=== PATIENT | male | born 1960 | race Caucasian/White ===

== ENCOUNTER 2021-11-13 11:13 | Inpatient (IN) | payer OTHER ==
[~2021-11-13] VITALS: Ht 167.6 cm; Wt 63.1 kg
[2021-11-13] MEDS ORDERED: ONDANSETRON HCL 4 MG/2 ML VIAL IV ONE (12:15)
[2021-11-13] MEDS ORDERED: SODIUM CHLORIDE 0.9% 1,000 ML IV ONE ×3 (12:15→18:15)
[2021-11-13] MEDS ORDERED: fentaNYL CITRATE 100 MCG/2 ML VL IV ONE (12:15)
[2021-11-13 13:38] LABS: Basophils # (auto) 0.1 10 ^3/uL (0-0.2); Basophils % (auto) 0.8 % (0.0-2.0); Eosinophils # (auto) 0.1 10 ^3/uL (0-0.8); Eosinophils % (auto) 1.1 % (0.0-7.0); Hematocrit 34.4 % (41.0-53.0); Hemoglobin 11.8 g/dL (13.5-17.5); Lymphocytes # (auto) 0.9 10 ^3/uL (0.4-5.4); Lymphocytes % (auto) 10.4 % (10.0-50.0); Mean Corpuscular Hemoglobin 31.4 pg (28.0-32.0); Mean Corpuscular Hgb Conc. 34.3 g/dL (32.0-36.0); Mean Corpuscular Volume 91.6 fL (80.0-100.0); Monocytes # (auto) 0.4 10 ^3/uL (0-1.3); Monocytes % (auto) 5.3 % (0.0-12.0); Neutrophils # (auto) 6.8 10 ^3/uL (1.6-8.6); Neutrophils % (auto) 82.4 % (37.0-80.0); Red Blood Cells 3.76 10^6/uL (4.5-5.90); Red Cell Distribution Width 14.5 % (11.8-14.3); White Blood Cell 8.3 10^3/uL (4.4-10.8)
[2021-11-13] MEDS ORDERED: HYDROmorphone HCL 2 MG/ML VL IV ONE (13:45)
[2021-11-13 13:48] LABS: Albumin 2.6 g/dL (3.4-5.0); BUN/Creatinine Ratio 4.7; Calcium 7.5 mg/dL (8.5-10.1); Potassium 3.8 mmol/L (3.5-5.1)
[2021-11-13 13:53] LABS: Bilirubin, Total 0.6 mg/dL (0.2-1.0); Total Protein 6.3 g/dL (6.4-8.2)
[2021-11-13] MEDS ORDERED: TAMSULOSIN HYDROCHLORIDE 0.4 MG CAP PO ONE (15:30)
[2021-11-13 16:31] LABS: Urine Bacteria NONE SEEN /hpf (None Seen); Urine Blood 1+ /uL (Negative); Urine Specific Gravity 1.009 (1.001-1.035); Urine WBC 1 /hpf (0 - 3)
[2021-11-13] MEDS: SODIUM CHLORIDE 0.9% 1,000 ML IV SCH (18:28)
[2021-11-13] MEDS ORDERED: PANTOPRAZOLE 40 MG/10 ML VIAL INJ IV ONE (18:30)
[2021-11-13] MEDS ORDERED: NICOTINE 21MG/24 HR TOPICAL PATCH TD ONE (18:30)
[2021-11-13] MEDS ORDERED: hydrALAZINE HCL 20 MG/ML VL IV PRN (18:30)
[2021-11-13 19:51] VITALS: BP 151/88
[2021-11-13] MEDS: MORPHINE SULFATE 4 MG/ML SYR/VIAL IV PRN (20:41)
[2021-11-13] MEDS ORDERED: ADAL40IN SC (20:47)
[2021-11-13] MEDS: HEPARIN SODIUM (PORCINE) 5000 UNITS/ML 1ML VIAL SC SCH (21:04)
[2021-11-13 21:35] VITALS: BP 151/88
[2021-11-14 04:08] VITALS: BP 130/73
[2021-11-14 05:18] LABS: Basophils # (auto) 0.1 10 ^3/uL (0-0.2); Eosinophils # (auto) 0.1 10 ^3/uL (0-0.8); Eosinophils % (auto) 1.7 % (0.0-7.0); Hematocrit 31.3 % (41.0-53.0); Hemoglobin 10.6 g/dL (13.5-17.5); Lymphocytes # (auto) 0.8 10 ^3/uL (0.4-5.4); Lymphocytes % (auto) 14.4 % (10.0-50.0); Mean Corpuscular Hemoglobin 31.1 pg (28.0-32.0); Mean Corpuscular Volume 91.5 fL (80.0-100.0); Monocytes # (auto) 0.3 10 ^3/uL (0-1.3); Monocytes % (auto) 6.4 % (0.0-12.0); Neutrophils # (auto) 4.1 10 ^3/uL (1.6-8.6); Neutrophils % (auto) 76.5 % (37.0-80.0); Nucleated Red Blood Cells % 0.1 %; Red Blood Cells 3.42 10^6/uL (4.5-5.90); Red Cell Distribution Width 14.1 % (11.8-14.3); White Blood Cell 5.4 10^3/uL (4.4-10.8)
[2021-11-14 05:41] LABS: Albumin 2.3 g/dL (3.4-5.0); BUN/Creatinine Ratio 5.6; Calcium 7.1 mg/dL (8.5-10.1); Potassium 3.9 mmol/L (3.5-5.1)
[2021-11-14 05:44] LABS: Bilirubin, Total 0.5 mg/dL (0.2-1.0); Total Protein 5.4 g/dL (6.4-8.2)
[2021-11-14] MEDS: SODIUM CHLORIDE 0.9% 1,000 ML IV SCH ×2 (06:05→15:26)
[2021-11-14 09:01] VITALS: BP 117/68
[2021-11-14] MEDS ORDERED: HYDROcodone-ACET 5/325MG TAB PO PRN (09:30)
[2021-11-14] MEDS ORDERED: ENOXAPARIN SOD 40 MG/0.4 ML SYRINGE SC SCH (10:00)
[2021-11-14] MEDS: PANTOPRAZOLE 40 MG/10 ML VIAL INJ IV SCH (10:27)
[2021-11-14] MEDS: NICOTINE 21MG/24 HR TOPICAL PATCH TD SCH (10:28)
[2021-11-14] MEDS: HEPARIN SODIUM (PORCINE) 5000 UNITS/ML 1ML VIAL SC SCH ×2 (10:29→21:18)
[2021-11-14 13:00] VITALS: BP 125/75
[2021-11-14 17:00] VITALS: BP 118/84
[2021-11-14] MEDS: MORPHINE SULFATE 4 MG/ML SYR/VIAL IV PRN (21:17)
[2021-11-14 22:00] VITALS: BP 145/80
[2021-11-15] MEDS: SODIUM CHLORIDE 0.9% 1,000 ML IV SCH (00:56)
[2021-11-15 05:00] VITALS: BP 120/72
[2021-11-15 05:25] LABS: Basophils # (auto) 0 10 ^3/uL (0-0.2); Basophils % (auto) 0.8 % (0.0-2.0); Eosinophils # (auto) 0.1 10 ^3/uL (0-0.8); Eosinophils % (auto) 2.5 % (0.0-7.0); Hematocrit 29.5 % (41.0-53.0); Hemoglobin 10.4 g/dL (13.5-17.5); Lymphocytes # (auto) 0.9 10 ^3/uL (0.4-5.4); Lymphocytes % (auto) 18.2 % (10.0-50.0); Mean Corpuscular Hgb Conc. 35.3 g/dL (32.0-36.0); Mean Corpuscular Volume 90.7 fL (80.0-100.0); Monocytes # (auto) 0.3 10 ^3/uL (0-1.3); Monocytes % (auto) 7.1 % (0.0-12.0); Neutrophils # (auto) 3.3 10 ^3/uL (1.6-8.6); Neutrophils % (auto) 71.4 % (37.0-80.0); Nucleated Red Blood Cells % 0.1 %; Red Blood Cells 3.25 10^6/uL (4.5-5.90); Red Cell Distribution Width 14.3 % (11.8-14.3); White Blood Cell 4.7 10^3/uL (4.4-10.8)
[2021-11-15 05:47] LABS: Potassium 3.9 mmol/L (3.5-5.1)
[2021-11-15 06:11] LABS: Albumin 2.1 g/dL (3.4-5.0); BUN/Creatinine Ratio 5.8; Calcium 7.4 mg/dL (8.5-10.1)
[2021-11-15 06:13] LABS: Bilirubin, Total 0.3 mg/dL (0.2-1.0); Total Protein 5.2 g/dL (6.4-8.2)
[2021-11-15 08:31] VITALS: BP 145/82
[2021-11-15] MEDS: PANTOPRAZOLE 40 MG/10 ML VIAL INJ IV SCH (08:55)
[2021-11-15] MEDS: NICOTINE 21MG/24 HR TOPICAL PATCH TD SCH (08:55)
[2021-11-15] MEDS: HEPARIN SODIUM (PORCINE) 5000 UNITS/ML 1ML VIAL SC SCH ×2 (08:57→21:56)
[2021-11-15] MEDS ORDERED: SODIUM BICARBONATE 50ML VIAL 50 ML in SOD CHL 0.45% 1,000 ML IV SCH (09:15)
[2021-11-15] MEDS ORDERED: MEROPENEM 500MG IVPB 50 ML IV SCH (10:00)
[2021-11-15 13:00] VITALS: BP 154/92
[2021-11-15 15:07] LABS: Protein, Urine 12.5 mg/dL (0.0-11.9)
[2021-11-15] MEDS: SODIUM BICARBONATE 50ML VIAL 50 ML in SOD CHL 0.45% 1,000 ML IV SCH ×2 (16:19→21:55)
[2021-11-15 17:00] VITALS: BP 137/89
[2021-11-15 21:44] VITALS: BP 130/91
[2021-11-16] VITALS (9 sets, daily range): BP systolic 124–154; BP diastolic 80–92
[2021-11-16] MEDS: SODIUM BICARBONATE 50ML VIAL 50 ML in SOD CHL 0.45% 1,000 ML IV SCH ×3 (05:18→23:37)
[2021-11-16 05:33] LABS: Basophils # (auto) 0 10 ^3/uL (0-0.2); Eosinophils # (auto) 0.1 10 ^3/uL (0-0.8); Eosinophils % (auto) 2.9 % (0.0-7.0); Hemoglobin 10.7 g/dL (13.5-17.5); Lymphocytes # (auto) 0.9 10 ^3/uL (0.4-5.4); Lymphocytes % (auto) 19.3 % (10.0-50.0); Mean Corpuscular Hgb Conc. 35.6 g/dL (32.0-36.0); Mean Corpuscular Volume 89.8 fL (80.0-100.0); Monocytes # (auto) 0.3 10 ^3/uL (0-1.3); Monocytes % (auto) 6.5 % (0.0-12.0); Neutrophils # (auto) 3.4 10 ^3/uL (1.6-8.6); Neutrophils % (auto) 70.3 % (37.0-80.0); Nucleated Red Blood Cells % 0.2 %; Red Blood Cells 3.34 10^6/uL (4.5-5.90); Red Cell Distribution Width 14.6 % (11.8-14.3); White Blood Cell 4.8 10^3/uL (4.4-10.8)
[2021-11-16 05:44] LABS: Potassium 3.7 mmol/L (3.5-5.1)
[2021-11-16 05:46] LABS: INR 1.05 (0.9-1.15); Partial Thromboplastin Time 30.8 sec (23.6-33.0)
[2021-11-16 05:51] LABS: Albumin 2.2 g/dL (3.4-5.0); BUN/Creatinine Ratio 5.7; Bilirubin, Total 0.4 mg/dL (0.2-1.0); Calcium 7.5 mg/dL (8.5-10.1); Total Protein 5.7 g/dL (6.4-8.2)
[2021-11-16] MEDS: PANTOPRAZOLE 40 MG/10 ML VIAL INJ IV SCH (09:13)
[2021-11-16] MEDS: NICOTINE 21MG/24 HR TOPICAL PATCH TD SCH (09:13)
[2021-11-16] MEDS: HEPARIN SODIUM (PORCINE) 5000 UNITS/ML 1ML VIAL SC SCH ×2 (09:13→09:52)
[2021-11-16 11:10] LABS: INR 1.05 (0.9-1.15); Partial Thromboplastin Time 29.5 sec (23.6-33.0)
[2021-11-16] MEDS ORDERED: IODIXANOL 320MG/ML 100ML BTL IV ONE (12:32)
[2021-11-16] MEDS ORDERED: LIDOCAINE 2%HCL (LOCAL ANESTH.) INJ 10ml MDV ONE (12:32)
[2021-11-16] MEDS ORDERED: fentaNYL CITRATE 100 MCG/2 ML VL ONE (12:42)
[2021-11-16] MEDS ORDERED: MIDAZOLAM HCL 2MG/2ML 2ml VIAL (1mg/ml) ONE (12:42)
[2021-11-16] MEDS ORDERED: TEMAZEPAM 15 MG CAP PO ONE (22:30)
[2021-11-17 05:00] VITALS: BP 125/72
[2021-11-17] MEDS: SODIUM BICARBONATE 50ML VIAL 50 ML in SOD CHL 0.45% 1,000 ML IV SCH (06:30)
[2021-11-17 06:33] LABS: Basophils # (auto) 0 10 ^3/uL (0-0.2); Basophils % (auto) 0.7 % (0.0-2.0); Eosinophils # (auto) 0.2 10 ^3/uL (0-0.8); Eosinophils % (auto) 3.2 % (0.0-7.0); Hematocrit 29.6 % (41.0-53.0); Hemoglobin 10.6 g/dL (13.5-17.5); Lymphocytes % (auto) 18.8 % (10.0-50.0); Mean Corpuscular Hemoglobin 31.9 pg (28.0-32.0); Mean Corpuscular Hgb Conc. 35.8 g/dL (32.0-36.0); Mean Corpuscular Volume 89.1 fL (80.0-100.0); Monocytes # (auto) 0.3 10 ^3/uL (0-1.3); Monocytes % (auto) 5.9 % (0.0-12.0); Neutrophils # (auto) 3.6 10 ^3/uL (1.6-8.6); Neutrophils % (auto) 71.4 % (37.0-80.0); Nucleated Red Blood Cells % 0.1 %; Red Blood Cells 3.32 10^6/uL (4.5-5.90); Red Cell Distribution Width 14.4 % (11.8-14.3); White Blood Cell 5.1 10^3/uL (4.4-10.8)
[2021-11-17 06:53] LABS: Albumin 2.3 g/dL (3.4-5.0); BUN/Creatinine Ratio 7.4; Calcium 7.9 mg/dL (8.5-10.1); Potassium 3.8 mmol/L (3.5-5.1)
[2021-11-17 06:55] LABS: Bilirubin, Total 0.4 mg/dL (0.2-1.0); Total Protein 5.7 g/dL (6.4-8.2)
[2021-11-17 09:00] VITALS: BP 153/87
[2021-11-17] MEDS: HEPARIN SODIUM (PORCINE) 5000 UNITS/ML 1ML VIAL SC SCH (09:16)
[2021-11-17] MEDS: NICOTINE 21MG/24 HR TOPICAL PATCH TD SCH (09:16)
[2021-11-17] MEDS: PANTOPRAZOLE 40 MG/10 ML VIAL INJ IV SCH (09:16)
[2021-11-17] MEDS ORDERED: HYDR-4798 PO (10:25)
[2021-11-17 13:00] VITALS: BP 144/88
[2021-11-17] MEDS ORDERED: ERGOCALCIFEROL 50,000 UNIT(1.25MG) CAP PO SCH (13:00)
== END 2021-11-17 15:40 | disposition home health service (06) | DRG 386 ==
LOC: ER 11:13 → CENTRAL 18:11
PROVIDERS: ADMIT Registered Nurse; ATTEND Hospitalist
PROC: 0T9030Z Drainage of Right Kidney with Drainage Device, Percutaneous Approach (ICD-10-PCS; principal; 2021-11-16)
PROC: BT41ZZZ Ultrasonography of Right Kidney (ICD-10-PCS; 2021-11-16)
PROC: BT11YZZ Fluoroscopy of Right Kidney using Other Contrast (ICD-10-PCS; 2021-11-16)
DX: K50.90 Crohn's disease, unspecified, without complications (principal); N13.2 Hydronephrosis with renal and ureteral calculous obstruction; E87.2 Acidosis; J98.11 Atelectasis; K76.6 Portal hypertension; N17.9 Acute kidney failure, unspecified; E86.0 Dehydration; N13.9 Obstructive and reflux uropathy, unspecified; D63.1 Anemia in chronic kidney disease; F17.210 Nicotine dependence, cigarettes, uncomplicated; Z20.822 Contact with and (suspected) exposure to COVID-19; E88.09 Other disorders of plasma-protein metabolism, not elsewhere classified; N18.9 Chronic kidney disease, unspecified; Z85.118 Personal history of other malignant neoplasm of bronchus and lung; Z87.442 Personal history of urinary calculi; Z90.49 Acquired absence of other specified parts of digestive tract; Z71.6 Tobacco abuse counseling
CPT/HCPCS: 36415; 50430; 71045; 74018; 74176; 74425; 76775; 76942; 80053; 81001; 82306; 82570; 83690; 83970; 84100; 84156; 84300; 84484; 85025; 85610; 85730; 87340; 93005; 96361; 96374; 96375; 99152; 99153; 99291; C9113; G0378; J2001; J2185; J2250; J2405; Q9967

== ENCOUNTER 2021-11-27 19:28 | Inpatient (IN) | payer OTHER ==
[~2021-11-27] VITALS: Ht 177.8 cm; Wt 68.2 kg
[~2021-11-27 19:28] MED LIST: ADAL40IN SC; HYDR-4798 PO
[2021-11-27 21:09] LABS: Albumin 2.7 g/dL (3.4-5.0); Potassium 3.9 mmol/L (3.5-5.1)
[2021-11-27 21:11] LABS: Basophils # (auto) 0.1 10 ^3/uL (0-0.2); Basophils % (auto) 0.6 % (0.0-2.0); Eosinophils # (auto) 0 10 ^3/uL (0-0.8); Eosinophils % (auto) 0.3 % (0.0-7.0); Hematocrit 31.5 % (41.0-53.0); Lymphocytes # (auto) 0.5 10 ^3/uL (0.4-5.4); Lymphocytes % (auto) 5.1 % (10.0-50.0); Mean Corpuscular Hemoglobin 31.3 pg (28.0-32.0); Mean Corpuscular Hgb Conc. 34.8 g/dL (32.0-36.0); Monocytes # (auto) 0.6 10 ^3/uL (0-1.3); Monocytes % (auto) 5.9 % (0.0-12.0); Neutrophils # (auto) 9.2 10 ^3/uL (1.6-8.6); Neutrophils % (auto) 88.1 % (37.0-80.0); Nucleated Red Blood Cells % 0.1 %; Red Cell Distribution Width 14.4 % (11.8-14.3); White Blood Cell 10.4 10^3/uL (4.4-10.8)
[2021-11-27 21:13] LABS: BUN/Creatinine Ratio 6.8; Bilirubin, Total 0.7 mg/dL (0.2-1.0); Total Protein 6.5 g/dL (6.4-8.2)
[2021-11-27] MEDS ORDERED: SODIUM CHLORIDE 0.9% 1,000 ML IV ONE (22:45)
[2021-11-27] MEDS ORDERED: cefTRIAXone 1GM/50ML D5W 50 ML IV ONE (22:45)
[2021-11-27] MEDS ORDERED: fentaNYL CITRATE 100 MCG/2 ML VL IV ONE (22:45)
[2021-11-28] MEDS ORDERED: MORPHINE SULFATE INJ 2 MG/ml SYRG IV PRN ×2 (01:00→05:15)
[2021-11-28] MEDS ORDERED: ONDANSETRON HCL 4 MG/2 ML VIAL IV PRN (01:00)
[2021-11-28] MEDS ORDERED: NITROGLYCERIN 0.4 MG SL TAB SL PRN ×2 (01:00→05:15)
[2021-11-28 01:30] LABS: Urine Bacteria NONE SEEN /hpf (None Seen); Urine Blood 1+ /uL (Negative); Urine Mucus FEW (None Seen); Urine Specific Gravity 1.013 (1.001-1.035); Urine WBC 314 /hpf (0 - 3)
[2021-11-28] MEDS: SODIUM CHLORIDE 0.9% 1,000 ML IV SCH ×3 (01:54→08:03)
[2021-11-28] MEDS: MORPHINE SULFATE INJ 2 MG/ml SYRG IV PRN ×3 (01:58→20:40)
[2021-11-28] MEDS ORDERED: KETOROLAC TROMETH 30 MG/ML 1ML VIAL IV ONE ×2 (05:15→07:15)
[2021-11-28 06:00] VITALS: BP 137/74
[2021-11-28 06:34] VITALS: BP 137/74
[2021-11-28] MEDS ORDERED: ACETAMINOPHEN 325 MG TAB PO PRN (07:00)
[2021-11-28 08:47] LABS: Basophils # (auto) 0 10 ^3/uL (0-0.2); Basophils % (auto) 0.5 % (0.0-2.0); Eosinophils # (auto) 0 10 ^3/uL (0-0.8); Eosinophils % (auto) 0.1 % (0.0-7.0); Hematocrit 27.9 % (41.0-53.0); Hemoglobin 9.7 g/dL (13.5-17.5); Lymphocytes # (auto) 0.7 10 ^3/uL (0.4-5.4); Mean Corpuscular Hemoglobin 31.3 pg (28.0-32.0); Mean Corpuscular Hgb Conc. 34.8 g/dL (32.0-36.0); Mean Corpuscular Volume 89.9 fL (80.0-100.0); Monocytes # (auto) 0.7 10 ^3/uL (0-1.3); Neutrophils # (auto) 7.4 10 ^3/uL (1.6-8.6); Neutrophils % (auto) 83.4 % (37.0-80.0); Red Cell Distribution Width 14.2 % (11.8-14.3); White Blood Cell 8.9 10^3/uL (4.4-10.8)
[2021-11-28 09:14] LABS: Calcium 7.5 mg/dL (8.5-10.1); Potassium 3.7 mmol/L (3.5-5.1)
[2021-11-28] MEDS: HEPARIN SODIUM (PORCINE) 5000 UNITS/ML 1ML VIAL SC SCH ×2 (10:10→21:47)
[2021-11-28] MEDS ORDERED: [UNRECOGNIZED DRUG - REMARK] IV SCH (12:15)
[2021-11-28 13:00] VITALS: BP 117/67
[2021-11-28] MEDS ORDERED: VANCOMYCIN 1GM/250ML 250 ML IV ONE (13:15)
[2021-11-28] MEDS: MEROPENEM 1GM IVPB 100 ML IV SCH ×2 (14:45→21:45)
[2021-11-28 17:00] VITALS: BP 127/69
[2021-11-28] MEDS ORDERED: KETOROLAC TROMETH 30 MG/ML 1ML VIAL IV PRN (17:30)
[2021-11-28] MEDS: KETOROLAC TROMETH 30 MG/ML 1ML VIAL IV PRN (17:59)
[2021-11-28] MEDS: TAMSULOSIN HYDROCHLORIDE 0.4 MG CAP PO SCH (17:59)
[2021-11-28 20:00] VITALS: BP 115/66
[2021-11-28] MEDS ORDERED: cefTRIAXone 1GM/50ML D5W 50 ML IV SCH (21:00)
[2021-11-28] MEDS: TEMAZEPAM 15 MG CAP PO PRN (21:55)
[2021-11-28 22:00] VITALS: BP 115/66
[2021-11-29] MEDS: KETOROLAC TROMETH 30 MG/ML 1ML VIAL IV PRN ×3 (01:11→18:21)
[2021-11-29 05:00] VITALS: BP 103/57
[2021-11-29] MEDS: MEROPENEM 1GM IVPB 100 ML IV SCH ×2 (05:57→21:45)
[2021-11-29] MEDS: SODIUM CHLORIDE 0.9% 1,000 ML IV SCH ×3 (05:57→20:32)
[2021-11-29 06:35] LABS: Basophils # (auto) 0 10 ^3/uL (0-0.2); Basophils % (auto) 0.5 % (0.0-2.0); Eosinophils # (auto) 0 10 ^3/uL (0-0.8); Eosinophils % (auto) 0.3 % (0.0-7.0); Hematocrit 27.7 % (41.0-53.0); Hemoglobin 9.7 g/dL (13.5-17.5); Lymphocytes # (auto) 0.7 10 ^3/uL (0.4-5.4); Lymphocytes % (auto) 7.2 % (10.0-50.0); Mean Corpuscular Hemoglobin 31.6 pg (28.0-32.0); Mean Corpuscular Hgb Conc. 34.9 g/dL (32.0-36.0); Mean Corpuscular Volume 90.4 fL (80.0-100.0); Monocytes # (auto) 0.8 10 ^3/uL (0-1.3); Monocytes % (auto) 8.8 % (0.0-12.0); Neutrophils # (auto) 7.6 10 ^3/uL (1.6-8.6); Neutrophils % (auto) 83.2 % (37.0-80.0); Red Blood Cells 3.07 10^6/uL (4.5-5.90); Red Cell Distribution Width 14.4 % (11.8-14.3); White Blood Cell 9.2 10^3/uL (4.4-10.8)
[2021-11-29 06:54] LABS: Potassium 4.2 mmol/L (3.5-5.1)
[2021-11-29 06:59] LABS: BUN/Creatinine Ratio 10.1; Calcium 7.7 mg/dL (8.5-10.1)
[2021-11-29 09:00] VITALS: BP 147/77
[2021-11-29] MEDS: HEPARIN SODIUM (PORCINE) 5000 UNITS/ML 1ML VIAL SC SCH ×2 (10:00→22:00)
[2021-11-29] MEDS ORDERED: SODIUM CHLORIDE 0.9% 2,000 ML IV ONE (10:45)
[2021-11-29 13:00] VITALS: BP 120/66
[2021-11-29] MEDS ORDERED: VANCOMYCIN 1GM/250ML 250 ML IV ONE (13:00)
[2021-11-29 17:00] VITALS: BP 135/78
[2021-11-29] MEDS: TAMSULOSIN HYDROCHLORIDE 0.4 MG CAP PO SCH (18:20)
[2021-11-29 20:00] VITALS: BP 128/73
[2021-11-29] MEDS: TEMAZEPAM 15 MG CAP PO PRN (20:32)
[2021-11-29 22:00] VITALS: BP 128/73
[2021-11-29] MEDS ORDERED: carBAMazepine 200 MG TAB PO SCH (22:00)
[2021-11-30] MEDS: KETOROLAC TROMETH 30 MG/ML 1ML VIAL IV PRN ×2 (02:25→09:57)
[2021-11-30] MEDS: MORPHINE SULFATE INJ 2 MG/ml SYRG IV PRN (03:36)
[2021-11-30 05:00] VITALS: BP 130/75
[2021-11-30 05:27] LABS: Basophils # (auto) 0 10 ^3/uL (0-0.2); Basophils % (auto) 0.5 % (0.0-2.0); Eosinophils # (auto) 0.1 10 ^3/uL (0-0.8); Eosinophils % (auto) 1.2 % (0.0-7.0); Hematocrit 24.3 % (41.0-53.0); Hemoglobin 8.5 g/dL (13.5-17.5); Lymphocytes # (auto) 0.4 10 ^3/uL (0.4-5.4); Lymphocytes % (auto) 7.1 % (10.0-50.0); Mean Corpuscular Hemoglobin 31.3 pg (28.0-32.0); Mean Corpuscular Volume 89.5 fL (80.0-100.0); Monocytes # (auto) 0.5 10 ^3/uL (0-1.3); Monocytes % (auto) 7.7 % (0.0-12.0); Neutrophils % (auto) 83.5 % (37.0-80.0); Nucleated Red Blood Cells % 0.1 %; Red Blood Cells 2.72 10^6/uL (4.5-5.90); Red Cell Distribution Width 14.4 % (11.8-14.3)
[2021-11-30 05:46] LABS: BUN/Creatinine Ratio 9.6; Calcium 7.4 mg/dL (8.5-10.1); Potassium 3.2 mmol/L (3.5-5.1)
[2021-11-30 09:00] VITALS: BP 131/78
[2021-11-30] MEDS: HEPARIN SODIUM (PORCINE) 5000 UNITS/ML 1ML VIAL SC SCH ×2 (09:57→22:00)
[2021-11-30] MEDS: MEROPENEM 1GM IVPB 100 ML IV SCH (09:57)
[2021-11-30] MEDS: carBAMazepine 200 MG TAB PO SCH ×3 (09:57→22:53)
[2021-11-30 10:19] LABS: INR 1.1 (0.9-1.15); Partial Thromboplastin Time 31.6 sec (23.6-33.0)
[2021-11-30 13:00] VITALS: BP 127/77
[2021-11-30] MEDS: VANCOMYCIN 1GM/250ML 250 ML IV SCH (14:08)
[2021-11-30] MEDS: SODIUM CHLORIDE 0.9% 1,000 ML IV SCH (14:19)
[2021-11-30 17:00] VITALS: BP 129/72
[2021-11-30] MEDS: predniSONE 20 MG TAB PO STA ×3 (17:40→18:15)
[2021-11-30] MEDS: TAMSULOSIN HYDROCHLORIDE 0.4 MG CAP PO SCH (18:25)
[2021-11-30 20:00] VITALS: BP 134/74
[2021-11-30 22:00] VITALS: BP 134/74
[2021-12-01] MEDS: SODIUM CHLORIDE 0.9% 1,000 ML IV SCH ×2 (04:52→17:38)
[2021-12-01 05:00] VITALS: BP 132/81
[2021-12-01 05:43] LABS: Basophils # (auto) 0 10 ^3/uL (0-0.2); Basophils % (auto) 0.4 % (0.0-2.0); Eosinophils # (auto) 0 10 ^3/uL (0-0.8); Eosinophils % (auto) 0.1 % (0.0-7.0); Hematocrit 28.6 % (41.0-53.0); Lymphocytes # (auto) 0.3 10 ^3/uL (0.4-5.4); Lymphocytes % (auto) 9.4 % (10.0-50.0); Mean Corpuscular Hemoglobin 31.7 pg (28.0-32.0); Mean Corpuscular Hgb Conc. 35.1 g/dL (32.0-36.0); Mean Corpuscular Volume 90.4 fL (80.0-100.0); Monocytes # (auto) 0.1 10 ^3/uL (0-1.3); Monocytes % (auto) 2.1 % (0.0-12.0); Neutrophils # (auto) 2.6 10 ^3/uL (1.6-8.6); Nucleated Red Blood Cells % 0.1 %; Red Blood Cells 3.17 10^6/uL (4.5-5.90); Red Cell Distribution Width 14.3 % (11.8-14.3)
[2021-12-01 05:55] LABS: Albumin 1.9 g/dL (3.4-5.0); BUN/Creatinine Ratio 7.8; Potassium 4.7 mmol/L (3.5-5.1)
[2021-12-01 06:02] LABS: Bilirubin, Total 0.3 mg/dL (0.2-1.0); Calcium 8.1 mg/dL (8.5-10.1)
[2021-12-01] MEDS: carBAMazepine 200 MG TAB PO SCH ×2 (06:29→22:34)
[2021-12-01 09:00] VITALS: BP 124/79
[2021-12-01] MEDS: HEPARIN SODIUM (PORCINE) 5000 UNITS/ML 1ML VIAL SC SCH ×2 (09:23→22:00)
[2021-12-01] MEDS ORDERED: predniSONE 20 MG TAB PO SCH (10:00)
[2021-12-01 13:00] VITALS: BP 128/80
[2021-12-01] MEDS: VANCOMYCIN 1GM/250ML 250 ML IV SCH (14:30)
[2021-12-01 17:00] VITALS: BP 139/85
[2021-12-01] MEDS: TAMSULOSIN HYDROCHLORIDE 0.4 MG CAP PO SCH (17:37)
[2021-12-01] MEDS ORDERED: carBAMazepine 200 MG TAB PO SCH (20:00)
[2021-12-01] MEDS: NAFCILLIN SOD 2GM 2 GM in SODIUM CHL 0.9% 100 ML IV SCH (20:24)
[2021-12-01 22:00] VITALS: BP 137/79
[2021-12-01] MEDS: KETOROLAC TROMETH 30 MG/ML 1ML VIAL IV PRN (22:35)
[2021-12-02] MEDS: MORPHINE SULFATE INJ 2 MG/ml SYRG IV PRN (00:52)
[2021-12-02] MEDS: NAFCILLIN SOD 2GM 2 GM in SODIUM CHL 0.9% 100 ML IV SCH ×6 (01:48→14:45)
[2021-12-02 05:00] VITALS: BP 109/66
[2021-12-02] MEDS: SODIUM CHLORIDE 0.9% 1,000 ML IV SCH (07:25)
[2021-12-02] MEDS: carBAMazepine 200 MG TAB PO SCH (08:41)
[2021-12-02] MEDS: HEPARIN SODIUM (PORCINE) 5000 UNITS/ML 1ML VIAL SC SCH (08:42)
[2021-12-02 09:00] VITALS: BP 136/79
[2021-12-02] MEDS ORDERED: TAM04C PO (10:35)
[2021-12-02] MEDS ORDERED: CARB200T4 PO (10:35)
[2021-12-02 13:00] VITALS: BP 129/78
[2021-12-02] MEDS ORDERED: LIDOCAINE 1% (LOCAL ANESTH.) PF 5ml SDV ID ONE (15:00)
[2021-12-02] MEDS ORDERED: SODIUM CHLOR 0.9% PF (SALINE LOCK) 10ML VIAL/SYR IV SCH (22:00)
== END 2021-12-02 16:50 | disposition home or self-care (01) | DRG 102 ==
LOC: ER 19:30 → OVERFLOW 11-28 05:13 → UNDOADMOB 11-28 05:13 → TELE-EAST 11-28 05:13 → TELE 11-28 05:13 → UNDOADMOB 11-28 05:17 → OVERFLOW 11-28 05:17 → ER 11-28 06:02 → TELE 11-28 06:21 → TELE-EAST 11-28 06:21 → INTOOBSV 11-28 11:30 → OBSVTOIN 11-28 11:30 → INTOOBSV 11-30 11:30 → TELE-EAST 12-02 10:40 → EAST 12-02 10:40 → UNDODISIN 12-02 16:50
PROVIDERS: ADMIT Hospitalist; ATTEND Hospitalist
PROC: 05H933Z Insertion of Infusion Device into Right Brachial Vein, Percutaneous Approach (ICD-10-PCS; principal; 2021-12-02)
PROC: B54MZZA Ultrasonography of Right Upper Extremity Veins, Guidance (ICD-10-PCS; 2021-12-02)
DX: R51.9 Headache, unspecified (principal); N17.0 Acute kidney failure with tubular necrosis; K50.90 Crohn's disease, unspecified, without complications; N20.2 Calculus of kidney with calculus of ureter; N12 Tubulo-interstitial nephritis, not specified as acute or chronic; N18.31 Chronic kidney disease, stage 3a; G89.29 Other chronic pain; Z20.822 Contact with and (suspected) exposure to COVID-19; A49.01 Methicillin susceptible Staphylococcus aureus infection, unspecified site; Z79.899 Other long term (current) drug therapy; Z87.442 Personal history of urinary calculi; Z79.52 Long term (current) use of systemic steroids
CPT/HCPCS: 36415; 36569; 70450; 71045; 74018; 74176; 80048; 80053; 80202; 81001; 82306; 82565; 83605; 83880; 83970; 84100; 84484; 85025; 85610; 85652; 85730; 86141; 87040; 87077; 87086; 87088; 87186; 93005; 93306; 96365; 96367; 96375; G0378; J0696; J1885; J2185

== ENCOUNTER 2024-07-13 13:45 | Inpatient (IN) | payer OTHER ==
[~2024-07-13] VITALS: Ht 172.7 cm; Wt 67.0 kg
[2024-07-13 04:11] VITALS: PULSE 74; RESP 18; O2SAT 96
[~2024-07-13 13:45] MED LIST changes: +CARB200T4 PO; +TAMS-35 PO
[2024-07-13 14:30] LABS: Basophils # (auto) 0.1 10 ^3/uL (0-0.2); Eosinophils # (auto) 0.1 10 ^3/uL (0-0.8); Hematocrit 25.4 % (41.0-53.0); Hemoglobin 8.2 g/dL (13.5-17.5); Lymphocytes # (auto) 0.6 10 ^3/uL (0.4-5.4); Mean Corpuscular Hemoglobin 31.9 pg (28.0-32.0); Monocytes # (auto) 0.4 10 ^3/uL (0-1.3)
[2024-07-13 14:31] LABS: Basophils % (auto) 0.9 % (0.0-2.0); Eosinophils % (auto) 0.9 % (0.0-7.0); Lymphocytes % (auto) 6.2 % (10.0-50.0); Mean Corpuscular Hgb Conc. 32.2 g/dL (32.0-36.0); Mean Corpuscular Volume 99.1 fL (80.0-100.0); Monocytes % (auto) 4.2 % (0.0-12.0); Neutrophils # (auto) 8.9 10 ^3/uL (1.6-8.6); Neutrophils % (auto) 87.8 % (37.0-80.0); Platelet Count (auto) 300 10^3/uL (140-450); Red Blood Cells 2.57 10^6/uL (4.5-5.90); Red Cell Distribution Width 18.2 % (11.8-14.3); White Blood Cell 10.2 10^3/uL (4.4-10.8)
--- NOTE | 2024-07-13 14:40 | ED.PDOC ---
History of Present Illness HPI Comments 64Y M presents to ED for chief complaint abnormal labs. Pt is experiencing sore throat, unintentional weight loss, hand numbness/tingling, hair falling out, and fatigue x1.5months. Pt was sent to ED by microwave remote sensing scientist Dr. Ng for possible low potassium. No known allergies. Chief Complaint: Abnormal LAB's Time Seen by MD: 14:26 Primary Care Provider: OCTAVIO Zimmerman Notes: Medications, Allergies Allergies: Coded Allergies: NO KNOWN ALLERGIES (Unverified , 11/13/21) Home Meds Active Scripts Tamsulosin Hcl (Flomax) 0.4 Mg Cap, 0.4 MG PO QPM, #30 CAP Prov:NIKHIL MCKINNEY MD 12/02/21 Carbamazepine (Carbamazepine) 200 Mg Tab, 100 MG PO BID, #60 TAB Prov:NIKHIL MCKINNEY MD 12/02/21 Hydrocodone-Acetaminophen (Hydrocodone Bitartrate/AC 10-325 mg) 1 Tab Tab, 1 TAB PO Q6HP PRN, #20 TAB Prov:NIKHIL MCKINNEY MD 11/17/21 Reported Medications Adalimumab (Humira) 40 Mg/0.4 Ml Inj, 40 MG SC, INJ unknown dose 1 injection [id number] 11/13/21 Information Source: Patient Mode of Arrival: Ambulatory Severity: Mild Timing: Months Duration: Since onset Past Medical History PAST MEDICAL HISTORY: Unknown Surgical History: Denies all surgeries Family History Family History: Reviewed,noncontributory to illness Social History Smoker: Non-Smoker Alcohol: Denies ETOH Use Drugs: Denies Drug Use Lives In: Home Constitutional: reports: fatigue; denies: chills, diaphoresis, fever, malaise, sweats, weakness, others EENTM: reports: throat pain; denies: blurred vision, double vision, ear bleeding, ear discharge, ear drainage, ear pain, ear ringing, eye pain, eye redness, hearing loss, mouth pain, mouth swelling, nasal discharge, nose bleeding, nose congestion, nose pain, photophobia, tearing, throat swelling, voice changes, others Respiratory: denies: cough, hemoptysis, orthopnea, SOB at rest, shortness of breath, SOB with excertion, stridor, wheezing, others Cardiovascular: denies: chest pain, dizzy spells, diaphoresis, Dyspnea on exertion, edema, irregular heart beat, left arm pain, lightheadedness, palpitations, PND, syncope, others Gastrointestinal: denies: abdomen distended, abdominal pain, blood streaked bowels, constipated, diarrhea, dysphagia, difficulty swallowing, hematemesis, melena, nausea, poor appetite, poor fluid intake, rectal bleeding, rectal pain, vomiting, others Genitourinary: denies: burning, dysuria, flank pain, frequency, hematuria, incontinence, penile discharge, penile sore, pain, testicle pain, testicle swelling, urgency, others Neurological: reports: numbness (hands), tingling (hands); denies: dizziness, fainting, headache, left sided numbness, left sided weakness, paresthesia, pre- existing deficit, right sided numbness, right sided weakness, seizure, speech problems, tremors, weakness, others Musculoskeletal: denies: back pain, gout, joint pain, joint swelling, muscle pain, muscle stiffness, neck pain, others Integumetry: reports: others (hair fallingo ut); denies: bruises, change in color, change in hair/nails, dryness, laceration, lesions, lumps, rash, wounds Allergic/Immunocompromised: denies: Difficulty Healing, Frequent Infections, Hives, Itching, others Hematologic/Lymphatic: denies: anemia, blood clots, easy bleeding, easy bruising, swollen glands, others Endocrine: reports: unexplained weight loss; denies: excessive hunger, excessive sweating, excessive thirst, excessive urination, flushing, intolerance to cold, intolerance to heat, unexplained weight gain, others Psychiatric: denies: anxiety, bipolar disorder, depression, hopeless, panic disorder, schizophrenia, sleepless, suicidal, others All Other Systems: Reviewed and Negative Physical Exam General Appearance: No Apparent Distress, Normal HEENT: Normal ENT Inspection, Pharynx Normal, TMs Normal Neck: Full Range of Motion, Non-Tender, Normal, Normal Inspection Respiratory: Chest Non-Tender, Lungs Clear, No Accessory Muscle Use, No Respiratory Distress, Normal Breath Sounds Cardiovascular: No Edema, No JVD, No Murmur, No Gallop, Normal Peripheral Pulses, Regular Rate/Rhythm Breast Exam: Deferred Gastrointestinal: No Organomegaly, Non Tender, No Pulsatile Mass, Normal Bowel Sounds, Soft Genitalia: Deferred Pelvic: Deferred Rectal: Deferred Extremities: No calf tenderness, Normal capillary refill, Normal inspection, Normal range of motion, Non-tender, No pedal edema Musculoskeletal : Apperance: Normal Neurologic: Alert, counter tacker II-XII nml as Tested, No Motor Deficits, Normal Affect, Normal Mood, No Sensory Deficits Cerebellar Function: Normal Reflexes: Normal Skin: Dry, Normal Color, Warm Lymphatic: No Adenopathy Was a procedure done? Was a procedure done?: No Differential Dx Considerations may include: This 64-year-old male presents to emergency room secondary to general malaise. He states the last several months, he has lost. The 40 lb of weight. He also complains of having here that is falling out, dry mouth no appetite and feeling cold. He was asked significant for multiple findings including hypo kalemia, hypocalcemia and anemia. Based on these findings, as concerned the patient may be hypothyroid. TSH was ordered. Additionally, his calcium and potassium were replaced. X-Ray, Labs, Meds, VS Vital Signs Date Time Temp Pulse Resp B/P (MAP) Pulse Ox O2 Delivery O2 Flow Rate FiO2 07/13/24 16:00 82 14 101/65 (77) 99 07/13/24 16:00 82 14 99 Room Air* 0 21 07/13/24 14:42 90 18 100 Room Air 07/13/24 14:11 88 07/13/24 14:05 98.3 90 17 93/61 (72) 100 Lab Test 07/13/24 14:30 07/13/24 14:14 Range/Units Urine Color Light-yellow Yellow Urine Clarity Turbid H Clear Urine pH 6.0 5.0-9.0 Urine Specific [place] 1.011 1.001-1.035 Urine Protein 1+ H Negative Urine Ketones Negative Negative Urine Blood 2+ H Negative /uL Urine Nitrite Negative Negative Urine Bilirubin Negative Negative Urine Urobilinogen Normal Negative mg/dL Urine Leukocyte Esterase 3+ Negative /uL Urine RBC 4 0 - 3 /hpf Urine WBC 237 0 - 3 /hpf Urine Squamous Epithelial Cells Few <5 /hpf Urine Bacteria Few H None Seen /hpf Urine Yeast (Budding) Occasional None Seen /hpf Urine Glucose Normal Normal mg/dL White Blood Count 10.2 4.4-10.8 10^3/uL Red Blood Count 2.57 L 4.5-5.90 10^6/uL Hemoglobin 8.2 L 13.5-17.5 g/dL Hematocrit 25.4 L 41.0-53.0 % Mean Corpuscular Volume 99.1 80.0-100.0 fL Mean Corpuscular Hemoglobin 31.9 28.0-32.0 pg Mean Corpuscular Hemoglobin Concent 32.2 32.0-36.0 g/dL Red Cell Distribution Width 18.2 H 11.8-14.3 % Platelet Count 300 140-450 10^3/uL Mean Platelet Volume 7.4 6.9-10.8 fL Neutrophils (%) (Auto) 87.8 H 37.0-80.0 % Lymphocytes (%) (Auto) 6.2 L 10.0-50.0 % Monocytes (%) (Auto) 4.2 0.0-12.0 % Eosinophils (%) (Auto) 0.9 0.0-7.0 % Basophils (%) (Auto) 0.9 0.0-2.0 % Neutrophils # (Auto) 8.9 H 1.6-8.6 10 ^3/uL Lymphocytes # (Auto) 0.6 0.4-5.4 10 ^3/uL Monocytes # (Auto) 0.4 0-1.3 10 ^3/uL Eosinophils # (Auto) 0.1 0-0.8 10 ^3/uL Basophils # (Auto) 0.1 0-0.2 10 ^3/uL Nucleated Red Blood Cells 0.0 % Sodium Level 136 136-145 mmol/L Potassium Level 2.3 *L 3.5-5.1 mmol/L Chloride Level 109 H 98-107 mmol/L Carbon Dioxide Level 12 L 20-31 mmol/L Anion Gap 15 5-15 Blood Urea Nitrogen 50 H 9-23 mg/dL Creatinine 5.46 H 0.700-1.30 mg/dL Glomerular Filtration Rate Calc 11 >90 mL/min BUN/Creatinine Ratio 9.2 L 10.0-20.0 Serum Glucose 103 74-106 mg/dL Calcium Level 5.5 *L 8.7-10.4 mg/dL Total Bilirubin 0.2 0.2-1.0 mg/dL Aspartate Amino Transferase (AST) 20 13-40 U/L Alanine Aminotransferase (ALT) 15 7-40 U/L Alkaline Phosphatase 92 46-116 U/L Troponin I High Sensitivity 13 </=54 ng/L Total Protein 5.8 5.7-8.2 g/dL Albumin 3.3 3.2-4.8 g/dL Thyroid Stimulating Hormone (TSH) 2.95 0.55-4.78 uIU/mL Current Medications Medications (Trade) Dose Ordered Sig/Rick Route Start Time Stop Time Status Last Admin Potassium Chloride 40 meq/ Sodium Chloride 1,020 ml @ 60 mls/hr Q17H IV 07/13/24 15:15 07/13/24 16:20 Potassium Bicarbonate (Klor-Con/Ef) 50 meq ONCE ONCE PO 07/13/24 15:15 07/13/24 15:17 DC 07/13/24 16:07 Time of 1ST Reevaluation: 14:56 Reevaluation 1ST: Unchanged Time of 2ND Reevaluation: 16:40 Reevaluation 3RD: Unchanged Patient Education/Counseling: Diagnosis, Treatment Family Education/Counseling: No Family Present Departure 1 Departure Time of Disposition: 16:40 Impression: Primary Impression: Weakness Additional Impressions: Hypokalemia Acidosis Anemia Neutrophilia Disposition: ADMITTED INPATIENT Admit to: Tele Condition: Fair Critical Care Note Critical Care Time?: Yes (30 min-critical care time only) Stability Stability form required: No Heart Score Heart Score: Heart Score Response (Comments) Value History N/A 0 EKG N/A 0 Age N/A 0 Risk Factors N/A 0 Troponin N/A 0 Total 0 I personally scribed for SYLVIA ARGUETA MD ([email or web address]) on 07/13/24 at 14:40. Electronically submitted by Lida Mendoza ([email or web address]). SYLVIA ARGUETA MD Jul 13, 2024 14:40
[2024-07-13 14:49] LABS: Alanine Aminotransferase 15 U/L (7-40); Albumin 3.3 g/dL (3.2-4.8); Alkaline Phosphatase 92 U/L (46-116); Anion Gap 15 (5-15); Aspartate Aminotransferase 20 U/L (13-40); BUN/Creatinine Ratio 9.2 (10.0-20.0); Bilirubin, Total 0.2 mg/dL (0.2-1.0); Glucose 103 mg/dL (74-106); Sodium 136 mmol/L (136-145); Total Protein 5.8 g/dL (5.7-8.2)
[2024-07-13 14:55] LABS: Blood Urea Nitrogen 50 mg/dL (9-23); Carbon Dioxide 12 mmol/L (20-31); Chloride 109 mmol/L (98-107)
[2024-07-13 14:56] LABS: Calcium 5.5 mg/dL (8.7-10.4); Potassium 2.3 mmol/L (3.5-5.1)
[2024-07-13 15:56] LABS: Urine Bacteria FEW /hpf (None Seen); Urine Blood 2+ /uL (Negative); Urine Budding Yeast OCCASIONAL /hpf (None Seen); Urine Clarity Turbid (Clear); Urine Color Light-Yellow (Yellow); Urine Protein, UAD 1+ (Negative); Urine Specific Gravity 1.011 (1.001-1.035); Urine Squamous Epithelial Cell FEW /hpf (<5); Urine Urobilinogen Normal (Negative); Urine WBC 237 /hpf (0 - 3)
[2024-07-13 16:00] VITALS: PULSE 82; RESP 14; O2SAT 99
[2024-07-13] MEDS: POTASSIUM EFFERVESENT TAB 25 MEQ PO ONE (16:07)
[2024-07-13] MEDS: POTASSIUM CHLORIDE 40 MEQ in SOD CHL 0.45% 1,000 ML IV SCH (16:20)
[2024-07-13] MEDS: POTASSIUM CHL 20MEQ/100ML 100 ML IV SCH (19:00)
[2024-07-13 19:35] VITALS: PULSE 73; RESP 16; O2SAT 100
[2024-07-13] MEDS ORDERED: ONDANSETRON HCL 4 MG/2 ML VIAL IV PRN (19:45)
[2024-07-13] MEDS ORDERED: ACETAMINOPHEN 325 MG TAB PO PRN (19:45)
[2024-07-13] MEDS ORDERED: cefTRIAXone 1GM/50ML D5W 50 ML IV ONE (20:00)
[2024-07-13 20:41] LABS: Basophils # (auto) 0 10 ^3/uL (0-0.2); Basophils % (auto) 0.4 % (0.0-2.0); Eosinophils # (auto) 0.1 10 ^3/uL (0-0.8); Eosinophils % (auto) 1.1 % (0.0-7.0); Hematocrit 24.9 % (41.0-53.0); Hemoglobin 8.1 g/dL (13.5-17.5); Lymphocytes # (auto) 0.6 10 ^3/uL (0.4-5.4); Lymphocytes % (auto) 7.8 % (10.0-50.0); Mean Corpuscular Hemoglobin 31.9 pg (28.0-32.0); Mean Corpuscular Hgb Conc. 32.6 g/dL (32.0-36.0); Mean Corpuscular Volume 97.7 fL (80.0-100.0); Monocytes # (auto) 0.3 10 ^3/uL (0-1.3); Monocytes % (auto) 3.3 % (0.0-12.0); Neutrophils # (auto) 6.9 10 ^3/uL (1.6-8.6); Neutrophils % (auto) 87.4 % (37.0-80.0); Platelet Count (auto) 299 10^3/uL (140-450); Red Blood Cells 2.55 10^6/uL (4.5-5.90); Red Cell Distribution Width 17.4 % (11.8-14.3); White Blood Cell 7.9 10^3/uL (4.4-10.8)
[2024-07-13] MEDS: cefTRIAXone 1GM/50ML D5W 50 ML IV ONE (20:50)
[2024-07-13 20:55] LABS: INR 1.08 (0.9-1.15); Prothrombin Time 11.4 sec (9.3-11.8)
[2024-07-13 21:00] LABS: % Iron Saturation 29.9 % (20-55)
[2024-07-13 21:03] LABS: Ferritin 333.8 ng/mL (22-322)
[2024-07-13] MEDS: CALCIUM GLUC 1,000mg/50ml-NS 50 ML IV ONE (21:04)
--- NOTE | 2024-07-13 21:09 | DVH ---
EXAM: XY CHEST PORTABLE CLINICAL HISTORY: admission TECHNIQUE: Single AP view of the chest WID: COMPARISON: CHEST PORTABLE on DOS: 11/27/21 FINDINGS: Lines and tubes: None Chest: The heart size and pulmonary vasculature is within normal limits. No pleural effusion, pneumothorax, or consolidation. Linear left basilar scarring or atelectasis The osseous structures are grossly intact. IMPRESSION: No acute cardiopulmonary abnormality.
[2024-07-13 21:44] LABS: Anion Gap 16 (5-15); Sodium 139 mmol/L (136-145)
[2024-07-13 21:49] LABS: Glucose 78 mg/dL (74-106)
[2024-07-13 21:50] LABS: BUN/Creatinine Ratio 9.7 (10.0-20.0)
[2024-07-13 21:56] LABS: Blood Urea Nitrogen 52 mg/dL (9-23); Carbon Dioxide 11 mmol/L (20-31); Chloride 112 mmol/L (98-107); Potassium 2.6 mmol/L (3.5-5.1)
[2024-07-13 21:58] LABS: Calcium 5.4 mg/dL (8.7-10.4); Magnesium 0.9 mg/dL (1.6-2.6)
[2024-07-13] MEDS: MAGNESIUM SULFATE 1GM/100ML 100 ML IV SCH (22:38)
[2024-07-14] VITALS (8 sets, daily range): BP systolic 88–102; BP diastolic 52–63; PULSE 67–72; RESP 18; TEMP 97.5–97.8; O2SAT 99–100
--- NOTE | 2024-07-14 00:49 | DVHHP2 ---
Admitting Diagnosis: Hypokalemia, Hypocalcemia, acute kidney injury History of Present Illness History Source: Patient Exam Limitations: No limitations HPI Teodora Ayala is a 64 yo male with a history of Crohn's disease, Nephrolithiasis, SBO who presents with a chief complaint of abnormal labs. Patient is experiencing sore throat, unintentional weight loss of 40 pounds in past 2 months, hand numbness/tingling, hair falling out, and fatigue x1.5months. Pt was sent by truck chauffeur Dr. Ng for possible low potassium. Patient reports poor appetite with diarrhea, intermittent abdominal discomfort. Patient denies fevers, chills, nausea, vomiting, chest pain, palpitations. Home Meds Active Scripts Tamsulosin Hcl (Flomax) 0.4 Mg Cap, 0.4 MG PO QPM, #30 CAP Prov:NIKHIL MCKINNEY MD 12/02/21 Carbamazepine (Carbamazepine) 200 Mg Tab, 100 MG PO BID, #60 TAB Prov:NIKHIL MCKINNEY MD 12/02/21 Hydrocodone-Acetaminophen (Hydrocodone Bitartrate/AC 10-325 mg) 1 Tab Tab, 1 TAB PO Q6HP PRN, #20 TAB Prov:NIKHIL MCKINNEY MD 11/17/21 Reported Medications Adalimumab (Humira) 40 Mg/0.4 Ml Inj, 40 MG SC, INJ unknown dose 1 injection [id number] 11/13/21 Past Medical History Cardiac: No pertinent Hx Pulmonary: No pertinent Hx Central Nervous System: No pertinent Hx GI: Other (crohn's disease, small bowel obstruction) Hemotology/Oncology: No pertinent Hx Hepatobiliary: No pertinent Hx Psychiatric: No pertinent Hx Musculoskeletal: No pertinent Hx Rheumotologic: No pertinent Hx Infectious Disease: No peritnent Hx ENT: No pertinent Hx Renal/: No pertinent Hx Endocrine: No pertinent Hx Dermatology: No pertinent Hx Patient Family History: Patient reports no known family medical history. Smoker: No Hx (Negative) Alocohol: None Drugs: None Domestic Violence: Neg Review of Systems Constitutional: Weakness Ears, Nose, & Throat: No symptom reported Eyes: No symptom reported Pulmonary/Respiratory: No symptom reported Cardiovascular: No symptom reported Gastrointestinal: Diarrhea Genitourinary: No symptom reported Musculoskeletal: No symptom reported Skin: No symptom reported Psychiatric: No symptom reported Endocrine: No symptom reported Hemotologic/Lymphatic: No symptom reported H&P Exam Vital Signs Vital Signs Date Time Temp Pulse Resp B/P (MAP) Pulse Ox O2 Delivery O2 Flow Rate FiO2 07/14/24 00:00 71 14 90/53 (65) 99 07/13/24 19:35 97.9 97.9 07/13/24 19:35 Room Air* 0 21 General Appeara: Cachetic, Thin Head Exam: Normal inspection Neck Exam: Normal inspection, Non-tender, Normal alignment Eye Exam: bilateral eye Normal inspection, bilateral eye PERRL, bilateral eye EOMI Ear Exam: bilateral ear Auricle normal Nasal Exam: Normal inspection Mouth: Normal Inspection Pulmonary/Respiratory: Normal inspection, Normal breath sounds, Chest non- tender, Lungs clear Cardiovascular/Chest: Normal inspection, Regular rate, Normal Rhythm Peripheral Pulses: 2+ dorsalis pedis (R), 2+ dorsalis pedis (L), 2+ Radial (R), 2+ Radial (L) Abdominal Exam: Normal bowel sounds, Soft, No tenderness Rectal Exam: Deferred Back Exam: Normal inspection Male Genital Exam: 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 Exam: Normal hearing, Normal speech, PERRL Motor/Sensory: Normal sensory function, Normal motor function Neuro/Mental St: Alert, Oriented Appearance: Appropriate appearance, Appropriate insight Thoughts/Psych: Normal thought pattern Skin Exam: Normal inspection, Warm/dry, Pallor Labs/Xrays Labs Test 07/13/24 20:18 07/13/24 14:30 07/13/24 14:14 Range/Units White Blood Count 7.9 4.4-10.8 10^3/uL Red Blood Count 2.55 L 4.5-5.90 10^6/uL Hemoglobin 8.1 L 13.5-17.5 g/dL Hematocrit 24.9 L 41.0-53.0 % Mean Corpuscular Volume 97.7 80.0-100.0 fL Mean Corpuscular Hemoglobin 31.9 28.0-32.0 pg Mean Corpuscular Hemoglobin Concent 32.6 32.0-36.0 g/dL Red Cell Distribution Width 17.4 H 11.8-14.3 % Platelet Count 299 140-450 10^3/uL Mean Platelet Volume 7.4 6.9-10.8 fL Neutrophils (%) (Auto) 87.4 H 37.0-80.0 % Lymphocytes (%) (Auto) 7.8 L 10.0-50.0 % Monocytes (%) (Auto) 3.3 0.0-12.0 % Eosinophils (%) (Auto) 1.1 0.0-7.0 % Basophils (%) (Auto) 0.4 0.0-2.0 % Neutrophils # (Auto) 6.9 1.6-8.6 10 ^3/uL Lymphocytes # (Auto) 0.6 0.4-5.4 10 ^3/uL Monocytes # (Auto) 0.3 0-1.3 10 ^3/uL Eosinophils # (Auto) 0.1 0-0.8 10 ^3/uL Basophils # (Auto) 0 0-0.2 10 ^3/uL Nucleated Red Blood Cells 0.0 % Prothrombin Time 11.4 9.3-11.8 sec Prothrombin Time INR 1.08 0.9-1.15 Sodium Level 139 136-145 mmol/L Potassium Level 2.6 L 3.5-5.1 mmol/L Chloride Level 112 H 98-107 mmol/L Carbon Dioxide Level 11 L 20-31 mmol/L Anion Gap 16 H 5-15 Blood Urea Nitrogen 52 H 9-23 mg/dL Creatinine 5.34 H 0.700-1.30 mg/dL Glomerular Filtration Rate Calc 11 >90 mL/min BUN/Creatinine Ratio 9.7 L 10.0-20.0 Serum Glucose 78 74-106 mg/dL Calcium Level 5.4 *L 8.7-10.4 mg/dL Magnesium Level 0.9 *L 1.6-2.6 mg/dL Iron Level 61 L 65-175 ug/dL Total Iron Binding Capacity 204 L 250-425 ug/dL Percent Iron Saturation 29.9 20-55 % Ferritin 333.8 H 22-322 ng/mL Vitamin B12 Level 573 211-911 pg/mL Urine Color Light-yellow Yellow Urine Clarity Turbid H Clear Urine pH 6.0 5.0-9.0 Urine Specific [place] 1.011 1.001-1.035 Urine Protein 1+ H Negative Urine Ketones Negative Negative Urine Blood 2+ H Negative /uL Urine Nitrite Negative Negative Urine Bilirubin Negative Negative Urine Urobilinogen Normal Negative mg/dL Urine Leukocyte Esterase 3+ Negative /uL Urine RBC 4 0 - 3 /hpf Urine WBC 237 0 - 3 /hpf Urine Squamous Epithelial Cells Few <5 /hpf Urine Bacteria Few H None Seen /hpf Urine Yeast (Budding) Occasional None Seen /hpf Urine Glucose Normal Normal mg/dL Total Bilirubin 0.2 0.2-1.0 mg/dL Aspartate Amino Transferase (AST) 20 13-40 U/L Alanine Aminotransferase (ALT) 15 7-40 U/L Alkaline Phosphatase 92 46-116 U/L Troponin I High Sensitivity 13 </=54 ng/L Total Protein 5.8 5.7-8.2 g/dL Albumin 3.3 3.2-4.8 g/dL Thyroid Stimulating Hormone (TSH) 2.95 0.55-4.78 uIU/mL Assessment/Plan Problem List: (1) Hypocalcemia (2) Hypokalemia (3) Anemia (4) Weakness Plan 64 yo male with known history of Crohn's disease, small bowel obstruction, Nephrolithiasis presents with abnormal labs, generalized weakness. Patient found to have 1. Acute Hypokalemia 2. Acute Hypocalcemia 3. Acute Kidney Injury 4. Acute Anemia 5. Urinary tract infection 6. Unintentional weigh loss 7. Diarrhea Admit to telemetry unit Nephrology consultation GI consult Monitor BMP, Mg levels replenish electrolytes as needed Iron panel, Ferritin level, vitamin B12, Vitamin D levels Stool occult blood Urine culture , blood cultures x2 Nutritional consult IV fluids with KCL Discussed all above with patient who verbalizes agreement and understanding of care plan. All questions were answered Discussed assessment and care albarran with supervising MD . Plan discussed with: Patient, Other Code Visit Code Visit Total Time (mins): 45 Additional Comments Additional Comments Additional Comments 64-year-old male with a known history of Crohn disease, CKD stage IIIB initially was sent by Nephrology with the abnormal labs found to have 1. Acute kidney injury with underlying CKD stage IIIB 2. Severe hypokalemia 3. Hypocalcemia 4. Crohn disease 5. Generalized weakness and fatigue -replace electrolytes nephrology consultation -plan of care discussed with the patient all the questions were answered in the presence of nurse Melody. YOGI GREGORY Jul 14, 2024 00:49 JEIMY NARVAEZ MD Jul 14, 2024 19:03
[2024-07-14] MEDS: POTASSIUM CHLORIDE 40 MEQ in SOD CHL 0.45% 1,000 ML IV SCH ×2 (06:00→14:30)
[2024-07-14 08:28] LABS: Basophils # (auto) 0.1 10 ^3/uL (0-0.2); Basophils % (auto) 0.7 % (0.0-2.0); Eosinophils # (auto) 0.1 10 ^3/uL (0-0.8); Eosinophils % (auto) 1.3 % (0.0-7.0); Hematocrit 26.3 % (41.0-53.0); Hemoglobin 8.8 g/dL (13.5-17.5); Lymphocytes # (auto) 0.7 10 ^3/uL (0.4-5.4); Lymphocytes % (auto) 9.2 % (10.0-50.0); Mean Corpuscular Hemoglobin 32.6 pg (28.0-32.0); Mean Corpuscular Hgb Conc. 33.5 g/dL (32.0-36.0); Mean Corpuscular Volume 97.4 fL (80.0-100.0); Monocytes # (auto) 0.4 10 ^3/uL (0-1.3); Monocytes % (auto) 4.5 % (0.0-12.0); Neutrophils # (auto) 6.6 10 ^3/uL (1.6-8.6); Neutrophils % (auto) 84.3 % (37.0-80.0); Nucleated Red Blood Cells % 0.1 %; Platelet Count (auto) 332 10^3/uL (140-450); Red Cell Distribution Width 17.7 % (11.8-14.3); White Blood Cell 7.8 10^3/uL (4.4-10.8)
[2024-07-14 08:45] LABS: Anion Gap 16 (5-15); Sodium 140 mmol/L (136-145)
[2024-07-14 08:50] LABS: Glucose 82 mg/dL (74-106)
[2024-07-14 08:51] LABS: BUN/Creatinine Ratio 8.5 (10.0-20.0); Magnesium 1.9 mg/dL (1.6-2.6)
[2024-07-14 09:05] LABS: Blood Urea Nitrogen 43 mg/dL (9-23); Carbon Dioxide 11 mmol/L (20-31); Chloride 113 mmol/L (98-107); Potassium 2.6 mmol/L (3.5-5.1)
[2024-07-14 09:07] LABS: Calcium 5.9 mg/dL (8.7-10.4)
[2024-07-14] MEDS: cefTRIAXone 1GM/50ML D5W 50 ML IV SCH (10:44)
[2024-07-14] MEDS: PANTOPRAZOLE 40 MG/10 ML VIAL INJ IV SCH (10:50)
[2024-07-14 13:28] LABS: Sodium 138 mmol/L (136-145)
[2024-07-14 13:29] LABS: Anion Gap 14.00001 (5-15)
[2024-07-14 13:34] LABS: BUN/Creatinine Ratio 8.3 (10.0-20.0); Glucose 104 mg/dL (74-106)
[2024-07-14 13:57] LABS: Blood Urea Nitrogen 40 mg/dL (9-23); Chloride 114 mmol/L (98-107); Potassium 2.4 mmol/L (3.5-5.1)
[2024-07-14 13:58] LABS: Calcium 5.4 mg/dL (8.7-10.4); Carbon Dioxide < 10 mmol/L (20-31)
[2024-07-14] MEDS ORDERED: POTASSIUM CHLORIDE 40 MEQ, LIDOCAINE 1% (LOCAL ANESTH.) 4 ML in SODIUM CHL 0.9% 250 ML IV ONE (14:15)
[2024-07-14] MEDS: SOD CHL 0.45% 1,000 ML IV ONE (14:15)
--- NOTE | 2024-07-14 14:29 | DVHINCON2 ---
Date of service: Jul 14, 2024 Referring Physician Katie Rawls NP Reason for Consultation MAYRA History of Present Illness Mr. Araiza is a 64-year-old male with known history of chronic kidney disease who was asked to come to the hospital by this public relations writer due to outpatient labs that were remarkable for severe hypokalemia. His clinical course has been notable for confirmation of hypokalemia and also hypocalcemia and significant worsening of his kidney function. He has been treated with supplemental potassium, calcium and IV fluids. He is seen in his room this morning awake and alert. He states that he feels slightly better. And it is tolerating a diet. He admits to chronic loose stool. He reports slight decrease in oral intake due to a sore throat recently. Past Medical History Crohn's disease Chronic kidney disease Chronic diarrhea Past Surgical History numerous intra-abdominal surgeries related to Crohn's disease per report Allergies: Coded Allergies: NO KNOWN ALLERGIES (Unverified , 11/13/21) Home Meds Active Scripts Tamsulosin Hcl (Flomax) 0.4 Mg Cap, 0.4 MG PO QPM, #30 CAP Prov:NIKHIL MCKINNEY MD 12/02/21 Carbamazepine (Carbamazepine) 200 Mg Tab, 100 MG PO BID, #60 TAB Prov:NIKHIL MCKINNEY MD 12/02/21 Hydrocodone-Acetaminophen (Hydrocodone Bitartrate/AC 10-325 mg) 1 Tab Tab, 1 TAB PO Q6HP PRN, #20 TAB Prov:NIKHIL MCKINNEY MD 11/17/21 Reported Medications Adalimumab (Humira) 40 Mg/0.4 Ml Inj, 40 MG SC, INJ unknown dose 1 injection [id number] 11/13/21 Current Medications Current Medications Medications (Trade) Dose Ordered Sig/Rick Route PRN Reason Start Time Stop Time Status Last Admin Potassium Chloride 40 meq/ Sodium Chloride 1,020 ml @ 60 mls/hr Q17H IV 07/13/24 15:15 07/14/24 05:51 DC 07/13/24 16:20 Potassium Chloride 100 ml @ 50 mls/hr Q2H IV 07/13/24 18:30 07/13/24 22:29 DC 07/13/24 20:49 Ondansetron HCl (Zofran) 4 mg Q6HPRN PRN IV NAUSEA / VOMITING 07/13/24 19:45 Acetaminophen (Tylenol Tablet) 650 mg Q6HPRN PRN PO TEMP GREATER THAN 100.4 07/13/24 19:45 Acetaminophen/ Hydrocodone Bitart ([place] 5/325MG Tab) 1 tab Q6HPRN PRN PO PAIN SCALE 1 THRU 6 07/13/24 19:45 Pantoprazole Sodium (Protonix) 40 mg DAILY IV 07/14/24 10:00 07/14/24 10:50 Melatonin (Melatonin) 5 mg ONCE@2200 PRN PO FOR INSOMNIA 07/13/24 19:45 Ceftriaxone Sodium 50 ml @ 100 mls/hr DAILY IV 07/14/24 10:00 07/14/24 10:44 Magnesium Sulfate/ Dextrose 100 ml @ 100 mls/hr Q1HR IV 07/13/24 23:00 07/14/24 01:59 DC 07/14/24 00:47 Potassium Chloride 40 meq/ Sodium Chloride 1,020 ml @ 60 mls/hr Q17H IV 07/14/24 06:00 07/14/24 06:00 Potassium Bicarbonate (Klor-Con/Ef) 50 meq BID PO 07/14/24 22:00 UNV Family History: Patient reports no known family medical history. Review of Systems + weakness, + fatigue H&P Exam Vital Signs/I&O Vital Sign Date Time Temp Pulse Resp B/P (MAP) Pulse Ox O2 Delivery O2 Flow Rate FiO2 07/14/24 12:58 97.5 67 18 91/56 (68) 100 97.5 07/13/24 19:35 Room Air* 0 21 Intake and Output 07/13/24 07/14/24 19:00 07:00 Intake Total 120 ml 550 ml Balance 120 ml 550 ml Intake Oral 250 ml IV Total 120 ml 300 ml # Voids 2 # Bowel Movements 2 Physical Exam gen: thin, nad heent: mmm lungs: cta cvs: no rub abd: soft ext: no edema skin: no rash neuro: awake and alert Labs/Diagnostic Data Labs/Diagnostic Data Laboratory Tests Test 07/14/24 13:03 07/14/24 07:53 07/13/24 20:18 07/13/24 14:30 Range/Units Sodium Level 138 140 139 136-145 mmol/L Potassium Level 2.4 *L 2.6 L 2.6 L 3.5-5.1 mmol/L Chloride Level 114 H 113 H 112 H 98-107 mmol/L Carbon Dioxide Level < 10 *L 11 L 11 L 20-31 mmol/L Anion Gap 14.32188 16 H 16 H 5-15 Blood Urea Nitrogen 40 H 43 H 52 H 9-23 mg/dL Creatinine 4.83 H 5.05 H 5.34 H 0.700-1.30 mg/dL Glomerular Filtration Rate Calc 13 12 11 >90 mL/min BUN/Creatinine Ratio 8.3 L 8.5 L 9.7 L 10.0-20.0 Serum Glucose 104 82 78 74-106 mg/dL Calcium Level 5.4 *L 5.9 *L 5.4 *L 8.7-10.4 mg/dL White Blood Count 7.8 7.9 4.4-10.8 10^3/uL Red Blood Count 2.70 L 2.55 L 4.5-5.90 10^6/uL Hemoglobin 8.8 L 8.1 L 13.5-17.5 g/dL Hematocrit 26.3 L 24.9 L 41.0-53.0 % Mean Corpuscular Volume 97.4 97.7 80.0-100.0 fL Mean Corpuscular Hemoglobin 32.6 H 31.9 28.0-32.0 pg Mean Corpuscular Hemoglobin Concent 33.5 32.6 32.0-36.0 g/dL Red Cell Distribution Width 17.7 H 17.4 H 11.8-14.3 % Platelet Count 332 299 140-450 10^3/uL Mean Platelet Volume 7.7 7.4 6.9-10.8 fL Neutrophils (%) (Auto) 84.3 H 87.4 H 37.0-80.0 % Lymphocytes (%) (Auto) 9.2 L 7.8 L 10.0-50.0 % Monocytes (%) (Auto) 4.5 3.3 0.0-12.0 % Eosinophils (%) (Auto) 1.3 1.1 0.0-7.0 % Basophils (%) (Auto) 0.7 0.4 0.0-2.0 % Neutrophils # (Auto) 6.6 6.9 1.6-8.6 10 ^3/uL Lymphocytes # (Auto) 0.7 0.6 0.4-5.4 10 ^3/uL Monocytes # (Auto) 0.4 0.3 0-1.3 10 ^3/uL Eosinophils # (Auto) 0.1 0.1 0-0.8 10 ^3/uL Basophils # (Auto) 0.1 0 0-0.2 10 ^3/uL Nucleated Red Blood Cells 0.1 0.0 % Magnesium Level 1.9 # 0.9 *L 1.6-2.6 mg/dL Prothrombin Time 11.4 9.3-11.8 sec Prothrombin Time INR 1.08 0.9-1.15 Iron Level 61 L 65-175 ug/dL Total Iron Binding Capacity 204 L 250-425 ug/dL Percent Iron Saturation 29.9 20-55 % Ferritin 333.8 H 22-322 ng/mL Vitamin B12 Level 573 211-911 pg/mL Urine Color Light-yellow Yellow Urine Clarity Turbid H Clear Urine pH 6.0 5.0-9.0 Urine Specific [place] 1.011 1.001-1.035 Urine Protein 1+ H Negative Urine Ketones Negative Negative Urine Blood 2+ H Negative /uL Urine Nitrite Negative Negative Urine Bilirubin Negative Negative Urine Urobilinogen Normal Negative mg/dL Urine Leukocyte Esterase 3+ Negative /uL Urine RBC 4 0 - 3 /hpf Urine WBC 237 0 - 3 /hpf Urine Squamous Epithelial Cells Few <5 /hpf Urine Bacteria Few H None Seen /hpf Urine Yeast (Budding) Occasional None Seen /hpf Urine Glucose Normal Normal mg/dL Test 07/13/24 14:14 Range/Units White Blood Count 10.2 4.4-10.8 10^3/uL Red Blood Count 2.57 L 4.5-5.90 10^6/uL Hemoglobin 8.2 L 13.5-17.5 g/dL Hematocrit 25.4 L 41.0-53.0 % Mean Corpuscular Volume 99.1 80.0-100.0 fL Mean Corpuscular Hemoglobin 31.9 28.0-32.0 pg Mean Corpuscular Hemoglobin Concent 32.2 32.0-36.0 g/dL Red Cell Distribution Width 18.2 H 11.8-14.3 % Platelet Count 300 140-450 10^3/uL Mean Platelet Volume 7.4 6.9-10.8 fL Neutrophils (%) (Auto) 87.8 H 37.0-80.0 % Lymphocytes (%) (Auto) 6.2 L 10.0-50.0 % Monocytes (%) (Auto) 4.2 0.0-12.0 % Eosinophils (%) (Auto) 0.9 0.0-7.0 % Basophils (%) (Auto) 0.9 0.0-2.0 % Neutrophils # (Auto) 8.9 H 1.6-8.6 10 ^3/uL Lymphocytes # (Auto) 0.6 0.4-5.4 10 ^3/uL Monocytes # (Auto) 0.4 0-1.3 10 ^3/uL Eosinophils # (Auto) 0.1 0-0.8 10 ^3/uL Basophils # (Auto) 0.1 0-0.2 10 ^3/uL Nucleated Red Blood Cells 0.0 % Sodium Level 136 136-145 mmol/L Potassium Level 2.3 *L 3.5-5.1 mmol/L Chloride Level 109 H 98-107 mmol/L Carbon Dioxide Level 12 L 20-31 mmol/L Anion Gap 15 5-15 Blood Urea Nitrogen 50 H 9-23 mg/dL Creatinine 5.46 H 0.700-1.30 mg/dL Glomerular Filtration Rate Calc 11 >90 mL/min BUN/Creatinine Ratio 9.2 L 10.0-20.0 Serum Glucose 103 74-106 mg/dL Calcium Level 5.5 *L 8.7-10.4 mg/dL Total Bilirubin 0.2 0.2-1.0 mg/dL Aspartate Amino Transferase (AST) 20 13-40 U/L Alanine Aminotransferase (ALT) 15 7-40 U/L Alkaline Phosphatase 92 46-116 U/L Troponin I High Sensitivity 13 </=54 ng/L Total Protein 5.8 5.7-8.2 g/dL Albumin 3.3 3.2-4.8 g/dL Thyroid Stimulating Hormone (TSH) 2.95 0.55-4.78 uIU/mL Assessment IMP: 1) Hemodynamically mediated acute kidney injury, prerenal state 2) CKD IIIb? 3) Crohn's disease 4) severe hypokalemia 5) hypocalcemia REC: - Will increase to 50 twice a day mEq po KCl elixir - every 12 hours basic chemistry panels - will continue with 1/2 NS for hydration - Patient states that he is feeling better and I discussed plan of care from nephrology perspective With Mr. Araiza. Thank you for the consultation. Plan discussed with: Patient BROOKLYNN MANJARREZ MD Jul 14, 2024 14:29
[2024-07-14] MEDS: CALCIUM GLUC 1,000mg/50ml-NS 50 ML IV ONE (18:52)
[2024-07-14 18:53] LABS: Sodium 139 mmol/L (136-145)
[2024-07-14 18:54] LABS: Anion Gap 15 (5-15)
[2024-07-14 18:59] LABS: BUN/Creatinine Ratio 8.6 (10.0-20.0); Glucose 92 mg/dL (74-106)
[2024-07-14 19:27] LABS: Blood Urea Nitrogen 40 mg/dL (9-23); Carbon Dioxide 10 mmol/L (20-31); Chloride 114 mmol/L (98-107); Potassium 2.7 mmol/L (3.5-5.1)
[2024-07-14 19:29] LABS: Calcium 5.4 mg/dL (8.7-10.4)
[2024-07-14] MEDS: HYDROcodone-ACET 5/325MG TAB PO PRN (20:59)
[2024-07-14] MEDS: POTASSIUM EFFERVESENT TAB 25 MEQ PO SCH (20:59)
[2024-07-14] MEDS: POTASSIUM CHLORIDE 20 MEQ, LIDOCAINE 1% (LOCAL ANESTH.) 2 ML in SODIUM CHL 0.9% 100 ML IV ONE (20:59)
--- NOTE | 2024-07-14 22:29 | DVHINCON2 ---
Date of service: Jul 14, [address] Rawls Reason for Consultation Abdominal pain diarrhea weight loss History of Present Illness This 64-year-old male with a history of Crohn's disease with small bowel obstruction with multiple surgeries in the past bowel resections admitted with complaints of weight loss weakness and diarrhea poor appetite and abdominal discomfort No nausea vomiting no hematochezia no fever chills or other systemic symptoms Past Medical History Crohn's disease Past Surgical History Multiple surgeries for Crohn's disease with bowel resection Family History: Patient reports no known family medical history. Family History Noncontributory Social History Denies smoking or drinking Allergies: Coded Allergies: NO KNOWN ALLERGIES (Unverified , 11/13/21) Home Meds Active Scripts Tamsulosin Hcl (Flomax) 0.4 Mg Cap, 0.4 MG PO QPM, #30 CAP Prov:NIKHIL MCKINNEY MD 12/02/21 Carbamazepine (Carbamazepine) 200 Mg Tab, 100 MG PO BID, #60 TAB Prov:NIKHIL MCKINNEY MD 12/02/21 Hydrocodone-Acetaminophen (Hydrocodone Bitartrate/AC 10-325 mg) 1 Tab Tab, 1 TAB PO Q6HP PRN, #20 TAB Prov:NIKHIL MCKINNEY MD 11/17/21 Reported Medications Adalimumab (Humira) 40 Mg/0.4 Ml Inj, 40 MG SC, INJ unknown dose 1 injection [id number] 11/13/21 Current Medications Current Medications Medications (Trade) Dose Ordered Sig/Rick Route PRN Reason Start Time Stop Time Status Last Admin Pantoprazole Sodium (Protonix) 40 mg DAILY IV 07/14/24 10:00 07/14/24 10:50 Ceftriaxone Sodium 50 ml @ 100 mls/hr DAILY IV 07/14/24 10:00 07/14/24 10:44 Magnesium Sulfate/ Dextrose 100 ml @ 100 mls/hr Q1HR IV 07/13/24 23:00 07/14/24 01:59 DC 07/14/24 00:47 Potassium Chloride 40 meq/ Sodium Chloride 1,020 ml @ 60 mls/hr Q17H IV 07/14/24 06:00 07/14/24 14:27 DC 07/14/24 06:00 Potassium Bicarbonate (Klor-Con/Ef) 50 meq BID PO 07/14/24 22:00 07/14/24 20:59 Potassium Chloride 40 meq/ Sodium Chloride 1,020 ml @ 125 mls/hr Q8H10M IV 07/14/24 14:30 07/14/24 14:30 Review of Systems Noncontributory Vital Signs Vital Signs Date Time Temp Pulse Resp B/P (MAP) Pulse Ox O2 Delivery O2 Flow Rate FiO2 07/14/24 16:48 97.8 71 18 88/52 (64) 100 97.8 07/14/24 08:30 Room Air* 0 21 Physical Exam Poorly built and nourished male chronically ill-looking cachectic HEENT examination mild pallor no icterus Lungs clear Cardiovascular unremarkable Abdomen is soft mild nonspecific tenderness diffuse mostly in lower quadrants No Rigidity no guarding no masses Extremities no edema Grossly intact neurology system Labs/Diagnostic Data Labs Test 07/14/24 18:01 07/14/24 07:53 07/13/24 20:18 07/13/24 14:30 Range/Units Sodium Level 139 136-145 mmol/L Potassium Level 2.7 L 3.5-5.1 mmol/L Chloride Level 114 H 98-107 mmol/L Carbon Dioxide Level 10 L 20-31 mmol/L Anion Gap 15 5-15 Blood Urea Nitrogen 40 H 9-23 mg/dL Creatinine 4.66 H 0.700-1.30 mg/dL Glomerular Filtration Rate Calc 13 >90 mL/min BUN/Creatinine Ratio 8.6 L 10.0-20.0 Serum Glucose 92 74-106 mg/dL Calcium Level 5.4 *L 8.7-10.4 mg/dL White Blood Count 7.8 4.4-10.8 10^3/uL Red Blood Count 2.70 L 4.5-5.90 10^6/uL Hemoglobin 8.8 L 13.5-17.5 g/dL Hematocrit 26.3 L 41.0-53.0 % Mean Corpuscular Volume 97.4 80.0-100.0 fL Mean Corpuscular Hemoglobin 32.6 H 28.0-32.0 pg Mean Corpuscular Hemoglobin Concent 33.5 32.0-36.0 g/dL Red Cell Distribution Width 17.7 H 11.8-14.3 % Platelet Count 332 140-450 10^3/uL Mean Platelet Volume 7.7 6.9-10.8 fL Neutrophils (%) (Auto) 84.3 H 37.0-80.0 % Lymphocytes (%) (Auto) 9.2 L 10.0-50.0 % Monocytes (%) (Auto) 4.5 0.0-12.0 % Eosinophils (%) (Auto) 1.3 0.0-7.0 % Basophils (%) (Auto) 0.7 0.0-2.0 % Neutrophils # (Auto) 6.6 1.6-8.6 10 ^3/uL Lymphocytes # (Auto) 0.7 0.4-5.4 10 ^3/uL Monocytes # (Auto) 0.4 0-1.3 10 ^3/uL Eosinophils # (Auto) 0.1 0-0.8 10 ^3/uL Basophils # (Auto) 0.1 0-0.2 10 ^3/uL Nucleated Red Blood Cells 0.1 % Magnesium Level 1.9 # 1.6-2.6 mg/dL Prothrombin Time 11.4 9.3-11.8 sec Prothrombin Time INR 1.08 0.9-1.15 Iron Level 61 L 65-175 ug/dL Total Iron Binding Capacity 204 L 250-425 ug/dL Percent Iron Saturation 29.9 20-55 % Ferritin 333.8 H 22-322 ng/mL Vitamin B12 Level 573 211-911 pg/mL Urine Color Light-yellow Yellow Urine Clarity Turbid H Clear Urine pH 6.0 5.0-9.0 Urine Specific [place] 1.011 1.001-1.035 Urine Protein 1+ H Negative Urine Ketones Negative Negative Urine Blood 2+ H Negative /uL Urine Nitrite Negative Negative Urine Bilirubin Negative Negative Urine Urobilinogen Normal Negative mg/dL Urine Leukocyte Esterase 3+ Negative /uL Urine RBC 4 0 - 3 /hpf Urine WBC 237 0 - 3 /hpf Urine Squamous Epithelial Cells Few <5 /hpf Urine Bacteria Few H None Seen /hpf Urine Yeast (Budding) Occasional None Seen /hpf Urine Glucose Normal Normal mg/dL Test 07/13/24 14:14 Range/Units Total Bilirubin 0.2 0.2-1.0 mg/dL Aspartate Amino Transferase (AST) 20 13-40 U/L Alanine Aminotransferase (ALT) 15 7-40 U/L Alkaline Phosphatase 92 46-116 U/L Troponin I High Sensitivity 13 </=54 ng/L Total Protein 5.8 5.7-8.2 g/dL Albumin 3.3 3.2-4.8 g/dL Thyroid Stimulating Hormone (TSH) 2.95 0.55-4.78 uIU/mL Microbiology Date/Time Source Procedure Growth Status 07/13/24 20:18 Blood Blood Culture - Preliminary NO GROWTH AFTER 24 HOURS OF INCUBATION. Resulted Assessment 64-year-old male with a history of Crohn's disease with multiple surgeries in the past has complaints of abdominal pain and diarrhea and weight loss no melena or hematuria hematochezia Patient [facility] with and is on Humira Remicade and Stelara without much improvement as per the patient His physical examination nonspecific tenderness in both lower quadrants and mildly diffusely no masses felt Hemoglobin is 8 g Impression is Crohn's disease with weight loss abdominal pain diarrhea status post surgeries with bowel resection possible malabsorption to be ruled out Uncontrolled Crohn's also to be strongly considered to explain all the symptoms Plan/Recommendation CT scan of the abdomen and pelvis Need further workup including small bowel series and endoscopic workup as necessary as an outpatient And if necessary patient and not able to be controlled with the current medications may have to be referred to an center back inflammatory bowel disease essential like [facility] in [place] [facility] etc Thank you Dr. Orville Beckwith discussed with: Patient RYAN VIGIL MD Jul 14, 2024 22:29
[2024-07-15] VITALS (7 sets, daily range): BP systolic 92–98; BP diastolic 54–61; PULSE 71–93; RESP 18–20; TEMP 97.8–98.5; O2SAT 99–100
[2024-07-15 08:05] LABS: Basophils # (auto) 0 10 ^3/uL (0-0.2); Basophils % (auto) 0.6 % (0.0-2.0); Eosinophils # (auto) 0.1 10 ^3/uL (0-0.8); Eosinophils % (auto) 1.1 % (0.0-7.0); Hematocrit 23.4 % (41.0-53.0); Hemoglobin 7.3 g/dL (13.5-17.5); Lymphocytes # (auto) 0.8 10 ^3/uL (0.4-5.4); Lymphocytes % (auto) 10.3 % (10.0-50.0); Mean Corpuscular Hemoglobin 32.5 pg (28.0-32.0); Mean Corpuscular Hgb Conc. 31.2 g/dL (32.0-36.0); Mean Corpuscular Volume 104.3 fL (80.0-100.0); Monocytes # (auto) 0.4 10 ^3/uL (0-1.3); Monocytes % (auto) 5.4 % (0.0-12.0); Neutrophils # (auto) 6.1 10 ^3/uL (1.6-8.6); Neutrophils % (auto) 82.6 % (37.0-80.0); Platelet Count (auto) 242 10^3/uL (140-450); Red Blood Cells 2.24 10^6/uL (4.5-5.90); Red Cell Distribution Width 18.7 % (11.8-14.3); Sodium 138 mmol/L (136-145); White Blood Cell 7.4 10^3/uL (4.4-10.8)
[2024-07-15 08:06] LABS: Anion Gap 11 (5-15)
[2024-07-15 08:17] LABS: Carbon Dioxide 11 mmol/L (20-31); Chloride 116 mmol/L (98-107); Glucose 108 mg/dL (74-106)
[2024-07-15 08:20] LABS: Calcium 5.5 mg/dL (8.7-10.4)
[2024-07-15 08:23] LABS: BUN/Creatinine Ratio 8.5 (10.0-20.0); Blood Urea Nitrogen 38 mg/dL (9-23)
[2024-07-15] MEDS: CALCIUM GLUC 1,000mg/50ml-NS 50 ML IV ONE (12:40)
--- NOTE | 2024-07-15 14:55 | DVHPN2 ---
Progress Note - Dictate Date Seen: Jul 15, 2024 Medical Necessity Reason Pt with a Central, PICC or Fol: No Subjective Patient has still complaints of some occasional diarrhea no nausea no vomiting no bleeding some nonspecific abdominal pain vital signs Vital Sign Date Time Temp Pulse Resp B/P (MAP) Pulse Ox O2 Delivery O2 Flow Rate FiO2 07/15/24 13:00 98.2 76 20 92/56 (68) 100 98.2 07/14/24 20:00 Room Air* 0 21 Total Intake and Output 07/14/24 07/14/24 07/15/24 15:00 23:00 07:00 Intake Total 300 ml 1820 ml Balance 300 ml 1820 ml medications Current Medications Medications Dose Ordered Sig/Rick Route Start Time Stop Time Status Last Admin Dose Admin Ondansetron HCl 4 mg Q6HPRN PRN IV 07/13/24 19:45 Acetaminophen 650 mg Q6HPRN PRN PO 07/13/24 19:45 Acetaminophen/ Hydrocodone Bitart 1 tab Q6HPRN PRN PO 07/13/24 19:45 07/14/24 20:59 1 TAB Pantoprazole Sodium 40 mg DAILY IV 07/14/24 10:00 07/15/24 10:26 40 MG Melatonin 5 mg ONCE@2200 PRN PO 07/13/24 19:45 Ceftriaxone Sodium 50 ml @ 100 mls/hr DAILY IV 07/14/24 10:00 07/15/24 10:26 100 MLS/HR Potassium Bicarbonate 50 meq BID PO 07/14/24 22:00 07/15/24 10:25 50 MEQ Potassium Chloride 40 meq/ Sodium Chloride 1,020 ml @ 125 mls/hr Q8H10M IV 07/14/24 14:30 07/15/24 02:20 125 MLS/HR objective Abdomen is soft no tenderness no rigidity no guarding no masses laboratory and microbiology Laboratory Tests 07/15/24 07:07 Test 07/15/24 07:07 Range/Units Serum Glucose 108 H 74-106 mg/dL Assessment/Plan 64-year-old male with a history of Crohn's disease with multiple surgeries in the past has complaints of abdominal pain and diarrhea and weight loss no melena or hematuria hematochezia Patient is being [facility] with and is on Humira Remicade and Stelara without much improvement as per the patient His physical examination nonspecific tenderness in both lower quadrants and mildly diffusely no masses felt Hemoglobin is 8 g Impression is Crohn's disease with weight loss abdominal pain diarrhea status post surgeries with bowel resection possible malabsorption to be ruled out Uncontrolled Crohn's also to be strongly considered to explain all the symptoms Patient still has some mild abdominal pains and diarrhea. Do not have any records from the previous workups and treatment at this time patient apparently has been off medications for some time for the Crohn's as per the patient Plans Try to get the records of all the medications that he has been treated with recently Stool studies O&P C&S Calprotectin Inflammatory bowel disease panel blood test CT of the abdomen and pelvis with oral contrast to assess the extent of the Crohn's Since patient has failed other treatments and not responding well apparently may have to be referred to a referral center for possible aggressive treatment for Crohn's with newer immunologicals For the time being could consider using steroids as well as as mesalamine for the time being to tide her over until he is seen by inflammatory bowel disease specially Plan discussed with: Patient RYAN VIGIL MD Jul 15, 2024 14:55
--- NOTE | 2024-07-15 17:51 | DVHPN2 ---
Subjective Patient's has a severe electrolyte imbalance which is being treated. Reviewed: Care Plan Changes from previous H/P or p: No Changes Objective Vitals Vital Signs Date Time Temp Pulse Resp B/P (MAP) Pulse Ox O2 Delivery O2 Flow Rate FiO2 07/15/24 17:00 98.5 84 20 98/58 (71) 100 98.5 07/14/24 20:00 Room Air* 0 21 Intake/Output Intake and Output 07/15/24 07:00 Intake Total 2120 ml Balance 2120 ml Intake Oral 1100 ml IV Total 1020 ml # Voids 2 # Bowel Movements 1 Exam HEENT pupils are reactive Neck is supple CV is S1-S2 regular rate and rhythm Respiratory bilateral clear GI positive bowel sound Extremity no edema [employer] no motor deficit Medications Current Medications Medications Dose Ordered Sig/Rick Route Start Time Stop Time Status Last Admin Dose Admin Ondansetron HCl 4 mg Q6HPRN PRN IV 07/13/24 19:45 Acetaminophen 650 mg Q6HPRN PRN PO 07/13/24 19:45 Acetaminophen/ Hydrocodone Bitart 1 tab Q6HPRN PRN PO 07/13/24 19:45 07/14/24 20:59 1 TAB Pantoprazole Sodium 40 mg DAILY IV 07/14/24 10:00 07/15/24 10:26 40 MG Melatonin 5 mg ONCE@2200 PRN PO 07/13/24 19:45 Ceftriaxone Sodium 50 ml @ 100 mls/hr DAILY IV 07/14/24 10:00 07/15/24 10:26 100 MLS/HR Potassium Bicarbonate 50 meq BID PO 07/14/24 22:00 07/15/24 10:25 50 MEQ Potassium Chloride 40 meq/ Sodium Chloride 1,020 ml @ 125 mls/hr Q8H10M IV 07/14/24 14:30 07/15/24 02:20 125 MLS/HR Magnesium Oxide 400 mg BID PO 07/15/24 22:00 Calcium Carbonate 1,000 mg TIDWM PO 07/15/24 18:00 Potassium Chloride 100 ml @ 50 mls/hr Q2H IV 07/15/24 16:45 07/15/24 22:44 Laboratory Results Laboratory Tests 07/15/24 07:07 Chemistry Test 07/14/24 18:01 07/15/24 07:07 Calcium Level 5.4 mg/dL (8.7-10.4) *L 5.5 mg/dL (8.7-10.4) *L Urinalysis Test 07/13/24 14:30 Urine Color Light-yellow (Yellow) Urine Clarity Turbid (Clear) H Urine pH 6.0 (5.0-9.0) Urine Specific [place] 1.011 (1.001-1.035) Urine Protein 1+ (Negative) H Urine Ketones Negative (Negative) Urine Blood 2+ /uL (Negative) H Urine Nitrite Negative (Negative) Urine Bilirubin Negative (Negative) Urine Urobilinogen Normal mg/dL (Negative) Urine Leukocyte Esterase 3+ /uL (Negative) Urine RBC 4 /hpf (0 - 3) Urine WBC 237 /hpf (0 - 3) Urine Squamous Epithelial Cells Few /hpf (<5) Urine Bacteria Few /hpf (None Seen) H Urine Yeast (Budding) Occasional /hpf (None Urine Glucose Normal mg/dL (Normal) Microbiology Microbiology Date/Time Source Procedure Growth Status 07/13/24 20:18 Blood Blood Culture - Preliminary NO GROWTH AFTER 24 HOURS OF INCUBATION. Resulted Assessment/Plan Assessment/Plan 64-year-old male with a known history of Crohn disease, CKD stage IIIB initially was sent by Nephrology with the abnormal labs found to have 1. Acute kidney injury with underlying CKD stage IIIB 2. Severe hypokalemia 3. Hypocalcemia 4. Crohn disease 5. Generalized weakness and fatigue -replace electrolytes, follow up Nephrology recommendations. Plan discussed with: Patient My Orders Orders - JEIMY NARVAEZ MD Procedure Category Date Status Time * Wound Consult CONS 07/15/24 Transmitted Magnesium Oxide PHA 07/15/24 In Process Tablet (Mag-Ox Tablet) 22:00 Calcium Carbonate PHA 07/15/24 In Process (Tums) 18:00 Potassium Chl PHA 07/15/24 In Process 20meq/100ml 16:45 Date of Service: Jul 15, 2024 Billing Provider: JEIMY NARVAEZ MD Common Visit Codes: NOT BILLABLE JEIMY NARVAEZ MD Jul 15, 2024 17:51
[2024-07-15] MEDS: CALCIUM CARB 500 MG CHEW TAB PO SCH (18:00)
--- NOTE | 2024-07-15 18:00 | DVHPN2 ---
Progress Note - Dictate Date Seen: Jul 15, 2024 Medical Necessity Reason Pt with a Central, PICC or Fol: No Subjective Patient awake and alert states that he feels better again today. He had numerous questions about his medical condition overall. vital signs Vital Sign Date Time Temp Pulse Resp B/P (MAP) Pulse Ox O2 Delivery O2 Flow Rate FiO2 07/15/24 17:00 98.5 84 20 98/58 (71) 100 98.5 07/14/24 20:00 Room Air* 0 21 Total Intake and Output 07/14/24 07/14/24 07/15/24 15:00 23:00 07:00 Intake Total 300 ml 1820 ml Balance 300 ml 1820 ml medications Current Medications Medications Dose Ordered Sig/Rick Route Start Time Stop Time Status Last Admin Dose Admin Ondansetron HCl 4 mg Q6HPRN PRN IV 07/13/24 19:45 Acetaminophen 650 mg Q6HPRN PRN PO 07/13/24 19:45 Acetaminophen/ Hydrocodone Bitart 1 tab Q6HPRN PRN PO 07/13/24 19:45 07/14/24 20:59 1 TAB Pantoprazole Sodium 40 mg DAILY IV 07/14/24 10:00 07/15/24 10:26 40 MG Melatonin 5 mg ONCE@2200 PRN PO 07/13/24 19:45 Ceftriaxone Sodium 50 ml @ 100 mls/hr DAILY IV 07/14/24 10:00 07/15/24 10:26 100 MLS/HR Potassium Bicarbonate 50 meq BID PO 07/14/24 22:00 07/15/24 10:25 50 MEQ Potassium Chloride 40 meq/ Sodium Chloride 1,020 ml @ 125 mls/hr Q8H10M IV 07/14/24 14:30 07/15/24 02:20 125 MLS/HR Magnesium Oxide 400 mg BID PO 07/15/24 22:00 Calcium Carbonate 1,000 mg TIDWM PO 07/15/24 18:00 Potassium Chloride 100 ml @ 50 mls/hr Q2H IV 07/15/24 16:45 07/15/24 22:44 objective gen: Thin lungs: cta cvs: no rub exT: no edema laboratory and microbiology Laboratory Tests 07/15/24 07:07 Test 07/15/24 07:07 Range/Units Serum Glucose 108 H 74-106 mg/dL Assessment/Plan IMP: 1) Hemodynamically mediated acute kidney injury, prerenal state 2) CKD IIIb? 3) Crohn's disease 4) severe hypokalemia 5) hypocalcemia REC: - clinically improved metabolic status - will continue with supplemental potassium and IV fluids - will monitor for azul of sCr. - Discussed plan of care from nephrology perspective with patient Plan discussed with: Patient BROOKLYNN MANJARREZ MD Jul 15, 2024 18:00
[2024-07-15] MEDS: POTASSIUM CHL 20MEQ/100ML 100 ML IV SCH (19:58)
[2024-07-15] MEDS: MAGNESIUM OXIDE 400 MG TAB PO SCH (21:02)
[2024-07-15] MEDS: HYDROcodone-ACET 10/325MG TAB PO PRN (21:03)
[2024-07-16] VITALS (8 sets, daily range): BP systolic 88–115; BP diastolic 48–63; PULSE 72–105; RESP 17–19; TEMP 97.6–98.5; O2SAT 98–100
[2024-07-16] MEDS: THROAT LOZENGES(CEPASTAT) MT PRN (05:51)
[2024-07-16 06:28] LABS: Potassium 4.1 mmol/L (3.5-5.1); Sodium 139 mmol/L (136-145)
[2024-07-16 06:29] LABS: Anion Gap 10 (5-15)
[2024-07-16 06:34] LABS: BUN/Creatinine Ratio 9.1 (10.0-20.0); Glucose 75 mg/dL (74-106)
[2024-07-16 06:35] LABS: Blood Urea Nitrogen 38 mg/dL (9-23); Carbon Dioxide 11 mmol/L (20-31); Chloride 118 mmol/L (98-107)
[2024-07-16 06:37] LABS: Calcium 5.7 mg/dL (8.7-10.4)
[2024-07-16 06:42] LABS: Basophils # (auto) 0.1 10 ^3/uL (0-0.2); Basophils % (auto) 1.1 % (0.0-2.0); Eosinophils # (auto) 0.1 10 ^3/uL (0-0.8); Eosinophils % (auto) 1.6 % (0.0-7.0); Hematocrit 21.8 % (41.0-53.0); Hemoglobin 7.2 g/dL (13.5-17.5); Lymphocytes # (auto) 0.7 10 ^3/uL (0.4-5.4); Lymphocytes % (auto) 12.7 % (10.0-50.0); Mean Corpuscular Hemoglobin 32.6 pg (28.0-32.0); Mean Corpuscular Hgb Conc. 32.8 g/dL (32.0-36.0); Mean Corpuscular Volume 99.3 fL (80.0-100.0); Monocytes # (auto) 0.3 10 ^3/uL (0-1.3); Monocytes % (auto) 5.4 % (0.0-12.0); Neutrophils # (auto) 4.4 10 ^3/uL (1.6-8.6); Neutrophils % (auto) 79.2 % (37.0-80.0); Platelet Count (auto) 238 10^3/uL (140-450); Red Cell Distribution Width 17.9 % (11.8-14.3); White Blood Cell 5.6 10^3/uL (4.4-10.8)
--- NOTE | 2024-07-16 06:44 | ECG ---
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
[2024-07-16 06:47] LABS: Magnesium 1.2 mg/dL (1.6-2.6)
[2024-07-16] MEDS: SODIUM BICARB 50mEq/50ml Vial 150 ML in D5W 5% 1,000 ML IV SCH (10:45)
[2024-07-16] MEDS: SODIUM BICARB 8.4% 50Meq/50ml SYR Vial IV ONE (12:27)
--- NOTE | 2024-07-16 13:47 | DVH ---
INDICATION: MAYRA TECHNIQUE: Multiple real-time sonographic images of the kidneys and bladder were obtained. COMPARISON: CT abdomen pelvis 11/13/2021 FINDINGS: The right kidney measures 9.8 cm in length, which is normal in size. There is normal echogenicity of the right kidney. No hydronephrosis. Scattered shadowing hyperechoic foci measuring up to 1.2 cm, con sistent with stones. The left kidney measures 8.8 cm in length, which is normal in size. There is normal echogenicity of t he left kidney. Left lower pole cyst measuring 1.2 cm. There is mild asymmetric fullness of the left renal collecting system. No large intraluminal masses are seen in the bladder. Prior to voiding the bladder volume measures volume 172 cc. IMPRESSION: 1. Trace left-sided hydronephrosis. 2. Nonobstructing right renal calculi. HS:Y
--- NOTE | 2024-07-16 15:46 | DVHPN2 ---
Progress Note Date Seen: Jul 16, 2024 Medical Necessity Reason Pt with a Central, PICC or Fol: No Subjective Patient reports: Other (diarrhea 5-20 episodes a day) Review of Systems: HEENT:Normal, CVS:Normal, RESPIRATORY:Normal, GI:Abnormal, :Normal, MSK:Normal, NEURO:Normal Objective vital signs Vital Sign Date Time Temp Pulse Resp B/P (MAP) Pulse Ox O2 Delivery O2 Flow Rate FiO2 07/16/24 12:52 98.0 72 17 115/60 (78) 100 98.0 07/15/24 20:00 Room Air* 0 21 Total Intake and Output 07/15/24 07/15/24 07/16/24 15:00 23:00 07:00 Intake Total 50 ml 825 ml 700 ml Balance 50 ml 825 ml 700 ml medications Current Medications Medications Dose Ordered Sig/Rick Route Start Time Stop Time Status Last Admin Dose Admin Ondansetron HCl 4 mg Q6HPRN PRN IV 07/13/24 19:45 Acetaminophen 650 mg Q6HPRN PRN PO 07/13/24 19:45 Pantoprazole Sodium 40 mg DAILY IV 07/14/24 10:00 07/16/24 11:28 40 MG Melatonin 5 mg ONCE@2200 PRN PO 07/13/24 19:45 Ceftriaxone Sodium 50 ml @ 100 mls/hr DAILY IV 07/14/24 10:00 07/16/24 09:38 100 MLS/HR Magnesium Oxide 400 mg BID PO 07/15/24 22:00 07/16/24 09:37 400 MG Calcium Carbonate 1,000 mg TIDWM PO 07/15/24 18:00 07/16/24 12:25 1,000 MG Acetaminophen/ Hydrocodone Bitart 1 tab Q6HP PRN PO 07/15/24 20:30 07/15/24 21:03 1 TAB Throat Lozenges 1 zachary Q2HP PRN MT 07/16/24 05:15 07/16/24 05:51 1 ZACHARY Sodium Bicarbonate 150 ml/Dextrose 1,150 ml @ 100 mls/hr [id number] IV 07/16/24 10:45 07/16/24 10:45 100 MLS/HR Examination: GENERAL:Normal, HEENT:Normal, NECK:Normal, LUNGS:Normal, CVS:Normal, ABDOMEN:Normal, MSK:Normal, SKIN:Normal, NEURO:Normal, :Normal laboratory and microbiology Laboratory Tests 07/16/24 04:52 Test 07/16/24 04:52 Range/Units Serum Glucose 75 74-106 mg/dL Microbiology Date/Time Source Procedure Growth Status 07/13/24 20:18 Blood Blood Culture - Preliminary NO GROWTH AFTER 48 HOURS OF INCUBATION. Resulted Problem List/Assessment/Plan Problem List/Assessment/Plan 1) Hemodynamically mediated acute kidney injury, prerenal state 2) CKD 4 vs 5 3) Crohn's disease 4) severe hypokalemia 5) hypocalcemia hypomagnesemia metabolic acidosis recs check daily electrolytes calcium,mg,phos ,BMP, bicarb iv ordered Plan discussed with: Patient, Other My Orders My Orders Orders - NINOSKA EVANS MD Procedure Category Date Status Time Kidney US 07/16/24 Resulted 10:41 D5w 5% (Dextrose 5%) PHA 07/16/24 In Process W/Sodium Bicarb 50m 10:45 Potassium Effervesent PHA 07/16/24 Logged Tab (Klor-Con/Ef) 18:00 NINOSKA EVANS MD Jul 16, 2024 15:46
--- NOTE | 2024-07-16 16:33 | DVHPN2 ---
Subjective Patient's has a severe electrolyte imbalance which is being treated. PATIENT STATED THAT HE IS FEELING MUCH BETTER. 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 Medications Current Medications Medications Dose Ordered Sig/Rick Route Start Time Stop Time Status Last Admin Dose Admin Ondansetron HCl 4 mg Q6HPRN PRN IV 07/13/24 19:45 Acetaminophen 650 mg Q6HPRN PRN PO 07/13/24 19:45 Pantoprazole Sodium 40 mg DAILY IV 07/14/24 10:00 07/16/24 11:28 40 MG Melatonin 5 mg ONCE@2200 PRN PO 07/13/24 19:45 Ceftriaxone Sodium 50 ml @ 100 mls/hr DAILY IV 07/14/24 10:00 07/16/24 09:38 100 MLS/HR Magnesium Oxide 400 mg BID PO 07/15/24 22:00 07/16/24 09:37 400 MG Calcium Carbonate 1,000 mg TIDWM PO 07/15/24 18:00 07/16/24 12:25 1,000 MG Acetaminophen/ Hydrocodone Bitart 1 tab Q6HP PRN PO 07/15/24 20:30 07/15/24 21:03 1 TAB Throat Lozenges 1 zachary Q2HP PRN MT 07/16/24 05:15 07/16/24 05:51 1 ZACHARY Sodium Bicarbonate 150 ml/Dextrose 1,150 ml @ 100 mls/hr [id number] IV 07/16/24 10:45 07/16/24 10:45 100 MLS/HR Laboratory Results Laboratory Tests 07/16/24 04:52 Chemistry Test 07/16/24 04:52 Calcium Level 5.7 mg/dL (8.7-10.4) *L Magnesium Level 1.2 mg/dL (1.6-2.6) L Urinalysis Test 07/13/24 14:30 Urine Color Light-yellow (Yellow) Urine Clarity Turbid (Clear) H Urine pH 6.0 (5.0-9.0) Urine Specific [place] 1.011 (1.001-1.035) Urine Protein 1+ (Negative) H Urine Ketones Negative (Negative) Urine Blood 2+ /uL (Negative) H Urine Nitrite Negative (Negative) Urine Bilirubin Negative (Negative) Urine Urobilinogen Normal mg/dL (Negative) Urine Leukocyte Esterase 3+ /uL (Negative) Urine RBC 4 /hpf (0 - 3) Urine WBC 237 /hpf (0 - 3) Urine Squamous Epithelial Cells Few /hpf (<5) Urine Bacteria Few /hpf (None Seen) H Urine Yeast (Budding) Occasional /hpf (None Urine Glucose Normal mg/dL (Normal) Microbiology Microbiology Date/Time Source Procedure Growth Status 07/13/24 20:18 Blood Blood Culture - Preliminary NO GROWTH AFTER 48 HOURS OF INCUBATION. Resulted Assessment/Plan Assessment/Plan 64-year-old male with a known history of Crohn disease, CKD stage IIIB initially was sent by Nephrology with the abnormal labs found to have 1. Acute kidney injury with underlying CKD stage IIIB 2. Severe hypokalemia 3. Hypocalcemia 4. Crohn disease 5. Generalized weakness and fatigue -replace electrolytes, follow up Nephrology recommendations. -CONTINUE CALCIUM CARBONATE, REPLACE POTASSIUM AND CALCIUM Plan discussed with: Patient My Orders Orders - JEIMY NARVAEZ MD Procedure Category Date Status Time Hydrocodone-Acet PHA 07/15/24 In Process 10/325mg Tab ([place] 20:30 Date of Service: Jul 16, 2024 Billing Provider: JEIMY NARVAEZ MD Common Visit Codes: NOT BILLABLE JEIMY NARVAEZ MD Jul 16, 2024 16:33
[2024-07-16] MEDS: POTASSIUM EFFERVESENT TAB 25 MEQ PO ONE (18:00)
[2024-07-16] MEDS ORDERED: MELATONIN 5 MG TAB PO PRN (19:00)
[2024-07-16] MEDS: MELATONIN 5 MG TAB PO PRN (21:09)
[2024-07-17] VITALS (8 sets, daily range): BP systolic 101–108; BP diastolic 40–74; PULSE 71–97; RESP 16–20; TEMP 97.5–98.7; O2SAT 95–100
[2024-07-17 06:52] LABS: Anion Gap 10 (5-15); Sodium 141 mmol/L (136-145)
[2024-07-17 06:58] LABS: BUN/Creatinine Ratio 9.3 (10.0-20.0); Blood Urea Nitrogen 34 mg/dL (9-23); Carbon Dioxide 19 mmol/L (20-31); Chloride 112 mmol/L (98-107); Glucose 91 mg/dL (74-106); Potassium 3.1 mmol/L (3.5-5.1)
[2024-07-17 07:01] LABS: Calcium 5.6 mg/dL (8.7-10.4)
[2024-07-17] MEDS: POTASSIUM CHL 20 Meq TABLET PO ONE (13:38)
[2024-07-17] MEDS: MORPHINE SULFATE INJ 2 MG/ml SYRG IV ONE (16:34)
--- NOTE | 2024-07-17 17:26 | DVHPN2 ---
Progress Note Date Seen: Jul 17, 2024 Resident Creating Document: DALIA PEARCE RESIDENT Medical Necessity Reason Pt with a Central, PICC or Fol: No Subjective Patient reports: Other Objective vital signs Vital Sign Date Time Temp Pulse Resp B/P (MAP) Pulse Ox O2 Delivery O2 Flow Rate FiO2 07/17/24 16:34 75 18 111/71 07/17/24 13:00 97.9 99 97.9 07/17/24 08:00 Room Air* 0 21 Total Intake and Output 07/16/24 07/16/24 07/17/24 15:00 23:00 07:00 Intake Total 50 ml 1200 ml 800 ml Balance 50 ml 1200 ml 800 ml medications Current Medications Medications Dose Ordered Sig/Rick Route Start Time Stop Time Status Last Admin Dose Admin Ondansetron HCl 4 mg Q6HPRN PRN IV 07/13/24 19:45 Acetaminophen 650 mg Q6HPRN PRN PO 07/13/24 19:45 Pantoprazole Sodium 40 mg DAILY IV 07/14/24 10:00 07/17/24 08:19 40 MG Melatonin 5 mg ONCE@2200 PRN PO 07/13/24 19:45 07/16/24 21:09 5 MG Ceftriaxone Sodium 50 ml @ 100 mls/hr DAILY IV 07/14/24 10:00 07/17/24 08:49 100 MLS/HR Magnesium Oxide 400 mg BID PO 07/15/24 22:00 07/17/24 08:19 400 MG Calcium Carbonate 1,000 mg TIDWM PO 07/15/24 18:00 07/17/24 12:38 1,000 MG Acetaminophen/ Hydrocodone Bitart 1 tab Q6HP PRN PO 07/15/24 20:30 07/17/24 12:41 1 TAB Throat Lozenges 1 zachary Q2HP PRN MT 07/16/24 05:15 07/17/24 05:04 1 ZACHARY Sodium Bicarbonate 150 ml/Dextrose 1,150 ml @ 100 mls/hr [id number] IV 07/16/24 10:45 07/17/24 08:19 100 MLS/HR Melatonin 5 mg PRN PRN PO 07/16/24 19:00 Examination: GENERAL:Normal, HEENT:Normal, NECK:Normal, LUNGS:Normal, LUNGS:Abnormal, CVS:Normal, ABDOMEN:Normal, MSK:Normal, SKIN:Normal, NEURO:Normal, NEURO:Abnormal, :Normal laboratory and microbiology Laboratory Tests 07/17/24 04:50 07/16/24 04:52 Test 07/17/24 04:50 Range/Units Serum Glucose 91 74-106 mg/dL Microbiology Date/Time Source Procedure Growth Status 07/16/24 08:29 Stool Stool Culture - Preliminary Resulted 07/16/24 08:29 Stool Shiga Toxin I & II - Final Resulted 07/16/24 01:30 Voided Urine Urine Culture - Preliminary Resulted 07/13/24 20:18 Blood Blood Culture - Preliminary NO GROWTH AFTER 72 HOURS OF INCUBATION. Resulted Problem List/Assessment/Plan Problem List/Assessment/Plan Hemodynamically mediated acute kidney injury, prerenal state CKD 4 vs 5 Crohn's disease severe hypokalemia hypocalcemia hypomagnesemia metabolic acidosis Plan/recommendation -monitor electrolytes including calcium, magnesium, phosphorus. Replenish potassium, given 80 mEq of p.o potassium ER tablet. -continue D5W sodium bicarb drip at 100 mL/hour. -acidosis improving. -for severe hypomagnesemia: Continued magnesium 400 mg p.o. tablet b.i.d.. -repeat BNP in a.m. -rest of the management per hospitalist and GI. -we will closely follow-up. Plan discussed with: Patient, Other (RN) Dietary Evaluation Review Comments: 1) Consider a Renal Specific K2, low phos, 2gmNa, 60g Pro diet 2) Continue current plan of care Expected Outcomes/Goals: F/U in 3-5 days DALIA PEARCE RESIDENT Jul 17, 2024 17:25 NINOSKA EVANS MD Jul 18, 2024 16:53
--- NOTE | 2024-07-17 17:51 | DVHPN2 ---
Subjective Patient's has a severe electrolyte imbalance which is being treated. Patient has stated he is not feeling good today. Also complaining of left flank pain. 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 Medications Current Medications Medications Dose Ordered Sig/Rick Route Start Time Stop Time Status Last Admin Dose Admin Ondansetron HCl 4 mg Q6HPRN PRN IV 07/13/24 19:45 Acetaminophen 650 mg Q6HPRN PRN PO 07/13/24 19:45 Pantoprazole Sodium 40 mg DAILY IV 07/14/24 10:00 07/17/24 08:19 40 MG Melatonin 5 mg ONCE@2200 PRN PO 07/13/24 19:45 07/16/24 21:09 5 MG Ceftriaxone Sodium 50 ml @ 100 mls/hr DAILY IV 07/14/24 10:00 07/17/24 08:49 100 MLS/HR Magnesium Oxide 400 mg BID PO 07/15/24 22:00 07/17/24 08:19 400 MG Calcium Carbonate 1,000 mg TIDWM PO 07/15/24 18:00 07/17/24 12:38 1,000 MG Acetaminophen/ Hydrocodone Bitart 1 tab Q6HP PRN PO 07/15/24 20:30 07/17/24 12:41 1 TAB Throat Lozenges 1 zachary Q2HP PRN MT 07/16/24 05:15 07/17/24 05:04 1 ZACHARY Sodium Bicarbonate 150 ml/Dextrose 1,150 ml @ 100 mls/hr [id number] IV 07/16/24 10:45 07/17/24 08:19 100 MLS/HR Melatonin 5 mg PRN PRN PO 07/16/24 19:00 Laboratory Results Laboratory Tests 07/16/24 04:52 07/17/24 04:50 Chemistry Test 07/17/24 04:50 Calcium Level 5.6 mg/dL (8.7-10.4) *L Urinalysis Test 07/13/24 14:30 Urine Color Light-yellow (Yellow) Urine Clarity Turbid (Clear) H Urine pH 6.0 (5.0-9.0) Urine Specific [place] 1.011 (1.001-1.035) Urine Protein 1+ (Negative) H Urine Ketones Negative (Negative) Urine Blood 2+ /uL (Negative) H Urine Nitrite Negative (Negative) Urine Bilirubin Negative (Negative) Urine Urobilinogen Normal mg/dL (Negative) Urine Leukocyte Esterase 3+ /uL (Negative) Urine RBC 4 /hpf (0 - 3) Urine WBC 237 /hpf (0 - 3) Urine Squamous Epithelial Cells Few /hpf (<5) Urine Bacteria Few /hpf (None Seen) H Urine Yeast (Budding) Occasional /hpf (None Urine Glucose Normal mg/dL (Normal) Microbiology Microbiology Date/Time Source Procedure Growth Status 07/16/24 08:29 Stool Stool Culture - Preliminary Resulted 07/16/24 08:29 Stool Shiga Toxin I & II - Final Resulted 07/16/24 01:30 Voided Urine Urine Culture - Preliminary Resulted 07/13/24 20:18 Blood Blood Culture - Preliminary NO GROWTH AFTER 72 HOURS OF INCUBATION. Resulted Assessment/Plan Assessment/Plan 64-year-old male with a known history of Crohn disease, CKD stage IIIB initially was sent by Nephrology with the abnormal labs found to have 1. Acute kidney injury with underlying CKD stage IIIB 2. Severe hypokalemia 3. Hypocalcemia 4. Crohn disease 5. Generalized weakness and fatigue -replace electrolytes, follow up Nephrology recommendations. -CONTINUE CALCIUM CARBONATE, REPLACE POTASSIUM AND CALCIUM -physical therapy evaluation and treatment. Plan discussed with: Patient My Orders Orders - JEIMY NARVAEZ MD Procedure Category Date Status Time Melatonin (Melatonin) PHA 07/16/24 In Process 19:00 Date of Service: Jul 17, 2024 Billing Provider: JEIMY NARVAEZ MD Common Visit Codes: NOT BILLABLE JEIMY NARVAEZ MD Jul 17, 2024 17:51
--- NOTE | 2024-07-17 20:45 | DVHPN2 ---
Progress Note Date Seen: Jul 17, 2024 Medical Necessity Reason Pt with a Central, PICC or Fol: No Subjective Patient reports: No new complaints, Feels better Review of Systems: HEENT:Normal, CVS:Normal, RESPIRATORY:Normal, GI:Normal, :Normal, MSK:Normal, NEURO:Normal Objective vital signs Vital Sign Date Time Temp Pulse Resp B/P (MAP) Pulse Ox O2 Delivery O2 Flow Rate FiO2 07/17/24 17:00 97.5 77 18 108/62 (77) 97 97.5 07/17/24 08:00 Room Air* 0 21 Total Intake and Output 07/16/24 07/16/24 07/17/24 15:00 23:00 07:00 Intake Total 50 ml 1200 ml 800 ml Balance 50 ml 1200 ml 800 ml medications Current Medications Medications Dose Ordered Sig/Rick Route Start Time Stop Time Status Last Admin Dose Admin Ondansetron HCl 4 mg Q6HPRN PRN IV 07/13/24 19:45 Acetaminophen 650 mg Q6HPRN PRN PO 07/13/24 19:45 Pantoprazole Sodium 40 mg DAILY IV 07/14/24 10:00 07/17/24 08:19 40 MG Melatonin 5 mg ONCE@2200 PRN PO 07/13/24 19:45 07/16/24 21:09 5 MG Ceftriaxone Sodium 50 ml @ 100 mls/hr DAILY IV 07/14/24 10:00 07/17/24 08:49 100 MLS/HR Magnesium Oxide 400 mg BID PO 07/15/24 22:00 07/17/24 08:19 400 MG Calcium Carbonate 1,000 mg TIDWM PO 07/15/24 18:00 07/17/24 18:12 1,000 MG Acetaminophen/ Hydrocodone Bitart 1 tab Q6HP PRN PO 07/15/24 20:30 07/17/24 12:41 1 TAB Throat Lozenges 1 zachary Q2HP PRN MT 07/16/24 05:15 07/17/24 05:04 1 ZACHARY Sodium Bicarbonate 150 ml/Dextrose 1,150 ml @ 100 mls/hr [id number] IV 07/16/24 10:45 07/17/24 08:19 100 MLS/HR Melatonin 5 mg PRN PRN PO 07/16/24 19:00 Examination: GENERAL:Normal, HEENT:Normal, NECK:Normal, LUNGS:Normal, CVS:Normal, ABDOMEN:Normal, MSK:Normal, SKIN:Normal, NEURO:Normal, :Normal laboratory and microbiology Laboratory Tests 07/17/24 04:50 07/16/24 04:52 Test 07/17/24 04:50 Range/Units Serum Glucose 91 74-106 mg/dL Microbiology Date/Time Source Procedure Growth Status 07/16/24 08:29 Stool Stool Culture - Preliminary Resulted 07/16/24 08:29 Stool Shiga Toxin I & II - Final Resulted 07/16/24 01:30 Voided Urine Urine Culture - Preliminary Resulted 07/13/24 20:18 Blood Blood Culture - Preliminary NO GROWTH AFTER 72 HOURS OF INCUBATION. Resulted Problem List/Assessment/Plan Problem List/Assessment/Plan 1) Hemodynamically mediated acute kidney injury, prerenal state 2) CKD 4 3) Crohn's disease 4) severe hypokalemia 5) hypocalcemia hypomagnesemia metabolic acidosis recs check daily electrolytes calcium,mg,phos ,BMP, bicarb iv ordered Potassium replace Magnesium and calcium replace Plan discussed with: Patient My Orders My Orders Orders - NINOSKA EVANS MD Procedure Category Date Status Time Potassium Effervesent PHA 07/17/24 Transmitted Tab (Klor-Con/Ef) 20:45 Communication Order ORDERS 07/17/24 Transmitted 20:43 D5 W Sodium PHA 07/17/24 Verified Bicarbonate Drip 20:45 Dietary Evaluation Review Comments: 1) Consider a Renal Specific K2, low phos, 2gmNa, 60g Pro diet 2) Continue current plan of care Expected Outcomes/Goals: F/U in 3-5 days NINOSKA EVANS MD Jul 17, 2024 20:45
[2024-07-17] MEDS: POTASSIUM EFFERVESENT TAB 25 MEQ PO ONE (21:30)
[2024-07-17] MEDS: SODIUM BICARB 50mEq/50ml Vial 150 ML in D5W 5% 1,000 ML IV SCH (21:32)
[2024-07-18] VITALS (8 sets, daily range): BP systolic 103–141; BP diastolic 56–82; PULSE 75–98; RESP 16–18; TEMP 97.8–98.5; O2SAT 92–99
[2024-07-18] MEDS ORDERED: MELATONIN 5 MG TAB PO PRN (02:00)
[2024-07-18] MEDS ORDERED: ACETAMINOPHEN 325 MG TAB PO PRN (02:00)
[2024-07-18 07:25] LABS: Anion Gap 7 (5-15); Carbon Dioxide 26 mmol/L (20-31); Chloride 105 mmol/L (98-107); Sodium 138 mmol/L (136-145)
[2024-07-18 07:31] LABS: BUN/Creatinine Ratio 8.6 (10.0-20.0); Glucose 90 mg/dL (74-106)
[2024-07-18 07:34] LABS: Blood Urea Nitrogen 31 mg/dL (9-23); Phosphorus 2.4 mg/dL (2.4-5.1)
[2024-07-18 07:35] LABS: Calcium 5.4 mg/dL (8.7-10.4)
[2024-07-18 07:36] LABS: Magnesium 0.9 mg/dL (1.6-2.6)
[2024-07-18] MEDS: PANTOPRAZOLE 40 MG/10 ML VIAL INJ IV SCH (08:38)
[2024-07-18] MEDS: MAGNESIUM OXIDE 400 MG TAB PO SCH ×2 (08:38→09:20)
[2024-07-18] MEDS: CALCIUM CARB 500 MG CHEW TAB PO SCH (08:38)
[2024-07-18] MEDS: cefTRIAXone 1GM/50ML D5W 50 ML IV SCH (08:55)
[2024-07-18] MEDS: POTASSIUM EFFERVESENT TAB 25 MEQ PO ONE (09:02)
[2024-07-18] MEDS: POTASSIUM CHL 20 Meq TABLET PO SCH (09:16)
[2024-07-18] MEDS: MAGNESIUM SULFATE 1GM/100ML 100 ML IV SCH (11:31)
[2024-07-18] MEDS: THROAT LOZENGES(CEPASTAT) MT PRN (11:42)
--- NOTE | 2024-07-18 12:51 | DVHPN2 ---
Progress Note Date Seen: Jul 18, 2024 Resident Creating Document: DALIA PEARCE RESIDENT Medical Necessity Reason Pt with a Central, PICC or Fol: No Subjective Review of Systems No other complaints. Objective vital signs Vital Sign Date Time Temp Pulse Resp B/P (MAP) Pulse Ox O2 Delivery O2 Flow Rate FiO2 07/18/24 08:54 98.4 88 18 105/66 (79) 96 98.4 07/17/24 20:00 Room Air* 0 21 Total Intake and Output 07/17/24 07/17/24 07/18/24 15:00 23:00 07:00 Intake Total 170 ml 3650 ml 1100 ml Balance 170 ml 3650 ml 1100 ml medications Current Medications Medications Dose Ordered Sig/Rick Route Start Time Stop Time Status Last Admin Dose Admin Sodium Bicarbonate 150 ml/Dextrose 1,150 ml @ 50 mls/hr Q23H IV 07/17/24 20:45 07/17/24 21:32 50 MLS/HR Ondansetron HCl 4 mg Q6HPRN PRN IV 07/18/24 02:00 Acetaminophen 650 mg Q6HPRN PRN PO 07/18/24 02:00 Pantoprazole Sodium 40 mg DAILY IV 07/18/24 10:00 07/18/24 08:38 40 MG Ceftriaxone Sodium 50 ml @ 100 mls/hr DAILY IV 07/18/24 10:00 07/18/24 08:55 100 MLS/HR Calcium Carbonate 1,000 mg TIDWM PO 07/18/24 08:00 07/18/24 11:39 1,000 MG Acetaminophen/ Hydrocodone Bitart 1 tab Q6HP PRN PO 07/18/24 02:00 Throat Lozenges 1 zachary Q2HP PRN MT 07/18/24 02:00 07/18/24 11:42 1 ZACHARY Melatonin 5 mg QHSP PRN PO 07/18/24 02:00 Magnesium Oxide 800 mg BID PO 07/18/24 10:00 07/18/24 09:20 800 MG Examination: GENERAL:Normal, HEENT:Normal, NECK:Normal, LUNGS:Normal, CVS:Normal, ABDOMEN:Normal, MSK:Normal, SKIN:Normal, NEURO:Normal laboratory and microbiology Laboratory Tests 07/18/24 06:39 07/16/24 04:52 Test 07/18/24 06:39 Range/Units Serum Glucose 90 74-106 mg/dL Microbiology Date/Time Source Procedure Growth Status 07/16/24 08:29 Stool Stool Culture - Preliminary Resulted 07/16/24 08:29 Stool Shiga Toxin I & II - Final Resulted 07/16/24 01:30 Voided Urine Urine Culture - Preliminary Yeast, not Paty albicans Resulted 07/13/24 20:18 Blood Blood Culture - Preliminary NO GROWTH AFTER 72 HOURS OF INCUBATION. Resulted Problem List/Assessment/Plan Problem List/Assessment/Plan Hemodynamically mediated acute kidney injury, prerenal state CKD 4 Crohn's disease/severe chronic diarrhoea severe hypokalemia hypocalcemia hypomagnesemia metabolic acidosis Plan/recommendation -monitor electrolytes including calcium, magnesium, phosphorus. Replenish potassium, given 80 mEq of p.o potassium ER tablet. -continue D5W sodium bicarb drip at 50 mL/hour. -acidosis improving. -for severe hypomagnesemia: Continued magnesium 800 mg p.o. tablet b.i.d.. Given IV magnesium 1 mg two bags. -repeat BMP in a.m. -rest of the management per hospitalist and GI. -we will closely follow-up. Addendum Patient seen and examined, plan discussed with resident. Agree with above, we will follow closely Plan discussed with: Patient, Other (RN) Dietary Evaluation Review Comments: 1) Consider a Renal Specific K2, low phos, 2gmNa, 60g Pro diet 2) Continue current plan of care Expected Outcomes/Goals: F/U in 3-5 days DALIA PEARCE Jul 18, 2024 12:50 NINOSKA EVANS MD Jul 18, 2024 16:50
[2024-07-18] MEDS: CALCIUM GLUC 1,000mg/50ml-NS 50 ML IV ONE (14:45)
--- NOTE | 2024-07-18 16:24 | DVHPN2 ---
Subjective Patient's has a severe electrolyte imbalance which is being treated. Patient has stated that he is feeling little better but diarrhea has been resolved as well. Patient's Crohn disease was diagnosed 20 years ago , currently has appointment with gastro group as an outpatient. 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 Medications Current Medications Medications Dose Ordered Sig/Rick Route Start Time Stop Time Status Last Admin Dose Admin Sodium Bicarbonate 150 ml/Dextrose 1,150 ml @ 50 mls/hr Q23H IV 07/17/24 20:45 07/17/24 21:32 50 MLS/HR Ondansetron HCl 4 mg Q6HPRN PRN IV 07/18/24 02:00 Acetaminophen 650 mg Q6HPRN PRN PO 07/18/24 02:00 Pantoprazole Sodium 40 mg DAILY IV 07/18/24 10:00 07/18/24 08:38 40 MG Ceftriaxone Sodium 50 ml @ 100 mls/hr DAILY IV 07/18/24 10:00 07/18/24 08:55 100 MLS/HR Calcium Carbonate 1,000 mg TIDWM PO 07/18/24 08:00 07/18/24 11:39 1,000 MG Acetaminophen/ Hydrocodone Bitart 1 tab Q6HP PRN PO 07/18/24 02:00 Throat Lozenges 1 zachary Q2HP PRN MT 07/18/24 02:00 07/18/24 11:42 1 ZACHARY Melatonin 5 mg QHSP PRN PO 07/18/24 02:00 Magnesium Oxide 800 mg BID PO 07/18/24 10:00 07/18/24 09:20 800 MG Laboratory Results Laboratory Tests 07/16/24 04:52 07/18/24 06:39 Chemistry Test 07/18/24 06:39 Calcium Level 5.4 mg/dL (8.7-10.4) *L Magnesium Level 0.9 mg/dL (1.6-2.6) *L Phosphorus Level 2.4 mg/dL (2.4-5.1) Urinalysis Test 07/13/24 14:30 Urine Color Light-yellow (Yellow) Urine Clarity Turbid (Clear) H Urine pH 6.0 (5.0-9.0) Urine Specific [place] 1.011 (1.001-1.035) Urine Protein 1+ (Negative) H Urine Ketones Negative (Negative) Urine Blood 2+ /uL (Negative) H Urine Nitrite Negative (Negative) Urine Bilirubin Negative (Negative) Urine Urobilinogen Normal mg/dL (Negative) Urine Leukocyte Esterase 3+ /uL (Negative) Urine RBC 4 /hpf (0 - 3) Urine WBC 237 /hpf (0 - 3) Urine Squamous Epithelial Cells Few /hpf (<5) Urine Bacteria Few /hpf (None Seen) H Urine Yeast (Budding) Occasional /hpf (None Urine Glucose Normal mg/dL (Normal) Microbiology Microbiology Date/Time Source Procedure Growth Status 07/16/24 08:29 Stool Stool Culture - Preliminary Resulted 07/16/24 08:29 Stool Shiga Toxin I & II - Final Resulted 07/16/24 01:30 Voided Urine Urine Culture - Preliminary Yeast, not Paty albicans Resulted 07/13/24 20:18 Blood Blood Culture - Preliminary NO GROWTH AFTER 72 HOURS OF INCUBATION. Resulted Assessment/Plan Assessment/Plan 64-year-old male with a known history of Crohn disease, CKD stage IIIB initially was sent by Nephrology with the abnormal labs found to have 1. Acute kidney injury with underlying CKD stage IIIB 2. Severe hypokalemia 3. Hypocalcemia 4. Crohn disease 5. Generalized weakness and fatigue 6. Diarrhea resolved, C diff has been ruled out. -replace electrolytes, follow up Nephrology recommendations. -CONTINUE CALCIUM CARBONATE, REPLACE POTASSIUM AND CALCIUM -physical therapy evaluation and treatment. -outpatient follow up with GI for Crohn disease. Plan discussed with: Patient My Orders Orders - JEIMY NARVAEZ MD Procedure Category Date Status Time Calcium Carbonate PHA 07/18/24 In Process ([place]) 08:00 Hydrocodone-Acet PHA 07/18/24 In Process 10/325mg Tab ([place] 02:00 Melatonin (Melatonin) PHA 07/18/24 In Process 02:00 Renal DIET 07/18/24 Transmitted Standard(2gna,3gk,Lopho) Dinner Date of Service: Jul 18, 2024 Billing Provider: JEIMY NARVAEZ MD Common Visit Codes: NOT BILLABLE JEIMY NARVAEZ MD Jul 18, 2024 16:24
[2024-07-19] VITALS (9 sets, daily range): BP systolic 91–140; BP diastolic 61–99; PULSE 47–104; RESP 17–20; TEMP 97.8–99.4; O2SAT 92–100
[2024-07-19 07:13] LABS: Eosinophils # (auto) 0.1 10 ^3/uL (0-0.8); Eosinophils % (auto) 1.1 % (0.0-7.0); Hematocrit 21.5 % (41.0-53.0); Hemoglobin 7.2 g/dL (13.5-17.5); Lymphocytes # (auto) 0.6 10 ^3/uL (0.4-5.4); Monocytes # (auto) 0.4 10 ^3/uL (0-1.3); White Blood Cell 7.8 10^3/uL (4.4-10.8)
[2024-07-19 07:15] LABS: Basophils # (auto) 0.1 10 ^3/uL (0-0.2); Basophils % (auto) 0.7 % (0.0-2.0); Lymphocytes % (auto) 7.8 % (10.0-50.0); Mean Corpuscular Hemoglobin 31.9 pg (28.0-32.0); Mean Corpuscular Hgb Conc. 33.4 g/dL (32.0-36.0); Mean Corpuscular Volume 95.8 fL (80.0-100.0); Monocytes % (auto) 5.3 % (0.0-12.0); Neutrophils # (auto) 6.6 10 ^3/uL (1.6-8.6); Neutrophils % (auto) 85.1 % (37.0-80.0); Platelet Count (auto) 228 10^3/uL (140-450); Red Blood Cells 2.25 10^6/uL (4.5-5.90); Red Cell Distribution Width 17.2 % (11.8-14.3)
[2024-07-19 07:20] LABS: Anion Gap 9 (5-15); Carbon Dioxide 27 mmol/L (20-31); Chloride 102 mmol/L (98-107); Sodium 138 mmol/L (136-145)
[2024-07-19 07:26] LABS: BUN/Creatinine Ratio 9.3 (10.0-20.0); Glucose 95 mg/dL (74-106)
[2024-07-19 07:42] LABS: Blood Urea Nitrogen 32 mg/dL (9-23); Magnesium 1.3 mg/dL (1.6-2.6); Potassium 2.8 mmol/L (3.5-5.1)
[2024-07-19 07:44] LABS: Calcium 5.6 mg/dL (8.7-10.4)
[2024-07-19] MEDS: FERROUS SULFATE 325mg EC TAB PO ONE (09:51)
[2024-07-19] MEDS: POTASSIUM CHL 20 Meq TABLET PO SCH (09:52)
--- NOTE | 2024-07-19 11:07 | DVHPN2 ---
Progress Note Date Seen: Jul 19, 2024 Medical Necessity Reason Pt with a Central, PICC or Fol: No Subjective Patient reports: Other Review of Systems: HEENT:Normal, CVS:Normal, RESPIRATORY:Normal, GI:Normal, :Abnormal, MSK:Normal, NEURO:Normal Objective vital signs Vital Sign Date Time Temp Pulse Resp B/P (MAP) Pulse Ox O2 Delivery O2 Flow Rate FiO2 07/19/24 09:21 97.8 104 17 113/64 (80) 97 97.8 07/18/24 20:00 Room Air* 0 21 Total Intake and Output 07/18/24 07/18/24 07/19/24 15:00 23:00 07:00 Intake Total 370 ml 950 ml 800 ml Balance 370 ml 950 ml 800 ml medications Current Medications Medications Dose Ordered Sig/Rick Route Start Time Stop Time Status Last Admin Dose Admin Ondansetron HCl 4 mg Q6HPRN PRN IV 07/18/24 02:00 Acetaminophen 650 mg Q6HPRN PRN PO 07/18/24 02:00 Pantoprazole Sodium 40 mg DAILY IV 07/18/24 10:00 07/19/24 09:53 40 MG Ceftriaxone Sodium 50 ml @ 100 mls/hr DAILY IV 07/18/24 10:00 07/19/24 09:53 100 MLS/HR Calcium Carbonate 1,000 mg TIDWM PO 07/18/24 08:00 07/19/24 09:52 1,000 MG Acetaminophen/ Hydrocodone Bitart 1 tab Q6HP PRN PO 07/18/24 02:00 Throat Lozenges 1 zachary Q2HP PRN MT 07/18/24 02:00 07/18/24 11:42 1 ZACHARY Melatonin 5 mg QHSP PRN PO 07/18/24 02:00 Magnesium Oxide 800 mg BID PO 07/18/24 10:00 07/19/24 09:50 800 MG Potassium Chloride/Sodium Chloride 1,000 ml @ 100 mls/hr Q10H IV 07/19/24 08:45 Ferrous Sulfate 325 mg BIDWM PO 07/19/24 18:00 Examination: GENERAL:Normal, HEENT:Normal, NECK:Normal, LUNGS:Normal, CVS:Normal, ABDOMEN:Normal, MSK:Normal, SKIN:Normal, NEURO:Normal, :Abnormal laboratory and microbiology Laboratory Tests 07/19/24 05:58 Test 07/19/24 05:58 Range/Units Serum Glucose 95 74-106 mg/dL Microbiology Date/Time Source Procedure Growth Status 07/16/24 08:29 Stool Stool Culture - Final Complete 07/16/24 08:29 Stool Shiga Toxin I & II - Final Complete 07/16/24 01:30 Voided Urine Urine Culture - Final Yeast, not Paty albicans Complete 07/13/24 20:18 Blood Blood Culture - Final NO GROWTH AFTER 5 DAYS OF INCUBATION. Complete Problem List/Assessment/Plan Problem List/Assessment/Plan Hemodynamically mediated acute kidney injury, prerenal state CKD 4 Crohn's disease/severe chronic diarrhoea severe hypokalemia hypocalcemia hypomagnesemia metabolic acidosis hematuria Plan/recommendation passed big stone in urine--feels like another stone is obstructed,,reports gross hematuria today,, still has 8-[address] abd /pelvis as ordered urology consult switch bicarb drip to k based ivf as bicarb better he need to go home with kcl 60meq po bid ,,mgo 800mg po daily , sodium bicarb 650mg po QID ,,calcium carbonate supplements TID and uptitration of supplements as needed---has appt with on jul 23 check urine k Plan discussed with: Patient My Orders My Orders Orders - NINOSKA EVANS MD Procedure Category Date Status Time Urine Potassium LAB 07/19/24 Logged 08:40 Urine Protein LAB 07/19/24 Logged 08:40 Urine Creatinine LAB 07/19/24 Logged 08:40 Sod Chl 0.9%/ Kcl PHA 07/19/24 In Process 40meq 08:45 Ferrous Sulfate Tablet PHA 07/19/24 In Process 18:00 Urine Sodium LAB 07/19/24 Logged 08:40 * Urology Consult CONS 07/19/24 Transmitted 10:23 Ct Ab Pel Wo Con-No CT 07/19/24 Logged Oral Or Iv 10:27 Stone Analysis Urinary LAB 07/19/24 In Process 10:27 Dietary Evaluation Review Comments: 1) Consider a Renal Specific K2, low phos, 2gmNa, 60g Pro diet 2) Continue current plan of care Expected Outcomes/Goals: F/U in 3-5 days NINOSKA EVANS MD Jul 19, 2024 11:07
[2024-07-19] MEDS: SOD CHL 0.9%/ KCL 40MEQ 1,000 ML IV SCH (11:27)
--- NOTE | 2024-07-19 12:18 | DVH ---
Exam: CT CT AB PEL WO CON-NO ORAL OR IV History: kidney stone eval Comparison Study: [facility] on DOS: 12/01/21, CT ABD PELVIS WO CONTRAST on DOS: 11/27/21 Technique: Multidetector spiral CT of the abdomen and pelvis was performed from lung bases to pubic symphysis. Imaging was performed without IV contrast. Axial, coronal and sagittal multiplanar reform ats were obtained from the axial data set by the technologist. Radiation dose : Abdomen/Pelvis: CTDIvol 5 mGy, DLP 279 mGy*cm. Findings: Evaluation of solid organs is limited due to lack of intravenous contrast use. Lung Bases: Moderate bilateral pleural effusions with bibasilar atelectasis and consolidation. Liver: The liver is normal in size. No focal lesions. Gallbladder and biliary Tree: Unremarkable Spleen: Unremarkable Pancreas: The pancreas is grossly normal in appearance. Adrenal Glands: Unremarkable Kidneys: Atrophic left kidney. Left renal cysts. Right renal calculi, largest measuring up to 8 mm. N o hydronephrosis. Bladder: Grossly unremarkable for degree of distention. Bowel: The stomach is grossly normal in appearance. Small bowel and colon are normal in caliber and d istribution. The appendix is not visualized; however, no secondary findings of acute appendicitis id entified. Ascites: Absent Lymphadenopathy: No mesenteric, retroperitoneal or periportal lymphadenopathy. Abdominal wall and Mesentery: Diffuse anasarca Vasculature: Calcified atherosclerotic disease. Pelvic Organs: Unremarkable Musculoskeletal: No aggressive focal bony lesions, acute fractures or dislocation. IMPRESSION: 1. Right renal calculi. No hydronephrosis. Atrophic left kidney . Left renal cysts. Bilateral pleura l effusions with associated bibasilar atelectasis and consolidation. Diffuse anasarca. Radiation optimization: All CT scans at this facility use at least one of these dose optimization jagdish hniques: Automated exposure control mA and/or kV adjustment per patient size (includes targeted exams where dose is matched to clinical indication) or iterative reconstruction. HS:Y
--- NOTE | 2024-07-19 12:31 | DVHINCON2 ---
Date of service: Jul 19, 2024 Referring Physician Hospitalist Reason for Consultation Right renal stones History of Present Illness Patient is admitted for metabolic derangement of hypocalcemia and hypokalemia. He has chronic kidney disease and has two small right nephrolithiasis nonobstructing. His left kidney is atrophic and probably nonfunctional. 64 yo male with a history of Crohn's disease, Nephrolithiasis, SBO who presents with a chief complaint of abnormal labs. Patient is experiencing sore throat, unintentional weight loss of 40 pounds in past 2 months, hand numbness/tingling, hair falling out, and fatigue x1.5months. Pt was sent by food and beverage manager Dr. Ng for possible low potassium. Patient reports poor appetite with diarrhea, intermittent abdominal discomfort. Patient denies fevers, chills, nausea, vomiting, chest pain, palpitations. Home Meds Active Scripts Tamsulosin Hcl (Flomax) 0.4 Mg Cap, 0.4 MG PO QPM, #30 CAP Prov:NIKHIL MCKINNEY MD 12/02/21 Carbamazepine (Carbamazepine) 200 Mg Tab, 100 MG PO BID, #60 TAB Prov:NIKHIL MCKINNEY MD 12/02/21 Hydrocodone-Acetaminophen (Hydrocodone Bitartrate/AC 10-325 mg) 1 Tab Tab, 1 TAB PO Q6HP PRN, #20 TAB Prov:NIKHIL MCKINNEY MD 11/17/21 Reported Medications Adalimumab (Humira) 40 Mg/0.4 Ml Inj, 40 MG SC, INJ unknown dose 1 injection [id number] 11/13/21 Past Medical History Cardiac: No pertinent Hx Pulmonary: No pertinent Hx Central Nervous System: No pertinent Hx GI: Other (crohn's disease, small bowel obstruction) Hemotology/Oncology: No pertinent Hx Hepatobiliary: No pertinent Hx Psychiatric: No pertinent Hx Musculoskeletal: No pertinent Hx Rheumotologic: No pertinent Hx Infectious Disease: No peritnent Hx ENT: No pertinent Hx Renal/: No pertinent Hx Endocrine: No pertinent Hx Dermatology: No pertinent Hx Past Surgical History Patient has history of undergoing a right percutaneous nephrostomy tube pl acement in 2021 He also admits to undergoing lithotripsy with stent placement and subsequent stent removal with Dr. Antwan andarde of [facility] in the urology in 2021 Family History: Patient reports no known family medical history. Allergies: Coded Allergies: NO KNOWN ALLERGIES (Unverified , 11/13/21) Home Meds Active Scripts Tamsulosin Hcl (Flomax) 0.4 Mg Cap, 0.4 MG PO QPM, #30 CAP Prov:NIKHIL MCKINNEY MD 12/02/21 Carbamazepine (Carbamazepine) 200 Mg Tab, 100 MG PO BID, #60 TAB Prov:NIKIHL MCKINNEY MD 12/02/21 Hydrocodone-Acetaminophen (Hydrocodone Bitartrate/AC 10-325 mg) 1 Tab Tab, 1 TAB PO Q6HP PRN, #20 TAB Prov:NIKHIL MCKINNEY MD 11/17/21 Reported Medications Adalimumab (Humira) 40 Mg/0.4 Ml Inj, 40 MG SC, INJ unknown dose 1 injection [id number] 11/13/21 Current Medications Current Medications Medications (Trade) Dose Ordered Sig/Rick Route PRN Reason Start Time Stop Time Status Last Admin Potassium Chloride (Klor-Con Tablet) 40 meq Q2H PO 07/19/24 08:45 07/19/24 10:46 DC 07/19/24 10:38 Potassium Chloride/Sodium Chloride 1,000 ml @ 100 mls/hr Q10H IV 07/19/24 08:45 07/19/24 11:27 Ferrous Sulfate 325 mg BIDWM PO 07/19/24 18:00 Review of Systems Constitutional: Weakness Ears, Nose, & Throat: No symptom reported Eyes: No symptom reported Pulmonary/Respiratory: No symptom reported Cardiovascular: No symptom reported Gastrointestinal: Diarrhea Genitourinary: No symptom reported Musculoskeletal: No symptom reported Skin: No symptom reported Psychiatric: No symptom reported Endocrine: No symptom reported Hemotologic/Lymphatic: No symptom reported Vital Signs Vital Signs Date Time Temp Pulse Resp B/P (MAP) Pulse Ox O2 Delivery O2 Flow Rate FiO2 07/19/24 09:21 97.8 104 17 113/64 (80) 97 97.8 07/19/24 08:00 Room Air* 0 21 Physical Exam Vital Signs Date Time Temp Pulse Resp B/P (MAP) Pulse Ox O2 Delivery O2 Flow Rate FiO2 07/14/24 00:00 71 14 90/53 (65) 99 07/13/24 19:35 97.9 97.9 07/13/24 19:35 Room Air* 0 21 General Appeara: Cachetic, Thin Head Exam: Normal inspection Neck Exam: Normal inspection, Non-tender, Normal alignment Eye Exam: bilateral eye Normal inspection, bilateral eye PERRL, bilateral eye EOMI Ear Exam: bilateral ear Auricle normal Nasal Exam: Normal inspection Mouth: Normal Inspection Pulmonary/Respiratory: Normal inspection, Normal breath sounds, Chest non- tender, Lungs clear Cardiovascular/Chest: Normal inspection, Regular rate, Normal Rhythm Peripheral Pulses: 2+ dorsalis pedis (R), 2+ dorsalis pedis (L), 2+ Radial (R), 2+ Radial (L) Abdominal Exam: Normal bowel sounds, Soft, No tenderness Rectal Exam: Deferred Back Exam: Normal inspection Male Genital Exam: Not done PATIENT FINANCIAL SPECIALIST Exam: Normal hearing, Normal speech, PERRL Motor/Sensory: Normal sensory function, Normal motor function Neuro/Mental St: Alert, Oriented Appearance: Appropriate appearance, Appropriate insight Thoughts/Psych: Normal thought pattern Skin Exam: Normal inspection, Warm/dry, Pallor Labs/Diagnostic Data Labs Test 07/19/24 10:43 07/19/24 05:58 07/16/24 08:29 07/16/24 04:52 Range/Units White Blood Count 7.8 # 4.4-10.8 10^3/uL Red Blood Count 2.25 L 4.5-5.90 10^6/uL Hemoglobin 7.2 L 13.5-17.5 g/dL Hematocrit 21.5 L 41.0-53.0 % Mean Corpuscular Volume 95.8 80.0-100.0 fL Mean Corpuscular Hemoglobin 31.9 28.0-32.0 pg Mean Corpuscular Hemoglobin Concent 33.4 32.0-36.0 g/dL Red Cell Distribution Width 17.2 H 11.8-14.3 % Platelet Count 228 140-450 10^3/uL Mean Platelet Volume 7.7 6.9-10.8 fL Neutrophils (%) (Auto) 85.1 H 37.0-80.0 % Lymphocytes (%) (Auto) 7.8 L 10.0-50.0 % Monocytes (%) (Auto) 5.3 0.0-12.0 % Eosinophils (%) (Auto) 1.1 0.0-7.0 % Basophils (%) (Auto) 0.7 0.0-2.0 % Neutrophils # (Auto) 6.6 1.6-8.6 10 ^3/uL Lymphocytes # (Auto) 0.6 0.4-5.4 10 ^3/uL Monocytes # (Auto) 0.4 0-1.3 10 ^3/uL Eosinophils # (Auto) 0.1 0-0.8 10 ^3/uL Basophils # (Auto) 0.1 0-0.2 10 ^3/uL Nucleated Red Blood Cells 0.0 % Sodium Level 138 136-145 mmol/L Potassium Level 2.8 L 3.5-5.1 mmol/L Chloride Level 102 98-107 mmol/L Carbon Dioxide Level 27 20-31 mmol/L Anion Gap 9 5-15 Blood Urea Nitrogen 32 H 9-23 mg/dL Creatinine 3.44 H 0.700-1.30 mg/dL Glomerular Filtration Rate Calc 19 >90 mL/min BUN/Creatinine Ratio 9.3 L 10.0-20.0 Serum Glucose 95 74-106 mg/dL Calcium Level 5.6 *L 8.7-10.4 mg/dL Phosphorus Level 2.0 L 2.4-5.1 mg/dL Magnesium Level 1.3 L 1.6-2.6 mg/dL Stool Occult Blood Negative Negative Stool Occult Blood Sample #3 Negative Troponin I High Sensitivity 7 </=54 ng/L Test 07/13/24 20:18 07/13/24 14:30 07/13/24 14:14 Range/Units Prothrombin Time 11.4 9.3-11.8 sec Prothrombin Time INR 1.08 0.9-1.15 Iron Level 61 L 65-175 ug/dL Total Iron Binding Capacity 204 L 250-425 ug/dL Percent Iron Saturation 29.9 20-55 % Ferritin 333.8 H 22-322 ng/mL Vitamin B12 Level 573 211-911 pg/mL Urine Color Light-yellow Yellow Urine Clarity Turbid H Clear Urine pH 6.0 5.0-9.0 Urine Specific Energy 1.011 1.001-1.035 Urine Protein 1+ H Negative Urine Ketones Negative Negative Urine Blood 2+ H Negative /uL Urine Nitrite Negative Negative Urine Bilirubin Negative Negative Urine Urobilinogen Normal Negative mg/dL Urine Leukocyte Esterase 3+ Negative /uL Urine RBC 4 0 - 3 /hpf Urine WBC 237 0 - 3 /hpf Urine Squamous Epithelial Cells Few <5 /hpf Urine Bacteria Few H None Seen /hpf Urine Yeast (Budding) Occasional None Seen /hpf Urine Glucose Normal Normal mg/dL Total Bilirubin 0.2 0.2-1.0 mg/dL Aspartate Amino Transferase (AST) 20 13-40 U/L Alanine Aminotransferase (ALT) 15 7-40 U/L Alkaline Phosphatase 92 46-116 U/L Total Protein 5.8 5.7-8.2 g/dL Albumin 3.3 3.2-4.8 g/dL Thyroid Stimulating Hormone (TSH) 2.95 0.55-4.78 uIU/mL Microbiology Date/Time Source Procedure Growth Status 07/16/24 08:29 Stool Stool Culture - Final Complete 07/16/24 08:29 Stool Shiga Toxin I & II - Final Complete 07/16/24 01:30 Voided Urine Urine Culture - Final Yeast, not Paty albicans Complete 07/13/24 20:18 Blood Blood Culture - Final NO GROWTH AFTER 5 DAYS OF INCUBATION. Complete PATIENT: OLIMPIA SOTO ACCT: [id number] UNIT: [id number] : 1960 LOC: [facility] ROOM / BED: [facility] / A AGE / SEX: 64 / M ADM STATUS: ADM IN SERVICE 1027 ORDERING PHYSICIAN: NINOSKA EVANS MD PROCEDURE(s): ABPL - CT AB PEL WO CON-NO ORAL OR IV REASON: kidney stone eval ORDER NUMBER(s): [id number], ACCESSION NUMBER(s): [id number] Exam: CT CT AB PEL WO CON-NO ORAL OR IV History: kidney stone eval Comparison Study: [facility] on DOS: 12/01/21, CT ABD PELVIS WO CONTRAST on DOS: 11/27/21 Technique: Multidetector spiral CT of the abdomen and pelvis was performed from lung bases to pubic symphysis. Imaging was performed without IV contrast. Axial, coronal and sagittal multiplanar reformats were obtained from the axial data set by the technologist. Radiation dose : Abdomen/Pelvis: CTDIvol 5 mGy, DLP 279 mGy*cm. Findings: Evaluation of solid organs is limited due to lack of intravenous contrast use. Lung Bases: Moderate bilateral pleural effusions with bibasilar atelectasis and consolidation. Liver: The liver is normal in size. No focal lesions. Gallbladder and biliary Tree: Unremarkable Spleen: Unremarkable Pancreas: The pancreas is grossly normal in appearance. Adrenal Glands: Unremarkable Kidneys: Atrophic left kidney. Left renal cysts. Right renal calculi, largest measuring up to 8 mm. No hydronephrosis. Bladder: Grossly unremarkable for degree of distention. Bowel: The stomach is grossly normal in appearance. Small bowel and colon are normal in caliber and distribution. The appendix is not visualized; however, no secondary findings of acute appendicitis identified. Ascites: Absent Lymphadenopathy: No mesenteric, retroperitoneal or periportal lymphadenopathy. Abdominal wall and Mesentery: Diffuse anasarca Vasculature: Calcified atherosclerotic disease. Pelvic Organs: Unremarkable Musculoskeletal: No aggressive focal bony lesions, acute fractures or dislocation. IMPRESSION: 1. Right renal calculi. No hydronephrosis. Atrophic left kidney . Left renal cysts. Bilateral pleural effusions with associated bibasilar atelectasis and consolidation. Diffuse anasarca. Radiation optimization: All CT scans at this facility use at least one of these dose optimization techniques: Automated exposure control mA and/or kV adjustment per patient size (includes targeted exams where dose is matched to clinical indication) or iterative reconstruction. HS:Y ATED BY: DEREK HAIRSTON MD DICTATED DATE/TIME: 07/19/241215 SIGNED BY: DEREK HAIRSTON MD SIGNED DATE/TIME: 07/19/241215 CC: Assessment Right nephrolithiasis, nonobstructing Metabolic derangement Chronic kidney disease Nonfunctioning atrophic left renal unit Plan/Recommendation When patient is medically stable, he should undergo cystoscopy with stent placement and lithotripsy with Dr. Antwan Lange as outpatient Signing off Plan discussed with: Patient, Other JOSSIE GARCIA MD Jul 19, 2024 12:31
[2024-07-19] MEDS: ONDANSETRON HCL 4 MG/2 ML VIAL IV PRN (14:45)
--- NOTE | 2024-07-19 16:27 | DVHPN2 ---
Subjective Patient's has a severe electrolyte imbalance which is being treated. Patient has stated that he is feeling little better but diarrhea has been resolved as well. Patient's Crohn disease was diagnosed 20 years ago , currently has appointment with gastro group as an outpatient. Patient was stated that she was positive kidney stone today. CT abdominal and pelvis was done report is pending. Reviewed: Care Plan Changes from previous H/P or p: No Changes Objective Vitals Vital Signs Date Time Temp Pulse Resp B/P (MAP) Pulse Ox O2 Delivery O2 Flow Rate FiO2 07/19/24 13:17 97.9 87 20 100/61 (74) 98 97.9 07/19/24 08:00 Room Air* 0 21 Intake/Output Intake and Output 07/19/24 07:00 Intake Total 2120 ml Balance 2120 ml Intake Oral 1320 ml IV Total 800 ml # Voids 6 # Bowel Movements 2 Exam HEENT pupils are reactive Neck is supple CV is S1-S2 regular rate and rhythm Respiratory bilateral clear GI positive bowel sound Extremity no edema [employer] no motor deficit Medications Current Medications Medications Dose Ordered Sig/Rick Route Start Time Stop Time Status Last Admin Dose Admin Ondansetron HCl 4 mg Q6HPRN PRN IV 07/18/24 02:00 07/19/24 14:45 4 MG Acetaminophen 650 mg Q6HPRN PRN PO 07/18/24 02:00 Pantoprazole Sodium 40 mg DAILY IV 07/18/24 10:00 07/19/24 09:53 40 MG Ceftriaxone Sodium 50 ml @ 100 mls/hr DAILY IV 07/18/24 10:00 07/19/24 09:53 100 MLS/HR Calcium Carbonate 1,000 mg TIDWM PO 07/18/24 08:00 07/19/24 12:16 1,000 MG Acetaminophen/ Hydrocodone Bitart 1 tab Q6HP PRN PO 07/18/24 02:00 Throat Lozenges 1 zachary Q2HP PRN MT 07/18/24 02:00 07/18/24 11:42 1 ZACHARY Melatonin 5 mg QHSP PRN PO 07/18/24 02:00 Magnesium Oxide 800 mg BID PO 07/18/24 10:00 07/19/24 09:50 800 MG Potassium Chloride/Sodium Chloride 1,000 ml @ 100 mls/hr Q10H IV 07/19/24 08:45 07/19/24 11:27 100 MLS/HR Ferrous Sulfate 325 mg BIDWM PO 07/19/24 18:00 Morphine Sulfate 2 mg Q4HPRN PRN IV 07/19/24 15:45 UNV Tamsulosin HCl 0.4 mg QPM PO 07/19/24 18:00 UNV Laboratory Results Laboratory Tests 07/19/24 05:58 Chemistry Test 07/19/24 05:58 Calcium Level 5.6 mg/dL (8.7-10.4) *L Magnesium Level 1.3 mg/dL (1.6-2.6) L Phosphorus Level 2.0 mg/dL (2.4-5.1) L Urinalysis Test 07/13/24 14:30 Urine Color Light-yellow (Yellow) Urine Clarity Turbid (Clear) H Urine pH 6.0 (5.0-9.0) Urine Specific Magdalena 1.011 (1.001-1.035) Urine Protein 1+ (Negative) H Urine Ketones Negative (Negative) Urine Blood 2+ /uL (Negative) H Urine Nitrite Negative (Negative) Urine Bilirubin Negative (Negative) Urine Urobilinogen Normal mg/dL (Negative) Urine Leukocyte Esterase 3+ /uL (Negative) Urine RBC 4 /hpf (0 - 3) Urine WBC 237 /hpf (0 - 3) Urine Squamous Epithelial Cells Few /hpf (<5) Urine Bacteria Few /hpf (None Seen) H Urine Yeast (Budding) Occasional /hpf (None Urine Glucose Normal mg/dL (Normal) Microbiology Microbiology Date/Time Source Procedure Growth Status 07/16/24 08:29 Stool Stool Culture - Final Complete 07/16/24 08:29 Stool Shiga Toxin I & II - Final Complete 07/16/24 01:30 Voided Urine Urine Culture - Final Yeast, not Paty albicans Complete 07/13/24 20:18 Blood Blood Culture - Final NO GROWTH AFTER 5 DAYS OF INCUBATION. Complete Assessment/Plan Assessment/Plan 64-year-old male with a known history of Crohn disease, CKD stage IIIB initially was sent by Nephrology with the abnormal labs found to have 1. Acute kidney injury with underlying CKD stage IIIB 2. Severe hypokalemia 3. Hypocalcemia 4. Crohn disease 5. Generalized weakness and fatigue 6. Diarrhea resolved, C diff has been ruled out. 7. Hematuria with a positive ureteric stone. -IV hydration, p.o. hydration, and Flomax -replace electrolytes, follow up Nephrology recommendations. -CONTINUE CALCIUM CARBONATE, REPLACE POTASSIUM AND CALCIUM -physical therapy evaluation and treatment. -outpatient follow up with GI for Crohn disease. Plan discussed with: Patient My Orders Orders - JEIMY NARVAEZ MD Procedure Category Date Status Time Morphine Sulfate [facility] 07/19/24 Logged Injection 15:45 Tamsulosin [facility] 07/19/24 Logged Hydrochloride (Flomax) 18:00 Date of Service: Jul 19, 2024 Billing Provider: JEIMY NARVAEZ MD Common Visit Codes: NOT BILLABLE JEIMY NARVAEZ MD Jul 19, 2024 16:27
[2024-07-19] MEDS: FERROUS SULFATE 325mg EC TAB PO SCH (17:39)
[2024-07-19] MEDS: TAMSULOSIN HYDROCHLORIDE 0.4 MG CAP PO SCH (17:39)
[2024-07-19] MEDS: MORPHINE SULFATE INJ 2 MG/ml SYRG IV PRN (17:43)
[2024-07-19] MEDS: HYDROcodone-ACET 10/325MG TAB PO PRN (21:41)
[2024-07-20] VITALS (8 sets, daily range): BP systolic 106–118; BP diastolic 50–70; PULSE 81–110; RESP 17–20; TEMP 97.7–99.6; O2SAT 92–98
[2024-07-20] MEDS: diphenhdrAMINE HCL 50 MG/1 ML VL IV PRN (04:37)
--- NOTE | 2024-07-20 09:19 | DVHPN2 ---
Progress Note - Dictate Date Seen: Jul 20, 2024 Medical Necessity Reason Pt with a Central, PICC or Fol: No Subjective diarrhea noted yesterday vital signs Vital Sign Date Time Temp Pulse Resp B/P (MAP) Pulse Ox O2 Delivery O2 Flow Rate FiO2 07/20/24 05:00 97.7 87 18 116/69 (85) 96 97.7 07/19/24 20:00 Room Air* 0 21 Total Intake and Output 07/19/24 07/19/24 07/20/24 15:00 23:00 07:00 Intake Total 170 ml 1350 ml 1600 ml Balance 170 ml 1350 ml 1600 ml medications Current Medications Medications Dose Ordered Sig/Rick Route Start Time Stop Time Status Last Admin Dose Admin Ondansetron HCl 4 mg Q6HPRN PRN IV 07/18/24 02:00 07/19/24 14:45 4 MG Acetaminophen 650 mg Q6HPRN PRN PO 07/18/24 02:00 Pantoprazole Sodium 40 mg DAILY IV 07/18/24 10:00 07/19/24 09:53 40 MG Ceftriaxone Sodium 50 ml @ 100 mls/hr DAILY IV 07/18/24 10:00 07/19/24 09:53 100 MLS/HR Calcium Carbonate 1,000 mg TIDWM PO 07/18/24 08:00 07/19/24 17:39 1,000 MG Acetaminophen/ Hydrocodone Bitart 1 tab Q6HP PRN PO 07/18/24 02:00 07/19/24 21:41 1 TAB Throat Lozenges 1 zachary Q2HP PRN MT 07/18/24 02:00 07/18/24 11:42 1 ZACHARY Melatonin 5 mg QHSP PRN PO 07/18/24 02:00 Magnesium Oxide 800 mg BID PO 07/18/24 10:00 07/19/24 09:50 800 MG Potassium Chloride/Sodium Chloride 1,000 ml @ 100 mls/hr Q10H IV 07/19/24 08:45 07/19/24 23:33 100 MLS/HR Ferrous Sulfate 325 mg BIDWM PO 07/19/24 18:00 07/19/24 17:39 325 MG Morphine Sulfate 2 mg Q4HPRN PRN IV 07/19/24 15:45 07/20/24 00:14 2 MG Tamsulosin HCl 0.4 mg QPM PO 07/19/24 18:00 07/19/24 17:39 0.4 MG Diphenhydramine HCl 25 mg Q8HPRN PRN IV 07/20/24 04:15 07/20/24 04:37 25 MG Famotidine 20 mg BID IV 07/20/24 10:00 UNV objective GENERAL:Normal, HEENT:Normal, NECK:Normal, LUNGS:Normal, CVS:Normal, ABDOMEN:Normal, MSK:Normal, SKIN:Normal, NEURO:Normal, :Abnormal laboratory and microbiology Laboratory Tests 07/19/24 05:58 Test 07/19/24 05:58 Range/Units Serum Glucose 95 74-106 mg/dL Assessment/Plan Hemodynamically mediated acute kidney injury, prerenal state CKD 4 Crohn's disease/severe chronic diarrhea severe hypokalemia hypocalcemia hypomagnesemia metabolic acidosis resolved nephrolithiasis hematuria IV w/ potassium obtain labs today currently on po Mg, K and Ca daily replacements obtain Vit D level and PTH consider adding vitamin D to improve absorption Dietary Evaluation Review Comments: 1) Consider a Renal Specific K2, low phos, 2gmNa, 60g Pro diet 2) Continue current plan of care Expected Outcomes/Goals: F/U in 3-5 days Plan discussed with: Patient ARTHUR PIZARRO MD Jul 20, 2024 09:19
[2024-07-20] MEDS ORDERED: FAMOTIDINE (10MG/ML) 2ML VL IV SCH (10:00)
[2024-07-20 11:03] LABS: Potassium 3.8 mmol/L (3.5-5.1); Sodium 139 mmol/L (136-145)
[2024-07-20 11:04] LABS: Anion Gap 6 (5-15); Carbon Dioxide 23 mmol/L (20-31)
[2024-07-20 11:10] LABS: BUN/Creatinine Ratio 8.4 (10.0-20.0)
[2024-07-20 11:16] LABS: Blood Urea Nitrogen 26 mg/dL (9-23); Chloride 110 mmol/L (98-107); Glucose 140 mg/dL (74-106)
[2024-07-20 11:18] LABS: Calcium 5.4 mg/dL (8.7-10.4)
[2024-07-20] MEDS: predniSONE 20 MG TAB PO ONE (15:15)
--- NOTE | 2024-07-20 15:26 | DVHPN2 ---
Subjective Patient's has a severe electrolyte imbalance which is being treated. Patient has stated that he is feeling little better but diarrhea has been resolved as well. Patient's Crohn disease was diagnosed 20 years ago , currently has appointment with gastro group as an outpatient. Patient was stated that she was positive kidney stone today. CT abdominal and pelvis was done report shows renal stone on the right side. No obstructive stone in the ureter. Patient was still complaining of diarrhea prednisone has been added. 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 Medications Current Medications Medications Dose Ordered Sig/Rick Route Start Time Stop Time Status Last Admin Dose Admin Ondansetron HCl 4 mg Q6HPRN PRN IV 07/18/24 02:00 07/19/24 14:45 4 MG Acetaminophen 650 mg Q6HPRN PRN PO 07/18/24 02:00 Pantoprazole Sodium 40 mg DAILY IV 07/18/24 10:00 07/20/24 09:51 40 MG Ceftriaxone Sodium 50 ml @ 100 mls/hr DAILY IV 07/18/24 10:00 07/20/24 09:52 100 MLS/HR Calcium Carbonate 1,000 mg TIDWM PO 07/18/24 08:00 07/20/24 12:55 1,000 MG Acetaminophen/ Hydrocodone Bitart 1 tab Q6HP PRN PO 07/18/24 02:00 07/19/24 21:41 1 TAB Throat Lozenges 1 zachary Q2HP PRN MT 07/18/24 02:00 07/18/24 11:42 1 ZACHARY Melatonin 5 mg QHSP PRN PO 07/18/24 02:00 Magnesium Oxide 800 mg BID PO 07/18/24 10:00 07/20/24 09:51 800 MG Potassium Chloride/Sodium Chloride 1,000 ml @ 100 mls/hr Q10H IV 07/19/24 08:45 07/19/24 23:33 100 MLS/HR Ferrous Sulfate 325 mg BIDWM PO 07/19/24 18:00 07/20/24 09:51 325 MG Morphine Sulfate 2 mg Q4HPRN PRN IV 07/19/24 15:45 07/20/24 00:14 2 MG Tamsulosin HCl 0.4 mg QPM PO 07/19/24 18:00 07/19/24 17:39 0.4 MG Diphenhydramine HCl 25 mg Q8HPRN PRN IV 07/20/24 04:15 07/20/24 04:37 25 MG Famotidine 20 mg BID IV 07/20/24 10:00 Cancel Calcitriol 0.5 mcg DAILY PO 07/21/24 10:00 Prednisone 20 mg DAILY PO 07/21/24 10:00 Laboratory Results Laboratory Tests 07/19/24 05:58 07/20/24 10:16 Chemistry Test 07/20/24 10:16 Calcium Level 5.4 mg/dL (8.7-10.4) *L Urinalysis Test 07/13/24 14:30 Urine Color Light-yellow (Yellow) Urine Clarity Turbid (Clear) H Urine pH 6.0 (5.0-9.0) Urine Specific [place] 1.011 (1.001-1.035) Urine Protein 1+ (Negative) H Urine Ketones Negative (Negative) Urine Blood 2+ /uL (Negative) H Urine Nitrite Negative (Negative) Urine Bilirubin Negative (Negative) Urine Urobilinogen Normal mg/dL (Negative) Urine Leukocyte Esterase 3+ /uL (Negative) Urine RBC 4 /hpf (0 - 3) Urine WBC 237 /hpf (0 - 3) Urine Squamous Epithelial Cells Few /hpf (<5) Urine Bacteria Few /hpf (None Seen) H Urine Yeast (Budding) Occasional /hpf (None Urine Glucose Normal mg/dL (Normal) Microbiology Microbiology Date/Time Source Procedure Growth Status 07/16/24 08:29 Stool Stool Culture - Final Complete 07/16/24 08:29 Stool Shiga Toxin I & II - Final Complete 07/16/24 01:30 Voided Urine Urine Culture - Final Yeast, not Paty albicans Complete 07/13/24 20:18 Blood Blood Culture - Final NO GROWTH AFTER 5 DAYS OF INCUBATION. Complete Assessment/Plan Assessment/Plan 64-year-old male with a known history of Crohn disease, CKD stage IIIB initially was sent by Nephrology with the abnormal labs found to have 1. Acute kidney injury with underlying CKD stage IIIB 2. Severe hypokalemia 3. Hypocalcemia 4. Crohn disease 5. Generalized weakness and fatigue 6. Diarrhea resolved, C diff has been ruled out. 7. Hematuria with a positive ureteric stone. -IV hydration, p.o. hydration, and Flomax -replace electrolytes, follow up Nephrology recommendations. Add prednisone -CONTINUE CALCIUM CARBONATE, REPLACE POTASSIUM AND CALCIUM -physical therapy evaluation and treatment. -outpatient follow up with GI for Crohn disease. Plan discussed with: Patient My Orders Orders - JEIMY NARVAEZ MD Procedure Category Date Status Time Morphine Sulfate PHA 07/19/24 In Process Injection 15:45 Tamsulosin PHA 07/19/24 In Process Hydrochloride (Flomax) 18:00 Calcitriol Capsule PHA 07/21/24 In Process (Rocaltrol Capsule) 10:00 Prednisone Tablet PHA 07/21/24 In Process 10:00 Date of Service: Jul 20, 2024 Billing Provider: JEIMY NARVAEZ MD Common Visit Codes: NOT BILLABLE JEIMY NARVAEZ MD Jul 20, 2024 15:26
[2024-07-20] MEDS: CALCITRIOL 0.25 MCG CAP PO ONE (16:12)
[2024-07-21] VITALS (8 sets, daily range): BP systolic 108–136; BP diastolic 62–77; PULSE 83–102; RESP 16–20; TEMP 97.7–99; O2SAT 95–98
[2024-07-21 06:27] LABS: Anion Gap 9 (5-15); Sodium 140 mmol/L (136-145)
[2024-07-21 06:34] LABS: BUN/Creatinine Ratio 7.4 (10.0-20.0); Blood Urea Nitrogen 22 mg/dL (9-23); Glucose 104 mg/dL (74-106)
[2024-07-21 06:38] LABS: Carbon Dioxide 20 mmol/L (20-31); Chloride 111 mmol/L (98-107)
[2024-07-21 06:39] LABS: Calcium 5.6 mg/dL (8.7-10.4)
[2024-07-21] MEDS ORDERED: predniSONE 20 MG TAB PO SCH (10:00)
[2024-07-21] MEDS: CALCITRIOL 0.25 MCG CAP PO SCH (10:33)
[2024-07-21] MEDS: predniSONE 20 MG TAB PO SCH (10:33)
--- NOTE | 2024-07-21 13:28 | DVHPN2 ---
Progress Note - Dictate Date Seen: Jul 21, 2024 Medical Necessity Reason Pt with a Central, PICC or Fol: No vital signs Vital Sign Date Time Temp Pulse Resp B/P (MAP) Pulse Ox O2 Delivery O2 Flow Rate FiO2 07/21/24 09:00 98.4 92 18 113/66 (82) 96 98.4 07/21/24 08:00 Room Air* 0 21 Total Intake and Output 07/20/24 07/20/24 07/21/24 15:00 23:00 07:00 Intake Total 1050 ml 1725 ml 1675 ml Balance 1050 ml 1725 ml 1675 ml medications Current Medications Medications Dose Ordered Sig/Rick Route Start Time Stop Time Status Last Admin Dose Admin Ondansetron HCl 4 mg Q6HPRN PRN IV 07/18/24 02:00 07/19/24 14:45 4 MG Acetaminophen 650 mg Q6HPRN PRN PO 07/18/24 02:00 Ceftriaxone Sodium 50 ml @ 100 mls/hr DAILY IV 07/18/24 10:00 07/21/24 10:32 100 MLS/HR Calcium Carbonate 1,000 mg TIDWM PO 07/18/24 08:00 07/21/24 12:04 1,000 MG Acetaminophen/ Hydrocodone Bitart 1 tab Q6HP PRN PO 07/18/24 02:00 07/19/24 21:41 1 TAB Throat Lozenges 1 zachary Q2HP PRN MT 07/18/24 02:00 07/18/24 11:42 1 ZACHARY Melatonin 5 mg QHSP PRN PO 07/18/24 02:00 Magnesium Oxide 800 mg BID PO 07/18/24 10:00 07/21/24 10:32 800 MG Potassium Chloride/Sodium Chloride 1,000 ml @ 100 mls/hr Q10H IV 07/19/24 08:45 07/20/24 16:57 100 MLS/HR Ferrous Sulfate 325 mg BIDWM PO 07/19/24 18:00 07/21/24 10:33 325 MG Morphine Sulfate 2 mg Q4HPRN PRN IV 07/19/24 15:45 07/20/24 00:14 2 MG Tamsulosin HCl 0.4 mg QPM PO 07/19/24 18:00 07/20/24 17:59 0.4 MG Diphenhydramine HCl 25 mg Q8HPRN PRN IV 07/20/24 04:15 07/20/24 04:37 25 MG Famotidine 20 mg BID IV 07/20/24 10:00 Cancel Calcitriol 0.5 mcg DAILY PO 07/21/24 10:00 07/21/24 10:33 0.5 MCG Prednisone 40 mg DAILY PO 07/21/24 10:00 07/21/24 10:33 40 MG Cholestyramine Resin 4 gm TID PO 07/21/24 14:00 UNV Famotidine 20 mg DAILY PO 07/22/24 10:00 UNV objective GENERAL:Normal, HEENT:Normal, NECK:Normal, LUNGS:Normal, CVS:Normal, ABDOMEN:Normal, MSK:Normal, SKIN:Normal, NEURO:Normal, :Abnormal laboratory and microbiology Laboratory Tests 07/21/24 04:50 07/19/24 05:58 Test 07/21/24 04:50 Range/Units Serum Glucose 104 74-106 mg/dL Assessment/Plan Hemodynamically mediated acute kidney injury, prerenal state CKD 4 Crohn's disease/severe chronic diarrhea severe hypokalemia hypocalcemia hypomagnesemia metabolic acidosis resolved nephrolithiasis hematuria IV w/ potassium currently on po Mg, K and Ca daily replacements obtain Vit D level and PTH noted elevated po Ca and Calcitriol Dietary Evaluation Review Comments: 1) Consider a Renal Specific K2, low phos, 2gmNa, 60g Pro diet 2) Continue current plan of care Expected Outcomes/Goals: F/U in 3-5 days Plan discussed with: Patient ARTHUR PIZARRO MD Jul 21, 2024 13:28
[2024-07-21 15:00] LABS: Magnesium 1.1 mg/dL (1.6-2.6)
[2024-07-21 15:04] LABS: Calcium 5.8 mg/dL (8.7-10.4)
[2024-07-21] MEDS: CHOLESTYRAMINE 4 GM POWDER PO SCH (15:15)
[2024-07-22 00:11] LABS: Vitamin D 25-Hydroxy 15 ng/mL (.); Vitamin D-2 25-Hydroxy <1.0 ng/mL (.); Vitamin D-3 25-Hydroxy 15 ng/mL (.)
[2024-07-22 05:00] VITALS: BP 96/61; PULSE 79; RESP 18; TEMP 98.3; O2SAT 95
[2024-07-22 07:20] LABS: Alkaline Phosphatase 68 U/L (46-116); Anion Gap 9 (5-15); BUN/Creatinine Ratio 7.5 (10.0-20.0); Blood Urea Nitrogen 22 mg/dL (9-23); Potassium 4.2 mmol/L (3.5-5.1); Sodium 142 mmol/L (136-145)
[2024-07-22 07:21] LABS: Chloride 114 mmol/L (98-107)
[2024-07-22 07:22] LABS: Alanine Aminotransferase < 9 U/L (7-40); Aspartate Aminotransferase 13 U/L (13-40); Carbon Dioxide 19 mmol/L (20-31); Glucose 116 mg/dL (74-106)
[2024-07-22 07:23] LABS: Albumin 2.1 g/dL (3.2-4.8); Bilirubin, Total 0.2 mg/dL (0.2-1.0); Magnesium 1.1 mg/dL (1.6-2.6); Total Protein 4.2 g/dL (5.7-8.2)
[2024-07-22 08:00] VITALS: PULSE 79
[2024-07-22 09:00] VITALS: BP 111/71; PULSE 71; RESP 19; TEMP 97.6; O2SAT 96
[2024-07-22] MEDS: FAMOTIDINE 20 MG TAB PO SCH (10:20)
[2024-07-22 13:00] VITALS: BP 116/67; PULSE 78; RESP 20; TEMP 97.6; O2SAT 97
[2024-07-22] MEDS ORDERED: PRED20TA2 PO (14:46)
[2024-07-22] MEDS ORDERED: CHL4PW PO (14:46)
[2024-07-22] MEDS ORDERED: CAL025T PO (14:46)
[2024-07-22] MEDS: MAGNESIUM SULFATE 1GM/100ML 100 ML IV SCH (14:50)
[2024-07-22] MEDS ORDERED: CALC1CHW PO (14:56)
[2024-07-22] MEDS ORDERED: MAGN400T40 PO (14:56)
[2024-07-22] MEDS ORDERED: FAMO-161 PO (14:56)
[2024-07-22] MEDS ORDERED: FER300LQ PO (14:56)
[2024-07-22 15:43] VITALS: TEMP 36.4
[2024-07-22 16:19] VITALS: BP 118/65; PULSE 68; RESP 18; TEMP 98; O2SAT 96
--- NOTE | 2024-07-31 13:56 | ECG ---
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
--- NOTE | 2024-07-31 13:57 | ECG ---
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
== END 2024-07-22 16:50 | disposition home or self-care (01) | DRG 640 ==
LOC: ER 13:45 → TELE 19:44 → UNDOADMIN 19:44 → TELE-WESTW 19:45 → ER 19:58 → TELE-WESTW 19:58 → TELE 07-14 02:57 → WEST WING 07-14 02:57 → TELE-WESTW 07-14 03:44 → WEST WING 07-14 03:44 → UNDODISIN 07-17 23:03
PROVIDERS: ADMIT Nurse Practitioner Family; ATTEND Hospitalist
DX: E87.6 Hypokalemia (principal); N17.0 Acute kidney failure with tubular necrosis; K50.90 Crohn's disease, unspecified, without complications; N18.4 Chronic kidney disease, stage 4 (severe); J90 Pleural effusion, not elsewhere classified; J98.11 Atelectasis; N20.2 Calculus of kidney with calculus of ureter; N30.01 Acute cystitis with hematuria; E44.1 Mild protein-calorie malnutrition; E83.51 Hypocalcemia; E83.42 Hypomagnesemia; D64.9 Anemia, unspecified; E87.20 Acidosis, unspecified; N26.1 Atrophy of kidney (terminal); N28.1 Cyst of kidney, acquired; Z79.899 Other long term (current) drug therapy; R63.4 Abnormal weight loss; Z68.22 Body mass index [BMI] 22.0-22.9, adult
CPT/HCPCS: 36415; 71045; 74176; 76775; 80048; 80053; 81001; 82270; 82306; 82310; 82360; 82607; 82728; 83540; 83550; 83735; 83970; 84100; 84443; 84484; 85025; 85610; 87040; 87045; 87086; 87088; 87427; 87493; 93005; 99291; G0378; J2003; J2405; J2470; J3480

== ENCOUNTER 2024-09-28 11:10 | Inpatient (IN) | payer OTHER ==
[~2024-09-28] VITALS: Ht 175.3 cm; Wt 63.1 kg
[~2024-09-28 11:10] MED LIST changes: +CAL025T PO; +CALC1CHW PO; +CHL4PW PO; +FAMO-161 PO; +FER300LQ PO; +MAGN400T40 PO; +PRED20TA2 PO
--- NOTE | 2024-09-28 11:23 | ED.PDOC ---
History of Present Illness HPI Comments HPI: Poor Historian. 61-year-old male presents to emergency department for evaluation of two week history of generalized weakness with the associated shortness of breath and dizziness. He says he have no strength that he has to sit done and rest if he is walking. Pre-hospital course vital signs were stable per EMS. Denies any acute pain. Patient later mentioned that he has been having severe diarrhea at least 11 episodes per day light brown in color for the last two weeks. Pt states "I have no strength on my legs" and on scene had a SAT level of 94% RA w/ wheezing. Denies chills, fever, N/V/D, CP or other associated symptom's, modifiers, or recent injuries or sick contact at this time. VITALS: 02 sat : 94% RA HR: 80 BP:138/70 Patient Past medical history: Crohn's and Renal disease Past surgical history: Three colon resection. Allergies: N/A REVIEW OF SYSTEMS: CONSTITUTIONAL: Denies acute: fever, diaphoresis, chills, HEAD: Denies acute: headache, photophobia Eyes: Denies acute: Double vision, vision loss, eye pain, eye discharge. EARS: Denies acute: tinnitus, hearing loss, ear discharge, ear pain, THROAT: Denies acute: sore throat, swelling, difficulty swallowing , pain with swa llowing, change in voice. NECK: Denies acute: neck pain, neck swelling, stiff neck. HEART: Denies acute : chest pain, palpitations, LUNGS: Denies acute: wheezing, cough, hemoptysis ABDOMEN: Denies acute: abdominal pain, Nausea, Vomiting, melena , hematemesis, hematochezia SKIN: Denies acute: rash, redness, lesions, itchiness. EXTREMITIES: Denies acute: calf pain, numbness, tingling, weakness, denies pain in extremity. Denies acute: Low back pain. Neuro: Denies acute: focal neurological deficit, motor or sensory focal neurological deficit, tremors, seizure like activity, confusion, change in mental status, loss of bowel or bladder function, cauda equina like symptoms. : Denies acute: dysuria, hematuria, flank pain, increase in urinary frequency. PSYCH: Denies acute: hallucination, suicidal ideation, homicidal ideation. PHYSICAL EXAM: General: no acute distress, awake and alert. Appears weak Head: normocephalic, atraumatic. Neck: supple, trachea is midline, no swelling. Throat: Normal phonation. Eyes:, no erythema, no purulent discharge, no proptosis, no icterus. Heart: regular rate, regular rhythm, no significant murmur appreciated. Lungs: no apparent respiratory distress, Able to speak in full sentences. No wheezing, no rhonchi, no crackles. No stridors Clear to auscultation bilaterally. Abdomen: non tender to palpation, non distended, soft, no guarding, no rebound, + bowel sounds. Neuro: Awake, Alert, oriented to name, self, situation, follows commands GCS=15. Speech is normal. Skin: no petechia, no purpura, no cyanosis, slightly-pale, not jaundice. Lower extremities: --no - Pitting edema no deformity, no focal swelling, no calf TTP. Makes eye contact. moves all four extremities. Face: no apparent facial droop. ED COURSE: At this time 9:32 p.m. The case was discussed with the admitting team (HPI, physical exam, labs and diagnostic tests that were available at the time of disposition, ED course, treatment plan) on the phone. They agreed to admit the patient to their service and assume care of this patient from this point forward. GAVIN Conn. Time Seen by MD: 11:15 Primary Care Provider: OCTAVIO Reviewed Notes: Nurses Notes, Program Research Specialist Notes, Medications, Allergies Allergies: Coded Allergies: NO KNOWN ALLERGIES (Unverified , 11/13/21) Home Meds Active Scripts Famotidine (Pepcid AC) 20 Mg Tab, 20 MG PO DAILY, #30 TAB Prov:MATTHEW GTZ MD 07/22/24 Ferrous Sulfate (Ferrous Sulfate) 300 Mg/5 Ml Sr, 300 MG PO DAILY, #240 SYP Prov:MATTHEW GTZ MD 07/22/24 Magnesium Oxide (MAGNESIUM OXIDE) 400 Mg Tab, 1 TAB PO BID, #60 TAB 1 Refill Prov:MATTHEW GTZ MD 07/22/24 Calcium Carbonate (Antacid) (Tums Chewy Bites) 750 Mg Chw, 750 MG PO TID, #120 TAB.CHEW Prov:MATTHEW GTZ MD 07/22/24 Prednisone (Prednisone) 20 Mg Tab, 2 TAB PO DAILY, #30 TAB Prov:MATTHEW GTZ MD 07/22/24 Cholestyramine (QUESTRAN POWDER) 4 Gm Pw, 4 GM PO TID, #90 POW Prov:MATTHEW GTZ MD 07/22/24 1, 25 Dihydroxycholecalciferol (ROCALTROL CAPSULE) 0.25 Mcg Cp, 2 CAP PO DAILY, #60 CAP Prov:MATTHEW GTZ MD 07/22/24 Tamsulosin Hcl (Flomax) 0.4 Mg Cap, 0.4 MG PO QPM, #30 CAP Prov:NIKHIL MCKINNEY MD 12/02/21 Carbamazepine (Carbamazepine) 200 Mg Tab, 100 MG PO BID, #60 TAB Prov:NIKHIL MCKINNEY MD 12/02/21 Hydrocodone-Acetaminophen (Hydrocodone Bitartrate/AC 10-325 mg) 1 Tab Tab, 1 TAB PO Q6HP PRN, #20 TAB Prov:NIKHIL MCKINNEY MD 11/17/21 Reported Medications Adalimumab (Humira) 40 Mg/0.4 Ml Inj, 40 MG SC, INJ unknown dose 1 injection [id number] 11/13/21 Information Source: Patient, Emergency Med Personnel Mode of Arrival: EMS Severity: Moderate Timing: Weeks Duration: Since onset Prehospital treatment: Breathing Tx, Oxygen Past Medical History Past Medical History (Other): Renal [place] and Crohn's Surgical History: Denies all surgeries Family History Family History: Reviewed,noncontributory to illness, Unknown Social History Smoker: Non-Smoker Alcohol: Denies ETOH Use Drugs: Denies Drug Use Lives In: Home Was a procedure done? Was a procedure done?: No Differential Dx Considerations may include: Includes but not limited to thyroid disease, encephalopathy, electrolyte abnormality, sepsis, infection, intracranial pathology, drug adverse effects, arrhythmia, kidney insufficiency, ACS, CVA, malignancy, anemia X-Ray, Labs, Meds, VS Vital Signs Date Time Temp Pulse Resp B/P (MAP) Pulse Ox O2 Delivery O2 Flow Rate FiO2 09/28/24 17:00 74 12 109/64 (79) 100 09/28/24 16:00 75 09/28/24 16:00 74 10 108/63 (78) 100 09/28/24 14:30 78 15 105/37 (59) 100 09/28/24 11:50 84 09/28/24 11:38 20 100 Nasal Cannula 4.0 09/28/24 11:37 97.6 80 18 111/61 (78) 100 97.6 09/28/24 11:37 80 18 100 Room Air* 0 21 09/28/24 11:27 97.8 76 20 138/70 (92) 100 Lab Test 09/28/24 18:06 09/28/24 15:06 09/28/24 13:11 09/28/24 11:35 Range/Units Lactic Acid Level 0.8 0.4-2.0 mmol/L Uric Acid 9.5 H 3.7-9.2 mg/dL Phosphorus Level 5.8 H 2.4-5.1 mg/dL Magnesium Level 1.3 L 1.6-2.6 mg/dL Parathyroid Hormone (Intact) 400.4 H 18.4-80.1 pg/mL Hepatitis B Surface Antigen Pending Hepatitis C Antibody Pending Troponin I High Sensitivity 8 8 </=54 ng/L Urine Color Light-yellow Yellow Urine Clarity Turbid H Clear Urine pH 5.5 5.0-9.0 Urine Specific [place] 1.011 1.001-1.035 Urine Protein 1+ H Negative Urine Ketones Negative Negative Urine Blood 1+ H Negative /uL Urine Nitrite Negative Negative Urine Bilirubin Negative Negative Urine Urobilinogen Normal Negative mg/dL Urine Leukocyte Esterase 3+ Negative /uL Urine RBC 4 0 - 3 /hpf Urine Microscopic WBC 223 H 0-3 /HPF Urine Squamous Epithelial Cells Few <5 /hpf Urine Bacteria None seen None Seen /hpf Urine Creatinine Pending Urine Protein/Creatinine Ratio Pending Urine Sodium Pending Urine Glucose Normal Normal mg/dL Urine Total Protein Pending Test 09/28/24 11:30 09/28/24 11:27 Range/Units Influenza Type A Antigen Negative Negative Influenza Type B Antigen Negative Negative SARS-CoV-2 Antigen (Rapid) Negative NEGATIVE White Blood Count 8.7 4.4-10.8 10^3/uL Red Blood Count 2.43 L 4.5-5.90 10^6/uL Hemoglobin 7.3 L 13.5-17.5 g/dL Hematocrit 23.0 L 41.0-53.0 % Mean Corpuscular Volume 94.4 80.0-100.0 fL Mean Corpuscular Hemoglobin 30.2 28.0-32.0 pg Mean Corpuscular Hemoglobin Concent 31.9 L 32.0-36.0 g/dL Red Cell Distribution Width 17.6 H 11.8-14.3 % Platelet Count 202 140-450 10^3/uL Mean Platelet Volume 8.0 6.9-10.8 fL Neutrophils (%) (Auto) 89.2 H 37.0-80.0 % Lymphocytes (%) (Auto) 7.0 L 10.0-50.0 % Monocytes (%) (Auto) 2.7 0.0-12.0 % Eosinophils (%) (Auto) 0.6 0.0-7.0 % Basophils (%) (Auto) 0.5 0.0-2.0 % Neutrophils # (Auto) 7.8 1.6-8.6 10 ^3/uL Lymphocytes # (Auto) 0.6 0.4-5.4 10 ^3/uL Monocytes # (Auto) 0.2 0-1.3 10 ^3/uL Eosinophils # (Auto) 0 0-0.8 10 ^3/uL Basophils # (Auto) 0 0-0.2 10 ^3/uL Nucleated Red Blood Cells 0.0 % Sodium Level 139 136-145 mmol/L Potassium Level 2.8 L 3.5-5.1 mmol/L Chloride Level 114 H 98-107 mmol/L Carbon Dioxide Level < 10 *L 20-31 mmol/L Anion Gap 15.42063 H 5-15 Blood Urea Nitrogen 64 H 9-23 mg/dL Creatinine 6.07 H 0.700-1.30 mg/dL Glomerular Filtration Rate Calc 10 >90 mL/min BUN/Creatinine Ratio 10.5 10.0-20.0 Serum Glucose 97 74-106 mg/dL Lactic Acid Level 0.6 0.4-2.0 mmol/L Calcium Level 5.8 *L 8.7-10.4 mg/dL Magnesium Level 0.9 *L 1.6-2.6 mg/dL Total Bilirubin < 0.2 L 0.2-1.0 mg/dL Aspartate Amino Transferase (AST) 15 13-40 U/L Alanine Aminotransferase (ALT) 13 7-40 U/L Alkaline Phosphatase 83 46-116 U/L Troponin I High Sensitivity 8 </=54 ng/L B-Type Natriuretic Peptide 105.98 0-100 pg/mL Total Protein 5.2 L 5.7-8.2 g/dL Albumin 2.9 L 3.2-4.8 g/dL Current Medications Medications (Trade) Dose Ordered Sig/Rick Route Start Time Stop Time Status Last Admin Sodium Chloride 1,000 ml @ 1,000 mls/hr Q1H ONCE IV 09/28/24 12:30 09/28/24 13:29 DC 09/28/24 13:14 Magnesium Sulfate/ Dextrose 100 ml @ 100 mls/hr ONCE ONCE IV 09/28/24 12:30 09/28/24 13:29 DC 09/28/24 13:22 Sodium Chloride 1,000 ml @ 1,000 mls/hr Q1H ONCE IV 09/28/24 12:30 09/28/24 13:29 DC 09/28/24 15:12 Sodium Bicarbonate 50 ml ONCE ONCE IV 09/28/24 12:45 09/28/24 12:46 DC 09/28/24 13:19 Albumin Human 100 ml @ 100 mls/hr ONCE ONCE IV 09/28/24 12:45 09/28/24 14:16 DC 09/28/24 13:27 Potassium Bicarbonate (Klor-Con/Ef) 50 meq ONCE ONCE PO 09/28/24 14:00 09/28/24 14:16 DC 09/28/24 14:07 Potassium Bicarbonate (Klor-Con/Ef) 50 meq ONCE ONCE PO 09/28/24 17:45 09/28/24 17:53 DC 09/28/24 18:28 Magnesium Sulfate/ Dextrose 100 ml @ 100 mls/hr Q1H IV 09/28/24 18:00 09/28/24 19:59 DC 09/28/24 19:[address] [address] Ph: [phone] DIAGNOSTIC IMAGING Diagnostic Imaging Report : [id number] Signed PATIENT: OLIMPIA SOTO ACCT: [id number] UNIT: [id number] : 1960 LOC: ER ROOM / BED: / AGE / SEX: 64 / M ADM STATUS: REG ER SERVICE 1129 ORDERING PHYSICIAN: FARZAD TIDWELL DO PROCEDURE(s): CXRP - CHEST PORTABLE REASON: WEAK/SOB/DIZZY ORDER NUMBER(s): [id number], ACCESSION NUMBER(s): [id number] CHEST RADIOGRAPH Indication: WEAK/SOB/DIZZY Technique: Single frontal view of the chest was obtained COMPARISON: XY CHEST PORTABLE on DOS: 07/13/24, CHEST PORTABLE on DOS: 11/27/21, CXRP on DOS: 11/27/21, CXRP on DOS: 11/13/21 FINDINGS: Lines and Tubes: None Lungs: Clear Pleura: No effusion. No pneumothorax. Cardiomediastinal contours: Unremarkable Bones: Unremarkable IMPRESSION: No acute disease. ATED BY: ELIAS AQUINO MD DICTATED DATE/TIME: 09/28/241214 SIGNED BY: ELIAS AQUINO MD SIGNED DATE/TIME: 09/28/241214 CC: Time of 1ST Reevaluation: 11:45 Reevaluation 1ST: Unchanged Time of 2ND Reevaluation: 12:34 (Nephrology was paged at this time.) Time of 3RD Reevaluation: 13:36 (The cell biologist Dr. Jennings came and evaluated the patient at bedside. Please see his consultation notes.) Patient Education/Counseling: Diagnosis, Treatment Family Education/Counseling: No Family Present Comments Patient presented with the above HPI.--generalized weakness and diarrhea----workup was initiated. patient was found with the above mentioned diagnosis. the following medications were ordered: please refer to order lists of meds and tests obtained by myself Dr. Tidwell. Patient ED course and VS have been stabilized. Patient has been reassessed in the ED and remained in a stable condition. Pertinent incidental findings were discussed with the patient and/or family. Patient/family voices understanding and is agreeable with plan. Patient has been observed in the ED adequate length of time to insure improvement/stability. Escalation of care considered: Consideration of escalation to observation or admission Nephrology was consulted. CT scan of the abdomen and pelvis still pending. Patient was ADMITTED to the medicine team for further evaluation and treatment of their presentation. All the reports of any imaging studies that were ordered by myself were reviewed by myself. Additional Information Departure 1 Departure Time of Disposition: 12:34 Impression: Primary Impression: Acute renal failure Additional Impressions: Acute anemia Diarrhea Dehydration Hypomagnesemia Hypoalbuminemia Generalized weakness Disposition: ADMITTED INPATIENT Admit to: Tele Condition: Guarded Discharged With: Self Critical Care Note Critical Care Time?: Yes (1 hr-critical care time only) I personally scribed for FARZAD TIDWELL DO ([email or web address]) on 09/28/24 at 11:23. Electronically submitted by Joe Magaña ([email or web address]). I personally scribed for FARZAD TIDWELL DO ([email or web address]) on 09/28/24 at 17:29. Electronically submitted by Joe Magaña ([email or web address]). FARZAD TIDWELL DO Sep 28, 2024 11:23
[2024-09-28 11:37] VITALS: PULSE 80; RESP 18; O2SAT 100
[2024-09-28 11:40] LABS: Basophils # (auto) 0 10 ^3/uL (0-0.2); Basophils % (auto) 0.5 % (0.0-2.0); Eosinophils # (auto) 0 10 ^3/uL (0-0.8); Eosinophils % (auto) 0.6 % (0.0-7.0); Hemoglobin 7.3 g/dL (13.5-17.5); Lymphocytes # (auto) 0.6 10 ^3/uL (0.4-5.4); Mean Corpuscular Hemoglobin 30.2 pg (28.0-32.0); Mean Corpuscular Hgb Conc. 31.9 g/dL (32.0-36.0); Mean Corpuscular Volume 94.4 fL (80.0-100.0); Monocytes # (auto) 0.2 10 ^3/uL (0-1.3); Monocytes % (auto) 2.7 % (0.0-12.0); Neutrophils # (auto) 7.8 10 ^3/uL (1.6-8.6); Neutrophils % (auto) 89.2 % (37.0-80.0); Platelet Count (auto) 202 10^3/uL (140-450); Red Blood Cells 2.43 10^6/uL (4.5-5.90); Red Cell Distribution Width 17.6 % (11.8-14.3); White Blood Cell 8.7 10^3/uL (4.4-10.8)
--- NOTE | 2024-09-28 11:52 | ECG ---
[facility] Test Date: 2024-09-28 Test Time: 11:50:51 Pat Name: OLIMPIA SOTO Department: ER Room: 0215T Gender: M [employer] Executive Director: VIRGINIE : 1960 Requested By: FARZAD TIDWELL Order Number: [id number] Reading MD: Charly Ramírez Measurements Intervals [place] Rate: 84 P: 66 PA: 151 QRS: -2 QRSD: 104 T: -7 QT: 400 QTc: 473 Interpretive Statements Sinus rhythm Ventricular premature complex Borderline T abnormalities, inferior leads Electronically Signed On 10-02-2024 21:50:03 PST by Charly Ramírez Please click the below link to view image of tracing.
[2024-09-28 12:12] LABS: Alanine Aminotransferase 13 U/L (7-40); Alkaline Phosphatase 83 U/L (46-116); Anion Gap 15.00001 (5-15); Aspartate Aminotransferase 15 U/L (13-40); BUN/Creatinine Ratio 10.5 (10.0-20.0); Glucose 97 mg/dL (74-106); Sodium 139 mmol/L (136-145)
[2024-09-28 12:16] LABS: Albumin 2.9 g/dL (3.2-4.8); Bilirubin, Total < 0.2 mg/dL (0.2-1.0); Blood Urea Nitrogen 64 mg/dL (9-23); Chloride 114 mmol/L (98-107); Potassium 2.8 mmol/L (3.5-5.1); Total Protein 5.2 g/dL (5.7-8.2)
--- NOTE | 2024-09-28 12:18 | DVH ---
CHEST RADIOGRAPH Indication: WEAK/SOB/DIZZY Technique: Single frontal view of the chest was obtained COMPARISON: XY CHEST PORTABLE on DOS: 07/13/24, CHEST PORTABLE on DOS: 11/27/21, CXRP on DOS: 11/27/21, CXRP on DOS: 11/13/21 FINDINGS: Lines and Tubes: None Lungs: Clear Pleura: No effusion. No pneumothorax. Cardiomediastinal contours: Unremarkable Bones: Unremarkable IMPRESSION: No acute disease.
[2024-09-28 12:22] LABS: Calcium 5.8 mg/dL (8.7-10.4); Carbon Dioxide < 10 mmol/L (20-31)
[2024-09-28 12:23] LABS: Magnesium 0.9 mg/dL (1.6-2.6)
[2024-09-28 12:25] LABS: COVID19 ANTIGEN SOFIA FIA NEGATIVE (NEGATIVE)
[2024-09-28 12:26] LABS: Rapid Influenza A Negative (Negative); Rapid Influenza B Negative (Negative)
[2024-09-28 12:46] LABS: Urine Bacteria None Seen /hpf (None Seen)
[2024-09-28 13:04] LABS: Urine Blood 1+ /uL (Negative); Urine Clarity Turbid (Clear); Urine Color Light-Yellow (Yellow); Urine Protein, UAD 1+ (Negative); Urine Specific Gravity 1.011 (1.001-1.035); Urine Squamous Epithelial Cell FEW /hpf (<5); Urine Urobilinogen Normal (Negative); Urine WBC 223 /HPF (0-3); Urine pH 5.5 (5.0-9.0)
[2024-09-28] MEDS: SODIUM CHLORIDE 0.9% 1,000 ML IV ONE ×2 (13:14→15:12)
[2024-09-28] MEDS: SODIUM BICARB 8.4% 50Meq/50ml SYR Vial IV ONE (13:19)
[2024-09-28] MEDS: MAGNESIUM SULFATE 1GM/100ML 100 ML IV ONE (13:22)
[2024-09-28] MEDS: ALBUMIN 25% 100 ML IV ONE (13:27)
[2024-09-28] MEDS: POTASSIUM CHL 20 Meq TABLET PO ONE (14:01)
[2024-09-28] MEDS: POTASSIUM EFFERVESENT TAB 25 MEQ PO ONE ×2 (14:07→18:28)
--- NOTE | 2024-09-28 17:47 | DVHINCON2 ---
Date of service: Sep 28, [address] Honeycutt Reason for Consultation Acute kidney injury History of Present Illness Patient is 64 y/o male with PMH of Crhon's disease, CKD stage [address] Mcleod is admitted for generalized weakness and diarrhea for few weeks. On admission patient found to have elevated BUN and creatinine nephrology is consulted for MAYRA. Past Medical History Past medical history: Crohn's and CKD stage [address] Mcleod Past Surgical History Past surgical history: Three colon resection. Allergies: Coded Allergies: NO KNOWN ALLERGIES (Unverified , 11/13/21) Home Meds Active Scripts Cholestyramine (QUESTRAN POWDER) 4 Gm Pw, 4 GM PO TID, #90 POW Prov:MATTHEW GTZ MD 07/22/24 Reported Medications Cholecalciferol (Vitamin D-3 Super Strengt) 2,000 Unit Tab, 1 TAB PO DAILY 09/29/24 Current Medications Current Medications Medications (Trade) Dose Ordered Sig/Rick Route PRN Reason Start Time Stop Time Status Last Admin Sodium Bicarbonate 100 ml/Sodium Chloride 1,100 ml @ 100 mls/hr DAILY IV 09/28/24 17:45 09/28/24 21:30 Magnesium Sulfate/ Dextrose 100 ml @ 100 mls/hr Q1H IV 09/28/24 18:00 09/28/24 19:59 DC 09/28/24 19:13 Acetaminophen (Tylenol Tablet) 650 mg Q6HP PRN PO PAIN SCALE 1-3 OR TEMP>100.4 09/28/24 23:00 Acetaminophen/ Hydrocodone Bitart ([place] 5/325MG Tab) 1 tab Q6HP PRN PO MODERATE PAIN (4-6 PAIN SCALE) 09/28/24 23:00 09/29/24 06:45 Nitroglycerin (Ntrostat Sublingual) 0.4 mg Q5MINP PRN SL FOR CHEST PAIN 09/28/24 23:00 Morphine Sulfate 2 mg Q30M PRN IV FOR CHEST PAIN 09/28/24 23:00 Ceftriaxone Sodium 50 ml @ 100 mls/hr DAILY IV 09/29/24 10:00 Family History: Patient reports no known family medical history. Review of Systems All 12 itesm ROS reviewed with the patient, none is significant except what is mentioned in the HPI H&P Exam Vital Signs/I&O Vital Sign Date Time Temp Pulse Resp B/P (MAP) Pulse Ox O2 Delivery O2 Flow Rate FiO2 09/29/24 08:30 97.4 69 14 101/69 (80) 96 97.4 09/29/24 04:24 Room Air* 0 21 Intake and Output 09/28/24 09/29/24 19:00 07:00 Intake Total 2200 ml 0 ml Balance 2200 ml 0 ml Intake Oral 0 ml IV Total 2200 ml Physical Exam Patient is awake and alert Lungs clear to auscultation bilaterally Cardiac exam regular rate and rhythm GI soft bowel sounds are present within normal limit Extremities no clubbing cyanosis or edema Neuro nonfocal Labs/Diagnostic Data Labs/Diagnostic Data Laboratory Tests Test 09/29/24 06:35 09/29/24 06:00 09/29/24 03:40 09/29/24 00:07 Range/Units White Blood Count 7.1 4.4-10.8 10^3/uL Red Blood Count 2.32 L 4.5-5.90 10^6/uL Hemoglobin 7.0 *L 13.5-17.5 g/dL Hematocrit 21.9 L 41.0-53.0 % Mean Corpuscular Volume 94.4 80.0-100.0 fL Mean Corpuscular Hemoglobin 30.2 28.0-32.0 pg Mean Corpuscular Hemoglobin Concent 32.0 32.0-36.0 g/dL Red Cell Distribution Width 18.1 H 11.8-14.3 % Platelet Count 193 140-450 10^3/uL Mean Platelet Volume 7.9 6.9-10.8 fL Neutrophils (%) (Auto) 92.3 H 37.0-80.0 % Lymphocytes (%) (Auto) 4.9 L 10.0-50.0 % Monocytes (%) (Auto) 1.9 0.0-12.0 % Eosinophils (%) (Auto) 0.7 0.0-7.0 % Basophils (%) (Auto) 0.2 0.0-2.0 % Neutrophils # (Auto) 6.5 1.6-8.6 10 ^3/uL Lymphocytes # (Auto) 0.3 L 0.4-5.4 10 ^3/uL Monocytes # (Auto) 0.1 0-1.3 10 ^3/uL Eosinophils # (Auto) 0.1 0-0.8 10 ^3/uL Basophils # (Auto) 0 0-0.2 10 ^3/uL Nucleated Red Blood Cells 0.0 % Platelet Estimate Adequate Anisocytosis (manual) Slight Ovalocytes Few [place] Cells Few Sodium Level 145 144 # 136-145 mmol/L Potassium Level 2.6 L 2.6 L 3.5-5.1 mmol/L Chloride Level 116 H 118 H 98-107 mmol/L Carbon Dioxide Level 11 L 11 L 20-31 mmol/L Anion Gap 18 H 15 5-15 Blood Urea Nitrogen 54 H 57 H 9-23 mg/dL Creatinine 5.22 H 5.17 H 0.700-1.30 mg/dL Glomerular Filtration Rate Calc 12 12 >90 mL/min BUN/Creatinine Ratio 10.3 11.0 10.0-20.0 Serum Glucose 68 L 88 74-106 mg/dL Calcium Level 6.1 L 5.6 *L 8.7-10.4 mg/dL Phosphorus Level 5.3 H 2.4-5.1 mg/dL Magnesium Level 1.7 1.8 1.6-2.6 mg/dL C-Reactive Protein High Sensitivity 1.26 H <1.0 mg/dL Stool Occult Blood Positive Negative Stool Occult Blood Sample #3 Negative Stool for White Cells Few Test 09/28/24 18:06 09/28/24 15:06 09/28/24 13:11 09/28/24 11:35 Range/Units Lactic Acid Level 0.8 0.4-2.0 mmol/L Uric Acid 9.5 H 3.7-9.2 mg/dL Phosphorus Level 5.8 H 2.4-5.1 mg/dL Magnesium Level 1.3 L 1.6-2.6 mg/dL Parathyroid Hormone (Intact) 400.4 H 18.4-80.1 pg/mL Troponin I High Sensitivity 8 8 </=54 ng/L Urine Color Light-yellow Yellow Urine Clarity Turbid H Clear Urine pH 5.5 5.0-9.0 Urine Specific [place] 1.011 1.001-1.035 Urine Protein 1+ H Negative Urine Ketones Negative Negative Urine Blood 1+ H Negative /uL Urine Nitrite Negative Negative Urine Bilirubin Negative Negative Urine Urobilinogen Normal Negative mg/dL Urine Leukocyte Esterase 3+ Negative /uL Urine RBC 4 0 - 3 /hpf Urine Microscopic WBC 223 H 0-3 /HPF Urine Squamous Epithelial Cells Few <5 /hpf Urine Bacteria None seen None Seen /hpf Urine Creatinine 100.99 30.0-125.0 mg/dL Urine Protein/Creatinine Ratio 1.06 Urine Sodium 39 L 40-220 mmol/L Urine Glucose Normal Normal mg/dL Urine Total Protein 106.7 H 1-14 mg/dL Test 09/28/24 11:30 09/28/24 11:27 Range/Units Influenza Type A Antigen Negative Negative Influenza Type B Antigen Negative Negative SARS-CoV-2 Antigen (Rapid) Negative NEGATIVE White Blood Count 8.7 4.4-10.8 10^3/uL Red Blood Count 2.43 L 4.5-5.90 10^6/uL Hemoglobin 7.3 L 13.5-17.5 g/dL Hematocrit 23.0 L 41.0-53.0 % Mean Corpuscular Volume 94.4 80.0-100.0 fL Mean Corpuscular Hemoglobin 30.2 28.0-32.0 pg Mean Corpuscular Hemoglobin Concent 31.9 L 32.0-36.0 g/dL Red Cell Distribution Width 17.6 H 11.8-14.3 % Platelet Count 202 140-450 10^3/uL Mean Platelet Volume 8.0 6.9-10.8 fL Neutrophils (%) (Auto) 89.2 H 37.0-80.0 % Lymphocytes (%) (Auto) 7.0 L 10.0-50.0 % Monocytes (%) (Auto) 2.7 0.0-12.0 % Eosinophils (%) (Auto) 0.6 0.0-7.0 % Basophils (%) (Auto) 0.5 0.0-2.0 % Neutrophils # (Auto) 7.8 1.6-8.6 10 ^3/uL Lymphocytes # (Auto) 0.6 0.4-5.4 10 ^3/uL Monocytes # (Auto) 0.2 0-1.3 10 ^3/uL Eosinophils # (Auto) 0 0-0.8 10 ^3/uL Basophils # (Auto) 0 0-0.2 10 ^3/uL Nucleated Red Blood Cells 0.0 % Sodium Level 139 136-145 mmol/L Potassium Level 2.8 L 3.5-5.1 mmol/L Chloride Level 114 H 98-107 mmol/L Carbon Dioxide Level < 10 *L 20-31 mmol/L Anion Gap 15.41098 H 5-15 Blood Urea Nitrogen 64 H 9-23 mg/dL Creatinine 6.07 H 0.700-1.30 mg/dL Glomerular Filtration Rate Calc 10 >90 mL/min BUN/Creatinine Ratio 10.5 10.0-20.0 Serum Glucose 97 74-106 mg/dL Lactic Acid Level 0.6 0.4-2.0 mmol/L Calcium Level 5.8 *L 8.7-10.4 mg/dL Magnesium Level 0.9 *L 1.6-2.6 mg/dL Iron Level 98 65-175 ug/dL Total Iron Binding Capacity 187 L 250-425 ug/dL Percent Iron Saturation 52.4 20-55 % Total Bilirubin < 0.2 L 0.2-1.0 mg/dL Aspartate Amino Transferase (AST) 15 13-40 U/L Alanine Aminotransferase (ALT) 13 7-40 U/L Alkaline Phosphatase 83 46-116 U/L Troponin I High Sensitivity 8 </=54 ng/L B-Type Natriuretic Peptide 105.98 0-100 pg/mL Total Protein 5.2 L 5.7-8.2 g/dL Albumin 2.9 L 3.2-4.8 g/dL Assessment MAYRA superimposed on CKD stage 4 secondary to hemodynamic mediated Chronic Kidney Disease stage [address] Muriel ackerman Hypokalemia Hypomagnesemia Metabolic acidosis Crohn's disease Diarrhea Dehydration REC: Closely monitor fluids and lytes Avoid nephrotoxins Strict I&O's Check urine lytes and protein Check kidney US IVF hydration with bicarb Aggressive KCl replacement GI consult Will continue to follow Patient seen and examined by myself in the ER. I discussed my plan of care with the patient and the primary nurse at the bedside I would like to thank Dr. Honeycutt for the consult, will follow Plan discussed with: Patient MARIXA PALACIOS MD Sep 28, 2024 17:47
[2024-09-28] MEDS: MAGNESIUM SULFATE 1GM/100ML 100 ML IV SCH (18:23)
[2024-09-28 18:49] LABS: Magnesium 1.3 mg/dL (1.6-2.6); Phosphorus 5.8 mg/dL (2.4-5.1)
--- NOTE | 2024-09-28 18:59 | DVH ---
INDICATION: alexei TECHNIQUE: Multiple real-time sonographic images of the kidneys and bladder were obtained. COMPARISON: US KIDNEY on DOS: 07/16/24 CT abdomen and pelvis 07/19/2024 FINDINGS: The right kidney measures 9.7 cm in length, which is normal in size. There is increased cortical ech ogenicity of the right kidney. No hydronephrosis. Small right renal lower pole simple cysts largest m easuring up to 1.1 cm. Nonobstructing right renal calculi. The left kidney measures 10.6 cm in length, which is normal in size. There is increased cortical ech ogenicity of the left kidney. No hydronephrosis. Left interpolar region simple cyst measuring up to 1 .3 cm. Limited evaluation of the urinary bladder due to inadequate distention IMPRESSION: Increased bilateral renal cortical echogenicity. Correlate for medical renal disease. Small bilatera l renal cysts with nonobstructing right renal calculus. Limited evaluation of the urinary bladder due to inadequate distention.
[2024-09-28 20:25] VITALS: PULSE 68; RESP 14; O2SAT 100
[2024-09-28] MEDS: SODIUM BICARB 50mEq/50ml Vial 100 ML in SOD CHL 0.45% 1,000 ML IV SCH (21:30)
[2024-09-28 21:32] LABS: Protein, Urine 106.7 mg/dL (1-14)
[2024-09-28 21:35] LABS: Creatinine, Urine 100.99 mg/dL (30.0-125.0); Urine Protein/Creatinine Ratio 1.06
[2024-09-28] MEDS: HYDROcodone-ACET 5/325MG TAB PO ONE (22:41)
[2024-09-28] MEDS ORDERED: NITROGLYCERIN 0.4 MG SL TAB SL PRN (23:00)
[2024-09-28 23:27] LABS: % Iron Saturation 52.4 % (20-55)
--- NOTE | 2024-09-28 23:38 | DVH ---
Exam: CT CT AB PEL WO CON-NO ORAL OR IV History: diarrhea Comparison Study: None available at time of dictation. Technique: Multidetector spiral CT of the abdomen was performed from lung bases to pubic symphysis. I maging was performed without IV contrast. Axial, coronal and sagittal multiplanar reformats were obta ined from the axial data set by the technologist. Radiation Dose : 1. Abdomen/Pelvis: CTDIvol 5 mGy, DLP 277 mGy*cm. Findings: Evaluation of solid organs is limited due to lack of intravenous contrast use. Lung Bases: No acute or significant lung base finding. Normal heart size. No pleural or pericardial effusion. Liver: The liver is normal in size. No focal lesions. Gallbladder and Biliary Tree: Unremarkable Spleen: Unremarkable Pancreas: The pancreas is grossly normal in appearance. Adrenal Glands: Unremarkable Kidneys: Right kidney mild medullary calcinosis versus tiny small nonobstructing stone measuring up t o 5 mm. Bilateral perinephric fat stranding. Bladder: Grossly unremarkable for degree of distention. Bowel: The stomach is grossly normal in appearance. Liquid stool throughout the colon.. Postsurgical changes of the stomach near the hepatic flexure. The appendix is not visualized; however, no secondar y findings of acute appendicitis identified. Ascites: Absent Lymphadenopathy: No mesenteric, retroperitoneal or periportal lymphadenopathy. Abdominal Wall and Mesentery: Unremarkable. Vasculature: The visualized abdominal aorta is normal in size and caliber. Evaluation of abdominal a nd pelvic vessels is limited due to lack of intravenous contrast. Pelvic Organs: Unremarkable Musculoskeletal: No aggressive focal bony lesions, acute fractures or dislocation. IMPRESSION: No acute abdominal or pelvic findings. Right kidney medullary calcinosis versus tiny small nonobstruc ting stones measuring 5 mm. Bilateral perinephric fat stranding which is most likely physiologic. C orrelation with urinalysis recommended. Liquid stool in the colon suggestive of diarrheal state. END IMPRESSION:
[2024-09-29] VITALS (8 sets, daily range): BP systolic 101–118; BP diastolic 62–69; PULSE 65–80; RESP 14–18; TEMP 97.4–98; O2SAT 96–100
[2024-09-29 00:24] LABS: Sodium 144 mmol/L (136-145)
[2024-09-29 00:25] LABS: Anion Gap 15 (5-15)
[2024-09-29 00:30] LABS: Glucose 88 mg/dL (74-106)
[2024-09-29 00:31] LABS: Magnesium 1.8 mg/dL (1.6-2.6)
[2024-09-29 00:35] LABS: Blood Urea Nitrogen 57 mg/dL (9-23); Carbon Dioxide 11 mmol/L (20-31); Chloride 118 mmol/L (98-107); Potassium 2.6 mmol/L (3.5-5.1)
[2024-09-29 00:36] LABS: Calcium 5.6 mg/dL (8.7-10.4)
[2024-09-29] MEDS: CALCIUM GLUC 1,000mg/50ml-NS 50 ML IV ONE (01:00)
[2024-09-29] MEDS: POTASSIUM CHL 20 Meq TABLET PO ONE (01:30)
--- NOTE | 2024-09-29 02:11 | DVHHP2 ---
MICHEL HONG [facility] 09/29/24 0211: History of Present Illness Reason for Visit: Generalized weakness History of Present Illness 64-year-old male with past medical history of Crohn's disease presents with complaints of generalized Weakness, shortness of breath times two weeks. States he is unable to walk. Patient also endorses that he has been experiencing chronic diarrhea. Endorses he may have blood in the stool. He is also complaining of burning sensation in the esophagus. This time there are no complaints of fevers, chills, chest pain, palpitations, abdominal distention, abdominal pain, leg swelling. GI: Inflam bowel disease Renal/: Chronic renal insuff Smoke: No ALCOHOL: none Drugs: None Lives: with Family Review of Systems Constitutional: Yes: Weakness, Malaise; No: Fever, Chills, Sweats, Other Eyes: No: Pain, Vision change, Conjunctivae inflammation, Eyelid inflammation, Other, Redness ENT: No: Ear pain, Ear discharge, Nose pain, Nose discharge, Nose congestion, Mouth pain, Mouth swelling, Throat pain, Throat swelling, Other Respiratory: Shortness of breath; No: Cough, Dry, SOB with excertion, Wheezing, Hemoptysis, Pleuritic Pain, Sputum, Wheezing, Other Cardiovascular: No: Chest Pain, Palpitations, Orthopnea, Paroxysmal Noc. Dyspnea, Edema, Lt Headedness, Other Gastrointestinal: Diarrhea; No: Nausea, Vomiting, Abdominal Pain, Constipation, Melena, Hematochezia, Other Genitourinary: No Dysuria, No Frequency, No Incontinence, No Hematuria, No Retention, No Other Musculoskeletal: No: other, neck pain, shoulder pain, arm pain, back pain, hand pain, leg pain, foot pain Skin: No: Rash, Lesions, Jaundice, Bruising, Other Neurological: No: Weakness, Numbness, Incoordination, Change in speech, Confusion, Seizures, Other Allergies: Coded Allergies: NO KNOWN ALLERGIES (Unverified , 11/13/21) Medications Current Medications Medications Dose Ordered Sig/Rick Route Start Time Stop Time Status Last Admin Dose Admin Sodium Bicarbonate 100 ml/Sodium Chloride 1,100 ml @ 100 mls/hr DAILY IV 09/28/24 17:45 09/28/24 21:30 100 MLS/HR Acetaminophen 650 mg Q6HP PRN PO 09/28/24 23:00 Acetaminophen/ Hydrocodone Bitart 1 tab Q6HP PRN PO 09/28/24 23:00 Nitroglycerin 0.4 mg Q5MINP PRN SL 09/28/24 23:00 Morphine Sulfate 2 mg Q30M PRN IV 09/28/24 23:00 Ceftriaxone Sodium 50 ml @ 100 mls/hr DAILY IV 09/29/24 10:00 Exam Vital Signs Vital Signs Date Time Temp Pulse Resp B/P (MAP) Pulse Ox O2 Delivery O2 Flow Rate FiO2 09/28/24 23:30 78 20 106/57 (73) 99 09/28/24 20:25 Room Air* 0 21 09/28/24 19:30 97.9 97.9 General Appearance: Alert, Oriented X3, Cooperative HEENT: Atraumatic, PERRLA, EOMI Respiratory: Clear to auscultation, Normal air movement Cardiovascular: Regular rate, Normal S1, Normal S2 Abdominal: Normal bowel sounds, Soft, No tenderness Extremities: No clubbing, No cyanosis, No edema Skin: No breakdown Neuro: Normal speech, Strength at 5/5 X4 ext Psych/Mental Status: Mental status NL, Mood NL Labs/Xrays Labs Test 09/29/24 00:07 09/28/24 18:06 09/28/24 15:06 09/28/24 11:35 Range/Units Sodium Level 144 # 136-145 mmol/L Potassium Level 2.6 L 3.5-5.1 mmol/L Chloride Level 118 H 98-107 mmol/L Carbon Dioxide Level 11 L 20-31 mmol/L Anion Gap 15 5-15 Blood Urea Nitrogen 57 H 9-23 mg/dL Creatinine 5.17 H 0.700-1.30 mg/dL Glomerular Filtration Rate Calc 12 >90 mL/min BUN/Creatinine Ratio 11.0 10.0-20.0 Serum Glucose 88 74-106 mg/dL Calcium Level 5.6 *L 8.7-10.4 mg/dL Magnesium Level 1.8 1.6-2.6 mg/dL Lactic Acid Level 0.8 0.4-2.0 mmol/L Uric Acid 9.5 H 3.7-9.2 mg/dL Phosphorus Level 5.8 H 2.4-5.1 mg/dL Parathyroid Hormone (Intact) 400.4 H 18.4-80.1 pg/mL Troponin I High Sensitivity 8 </=54 ng/L Urine Color Light-yellow Yellow Urine Clarity Turbid H Clear Urine pH 5.5 5.0-9.0 Urine Specific [place] 1.011 1.001-1.035 Urine Protein 1+ H Negative Urine Ketones Negative Negative Urine Blood 1+ H Negative /uL Urine Nitrite Negative Negative Urine Bilirubin Negative Negative Urine Urobilinogen Normal Negative mg/dL Urine Leukocyte Esterase 3+ Negative /uL Urine RBC 4 0 - 3 /hpf Urine Microscopic WBC 223 H 0-3 /HPF Urine Squamous Epithelial Cells Few <5 /hpf Urine Bacteria None seen None Seen /hpf Urine Creatinine 100.99 30.0-125.0 mg/dL Urine Protein/Creatinine Ratio 1.06 Urine Sodium 39 L 40-220 mmol/L Urine Glucose Normal Normal mg/dL Urine Total Protein 106.7 H 1-14 mg/dL Test 09/28/24 11:30 09/28/24 11:27 Range/Units Influenza Type A Antigen Negative Negative Influenza Type B Antigen Negative Negative SARS-CoV-2 Antigen (Rapid) Negative NEGATIVE White Blood Count 8.7 4.4-10.8 10^3/uL Red Blood Count 2.43 L 4.5-5.90 10^6/uL Hemoglobin 7.3 L 13.5-17.5 g/dL Hematocrit 23.0 L 41.0-53.0 % Mean Corpuscular Volume 94.4 80.0-100.0 fL Mean Corpuscular Hemoglobin 30.2 28.0-32.0 pg Mean Corpuscular Hemoglobin Concent 31.9 L 32.0-36.0 g/dL Red Cell Distribution Width 17.6 H 11.8-14.3 % Platelet Count 202 140-450 10^3/uL Mean Platelet Volume 8.0 6.9-10.8 fL Neutrophils (%) (Auto) 89.2 H 37.0-80.0 % Lymphocytes (%) (Auto) 7.0 L 10.0-50.0 % Monocytes (%) (Auto) 2.7 0.0-12.0 % Eosinophils (%) (Auto) 0.6 0.0-7.0 % Basophils (%) (Auto) 0.5 0.0-2.0 % Neutrophils # (Auto) 7.8 1.6-8.6 10 ^3/uL Lymphocytes # (Auto) 0.6 0.4-5.4 10 ^3/uL Monocytes # (Auto) 0.2 0-1.3 10 ^3/uL Eosinophils # (Auto) 0 0-0.8 10 ^3/uL Basophils # (Auto) 0 0-0.2 10 ^3/uL Nucleated Red Blood Cells 0.0 % Iron Level 98 65-175 ug/dL Total Iron Binding Capacity 187 L 250-425 ug/dL Percent Iron Saturation 52.4 20-55 % Total Bilirubin < 0.2 L 0.2-1.0 mg/dL Aspartate Amino Transferase (AST) 15 13-40 U/L Alanine Aminotransferase (ALT) 13 7-40 U/L Alkaline Phosphatase 83 46-116 U/L B-Type Natriuretic Peptide 105.98 0-100 pg/mL Total Protein 5.2 L 5.7-8.2 g/dL Albumin 2.9 L 3.2-4.8 g/dL Assessment/Plan Assessment/Plan MAYRA on CKD stage 4 Metabolic acidosis Hypokalemia Hypocalcemia Hypomagnesemia Severe dehydration Anemia, chronic UTI Chronic diarrhea Generalized weakness Plan Admit telemetry Nephrology consult per ED. Monitor BMP. Correct electrolytes as needed. IVF per nephrology. Gastroenterology consult. Occult stool, over, parasites, wbc. Monitor H&H. Transfuse PRBCs for Hgb less than seven Iron panel, b12, GI ppx protonix / dvt ppx SCD Plan discussed with: Patient My Orders Orders - MICHEL HONG NP Procedure Category Date Status Time Admit ADMIT 09/28/24 Transmitted 22:57 Code Status CODE 09/28/24 Transmitted 22:57 Vital Signs IMER 09/28/24 In Process 22:57 Review Orders With IMER 09/28/24 In Process Adm. 22:57 Encourage Activity As IMER 09/28/24 In Process Tolerate 22:57 Oxygen By Face Mask RT 09/28/24 Transmitted 22:57 Acetaminophen Tablet PHA 09/28/24 In Process (Tylenol Tablet) 23:00 Notify Of Changes IMER 09/28/24 In Process From Base 22:57 Advance Directive IMER 09/28/24 In Process 22:57 Basic Metabolic Panel LAB 09/30/24 Verified 05:00 Basic Metabolic Panel LAB 10/01/24 Verified 05:00 Basic Metabolic Panel LAB 10/02/24 Verified 05:00 Basic Metabolic Panel LAB 10/03/24 Verified 05:00 Complete Blood Count LAB 09/29/24 Logged 05:00 Complete Blood Count LAB 09/30/24 Verified 05:00 Complete Blood Count LAB 10/01/24 Verified 05:00 Complete Blood Count LAB 10/02/24 Verified 05:00 Complete Blood Count LAB 10/03/24 Verified 05:00 Patient Condition ORDERS 09/28/24 Transmitted 22:57 Allergies IMER 09/28/24 In Process 22:57 Hydrocodone-Acet PHA 09/28/24 In Process 5/325mg Tab ([place] 23:00 Sequential IMER 09/28/24 In Process Compression Device Nitroglycerin PHA 09/28/24 In Process Sublingual (Ntrostat 23:00 Morphine Sulfate PHA 09/28/24 In Process Injection 23:00 Stat Ekg For Chest IMER 09/28/24 In Process Pain 22:57 Notify Of Changes IMER 09/28/24 In Process From Base 22:57 Clinic Charge Nurse For [facility] 09/28/24 In Process 24 Hours 22:57 Emergency Dysrhythmia IMER 09/28/24 In Process Protocol 22:57 Rhythm Strips Once IMER 09/28/24 In Process Every Shift 22:57 Oxygen By Nasal RT 09/28/24 Transmitted Cannula 22:57 Stool Occult Blood LAB 09/28/24 Logged 22:57 Basic Metabolic Panel LAB 09/29/24 Logged 06:00 Basic Metabolic Panel LAB 09/29/24 Logged 12:00 Basic Metabolic Panel LAB 09/29/24 Logged 18:00 Magnesium LAB 09/29/24 Logged 06:00 Magnesium LAB 09/29/24 Logged 12:00 Magnesium LAB 09/29/24 Logged 18:00 Phosphorus LAB 09/29/24 Logged 06:00 Phosphorus LAB 09/29/24 Logged 12:00 Phosphorus LAB 09/29/24 Logged 18:00 *[facility] CONS 09/28/24 Transmitted 22:57 Ceftriaxone 1gm/50ml PHA 09/29/24 In Process D5w (Rocephin) 10:00 Clear Liq Diet DIET 09/29/24 Transmitted Breakfast Vitamin B12 LAB 09/29/24 Logged 04:00 Date of Service: Sep 29, 2024 Billing Provider: JEIMY NARVAEZ MD Common Visit Codes: NOT BILLABLE JEIMY NARVAEZ MD 09/29/24 1308: Review of Systems Allergies: Coded Allergies: NO KNOWN ALLERGIES (Unverified , 11/13/21) Additional Comments Additional Comments Additional Comments 64-year-old male with a known history of Crohn disease, CKD stage 4 initially presented to the hospital with diarrhea generalized weakness found to have 1. Diarrhea suspect acute flare of Crohn disease 2. Acute kidney injury with underlying CKD stage 4 3. Metabolic acidosis 4. Electrolyte imbalances 5. Anemia likely multifactorial secondary to underlying Crohn disease as well as anemia of chronic disease 6. UTI -continue aggressive IV hydration, we will-follow up GI Nephrology recommendation -we will consider steroids if diarrhea does not improve (we will check stool for C diff before starting steroid to make sure it is negative) -add MICHEL Baker NP Sep 29, 2024 02:11 JEIMY NARVAEZ MD Sep 29, 2024 13:08
[2024-09-29] MEDS ORDERED: CHOL20003 PO (04:28)
[2024-09-29] MEDS: HYDROcodone-ACET 5/325MG TAB PO PRN (06:45)
[2024-09-29 08:17] LABS: Sodium 145 mmol/L (136-145)
[2024-09-29 08:18] LABS: Anion Gap 18 (5-15)
[2024-09-29 08:19] LABS: Calcium 6.1 mg/dL (8.7-10.4); Carbon Dioxide 11 mmol/L (20-31); Chloride 116 mmol/L (98-107); Potassium 2.6 mmol/L (3.5-5.1)
[2024-09-29 08:23] LABS: Basophils # (auto) 0 10 ^3/uL (0-0.2); Eosinophils # (auto) 0.1 10 ^3/uL (0-0.8); Lymphocytes # (auto) 0.3 10 ^3/uL (0.4-5.4); Monocytes # (auto) 0.1 10 ^3/uL (0-1.3); White Blood Cell 7.1 10^3/uL (4.4-10.8)
[2024-09-29 08:24] LABS: BUN/Creatinine Ratio 10.3 (10.0-20.0); Basophils % (auto) 0.2 % (0.0-2.0); Blood Urea Nitrogen 54 mg/dL (9-23); Eosinophils % (auto) 0.7 % (0.0-7.0); Glucose 68 mg/dL (74-106); Hematocrit 21.9 % (41.0-53.0); Lymphocytes % (auto) 4.9 % (10.0-50.0); Magnesium 1.7 mg/dL (1.6-2.6); Mean Corpuscular Hemoglobin 30.2 pg (28.0-32.0); Mean Corpuscular Volume 94.4 fL (80.0-100.0); Monocytes % (auto) 1.9 % (0.0-12.0); Neutrophils # (auto) 6.5 10 ^3/uL (1.6-8.6); Neutrophils % (auto) 92.3 % (37.0-80.0); Platelet Count (auto) 193 10^3/uL (140-450); Red Blood Cells 2.32 10^6/uL (4.5-5.90); Red Cell Distribution Width 18.1 % (11.8-14.3)
[2024-09-29 08:31] LABS: Phosphorus 5.3 mg/dL (2.4-5.1)
[2024-09-29 09:25] LABS: Anisocytosis Slight; Ovalocytes FEW
[2024-09-29 09:26] LABS: Platelet Estimate Adequate
--- NOTE | 2024-09-29 09:47 | DVHINCON2 ---
DATE OF CONSULTATION: 09/29/2024 REFERRING PHYSICIAN: Nurse practitionerAkhil. REASON FOR CONSULTATION: History of Crohn's disease. HISTORY OF PRESENT ILLNESS: This is a 64-year-old male who has a history of chronic kidney disease stage IV, history of Crohn's disease that is complicated by history of fistulizing disease and perirectal abscess requiring [facility] drainage and fistulotomy at [facility] previously. The patient has been followed by my colleague, Dr. Harley Multani and has been noted to be treated previously with Humira, which failed. The patient was switched to Skyrizi recently and reports that medication is still not working and the patient was having insurance approval for this medication as well. The patient was then requested to be on Rinvoq and apparently insurance also denied this medication as well and currently he stopped taking all his medication. The patient has been referred to [facility] to see IBD specialist for this treatment as well and still awaiting for insurance approval. The patient was last seen with my colleague, Dr. Harley Multani on 09/11/2024. The patient reports that he has been having generalized weakness for the last 2 weeks. Workup in the ER showed he had a hemoglobin of 7.0. His creatinine was 5.22. The patient underwent CT scan of the abdomen and pelvis without contrast in the ER showing no acute abdominal pelvic findings. There is a small kidney stones. There is bilateral perinephric stranding, which is most likely physiologic and there is liquid stool in the colon. Currently, the patient also reports on top of generalized weakness, he has shortness of breath. Denies any fevers or chills. Denies any overt GI hemorrhage including melena or hematochezia. REVIEW OF SYSTEMS: Otherwise, 10 point review of systems negative. PAST MEDICAL HISTORY: Again, is noted for history of Crohn's disease, history of gastroesophageal reflux disease and GERD and chronic kidney disease. The patient has multiple colonoscopy and EGD done previously. The last colonoscopy was done with Dr. Multani on 10/01/2022. The patient had EGD done at [place] on January 2022 as well. PAST SURGICAL HISTORY: Include fistulotomy in [facility] in December 2022 and colon resection x3. ALLERGIES: The patient has no known drug allergies. FAMILY HISTORY: Noncontributory. PHYSICAL EXAMINATION: VITAL SIGNS: Shows temperature of 97.4, pulse 69, blood pressure 101/69. GENERAL: The patient is otherwise alert, in no acute respiratory distress. HEENT: His oropharynx is dry. LUNGS: Clear. He appears cachectic. ABDOMEN: Soft, nondistended. EXTREMITIES: Lower extremities, no clubbing, cyanosis or edema. DIAGNOSTIC DATA: Labs shows currently WBC is 7.1, hemoglobin 7, platelet count is 193. His BUN 54, creatinine 5.22. CT imaging was noted. IMPRESSION PLAN: * Crohn's disease. This appears uncontrolled. The patient has failed multiple prior medications including Humira. The patient has been having difficulty with getting insurance approval for Skyrizi and Rinvoq. The patient is currently pending and awaiting for approval for referral to [facility] for management of his complicated Crohn's disease. * Anemia, etiology is likely multifactorial including his Crohn's disease and anemia of chronic kidney disease. * Stage IV chronic kidney disease, defer to Nephrology. RECOMMENDATIONS: At this time is to transfuse 1 unit of packed red blood cells. We will check stool studies and rule out infection. Check fecal calprotectin. Check sed rate, CRP, with restart the patient on Questran for diarrhea and also Lomotil as needed. Budesonide may be also very beneficial as a temporizing treatment and also steroid may be considered if there is evidence of a severe acute flare of his IBD. We will continue to follow the patient closely. Thanks for allowing me the opportunity to participate in care of this patient. MD ANY Asencio/KAILASH TID: [id number] RECEIPT: [id number]
--- NOTE | 2024-09-29 10:21 | DVHPN2 ---
Progress Note Date Seen: Sep 29, 2024 Medical Necessity Reason Pt with a Central, PICC or Fol: No Subjective Review of Systems: GI:Abnormal Other Systems: Patient seen and examined by myself today in follow-up Objective vital signs Vital Sign Date Time Temp Pulse Resp B/P (MAP) Pulse Ox O2 Delivery O2 Flow Rate FiO2 09/29/24 08:30 97.4 69 14 101/69 (80) 96 97.4 09/29/24 04:24 Room Air* 0 21 Total Intake and Output 09/28/24 09/28/24 09/29/24 15:00 23:00 07:00 Intake Total 1200 ml 1000 ml 0 ml Balance 1200 ml 1000 ml 0 ml medications Current Medications Medications Dose Ordered Sig/Rick Route Start Time Stop Time Status Last Admin Dose Admin Sodium Bicarbonate 100 ml/Sodium Chloride 1,100 ml @ 100 mls/hr DAILY IV 09/28/24 17:45 09/28/24 21:30 Acetaminophen 650 mg Q6HP PRN PO 09/28/24 23:00 Acetaminophen/ Hydrocodone Bitart 1 tab Q6HP PRN PO 09/28/24 23:00 09/29/24 06:45 Nitroglycerin 0.4 mg Q5MINP PRN SL 09/28/24 23:00 Morphine Sulfate 2 mg Q30M PRN IV 09/28/24 23:00 Ceftriaxone Sodium 50 ml @ 100 mls/hr DAILY IV 09/29/24 10:00 Examination: LUNGS:Normal, CVS:Normal, MSK:Normal laboratory and microbiology Laboratory Tests 09/29/24 06:00 Test 09/29/24 06:00 Range/Units Serum Glucose 68 L 74-106 mg/dL Problem List/Assessment/Plan Problem List/Assessment/Plan MAYRA superimposed on CKD stage 4 secondary to hemodynamic mediated Chronic Kidney Disease stage [address] Muriel ackerman Hypokalemia Hypomagnesemia Nephrolithiasis, nonobstructing Metabolic acidosis Crohn's disease Diarrhea Dehydration Hyperphosphatemia Hyperparathyroidism, secondary to chronic kidney disease REC: No urine output charted KCL replacement Magnesium sulfate IV piggyback Calcium acetate 1334 mg p.o. t.i.d. with meals Strict I&O's kidney US reported bilateral echogenic kidney and nonobstructing bilateral nephrolithiasis IVF hydration with bicarb GI consult Renal diet Will continue to follow Plan discussed with: Patient My Orders My Orders Orders - MARIXA PALACIOS MD Procedure Category Date Status Time Hepatitis C Antibody LAB 09/28/24 In Process 17:37 Hepatitis B Surface LAB 09/28/24 In Process Antigen 17:37 Kidney US 09/28/24 Resulted 17:37 Sodium Bicarb PHA 09/28/24 In Process 50meq/50ml Vial 17:45 MARIXA PALACIOS MD Sep 29, 2024 10:21
[2024-09-29 10:29] LABS: Erythrocyte Sedimentation Rate 26 mm/hr (0-20)
[2024-09-29] MEDS: cefTRIAXone 1GM/50ML D5W 50 ML IV SCH (10:55)
[2024-09-29 12:43] LABS: Sodium 144 mmol/L (136-145)
[2024-09-29 12:44] LABS: Anion Gap 15 (5-15)
[2024-09-29 12:49] LABS: BUN/Creatinine Ratio 10.8 (10.0-20.0); Glucose 85 mg/dL (74-106)
[2024-09-29] MEDS: POTASSIUM CHL 20MEQ/100ML 100 ML IV SCH (12:53)
[2024-09-29] MEDS: MAGNESIUM SULFATE 1GM/100ML 100 ML IV SCH (12:53)
[2024-09-29] MEDS: CALCIUM ACETATE 667 MG CAP PO SCH (12:59)
[2024-09-29 13:02] LABS: Blood Urea Nitrogen 53 mg/dL (9-23); Carbon Dioxide 13 mmol/L (20-31); Chloride 116 mmol/L (98-107); Magnesium 1.6 mg/dL (1.6-2.6)
[2024-09-29 13:04] LABS: Potassium 2.2 mmol/L (3.5-5.1)
[2024-09-29 13:05] LABS: Calcium 5.9 mg/dL (8.7-10.4)
[2024-09-29] MEDS: MAGNESIUM SULFATE 1GM/100ML 100 ML IV ONE (18:18)
[2024-09-29 18:24] LABS: Anion Gap 16 (5-15); Sodium 144 mmol/L (136-145)
[2024-09-29 18:28] LABS: Carbon Dioxide 13 mmol/L (20-31); Chloride 115 mmol/L (98-107)
[2024-09-29 18:30] LABS: Magnesium 1.9 mg/dL (1.6-2.6)
[2024-09-29 18:32] LABS: Phosphorus 4.6 mg/dL (2.4-5.1)
[2024-09-29 18:33] LABS: Blood Urea Nitrogen 53 mg/dL (9-23); Glucose 109 mg/dL (74-106)
[2024-09-29 18:36] LABS: Potassium 2.5 mmol/L (3.5-5.1)
[2024-09-29] MEDS: CHOLESTYRAMINE 4 GM POWDER PO SCH (23:13)
[2024-09-30] VITALS (12 sets, daily range): BP systolic 104–130; BP diastolic 58–79; PULSE 65–86; RESP 14–22; TEMP 97.4–98.6; O2SAT 95–100
[2024-09-30] MEDS: MELATONIN 5 MG TAB PO ONE (02:14)
[2024-09-30 06:39] LABS: Basophils # (auto) 0 10 ^3/uL (0-0.2); Eosinophils # (auto) 0.1 10 ^3/uL (0-0.8); Hemoglobin 8.1 g/dL (13.5-17.5); Lymphocytes # (auto) 0.4 10 ^3/uL (0.4-5.4); Mean Corpuscular Hgb Conc. 31.5 g/dL (32.0-36.0); Monocytes # (auto) 0.1 10 ^3/uL (0-1.3); Neutrophils # (auto) 4.6 10 ^3/uL (1.6-8.6); White Blood Cell 5.2 10^3/uL (4.4-10.8)
[2024-09-30 06:41] LABS: Basophils % (auto) 0.4 % (0.0-2.0); Eosinophils % (auto) 1.2 % (0.0-7.0); Hematocrit 25.6 % (41.0-53.0); Lymphocytes % (auto) 6.8 % (10.0-50.0); Mean Corpuscular Volume 91.9 fL (80.0-100.0); Monocytes % (auto) 2.3 % (0.0-12.0); Neutrophils % (auto) 89.3 % (37.0-80.0); Platelet Count (auto) 175 10^3/uL (140-450); Red Blood Cells 2.79 10^6/uL (4.5-5.90); Red Cell Distribution Width 18.4 % (11.8-14.3)
[2024-09-30 07:34] LABS: Anion Gap 17 (5-15)
[2024-09-30 07:40] LABS: Glucose 77 mg/dL (74-106)
[2024-09-30 07:59] LABS: Sodium 143 mmol/L (136-145)
[2024-09-30 08:00] LABS: Blood Urea Nitrogen 50 mg/dL (9-23); Carbon Dioxide 10 mmol/L (20-31); Chloride 116 mmol/L (98-107); Potassium 3.1 mmol/L (3.5-5.1)
[2024-09-30 08:01] LABS: Calcium 5.8 mg/dL (8.7-10.4)
[2024-09-30] MEDS: ACETAMINOPHEN 325 MG TAB PO PRN (08:34)
--- NOTE | 2024-09-30 09:12 | DVHPN2 ---
Progress Note - Dictate Date Seen: Sep 30, 2024 Medical Necessity Reason Pt with a Central, PICC or Fol: No Subjective Pt seen and examined. Pt still has diarrhea today. Denies abd pain. Still feels weak. vital signs Vital Sign Date Time Temp Pulse Resp B/P (MAP) Pulse Ox O2 Delivery O2 Flow Rate FiO2 09/30/24 08:34 98.2 09/30/24 05:00 78 17 104/63 (77) 98 09/29/24 20:00 Room Air* 0 21 Total Intake and Output 09/29/24 09/29/24 09/30/24 15:00 23:00 07:00 Intake Total 50 ml 300 ml 740 ml Balance 50 ml 300 ml 740 ml medications Current Medications Medications Dose Ordered Sig/Rick Route Start Time Stop Time Status Last Admin Dose Admin Sodium Bicarbonate 100 ml/Sodium Chloride 1,100 ml @ 100 mls/hr DAILY IV 09/28/24 17:45 09/29/24 10:55 100 MLS/HR Acetaminophen 650 mg Q6HP PRN PO 09/28/24 23:00 09/30/24 08:34 650 MG Acetaminophen/ Hydrocodone Bitart 1 tab Q6HP PRN PO 09/28/24 23:00 09/30/24 00:19 1 TAB Nitroglycerin 0.4 mg Q5MINP PRN SL 09/28/24 23:00 Morphine Sulfate 2 mg Q30M PRN IV 09/28/24 23:00 Ceftriaxone Sodium 50 ml @ 100 mls/hr DAILY IV 09/29/24 10:00 09/29/24 10:55 100 MLS/HR Calcium Acetate 1,334 mg TIDWMEALS PO 09/29/24 12:00 09/30/24 07:45 1,334 MG Cholestyramine Resin 4 gm Q12HR@11,23 PO 09/29/24 23:00 09/29/24 23:13 4 GM Melatonin 5 mg HS PO 09/30/24 22:00 objective Alert in NAD. Thin, cachetic. laboratory and microbiology Laboratory Tests 09/30/24 05:29 Test 09/30/24 05:29 Range/Units Serum Glucose 77 74-106 mg/dL Assessment/Plan IMPRESSION PLAN: * Crohn's disease. This appears uncontrolled. The patient has failed multiple prior medications including Humira. The patient has been having difficulty with getting insurance approval for Skyrizi and Rinvoq. The patient is currently pending and awaiting for approval for referral to [facility] for management of his complicated Crohn's disease. * Anemia, etiology is likely multifactorial including his Crohn's disease and anemia of chronic kidney disease. * Stage IV chronic kidney disease, defer to Nephrology. RECOMMENDATIONS: Cont to monitor H&H serially and transfuse if symptomatic. Give Questran for diarrhea and also Lomotil as needed. Follow up stool study which has not been collected by nursing staff yet. Start steroids Plan discussed with: Patient CC Plasma Assessment Blood Product Administration S: [id number] BILLIE OLIVARES MD Sep 30, 2024 09:12
[2024-09-30] MEDS ORDERED: methylPREDNISolone SOD SUCC 125 MG/2 ML VL IV SCH (10:00)
[2024-09-30] MEDS: methylPREDNISolone SOD SUCC 40 MG/ML VL IV SCH (10:15)
--- NOTE | 2024-09-30 10:15 | DVHOP2 ---
Operative Report DATE OF OPERATION: 09/30/24 PROCEDURE: Upper Endoscopy. PREOPERATIVE INDICATION: The patient is a 64 -year-old male undergoing endoscopy for POSTOPERATIVE DIAGNOSES: suspected UGI bleeding PROCEDURE PERFORMED BY: Roberto Garcia MD GI NURSE: SCOPE: Olympus videoendoscope. ASA CLASS: II PREOPERATIVE MEDICATIONS: The pt is currently intubated and is on a versed and fentanyl drip per ICU protocol. PROCEDURE IN DETAIL: After obtaining an informed consent, the patient was placed on left lateral decubitus position. The patient was then sedated with the above medications. A bite block was placed between he teeth. The endoscope was then passed through the oropharynx, into the esophagus, and through the stomach and pylorus up to the second and third part of the duodenum. The endoscope was then withdrawn. The patient tolerated the procedure well without difficulty. Findings: 1. Normal esophagus. 2. Stomach showed a small amount of old blood clots. Site of prior bleeding showed a clip in place. No bleeding seen. There was another area showing a 5mm superficial clean base uler. 3. Duodenal bulb and 2nd portion appears normal. COMPLICATIONS : None Rec: 1. Cont IV Protonix 40mg BID 2. Ok to extubate per Pulm 3. Add Sucralfate 1g BID when able to take oral medications. 4. No ASA/NSAIDS/Anticoagulation. ROBERTO GARCIA MD Sep 30, 2024 10:15
--- NOTE | 2024-09-30 11:04 | DVHPN2 ---
Progress Note Date Seen: Sep 30, 2024 Medical Necessity Reason Pt with a Central, PICC or Fol: No Subjective Review of Systems: GI:Abnormal Other Systems: Patient seen and examined by myself today in follow-up Objective vital signs Vital Sign Date Time Temp Pulse Resp B/P (MAP) Pulse Ox O2 Delivery O2 Flow Rate FiO2 09/30/24 09:34 97.5 09/30/24 09:00 86 16 130/78 (95) 98 09/29/24 20:00 Room Air* 0 21 Total Intake and Output 09/29/24 09/29/24 09/30/24 15:00 23:00 07:00 Intake Total 50 ml 300 ml 740 ml Balance 50 ml 300 ml 740 ml medications Current Medications Medications Dose Ordered Sig/Rick Route Start Time Stop Time Status Last Admin Dose Admin Sodium Bicarbonate 100 ml/Sodium Chloride 1,100 ml @ 100 mls/hr DAILY IV 09/28/24 17:45 09/30/24 10:17 100 MLS/HR Acetaminophen 650 mg Q6HP PRN PO 09/28/24 23:00 09/30/24 08:34 650 MG Acetaminophen/ Hydrocodone Bitart 1 tab Q6HP PRN PO 09/28/24 23:00 09/30/24 00:19 1 TAB Nitroglycerin 0.4 mg Q5MINP PRN SL 09/28/24 23:00 Morphine Sulfate 2 mg Q30M PRN IV 09/28/24 23:00 Ceftriaxone Sodium 50 ml @ 100 mls/hr DAILY IV 09/29/24 10:00 09/30/24 10:16 100 MLS/HR Calcium Acetate 1,334 mg TIDWMEALS PO 09/29/24 12:00 09/30/24 10:16 1,334 MG Cholestyramine Resin 4 gm Q12HR@11,23 PO 09/29/24 23:00 09/30/24 10:16 4 GM Melatonin 5 mg HS PO 09/30/24 22:00 Methylprednisolone Sodium Succinate 60 mg BID IV 09/30/24 10:00 09/30/24 10:15 60 MG Pantoprazole Sodium 40 mg BID IV 09/30/24 22:00 Examination: LUNGS:Normal, CVS:Normal, MSK:Normal laboratory and microbiology Laboratory Tests 09/30/24 05:29 Test 09/30/24 05:29 Range/Units Serum Glucose 77 74-106 mg/dL Microbiology Date/Time Source Procedure Growth Status 09/29/24 03:40 Stool Stool Culture Pending Resulted 09/29/24 03:40 Stool Shiga Toxin I & II Pending Resulted 09/29/24 03:40 Stool Clostridium difficile Toxin Assay - Final Resulted Problem List/Assessment/Plan Problem List/Assessment/Plan MAYRA 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 Mcleod Hypokalemia Hypomagnesemia Nephrolithiasis, nonobstructing Metabolic acidosis Crohn's disease Diarrhea Dehydration Hyperphosphatemia Hyperparathyroidism, secondary to chronic kidney disease REC: Pulmonary function slowly improving No urine output charted KCL replacement Magnesium sulfate IV piggyback Calcium acetate 1334 mg p.o. t.i.d. with meals Strict I&O's kidney US reported bilateral echogenic kidney and nonobstructing bilateral nephrolithiasis IVF hydration with sodium bicarb GI consult Renal diet Will continue to follow Plan discussed with: Patient CC Plasma Assessment Blood Product Administration S: [id number] MARIXA PALACIOS MD Sep 30, 2024 11:04
[2024-09-30] MEDS: POTASSIUM CHL 20MEQ/100ML 100 ML IV SCH (12:26)
[2024-09-30] MEDS: CALCIUM GLUC 1,000mg/50ml-NS 50 ML IV SCH (12:26)
[2024-09-30] MEDS: SODIUM BICARB 50mEq/50ml Vial 50 ML in SOD CHL 0.45% 1,000 ML IV SCH (12:55)
[2024-09-30] MEDS ORDERED: MORPHINE SULFATE INJ 2 MG/ml SYRG IV PRN (15:30)
[2024-09-30] MEDS: LIDOCAINE VISCOUS 2% 15ML UD PO PRN (15:52)
[2024-09-30] MEDS: MORPHINE SULFATE INJ 2 MG/ml SYRG IV PRN (15:58)
--- NOTE | 2024-09-30 17:12 | DVHPN2 ---
Subjective Overnight events noted. Patient is complaining of difficulty in swallowing. Reviewed: Care Plan Changes from previous H/P or p: No Changes Eyes: No Pain, No Vision change, No Conjunctivae inflammation, No Eyelid inflammation, No Other, No Redness ENT: No Ear pain, No Ear discharge, No Nose pain, No Nose discharge, No Nose congestion, No Mouth pain, No Mouth swelling, No Throat pain, No Throat swelling, No Other Cardiovascular: No Chest Pain, No Palpitations, No Orthopnea, No Paroxysmal Noc. Dyspnea, No Edema, No Lt Headedness, No Other Respiratory: No Cough, No Dry; Shortness of breath; No SOB with excertion, No Wheezing, No Hemoptysis, No Pleuritic Pain, No Sputum, No Other Gastrointestinal: No Nausea, No Vomiting, No Abdominal Pain; Diarrhea; No Constipation, No Melena, No Hematochezia, No Other Genitourinary: No Dysuria, No Frequency, No Incontinence, No Hematuria, No Retention, No Other Musculoskeletal: No other, No neck pain, No shoulder pain, No arm pain, No back pain, No hand pain, No leg pain, No foot pain Skin: No Rash, No Lesions, No Jaundice, No Bruising, No Other Objective Vitals Vital Signs Date Time Temp Pulse Resp B/P (MAP) Pulse Ox O2 Delivery O2 Flow Rate FiO2 09/30/24 15:58 65 14 117/66 09/30/24 12:52 97.8 97 97.8 09/30/24 08:00 Room Air* 0 21 Intake/Output Intake and Output 09/30/24 07:00 Intake Total 1090 ml Balance 1090 ml Intake Oral 240 ml IV Total 350 ml Blood Product 500 ml # Voids 4 # Bowel Movements 3 Exam HEENT pupils are reactive Neck is supple CV is S1-S2 regular rate and rhythm Respiratory diminished breath sounds bases GI positive bowel sound Extremity no edema 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 no motor deficit Medications Current Medications Medications Dose Ordered Sig/Rick Route Start Time Stop Time Status Last Admin Dose Admin Acetaminophen 650 mg Q6HP PRN PO 09/28/24 23:00 09/30/24 08:34 650 MG Acetaminophen/ Hydrocodone Bitart 1 tab Q6HP PRN PO 09/28/24 23:00 09/30/24 00:19 1 TAB Nitroglycerin 0.4 mg Q5MINP PRN SL 09/28/24 23:00 Morphine Sulfate 2 mg Q30M PRN IV 09/28/24 23:00 09/30/24 15:58 2 MG Ceftriaxone Sodium 50 ml @ 100 mls/hr DAILY IV 09/29/24 10:00 09/30/24 10:16 100 MLS/HR Calcium Acetate 1,334 mg TIDWMEALS PO 09/29/24 12:00 09/30/24 10:16 1,334 MG Cholestyramine Resin 4 gm Q12HR@ PO 09/29/24 23:00 09/30/24 10:16 4 GM Melatonin 5 mg HS PO 09/30/24 22:00 Methylprednisolone Sodium Succinate 60 mg BID IV 09/30/24 10:00 09/30/24 10:15 60 MG Pantoprazole Sodium 40 mg BID IV 09/30/24 22:00 Sodium Bicarbonate 50 ml/ Sodium Chloride 1,050 ml @ 100 mls/hr [id number] IV 09/30/24 11:15 09/30/24 12:55 100 MLS/HR Potassium Chloride 100 ml @ 50 mls/hr Q2H IV 09/30/24 11:15 09/30/24 17:14 09/30/24 14:31 50 MLS/HR Lidocaine HCl 10 ml Q4HP PRN PO 09/30/24 15:30 09/30/24 15:52 10 ML Morphine Sulfate 2 mg Q4HPRN PRN IV 09/30/24 15:30 Laboratory Results Laboratory Tests 09/30/24 05:29 Chemistry Test 09/29/24 17:59 09/30/24 05:29 Calcium Level 6.0 mg/dL (8.7-10.4) *L 5.8 mg/dL (8.7-10.4) *L Magnesium Level 1.9 mg/dL (1.6-2.6) Phosphorus Level 4.6 mg/dL (2.4-5.1) Urinalysis Test 09/28/24 11:35 Urine Color Light-yellow (Yellow) Urine Clarity Turbid (Clear) H Urine pH 5.5 (5.0-9.0) Urine Specific [place] 1.011 (1.001-1.035) Urine Protein 1+ (Negative) H Urine Ketones Negative (Negative) Urine Blood 1+ /uL (Negative) H Urine Nitrite Negative (Negative) Urine Bilirubin Negative (Negative) Urine Urobilinogen Normal mg/dL (Negative) Urine Leukocyte Esterase 3+ /uL (Negative) Urine RBC 4 /hpf (0 - 3) Urine Microscopic WBC 223 /HPF (0-3) H Urine Squamous Epithelial Cells Few /hpf (<5) Urine Bacteria None seen /hpf (None Seen) Urine Creatinine 100.99 mg/dL (30.0-125.0) Urine Protein/Creatinine Ratio 1.06 Urine Sodium 39 mmol/L (40-220) L Urine Glucose Normal mg/dL (Normal) Urine Total Protein 106.7 mg/dL (1-14) H Microbiology Microbiology Date/Time Source Procedure Growth Status 09/29/24 03:40 Stool Stool Culture - Preliminary Resulted 09/29/24 03:40 Stool Shiga Toxin I & II Pending Resulted 09/29/24 03:40 Stool Clostridium difficile Toxin Assay - Final Resulted Assessment/Plan Assessment/Plan 64-year-old male with a known history of Crohn disease, CKD stage 4 initially presented to the hospital with diarrhea generalized weakness found to have 1. Diarrhea suspect acute flare of Crohn disease 2. Acute kidney injury with underlying CKD stage 4 3. Metabolic acidosis 4. Electrolyte imbalances 5. Anemia likely multifactorial secondary to underlying Crohn disease as well as anemia of chronic disease 6. UTI -Solu-Medrol as C diff is negative, follow up GI recommendation Aggressive IV hydration and bicarb drip Follow up with the Nephrology recommendations Plan discussed with: Patient My Orders Orders - EJIMY NARVAEZ MD Procedure Category Date Status Time Lidocaine 2% Viscous PHA 09/30/24 In Process (Xylocaine 2% Visco 15:30 Morphine Sulfate PHA 09/30/24 In Process Injection 15:30 Date of Service: Sep 30, 2024 Billing Provider: JEIMY NARVAEZ MD Common Visit Codes: NOT BILLABLE JEIMY NARVAEZ MD Sep 30, 2024 17:12
[2024-09-30] MEDS: PANTOPRAZOLE 40 MG/10 ML VIAL INJ IV SCH (22:23)
[2024-09-30] MEDS: MELATONIN 5 MG TAB PO SCH (22:23)
[2024-10-01] VITALS (8 sets, daily range): BP systolic 108–125; BP diastolic 55–69; PULSE 63–89; RESP 15–22; TEMP 97.3–98; O2SAT 98–100
[2024-10-01 06:39] LABS: Basophils # (auto) 0 10 ^3/uL (0-0.2); Eosinophils # (auto) 0 10 ^3/uL (0-0.8); Hemoglobin 7.7 g/dL (13.5-17.5); Lymphocytes # (auto) 0.2 10 ^3/uL (0.4-5.4); Mean Corpuscular Hgb Conc. 31.7 g/dL (32.0-36.0); Monocytes # (auto) 0 10 ^3/uL (0-1.3); Neutrophils # (auto) 4.1 10 ^3/uL (1.6-8.6); Nucleated Red Blood Cells % 0.1 %; Red Blood Cells 2.64 10^6/uL (4.5-5.90); Red Cell Distribution Width 19.4 % (11.8-14.3); White Blood Cell 4.3 10^3/uL (4.4-10.8)
[2024-10-01 06:41] LABS: Hematocrit 24.3 % (41.0-53.0); Lymphocytes % (auto) 4.6 % (10.0-50.0); Mean Corpuscular Volume 91.7 fL (80.0-100.0); Monocytes % (auto) 0.7 % (0.0-12.0); Neutrophils % (auto) 94.7 % (37.0-80.0); Platelet Count (auto) 181 10^3/uL (140-450)
[2024-10-01 06:47] LABS: Potassium 4.4 mmol/L (3.5-5.1); Sodium 142 mmol/L (136-145)
[2024-10-01 06:48] LABS: Anion Gap 11 (5-15)
[2024-10-01 06:53] LABS: BUN/Creatinine Ratio 11.1 (10.0-20.0)
[2024-10-01 07:02] LABS: Blood Urea Nitrogen 47 mg/dL (9-23); Calcium 6.6 mg/dL (8.7-10.4); Carbon Dioxide 13 mmol/L (20-31); Chloride 118 mmol/L (98-107); Glucose 116 mg/dL (74-106)
[2024-10-01 07:36] LABS: Erythrocyte Sedimentation Rate 14 mm/hr (0-20)
--- NOTE | 2024-10-01 08:56 | DVHPN2 ---
Progress Note - Dictate Date Seen: Oct 01, 2024 Medical Necessity Reason Pt with a Central, PICC or Fol: No Subjective Pt seen and examined. Pt reports no diarrhea this morning. Denies abd pain. Still feels weak. vital signs Vital Sign Date Time Temp Pulse Resp B/P (MAP) Pulse Ox O2 Delivery O2 Flow Rate FiO2 10/01/24 05:00 97.5 63 20 108/55 (72) 98 97.5 09/30/24 20:00 Room Air* 0 21 Total Intake and Output 09/30/24 09/30/24 10/01/24 15:00 23:00 07:00 Intake Total 1150 ml 950 ml Output Total 200 ml Balance 1150 ml 750 ml medications Current Medications Medications Dose Ordered Sig/Rick Route Start Time Stop Time Status Last Admin Dose Admin Acetaminophen 650 mg Q6HP PRN PO 09/28/24 23:00 09/30/24 08:34 650 MG Acetaminophen/ Hydrocodone Bitart 1 tab Q6HP PRN PO 09/28/24 23:00 09/30/24 00:19 1 TAB Nitroglycerin 0.4 mg Q5MINP PRN SL 09/28/24 23:00 Morphine Sulfate 2 mg Q30M PRN IV 09/28/24 23:00 09/30/24 15:58 2 MG Ceftriaxone Sodium 50 ml @ 100 mls/hr DAILY IV 09/29/24 10:00 09/30/24 10:16 100 MLS/HR Calcium Acetate 1,334 mg TIDWMEALS PO 09/29/24 12:00 10/01/24 08:06 1,334 MG Cholestyramine Resin 4 gm Q12HR@23 PO 09/29/24 23:00 09/30/24 10:16 4 GM Melatonin 5 mg HS PO 09/30/24 22:00 09/30/24 22:23 5 MG Methylprednisolone Sodium Succinate 60 mg BID IV 09/30/24 10:00 09/30/24 22:23 60 MG Pantoprazole Sodium 40 mg BID IV 09/30/24 22:00 09/30/24 22:23 40 MG Sodium Bicarbonate 50 ml/ Sodium Chloride 1,050 ml @ 100 mls/hr [id number] IV 09/30/24 11:15 09/30/24 22:46 100 MLS/HR Lidocaine HCl 10 ml Q4HP PRN PO 09/30/24 15:30 09/30/24 15:52 10 ML Morphine Sulfate 2 mg Q4HPRN PRN IV 09/30/24 15:30 objective Alert in NAD. Thin, cachetic. laboratory and microbiology Laboratory Tests 10/01/24 05:43 Test 10/01/24 05:43 Range/Units Serum Glucose 116 H 74-106 mg/dL Assessment/Plan IMPRESSION PLAN: 1. Crohn's disease. This appears uncontrolled. The patient has failed multiple prior medications including Humira. The patient has been having difficulty with getting insurance approval for Skyrizi and Rinvoq. The patient is currently pending and awaiting for approval for referral to [facility] for management of his complicated Crohn's disease. 2. Anemia, etiology is likely multifactorial including his Crohn's disease and anemia of chronic kidney disease. 3. Stage IV chronic kidney disease, defer to Nephrology. RECOMMENDATIONS: Cont to monitor H&H serially and transfuse if symptomatic. Cont Questran for diarrhea and also Lomotil as needed. Switch to Prednisone 40mg daily tapering by 10mg every 10 days. Pt will need to f/u with insurance and GI clinic in 4 weeks for biologic medications. Plan discussed with: Patient CC Plasma Assessment Blood Product Administration S: [id number] BILLIE OLIVARES MD Oct 01, 2024 08:56
[2024-10-01] MEDS: predniSONE 20 MG TAB PO ONE (10:00)
[2024-10-01 11:17] LABS: Hepatitis B Surface Antigen Negative (Negative); Hepatitis C Antibody Negative (Negative)
--- NOTE | 2024-10-01 12:45 | DVHPN2 ---
Progress Note Date Seen: Oct 01, 2024 Medical Necessity Reason Pt with a Central, PICC or Fol: No Objective vital signs Vital Sign Date Time Temp Pulse Resp B/P (MAP) Pulse Ox O2 Delivery O2 Flow Rate FiO2 10/01/24 09:00 97.5 73 16 115/64 (81) 99 97.5 09/30/24 20:00 Room Air* 0 21 Total Intake and Output 09/30/24 09/30/24 10/01/24 15:00 23:00 07:00 Intake Total 1150 ml 950 ml Output Total 200 ml Balance 1150 ml 750 ml medications Current Medications Medications Dose Ordered Sig/Rick Route Start Time Stop Time Status Last Admin Dose Admin Acetaminophen 650 mg Q6HP PRN PO 09/28/24 23:00 09/30/24 08:34 650 MG Acetaminophen/ Hydrocodone Bitart 1 tab Q6HP PRN PO 09/28/24 23:00 09/30/24 00:19 1 TAB Nitroglycerin 0.4 mg Q5MINP PRN SL 09/28/24 23:00 Morphine Sulfate 2 mg Q30M PRN IV 09/28/24 23:00 09/30/24 15:58 2 MG Ceftriaxone Sodium 50 ml @ 100 mls/hr DAILY IV 09/29/24 10:00 10/01/24 10:21 100 MLS/HR Calcium Acetate 1,334 mg TIDWMEALS PO 09/29/24 12:00 10/01/24 12:31 1,334 MG Cholestyramine Resin 4 gm Q12HR@11,23 PO 09/29/24 23:00 10/01/24 10:20 4 GM Melatonin 5 mg HS PO 09/30/24 22:00 09/30/24 22:23 5 MG Methylprednisolone Sodium Succinate 60 mg BID IV 09/30/24 10:00 10/01/24 10:20 60 MG Pantoprazole Sodium 40 mg BID IV 09/30/24 22:00 10/01/24 10:47 40 MG Sodium Bicarbonate 50 ml/ Sodium Chloride 1,050 ml @ 100 mls/hr [id number] IV 09/30/24 11:15 10/01/24 12:24 100 MLS/HR Lidocaine HCl 10 ml Q4HP PRN PO 09/30/24 15:30 10/01/24 10:20 10 ML Morphine Sulfate 2 mg Q4HPRN PRN IV 09/30/24 15:30 Examination: GENERAL:Abnormal, ABDOMEN:Abnormal, SKIN:Normal laboratory and microbiology Laboratory Tests 10/01/24 05:43 Test 10/01/24 05:43 Range/Units Serum Glucose 116 H 74-106 mg/dL Microbiology Date/Time Source Procedure Growth Status 09/29/24 03:40 Stool Stool Culture - Final Complete 09/29/24 03:40 Stool Shiga Toxin I & II - Final Complete 09/29/24 03:40 Stool Clostridium difficile Toxin Assay - Final Complete Problem List/Assessment/Plan Problem List/Assessment/Plan MAYRA 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 Mcleod Hypokalemia Hypomagnesemia Nephrolithiasis, nonobstructing Metabolic acidosis Crohn's disease Diarrhea Dehydration Hyperphosphatemia Hyperparathyroidism, secondary to chronic kidney disease change to LR IV KCL replacement Magnesium sulfate IV piggyback Calcium acetate 1334 mg p.o. t.i.d. with meals Strict I&O's kidney US reported bilateral echogenic kidney and nonobstructing bilateral nephrolithiasis GI consult Renal diet Plan discussed with: Patient CC Plasma Assessment Blood Product Administration S: [id number] ARTHUR PIZARRO MD Oct 01, 2024 12:45
[2024-10-01 13:52] LABS: Magnesium 1.7 mg/dL (1.6-2.6)
[2024-10-01 13:54] LABS: Phosphorus 4.4 mg/dL (2.4-5.1)
--- NOTE | 2024-10-01 14:11 | MEDREC ---
FORMERLY [facility], LATER [facility] Intervention Section I FOR[facility]LY [facility], LAT[facility] Intervention: Review courses of therapy (PLEASE CONSIDER D/C ANTIBIOTIC(S) IN ABSENCE OF BACTERIAL INFECTION) WIL YOUNG PHARMACIST Oct 01, 2024 14:11
[2024-10-01] MEDS: LACTATED RINGER'S 1,000 ML IV SCH (16:19)
[2024-10-01] MEDS: THROAT LOZENGES(CEPASTAT) MT STA (16:42)
--- NOTE | 2024-10-01 16:48 | DVHPN2 ---
Subjective Overnight events noted. Patient is complaining of difficulty in swallowing. Cepacol has been ordered. Reviewed: Care Plan Changes from previous H/P or p: No Changes Eyes: No Pain, No Vision change, No Conjunctivae inflammation, No Eyelid inflammation, No Other, No Redness ENT: No Ear pain, No Ear discharge, No Nose pain, No Nose discharge, No Nose congestion, No Mouth pain, No Mouth swelling, No Throat pain, No Throat swelling, No Other Cardiovascular: No Chest Pain, No Palpitations, No Orthopnea, No Paroxysmal Noc. Dyspnea, No Edema, No Lt Headedness, No Other Respiratory: No Cough, No Dry; Shortness of breath; No SOB with excertion, No Wheezing, No Hemoptysis, No Pleuritic Pain, No Sputum, No Other Gastrointestinal: No Nausea, No Vomiting, No Abdominal Pain; Diarrhea; No Constipation, No Melena, No Hematochezia, No Other Genitourinary: No Dysuria, No Frequency, No Incontinence, No Hematuria, No Retention, No Other Musculoskeletal: No other, No neck pain, No shoulder pain, No arm pain, No back pain, No hand pain, No leg pain, No foot pain Skin: No Rash, No Lesions, No Jaundice, No Bruising, No Other Objective Vitals Vital Signs Date Time Temp Pulse Resp B/P (MAP) Pulse Ox O2 Delivery O2 Flow Rate FiO2 10/01/24 13:00 97.8 69 18 123/67 (85) 100 97.8 10/01/24 08:00 Room Air* 0 21 Intake/Output Intake and Output 10/01/24 07:00 Intake Total 2100 ml Output Total 200 ml Balance 1900 ml Intake Oral 1550 ml IV Total 550 ml Output Urine Total 200 ml # Voids 3 # Bowel Movements 1 Exam HEENT pupils are reactive Neck is supple CV is S1-S2 regular rate and rhythm Respiratory diminished breath sounds bases GI positive bowel sound Extremity no edema 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 Medications Current Medications Medications Dose Ordered Sig/Rick Route Start Time Stop Time Status Last Admin Dose Admin Acetaminophen 650 mg Q6HP PRN PO 09/28/24 23:00 09/30/24 08:34 650 MG Acetaminophen/ Hydrocodone Bitart 1 tab Q6HP PRN PO 09/28/24 23:00 09/30/24 00:19 1 TAB Nitroglycerin 0.4 mg Q5MINP PRN SL 09/28/24 23:00 Morphine Sulfate 2 mg Q30M PRN IV 09/28/24 23:00 09/30/24 15:58 2 MG Ceftriaxone Sodium 50 ml @ 100 mls/hr DAILY IV 09/29/24 10:00 10/01/24 10:21 100 MLS/HR Calcium Acetate 1,334 mg TIDWMEALS PO 09/29/24 12:00 10/01/24 12:31 1,334 MG Cholestyramine Resin 4 gm Q12HR@11,23 PO 09/29/24 23:00 10/01/24 10:20 4 GM Melatonin 5 mg HS PO 09/30/24 22:00 09/30/24 22:23 5 MG Methylprednisolone Sodium Succinate 60 mg BID IV 09/30/24 10:00 10/01/24 10:20 60 MG Pantoprazole Sodium 40 mg BID IV 09/30/24 22:00 10/01/24 10:47 40 MG Lidocaine HCl 10 ml Q4HP PRN PO 09/30/24 15:30 10/01/24 10:20 10 ML Morphine Sulfate 2 mg Q4HPRN PRN IV 09/30/24 15:30 Lactated Ringer's 1,000 ml @ 75 mls/hr [id number] IV 10/01/24 12:45 10/01/24 16:19 75 MLS/HR Enteral Nutritional Formula 240 ml TIDWM PO 10/01/24 18:00 Laboratory Results Laboratory Tests 10/01/24 05:43 Chemistry Test 10/01/24 05:43 Calcium Level 6.6 mg/dL (8.7-10.4) L Magnesium Level 1.7 mg/dL (1.6-2.6) Phosphorus Level 4.4 mg/dL (2.4-5.1) Urinalysis Test 09/28/24 11:35 Urine Color Light-yellow (Yellow) Urine Clarity Turbid (Clear) H Urine pH 5.5 (5.0-9.0) Urine Specific [place] 1.011 (1.001-1.035) Urine Protein 1+ (Negative) H Urine Ketones Negative (Negative) Urine Blood 1+ /uL (Negative) H Urine Nitrite Negative (Negative) Urine Bilirubin Negative (Negative) Urine Urobilinogen Normal mg/dL (Negative) Urine Leukocyte Esterase 3+ /uL (Negative) Urine RBC 4 /hpf (0 - 3) Urine Microscopic WBC 223 /HPF (0-3) H Urine Squamous Epithelial Cells Few /hpf (<5) Urine Bacteria None seen /hpf (None Seen) Urine Creatinine 100.99 mg/dL (30.0-125.0) Urine Protein/Creatinine Ratio 1.06 Urine Sodium 39 mmol/L (40-220) L Urine Glucose Normal mg/dL (Normal) Urine Total Protein 106.7 mg/dL (1-14) H Microbiology Microbiology Date/Time Source Procedure Growth Status 09/29/24 03:40 Stool Stool Culture - Final Complete 09/29/24 03:40 Stool Shiga Toxin I & II - Final Complete 09/29/24 03:40 Stool Clostridium difficile Toxin Assay - Final Complete Assessment/Plan Assessment/Plan 64-year-old male with a known history of Crohn disease, CKD stage 4 initially presented to the hospital with diarrhea generalized weakness found to have 1. Diarrhea suspect acute flare of Crohn disease 2. Acute kidney injury with underlying CKD stage 4 3. Metabolic acidosis 4. Electrolyte imbalances 5. Anemia likely multifactorial secondary to underlying Crohn disease as well as anemia of chronic disease 6. UTI -Solu-Medrol as C diff is negative, follow up GI recommendation Aggressive IV hydration and bicarb drip Follow up with the Nephrology recommendations Plan discussed with: Patient My Orders Orders - JEIMY NARVAEZ MD Procedure Category Date Status Time Nutritional PHA 10/01/24 In Process Supplements (Ensure 18:00 Date of Service: Oct 01, 2024 Billing Provider: JEIMY NARVAEZ MD Common Visit Codes: NOT BILLABLE JEIMY NARVAEZ MD Oct 01, 2024 16:48
[2024-10-01] MEDS: Ensure HIGH Protein Chocolate 8oz Bottle PO SCH (18:12)
[2024-10-02] VITALS (10 sets, daily range): BP systolic 100–131; BP diastolic 50–73; PULSE 52–80; RESP 16–20; TEMP 97.5–97.8; O2SAT 96–99
[2024-10-02 07:16] LABS: Mean Corpuscular Hemoglobin 30.4 pg (28.0-32.0); Platelet Count (auto) 148 10^3/uL (140-450)
[2024-10-02 07:18] LABS: Hematocrit 20.7 % (41.0-53.0); Mean Corpuscular Hgb Conc. 32.8 g/dL (32.0-36.0); Mean Corpuscular Volume 92.7 fL (80.0-100.0); Red Blood Cells 2.23 10^6/uL (4.5-5.90); White Blood Cell 7.5 10^3/uL (4.4-10.8)
[2024-10-02 07:38] LABS: Red Cell Distribution Width 20.1 % (11.8-14.3)
[2024-10-02 07:40] LABS: Band Neutrophils % (manual) 0; Basophils % (manual) 0 (0.0-2.0); Blast Cells 0; Eosinophils % (manual) 0 (0-7); Hemoglobin 6.8 g/dL (13.5-17.5); Metamyelocytes % 0; Myelocytes % 0; Promyelocytes % 0; Reactive Lymphocytes 0
[2024-10-02 08:08] LABS: Anion Gap 13 (5-15); Potassium 4.1 mmol/L (3.5-5.1); Sodium 140 mmol/L (136-145)
[2024-10-02 08:11] LABS: BUN/Creatinine Ratio 10.5 (10.0-20.0); Glucose 102 mg/dL (74-106)
[2024-10-02 08:14] LABS: Blood Urea Nitrogen 42 mg/dL (9-23); Calcium 6.7 mg/dL (8.7-10.4); Carbon Dioxide 13 mmol/L (20-31); Chloride 114 mmol/L (98-107)
[2024-10-02 08:49] LABS: Lymphocytes % (manual) 7 (10.0-50.0); Monocytes % (manual) 2 (0-12)
[2024-10-02 08:50] LABS: Anisocytosis Slight; Platelet Estimate Adequate
--- NOTE | 2024-10-02 12:30 | DVHPN2 ---
Progress Note Date Seen: Oct 02, 2024 Medical Necessity Reason Pt with a Central, PICC or Fol: No Objective vital signs Vital Sign Date Time Temp Pulse Resp B/P (MAP) Pulse Ox O2 Delivery O2 Flow Rate FiO2 10/02/24 09:00 97.6 68 18 100/54 (69) 96 97.6 10/02/24 08:00 Room Air* 0 21 Total Intake and Output 10/01/24 10/01/24 10/02/24 15:00 23:00 07:00 Intake Total 50 ml 620 ml 1550 ml Output Total 650 ml Balance 50 ml 620 ml 900 ml medications Current Medications Medications Dose Ordered Sig/Rick Route Start Time Stop Time Status Last Admin Dose Admin Acetaminophen 650 mg Q6HP PRN PO 09/28/24 23:00 09/30/24 08:34 650 MG Acetaminophen/ Hydrocodone Bitart 1 tab Q6HP PRN PO 09/28/24 23:00 09/30/24 00:19 1 TAB Nitroglycerin 0.4 mg Q5MINP PRN SL 09/28/24 23:00 Morphine Sulfate 2 mg Q30M PRN IV 09/28/24 23:00 09/30/24 15:58 2 MG Ceftriaxone Sodium 50 ml @ 100 mls/hr DAILY IV 09/29/24 10:00 10/02/24 08:47 100 MLS/HR Calcium Acetate 1,334 mg TIDWMEALS PO 09/29/24 12:00 10/02/24 11:39 1,334 MG Cholestyramine Resin 4 gm Q12HR@11,23 PO 09/29/24 23:00 10/02/24 08:48 4 GM Melatonin 5 mg HS PO 09/30/24 22:00 09/30/24 22:23 5 MG Methylprednisolone Sodium Succinate 60 mg BID IV 09/30/24 10:00 10/02/24 08:48 60 MG Pantoprazole Sodium 40 mg BID IV 09/30/24 22:00 10/02/24 08:49 40 MG Lidocaine HCl 10 ml Q4HP PRN PO 09/30/24 15:30 10/01/24 10:20 10 ML Morphine Sulfate 2 mg Q4HPRN PRN IV 09/30/24 15:30 Lactated Ringer's 1,000 ml @ 75 mls/hr [id number] IV 10/01/24 12:45 10/02/24 06:29 75 MLS/HR Enteral Nutritional Formula 240 ml TIDWM PO 10/01/24 18:00 10/02/24 11:39 240 ML Examination: GENERAL:Abnormal, ABDOMEN:Normal laboratory and microbiology Laboratory Tests 10/02/24 05:29 Test 10/02/24 05:29 Range/Units Serum Glucose 102 74-106 mg/dL Microbiology Date/Time Source Procedure Growth Status 09/29/24 03:40 Stool Stool Culture - Final Complete 09/29/24 03:40 Stool Shiga Toxin I & II - Final Complete 09/29/24 03:40 Stool Clostridium difficile Toxin Assay - Final Complete Problem List/Assessment/Plan Problem List/Assessment/Plan MAYRA 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 Mcleod Hypokalemia Hypomagnesemia Nephrolithiasis, nonobstructing Metabolic acidosis Crohn's disease Diarrhea Dehydration Hyperphosphatemia Hyperparathyroidism, secondary to chronic kidney disease anemia change to LR IV KCL replacement PRBC Magnesium sulfate IV piggyback Calcium acetate 1334 mg p.o. t.i.d. with meals Strict I&O's kidney US reported bilateral echogenic kidney and nonobstructing bilateral nephrolithiasis GI consult Renal diet Plan discussed with: Patient My Orders My Orders Orders - ARTHUR PIZARRO MD Procedure Category Date Status Time Lactated Ringer's PHA 10/01/24 In Process 12:45 Dietary Evaluation Review Comments: There is no indicator of HLD or cardic issues, for improved energy intake, recommend pt follow a Renal specific 35g protein 2 g Na, 3 K, low phos, diet, with more liberalized fat intake for added calories. prevent uremic symptoms and avoid wt loss. Expected Outcomes/Goals: Avoid toxic nephrotic syndrome, improved PO intake, imroved nutrition related labe values, delayed dialysis. CC Plasma Assessment Blood Product Administration S: [id number] ARTHUR PIZARRO MD Oct 02, 2024 12:30
[2024-10-02] MEDS: FLUTICASONE PROP NASAL SPR 0.05 % (50MCG) 16GM EACHNOSTRI SCH (13:30)
--- NOTE | 2024-10-02 15:49 | DVHPN2 ---
Subjective Overnight events noted. Patient was still complaining of difficulty swallowing, nystatin as well as fluticasone oral spray has been ordered. Reviewed: Care Plan Changes from previous H/P or p: No Changes Eyes: No Pain, No Vision change, No Conjunctivae inflammation, No Eyelid inflammation, No Other, No Redness ENT: No Ear pain, No Ear discharge, No Nose pain, No Nose discharge, No Nose congestion, No Mouth pain, No Mouth swelling, No Throat pain, No Throat swelling, No Other Cardiovascular: No Chest Pain, No Palpitations, No Orthopnea, No Paroxysmal Noc. Dyspnea, No Edema, No Lt Headedness, No Other Respiratory: No Cough, No Dry; Shortness of breath; No SOB with excertion, No Wheezing, No Hemoptysis, No Pleuritic Pain, No Sputum, No Other Gastrointestinal: No Nausea, No Vomiting, No Abdominal Pain; Diarrhea; No Constipation, No Melena, No Hematochezia, No Other Genitourinary: No Dysuria, No Frequency, No Incontinence, No Hematuria, No Retention, No Other Musculoskeletal: No other, No neck pain, No shoulder pain, No arm pain, No back pain, No hand pain, No leg pain, No foot pain Skin: No Rash, No Lesions, No Jaundice, No Bruising, No Other Objective Vitals Vital Signs Date Time Temp Pulse Resp B/P (MAP) Pulse Ox O2 Delivery O2 Flow Rate FiO2 10/02/24 15:38 97.8 62 17 119/59 97.8 10/02/24 13:00 99 10/02/24 08:00 Room Air* 0 21 Intake/Output Intake and Output 10/02/24 07:00 Intake Total 2220 ml Output Total 650 ml Balance 1570 ml Intake Oral 945 ml IV Total 1275 ml Output Urine Total 650 ml # Voids 4 # Bowel Movements 2 Exam HEENT pupils are reactive Neck is supple CV is S1-S2 regular rate and rhythm Respiratory diminished breath sounds bases GI positive bowel sound Extremity no edema [employer] no motor deficit Medications Current Medications Medications Dose Ordered Sig/Rick Route Start Time Stop Time Status Last Admin Dose Admin Acetaminophen 650 mg Q6HP PRN PO 09/28/24 23:00 09/30/24 08:34 650 MG Acetaminophen/ Hydrocodone Bitart 1 tab Q6HP PRN PO 09/28/24 23:00 09/30/24 00:19 1 TAB Nitroglycerin 0.4 mg Q5MINP PRN SL 09/28/24 23:00 Morphine Sulfate 2 mg Q30M PRN IV 09/28/24 23:00 09/30/24 15:58 2 MG Ceftriaxone Sodium 50 ml @ 100 mls/hr DAILY IV 09/29/24 10:00 10/02/24 08:47 100 MLS/HR Calcium Acetate 1,334 mg TIDWMEALS PO 09/29/24 12:00 10/02/24 11:39 1,334 MG Cholestyramine Resin 4 gm Q12HR@11,23 PO 09/29/24 23:00 10/02/24 08:48 4 GM Melatonin 5 mg HS PO 09/30/24 22:00 09/30/24 22:23 5 MG Methylprednisolone Sodium Succinate 60 mg BID IV 09/30/24 10:00 10/02/24 08:48 60 MG Pantoprazole Sodium 40 mg BID IV 09/30/24 22:00 10/02/24 08:49 40 MG Lidocaine HCl 10 ml Q4HP PRN PO 09/30/24 15:30 10/01/24 10:20 10 ML Morphine Sulfate 2 mg Q4HPRN PRN IV 09/30/24 15:30 Lactated Ringer's 1,000 ml @ 75 mls/hr [id number] IV 10/01/24 12:45 10/02/24 06:29 75 MLS/HR Enteral Nutritional Formula 240 ml TIDWM PO 10/01/24 18:00 10/02/24 11:39 240 ML Fluticasone Propionate 50 mcg Q12HR EACHNOSTRI 10/02/24 13:30 Nystatin 5 ml QID MT 10/02/24 13:30 Laboratory Results Laboratory Tests 10/02/24 05:29 Chemistry Test 10/02/24 05:29 Calcium Level 6.7 mg/dL (8.7-10.4) L Urinalysis Test 09/28/24 11:35 Urine Color Light-yellow (Yellow) Urine Clarity Turbid (Clear) H Urine pH 5.5 (5.0-9.0) Urine Specific [place] 1.011 (1.001-1.035) Urine Protein 1+ (Negative) H Urine Ketones Negative (Negative) Urine Blood 1+ /uL (Negative) H Urine Nitrite Negative (Negative) Urine Bilirubin Negative (Negative) Urine Urobilinogen Normal mg/dL (Negative) Urine Leukocyte Esterase 3+ /uL (Negative) Urine RBC 4 /hpf (0 - 3) Urine Microscopic WBC 223 /HPF (0-3) H Urine Squamous Epithelial Cells Few /hpf (<5) Urine Bacteria None seen /hpf (None Seen) Urine Creatinine 100.99 mg/dL (30.0-125.0) Urine Protein/Creatinine Ratio 1.06 Urine Sodium 39 mmol/L (40-220) L Urine Glucose Normal mg/dL (Normal) Urine Total Protein 106.7 mg/dL (1-14) H Microbiology Microbiology Date/Time Source Procedure Growth Status 09/29/24 03:40 Stool Stool Culture - Final Complete 09/29/24 03:40 Stool Shiga Toxin I & II - Final Complete 09/29/24 03:40 Stool Clostridium difficile Toxin Assay - Final Complete Assessment/Plan Assessment/Plan 64-year-old male with a known history of Crohn disease, CKD stage 4 initially presented to the hospital with diarrhea generalized weakness found to have 1. Diarrhea suspect acute flare of Crohn disease 2. Acute kidney injury with underlying CKD stage 4 3. Metabolic acidosis 4. Electrolyte imbalances 5. Anemia likely multifactorial secondary to underlying Crohn disease as well as anemia of chronic disease 6. UTI -continue IV steroids,, follow up GI recommendation Aggressive IV hydration and bicarb drip Follow up with the Nephrology recommendations Plan discussed with: Patient My Orders Orders - JEIMY NARVAEZ MD Procedure Category Date Status Time Fluticasone Nasal PHA 10/02/24 In Process [place] (Flonase [place]) 13:30 Nystatin PHA 10/02/24 In Process (Mouth-Throat) 13:30 Date of Service: Oct 02, 2024 Billing Provider: JEIMY NARVAEZ MD Common Visit Codes: NOT BILLABLE JEIMY NARVAEZ MD Oct 02, 2024 15:49
--- NOTE | 2024-10-02 15:57 | DVHPN2 ---
Progress Note - Dictate Date Seen: Oct 02, 2024 Medical Necessity Reason Pt with a Central, PICC or Fol: No Subjective Pt seen and examined. Pt reports some diarrhea today. Denies abd pain. Still feels weak. Denies melena, hematochezia, bloody stool. vital signs Vital Sign Date Time Temp Pulse Resp B/P (MAP) Pulse Ox O2 Delivery O2 Flow Rate FiO2 10/02/24 15:38 97.8 62 17 119/59 97.8 10/02/24 13:00 99 10/02/24 08:00 Room Air* 0 21 Total Intake and Output 10/01/24 10/01/24 10/02/24 15:00 23:00 07:00 Intake Total 50 ml 620 ml 1550 ml Output Total 650 ml Balance 50 ml 620 ml 900 ml medications Current Medications Medications Dose Ordered Sig/Rick Route Start Time Stop Time Status Last Admin Dose Admin Acetaminophen 650 mg Q6HP PRN PO 09/28/24 23:00 09/30/24 08:34 650 MG Acetaminophen/ Hydrocodone Bitart 1 tab Q6HP PRN PO 09/28/24 23:00 09/30/24 00:19 1 TAB Nitroglycerin 0.4 mg Q5MINP PRN SL 09/28/24 23:00 Morphine Sulfate 2 mg Q30M PRN IV 09/28/24 23:00 09/30/24 15:58 2 MG Ceftriaxone Sodium 50 ml @ 100 mls/hr DAILY IV 09/29/24 10:00 10/02/24 08:47 100 MLS/HR Calcium Acetate 1,334 mg TIDWMEALS PO 09/29/24 12:00 10/02/24 11:39 1,334 MG Cholestyramine Resin 4 gm Q12HR@11,23 PO 09/29/24 23:00 10/02/24 08:48 4 GM Melatonin 5 mg HS PO 09/30/24 22:00 09/30/24 22:23 5 MG Methylprednisolone Sodium Succinate 60 mg BID IV 09/30/24 10:00 10/02/24 08:48 60 MG Pantoprazole Sodium 40 mg BID IV 09/30/24 22:00 10/02/24 08:49 40 MG Lidocaine HCl 10 ml Q4HP PRN PO 09/30/24 15:30 10/01/24 10:20 10 ML Morphine Sulfate 2 mg Q4HPRN PRN IV 09/30/24 15:30 Lactated Ringer's 1,000 ml @ 75 mls/hr [id number] IV 10/01/24 12:45 10/02/24 06:29 75 MLS/HR Enteral Nutritional Formula 240 ml TIDWM PO 10/01/24 18:00 10/02/24 11:39 240 ML Fluticasone Propionate 50 mcg Q12HR EACHNOSTRI 10/02/24 13:30 Nystatin 5 ml QID MT 10/02/24 13:30 objective Alert in NAD. Thin, cachetic. laboratory and microbiology Laboratory Tests 10/02/24 05:29 Test 10/02/24 05:29 Range/Units Serum Glucose 102 74-106 mg/dL Assessment/Plan IMPRESSION PLAN: 1. Crohn's disease. This appears uncontrolled. The patient has failed multiple prior medications including Humira. The patient has been having difficulty with getting insurance approval for Skyrizi and Rinvoq. The patient is currently pending and awaiting for approval for referral to [facility] tertiary care center for management of his complicated Crohn's disease. 2. Anemia, etiology is likely multifactorial including his Crohn's disease and anemia of chronic kidney disease. 3. Stage IV chronic kidney disease, defer to Nephrology. RECOMMENDATIONS: Cont to monitor H&H serially and transfuse if symptomatic. Cont Questran for diarrhea and also Lomotil as needed. Prednisone 40mg daily tapering by 10mg every 10 days. Pt will need to f/u with insurance and GI clinic in 4 weeks for biologic medications. d/c plannin per PMD after blood transfusion. Will sign off. Dietary Evaluation Review Comments: There is no indicator of HLD or cardic issues, for improved energy intake, recommend pt follow a Renal specific 35g protein 2 g Na, 3 K, low phos, diet, with more liberalized fat intake for added calories. prevent uremic symptoms and avoid wt loss. Expected Outcomes/Goals: Avoid toxic nephrotic syndrome, improved PO intake, imroved nutrition related labe values, delayed dialysis. Plan discussed with: Patient CC Plasma Assessment Blood Product Administration S: [id number] BILLIE OLIVARES MD Oct 02, 2024 15:57
[2024-10-02] MEDS: NYSTATIN (MOUTH-THROAT) 500,000 UNITS/5 ML SUSP MT SCH (16:19)
[2024-10-03] VITALS (8 sets, daily range): BP systolic 108–128; BP diastolic 60–74; PULSE 51–72; RESP 16–20; TEMP 97.6–98.2; O2SAT 92–98
[2024-10-03 06:20] LABS: Potassium 3.8 mmol/L (3.5-5.1); Sodium 141 mmol/L (136-145)
[2024-10-03 06:21] LABS: Anion Gap 12 (5-15)
[2024-10-03 06:26] LABS: BUN/Creatinine Ratio 12.7 (10.0-20.0)
[2024-10-03 06:29] LABS: Blood Urea Nitrogen 47 mg/dL (9-23); Calcium 7.2 mg/dL (8.7-10.4); Carbon Dioxide 14 mmol/L (20-31); Chloride 115 mmol/L (98-107); Glucose 141 mg/dL (74-106)
[2024-10-03 06:34] LABS: Basophils # (auto) 0 10 ^3/uL (0-0.2); Eosinophils # (auto) 0 10 ^3/uL (0-0.8); Hemoglobin 7.5 g/dL (13.5-17.5); Lymphocytes # (auto) 0.2 10 ^3/uL (0.4-5.4); Monocytes # (auto) 0.1 10 ^3/uL (0-1.3); Neutrophils # (auto) 7.2 10 ^3/uL (1.6-8.6); White Blood Cell 7.5 10^3/uL (4.4-10.8)
[2024-10-03 06:36] LABS: Hematocrit 23.4 % (41.0-53.0); Lymphocytes % (auto) 3.1 % (10.0-50.0); Mean Corpuscular Hemoglobin 29.6 pg (28.0-32.0); Mean Corpuscular Hgb Conc. 32.2 g/dL (32.0-36.0); Monocytes % (auto) 1.4 % (0.0-12.0); Neutrophils % (auto) 95.5 % (37.0-80.0); Platelet Count (auto) 147 10^3/uL (140-450); Red Blood Cells 2.54 10^6/uL (4.5-5.90); Red Cell Distribution Width 18.2 % (11.8-14.3)
--- NOTE | 2024-10-03 14:37 | DVHPN2 ---
Progress Note Date Seen: Oct 03, 2024 Medical Necessity Reason Pt with a Central, PICC or Fol: No Objective vital signs Vital Sign Date Time Temp Pulse Resp B/P (MAP) Pulse Ox O2 Delivery O2 Flow Rate FiO2 10/03/24 13:00 97.6 52 18 128/74 (92) 98 97.6 10/03/24 08:05 Room Air* 0 21 Total Intake and Output 10/02/24 10/02/24 10/03/24 15:00 23:00 07:00 Intake Total 225 ml 650 ml 1550 ml Balance 225 ml 650 ml 1550 ml medications Current Medications Medications Dose Ordered Sig/Rick Route Start Time Stop Time Status Last Admin Dose Admin Acetaminophen 650 mg Q6HP PRN PO 09/28/24 23:00 09/30/24 08:34 650 MG Acetaminophen/ Hydrocodone Bitart 1 tab Q6HP PRN PO 09/28/24 23:00 09/30/24 00:19 1 TAB Nitroglycerin 0.4 mg Q5MINP PRN SL 09/28/24 23:00 Morphine Sulfate 2 mg Q30M PRN IV 09/28/24 23:00 09/30/24 15:58 2 MG Ceftriaxone Sodium 50 ml @ 100 mls/hr DAILY IV 09/29/24 10:00 10/03/24 10:04 100 MLS/HR Calcium Acetate 1,334 mg TIDWMEALS PO 09/29/24 12:00 10/03/24 12:49 1,334 MG Cholestyramine Resin 4 gm Q12HR@11,23 PO 09/29/24 23:00 10/03/24 10:04 4 GM Melatonin 5 mg HS PO 09/30/24 22:00 09/30/24 22:23 5 MG Methylprednisolone Sodium Succinate 60 mg BID IV 09/30/24 10:00 10/03/24 10:05 60 MG Pantoprazole Sodium 40 mg BID IV 09/30/24 22:00 10/03/24 10:28 40 MG Lidocaine HCl 10 ml Q4HP PRN PO 09/30/24 15:30 10/01/24 10:20 10 ML Morphine Sulfate 2 mg Q4HPRN PRN IV 09/30/24 15:30 Lactated Ringer's 1,000 ml @ 75 mls/hr [id number] IV 10/01/24 12:45 10/02/24 16:19 75 MLS/HR Enteral Nutritional Formula 240 ml TIDWM PO 10/01/24 18:00 10/03/24 12:00 240 ML Fluticasone Propionate 50 mcg Q12HR EACHNOSTRI 10/02/24 13:30 Nystatin 5 ml QID MT 10/02/24 13:30 10/02/24 18:06 5 ML Examination: GENERAL:Abnormal, CVS:Normal, ABDOMEN:Normal laboratory and microbiology Laboratory Tests 10/03/24 05:17 Test 10/03/24 05:17 Range/Units Serum Glucose 141 H 74-106 mg/dL Microbiology Date/Time Source Procedure Growth Status 09/29/24 03:40 Stool Stool Culture - Final Complete 09/29/24 03:40 Stool Shiga Toxin I & II - Final Complete 09/29/24 03:40 Stool Clostridium difficile Toxin Assay - Final Complete Problem List/Assessment/Plan Problem List/Assessment/Plan MAYRA 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 Mcleod Hypokalemia Hypomagnesemia Nephrolithiasis, nonobstructing Metabolic acidosis Crohn's disease Diarrhea Dehydration Hyperphosphatemia Hyperparathyroidism, secondary to chronic kidney disease anemia LR IV Calcium acetate 1334 mg p.o. t.i.d. with meals Strict I&O's kidney US reported bilateral echogenic kidney and nonobstructing bilateral nephrolithiasis GI consult Renal diet Plan discussed with: Patient Dietary Evaluation Review Comments: There is no indicator of HLD or cardic issues, for improved energy intake, recommend pt follow a Renal specific 35g protein 2 g Na, 3 K, low phos, diet, with more liberalized fat intake for added calories. prevent uremic symptoms and avoid wt loss. Expected Outcomes/Goals: Avoid toxic nephrotic syndrome, improved PO intake, imroved nutrition related labe values, delayed dialysis. CC Plasma Assessment Blood Product Administration S: [id number] ARTHUR PIZARRO MD Oct 03, 2024 14:37
--- NOTE | 2024-10-03 15:09 | DVHPN2 ---
Subjective Overnight events noted. Patient was still complaining of difficulty swallowing, nystatin as well as fluticasone oral spray has been ordered. Reviewed: Care Plan Changes from previous H/P or p: No Changes Eyes: No Pain, No Vision change, No Conjunctivae inflammation, No Eyelid inflammation, No Other, No Redness ENT: No Ear pain, No Ear discharge, No Nose pain, No Nose discharge, No Nose congestion, No Mouth pain, No Mouth swelling, No Throat pain, No Throat swelling, No Other Cardiovascular: No Chest Pain, No Palpitations, No Orthopnea, No Paroxysmal Noc. Dyspnea, No Edema, No Lt Headedness, No Other Respiratory: No Cough, No Dry; Shortness of breath; No SOB with excertion, No Wheezing, No Hemoptysis, No Pleuritic Pain, No Sputum, No Other Gastrointestinal: No Nausea, No Vomiting, No Abdominal Pain; Diarrhea; No Constipation, No Melena, No Hematochezia, No Other Genitourinary: No Dysuria, No Frequency, No Incontinence, No Hematuria, No Retention, No Other Musculoskeletal: No other, No neck pain, No shoulder pain, No arm pain, No back pain, No hand pain, No leg pain, No foot pain Skin: No Rash, No Lesions, No Jaundice, No Bruising, No Other Objective Vitals Vital Signs Date Time Temp Pulse Resp B/P (MAP) Pulse Ox O2 Delivery O2 Flow Rate FiO2 10/03/24 13:00 97.6 52 18 128/74 (92) 98 97.6 10/03/24 08:05 Room Air* 0 21 Intake/Output Intake and Output 10/03/24 07:00 Intake Total 2425 ml Balance 2425 ml Intake Oral 1450 ml IV Total 975 ml # Voids 5 Exam HEENT pupils are reactive Neck is supple CV is S1-S2 regular rate and rhythm Respiratory diminished breath sounds bases GI positive bowel sound Extremity no edema [employer] no motor deficit Medications Current Medications Medications Dose Ordered Sig/Rick Route Start Time Stop Time Status Last Admin Dose Admin Acetaminophen 650 mg Q6HP PRN PO 09/28/24 23:00 09/30/24 08:34 650 MG Acetaminophen/ Hydrocodone Bitart 1 tab Q6HP PRN PO 09/28/24 23:00 09/30/24 00:19 1 TAB Nitroglycerin 0.4 mg Q5MINP PRN SL 09/28/24 23:00 Morphine Sulfate 2 mg Q30M PRN IV 09/28/24 23:00 09/30/24 15:58 2 MG Ceftriaxone Sodium 50 ml @ 100 mls/hr DAILY IV 09/29/24 10:00 10/03/24 10:04 100 MLS/HR Calcium Acetate 1,334 mg TIDWMEALS PO 09/29/24 12:00 10/03/24 12:49 1,334 MG Cholestyramine Resin 4 gm Q12HR@1123 PO 09/29/24 23:00 10/03/24 10:04 4 GM Melatonin 5 mg HS PO 09/30/24 22:00 09/30/24 22:23 5 MG Methylprednisolone Sodium Succinate 60 mg BID IV 09/30/24 10:00 10/03/24 10:05 60 MG Pantoprazole Sodium 40 mg BID IV 09/30/24 22:00 10/03/24 10:28 40 MG Lidocaine HCl 10 ml Q4HP PRN PO 09/30/24 15:30 10/01/24 10:20 10 ML Morphine Sulfate 2 mg Q4HPRN PRN IV 09/30/24 15:30 Lactated Ringer's 1,000 ml @ 75 mls/hr [id number] IV 10/01/24 12:45 10/02/24 16:19 75 MLS/HR Enteral Nutritional Formula 240 ml TIDWM PO 10/01/24 18:00 10/03/24 12:00 240 ML Fluticasone Propionate 50 mcg Q12HR EACHNOSTRI 10/02/24 13:30 Nystatin 5 ml QID MT 10/02/24 13:30 10/02/24 18:06 5 ML Laboratory Results Laboratory Tests 10/03/24 05:17 Chemistry Test 10/03/24 05:17 Calcium Level 7.2 mg/dL (8.7-10.4) L Urinalysis Test 09/28/24 11:35 Urine Color Light-yellow (Yellow) Urine Clarity Turbid (Clear) H Urine pH 5.5 (5.0-9.0) Urine Specific [place] 1.011 (1.001-1.035) Urine Protein 1+ (Negative) H Urine Ketones Negative (Negative) Urine Blood 1+ /uL (Negative) H Urine Nitrite Negative (Negative) Urine Bilirubin Negative (Negative) Urine Urobilinogen Normal mg/dL (Negative) Urine Leukocyte Esterase 3+ /uL (Negative) Urine RBC 4 /hpf (0 - 3) Urine Microscopic WBC 223 /HPF (0-3) H Urine Squamous Epithelial Cells Few /hpf (<5) Urine Bacteria None seen /hpf (None Seen) Urine Creatinine 100.99 mg/dL (30.0-125.0) Urine Protein/Creatinine Ratio 1.06 Urine Sodium 39 mmol/L (40-220) L Urine Glucose Normal mg/dL (Normal) Urine Total Protein 106.7 mg/dL (1-14) H Microbiology Microbiology Date/Time Source Procedure Growth Status 09/29/24 03:40 Stool Stool Culture - Final Complete 09/29/24 03:40 Stool Shiga Toxin I & II - Final Complete 09/29/24 03:40 Stool Clostridium difficile Toxin Assay - Final Complete Assessment/Plan Assessment/Plan 64-year-old male with a known history of Crohn disease, CKD stage 4 initially presented to the hospital with diarrhea generalized weakness found to have 1. Diarrhea suspect acute flare of Crohn disease 2. Acute kidney injury with underlying CKD stage 4 3. Metabolic acidosis 4. Electrolyte imbalances 5. Anemia likely multifactorial secondary to underlying Crohn disease as well as anemia of chronic disease 6. UTI 7. Anemia status post 2 units of packed RBC -continue IV steroids,, follow up GI recommendation Aggressive IV hydration and bicarb drip Follow up with the Nephrology recommendations -discharge plan once metabolic acidosis improves Plan discussed with: Patient Date of Service: Oct 03, 2024 Billing Provider: JEIMY NARVAEZ MD Common Visit Codes: NOT BILLABLE JEIMY NARVAEZ MD Oct 03, 2024 15:09
[2024-10-04] VITALS (7 sets, daily range): BP systolic 110–132; BP diastolic 60–79; PULSE 49–72; RESP 16–20; TEMP 98–98.7; O2SAT 94–99
[2024-10-04 13:59] LABS: Basophils # (auto) 0 10 ^3/uL (0-0.2); Basophils % (auto) 0.1 % (0.0-2.0); Eosinophils # (auto) 0 10 ^3/uL (0-0.8); Eosinophils % (auto) 0.3 % (0.0-7.0); Hematocrit 26.2 % (41.0-53.0); Hemoglobin 8.6 g/dL (13.5-17.5); Lymphocytes # (auto) 0.2 10 ^3/uL (0.4-5.4); Lymphocytes % (auto) 2.3 % (10.0-50.0); Mean Corpuscular Hemoglobin 31.1 pg (28.0-32.0); Mean Corpuscular Hgb Conc. 32.7 g/dL (32.0-36.0); Monocytes # (auto) 0.1 10 ^3/uL (0-1.3); Monocytes % (auto) 0.9 % (0.0-12.0); Neutrophils # (auto) 8.1 10 ^3/uL (1.6-8.6); Neutrophils % (auto) 96.4 % (37.0-80.0); Platelet Count (auto) 142 10^3/uL (140-450); Red Blood Cells 2.75 10^6/uL (4.5-5.90); Red Cell Distribution Width 19.1 % (11.8-14.3); White Blood Cell 8.4 10^3/uL (4.4-10.8)
[2024-10-04 14:10] LABS: Sodium 140 mmol/L (136-145)
[2024-10-04 14:11] LABS: Anion Gap 15 (5-15)
[2024-10-04 14:16] LABS: BUN/Creatinine Ratio 14.1 (10.0-20.0); Calcium 7.2 mg/dL (8.7-10.4); Carbon Dioxide 13 mmol/L (20-31); Chloride 112 mmol/L (98-107); Potassium 3.4 mmol/L (3.5-5.1)
[2024-10-04 14:17] LABS: Blood Urea Nitrogen 48 mg/dL (9-23); Glucose 169 mg/dL (74-106)
[2024-10-04 14:19] LABS: Magnesium 1.1 mg/dL (1.6-2.6); Phosphorus 3.4 mg/dL (2.4-5.1)
--- NOTE | 2024-10-04 14:28 | DVHPN2 ---
Progress Note Date Seen: Oct 04, 2024 Medical Necessity Reason Pt with a Central, PICC or Fol: No Objective vital signs Vital Sign Date Time Temp Pulse Resp B/P (MAP) Pulse Ox O2 Delivery O2 Flow Rate FiO2 10/04/24 13:00 63 16 129/73 (91) 97 10/04/24 09:06 98.6 98.6 10/03/24 20:00 Room Air* 0 21 Total Intake and Output 10/03/24 10/03/24 10/04/24 15:00 23:00 07:00 Intake Total 50 ml 1800 ml 1500 ml Balance 50 ml 1800 ml 1500 ml medications Current Medications Medications Dose Ordered Sig/Rick Route Start Time Stop Time Status Last Admin Dose Admin Acetaminophen 650 mg Q6HP PRN PO 09/28/24 23:00 09/30/24 08:34 650 MG Acetaminophen/ Hydrocodone Bitart 1 tab Q6HP PRN PO 09/28/24 23:00 09/30/24 00:19 1 TAB Nitroglycerin 0.4 mg Q5MINP PRN SL 09/28/24 23:00 Morphine Sulfate 2 mg Q30M PRN IV 09/28/24 23:00 09/30/24 15:58 2 MG Ceftriaxone Sodium 50 ml @ 100 mls/hr DAILY IV 09/29/24 10:00 10/04/24 09:20 100 MLS/HR Calcium Acetate 1,334 mg TIDWMEALS PO 09/29/24 12:00 10/04/24 09:19 1,334 MG Cholestyramine Resin 4 gm Q12HR@11,23 PO 09/29/24 23:00 10/03/24 23:01 4 GM Melatonin 5 mg HS PO 09/30/24 22:00 09/30/24 22:23 5 MG Methylprednisolone Sodium Succinate 60 mg BID IV 09/30/24 10:00 10/04/24 09:21 60 MG Pantoprazole Sodium 40 mg BID IV 09/30/24 22:00 10/04/24 09:20 40 MG Lidocaine HCl 10 ml Q4HP PRN PO 09/30/24 15:30 10/01/24 10:20 10 ML Morphine Sulfate 2 mg Q4HPRN PRN IV 09/30/24 15:30 Lactated Ringer's 1,000 ml @ 75 mls/hr [id number] IV 10/01/24 12:45 10/04/24 09:20 75 MLS/HR Enteral Nutritional Formula 240 ml TIDWM PO 10/01/24 18:00 10/04/24 13:41 240 ML Fluticasone Propionate 50 mcg Q12HR EACHNOSTRI 10/02/24 13:30 Nystatin 5 ml QID MT 10/02/24 13:30 10/02/24 18:06 5 ML Examination: GENERAL:Abnormal, CVS:Abnormal, ABDOMEN:Abnormal laboratory and microbiology Laboratory Tests 10/04/24 13:35 Test 10/04/24 13:35 Range/Units Serum Glucose 169 H 74-106 mg/dL Microbiology Date/Time Source Procedure Growth Status 09/29/24 03:40 Stool Stool Culture - Final Complete 09/29/24 03:40 Stool Shiga Toxin I & II - Final Complete 09/29/24 03:40 Stool Clostridium difficile Toxin Assay - Final Complete Problem List/Assessment/Plan Problem List/Assessment/Plan MAYRA 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 Mcleod Hypokalemia Hypomagnesemia Nephrolithiasis, nonobstructing Metabolic acidosis Crohn's disease Diarrhea Dehydration Hyperphosphatemia Hyperparathyroidism, secondary to chronic kidney disease anemia LR IV potassium replacement Calcium acetate 1334 mg p.o. t.i.d. with meals Strict I&O's kidney US reported bilateral echogenic kidney and nonobstructing bilateral nephrolithiasis GI consult Renal diet Plan discussed with: Patient My Orders My Orders Orders - ARTHUR PIZARRO MD Procedure Category Date Status Time Basic Metabolic Panel LAB 10/05/24 Verified 04:00 Potassium Er Tablet PHA 10/04/24 Verified (Klor-Con Tablet) 14:30 Dietary Evaluation Review Comments: There is no indicator of HLD or cardic issues, for improved energy intake, recommend pt follow a Renal specific 35g protein 2 g Na, 3 K, low phos, diet, with more liberalized fat intake for added calories. prevent uremic symptoms and avoid wt loss. Expected Outcomes/Goals: Avoid toxic nephrotic syndrome, improved PO intake, imroved nutrition related labe values, delayed dialysis. CC Plasma Assessment Blood Product Administration S: [id number] ARTHUR PIZARRO MD Oct 04, 2024 14:28
[2024-10-04] MEDS: POTASSIUM CHL 20 Meq TABLET PO ONE (15:54)
--- NOTE | 2024-10-04 16:55 | DVHPN2 ---
Subjective Overnight events noted. Patient was stated that Solu-Medrol evening dose made him awake all night. Patient was still complaining of difficulty swallowing, nystatin as well as fluticasone oral spray has been ordered. Reviewed: Care Plan Changes from previous H/P or p: No Changes Eyes: No Pain, No Vision change, No Conjunctivae inflammation, No Eyelid inflammation, No Other, No Redness ENT: No Ear pain, No Ear discharge, No Nose pain, No Nose discharge, No Nose congestion, No Mouth pain, No Mouth swelling, No Throat pain, No Throat swelling, No Other Cardiovascular: No Chest Pain, No Palpitations, No Orthopnea, No Paroxysmal Noc. Dyspnea, No Edema, No Lt Headedness, No Other Respiratory: No Cough, No Dry; Shortness of breath; No SOB with excertion, No Wheezing, No Hemoptysis, No Pleuritic Pain, No Sputum, No Other Gastrointestinal: No Nausea, No Vomiting, No Abdominal Pain; Diarrhea; No Constipation, No Melena, No Hematochezia, No Other Genitourinary: No Dysuria, No Frequency, No Incontinence, No Hematuria, No Retention, No Other Musculoskeletal: No other, No neck pain, No shoulder pain, No arm pain, No back pain, No hand pain, No leg pain, No foot pain Skin: No Rash, No Lesions, No Jaundice, No Bruising, No Other Objective Vitals Vital Signs Date Time Temp Pulse Resp B/P (MAP) Pulse Ox O2 Delivery O2 Flow Rate FiO2 10/04/24 16:50 98.7 50 18 121/71 (88) 94 98.7 10/04/24 08:00 Room Air* 0 21 Intake/Output Intake and Output 10/04/24 07:00 Intake Total 3350 ml Balance 3350 ml Intake Oral 2600 ml IV Total 750 ml # Voids 6 # Bowel Movements 2 Exam HEENT pupils are reactive Neck is supple CV is S1-S2 regular rate and rhythm Respiratory diminished breath sounds bases GI positive bowel sound Extremity no edema LMSW no motor deficit Medications Current Medications Medications Dose Ordered Sig/Rick Route Start Time Stop Time Status Last Admin Dose Admin Acetaminophen 650 mg Q6HP PRN PO 09/28/24 23:00 09/30/24 08:34 650 MG Acetaminophen/ Hydrocodone Bitart 1 tab Q6HP PRN PO 09/28/24 23:00 09/30/24 00:19 1 TAB Nitroglycerin 0.4 mg Q5MINP PRN SL 09/28/24 23:00 Morphine Sulfate 2 mg Q30M PRN IV 09/28/24 23:00 09/30/24 15:58 2 MG Ceftriaxone Sodium 50 ml @ 100 mls/hr DAILY IV 09/29/24 10:00 10/04/24 09:20 100 MLS/HR Calcium Acetate 1,334 mg TIDWMEALS PO 09/29/24 12:00 10/04/24 15:53 1,334 MG Cholestyramine Resin 4 gm Q12HR@11,23 PO 09/29/24 23:00 10/03/24 23:01 4 GM Melatonin 5 mg HS PO 09/30/24 22:00 09/30/24 22:23 5 MG Methylprednisolone Sodium Succinate 60 mg BID IV 09/30/24 10:00 10/04/24 09:21 60 MG Pantoprazole Sodium 40 mg BID IV 09/30/24 22:00 10/04/24 09:20 40 MG Lidocaine HCl 10 ml Q4HP PRN PO 09/30/24 15:30 10/01/24 10:20 10 ML Morphine Sulfate 2 mg Q4HPRN PRN IV 09/30/24 15:30 Lactated Ringer's 1,000 ml @ 75 mls/hr [id number] IV 10/01/24 12:45 10/04/24 09:20 75 MLS/HR Enteral Nutritional Formula 240 ml TIDWM PO 10/01/24 18:00 10/04/24 13:41 240 ML Fluticasone Propionate 50 mcg Q12HR EACHNOSTRI 10/02/24 13:30 10/04/24 15:54 50 MCG Nystatin 5 ml QID MT 10/02/24 13:30 10/02/24 18:06 5 ML Laboratory Results Laboratory Tests 10/04/24 13:35 Chemistry Test 10/04/24 13:35 Calcium Level 7.2 mg/dL (8.7-10.4) L Magnesium Level 1.1 mg/dL (1.6-2.6) L Phosphorus Level 3.4 mg/dL (2.4-5.1) Urinalysis Test 09/28/24 11:35 Urine Color Light-yellow (Yellow) Urine Clarity Turbid (Clear) H Urine pH 5.5 (5.0-9.0) Urine Specific [place] 1.011 (1.001-1.035) Urine Protein 1+ (Negative) H Urine Ketones Negative (Negative) Urine Blood 1+ /uL (Negative) H Urine Nitrite Negative (Negative) Urine Bilirubin Negative (Negative) Urine Urobilinogen Normal mg/dL (Negative) Urine Leukocyte Esterase 3+ /uL (Negative) Urine RBC 4 /hpf (0 - 3) Urine Microscopic WBC 223 /HPF (0-3) H Urine Squamous Epithelial Cells Few /hpf (<5) Urine Bacteria None seen /hpf (None Seen) Urine Creatinine 100.99 mg/dL (30.0-125.0) Urine Protein/Creatinine Ratio 1.06 Urine Sodium 39 mmol/L (40-220) L Urine Glucose Normal mg/dL (Normal) Urine Total Protein 106.7 mg/dL (1-14) H Microbiology Microbiology Date/Time Source Procedure Growth Status 09/29/24 03:40 Stool Stool Culture - Final Complete 09/29/24 03:40 Stool Shiga Toxin I & II - Final Complete 09/29/24 03:40 Stool Clostridium difficile Toxin Assay - Final Complete Assessment/Plan Assessment/Plan 64-year-old male with a known history of Crohn disease, CKD stage 4 initially presented to the hospital with diarrhea generalized weakness found to have 1. Diarrhea suspect acute flare of Crohn disease 2. Acute kidney injury with underlying CKD stage 4 3. Metabolic acidosis 4. Electrolyte imbalances 5. Anemia likely multifactorial secondary to underlying Crohn disease as well as anemia of chronic disease 6. UTI 7. Anemia status post 2 units of packed RBC -discontinue IV steroids, switch to prednisone p.o. 60 mg daily, follow up GI recommendation Aggressive IV hydration and bicarb drip Follow up with the Nephrology recommendations -discharge plan once metabolic acidosis improves Plan discussed with: Patient Date of Service: Oct 04, 2024 Billing Provider: JEIMY NARVAEZ MD Common Visit Codes: NOT BILLABLE JEIMY NARVAEZ MD Oct 04, 2024 16:55
[2024-10-04] MEDS: MAGNESIUM SULFATE 1GM/100ML 100 ML IV SCH ×2 (18:00→22:53)
[2024-10-04] MEDS: SODIUM BICARBONATE 650 MG TAB PO SCH (22:28)
[2024-10-05 05:02] VITALS: BP 124/64; PULSE 68; RESP 18; TEMP 98; O2SAT 92
[2024-10-05 05:16] LABS: Anion Gap 12 (5-15); Potassium 3.9 mmol/L (3.5-5.1); Sodium 139 mmol/L (136-145)
[2024-10-05 05:22] LABS: BUN/Creatinine Ratio 12.2 (10.0-20.0); Glucose 92 mg/dL (74-106)
[2024-10-05 05:37] LABS: Blood Urea Nitrogen 38 mg/dL (9-23); Calcium 7.2 mg/dL (8.7-10.4); Carbon Dioxide 13 mmol/L (20-31); Chloride 114 mmol/L (98-107)
[2024-10-05 08:00] VITALS: PULSE 53; PULSE 65; RESP 15; O2SAT 94
[2024-10-05 08:50] VITALS: BP 121/69; PULSE 65; RESP 16; TEMP 97.8; O2SAT 94
[2024-10-05] MEDS: predniSONE 20 MG TAB PO SCH (09:43)
[2024-10-05] MEDS: MAGNESIUM OXIDE 400 MG TAB PO SCH (09:44)
[2024-10-05 12:55] VITALS: BP 138/68; PULSE 68; RESP 16; TEMP 98; O2SAT 97
--- NOTE | 2024-10-05 16:26 | DVHPN2 ---
Progress Note Date Seen: Oct 05, 2024 Medical Necessity Reason Pt with a Central, PICC or Fol: No Objective vital signs Vital Sign Date Time Temp Pulse Resp B/P (MAP) Pulse Ox O2 Delivery O2 Flow Rate FiO2 10/05/24 12:55 98.0 68 16 138/68 (91) 97 98.0 10/05/24 08:00 Room Air* 0 21 Total Intake and Output 10/04/24 10/04/24 10/05/24 15:00 23:00 07:00 Intake Total 400 ml 1200 ml Output Total 1100 ml Balance -700 ml 1200 ml medications Current Medications Medications Dose Ordered Sig/Rick Route Start Time Stop Time Status Last Admin Dose Admin Acetaminophen 650 mg Q6HP PRN PO 09/28/24 23:00 09/30/24 08:34 650 MG Acetaminophen/ Hydrocodone Bitart 1 tab Q6HP PRN PO 09/28/24 23:00 09/30/24 00:19 1 TAB Nitroglycerin 0.4 mg Q5MINP PRN SL 09/28/24 23:00 Morphine Sulfate 2 mg Q30M PRN IV 09/28/24 23:00 09/30/24 15:58 2 MG Ceftriaxone Sodium 50 ml @ 100 mls/hr DAILY IV 09/29/24 10:00 10/04/24 09:20 100 MLS/HR Calcium Acetate 1,334 mg TIDWMEALS PO 09/29/24 12:00 10/04/24 18:04 1,334 MG Cholestyramine Resin 4 gm Q12HR@11,23 PO 09/29/24 23:00 10/04/24 22:28 4 GM Melatonin 5 mg HS PO 09/30/24 22:00 10/04/24 22:28 5 MG Pantoprazole Sodium 40 mg BID IV 09/30/24 22:00 10/04/24 22:29 40 MG Lidocaine HCl 10 ml Q4HP PRN PO 09/30/24 15:30 10/01/24 10:20 10 ML Morphine Sulfate 2 mg Q4HPRN PRN IV 09/30/24 15:30 Enteral Nutritional Formula 240 ml TIDWM PO 10/01/24 18:00 10/05/24 12:00 240 ML Fluticasone Propionate 50 mcg Q12HR EACHNOSTRI 10/02/24 13:30 10/05/24 09:47 50 MCG Nystatin 5 ml QID MT 10/02/24 13:30 10/04/24 22:28 5 ML Prednisone 60 mg DAILY PO 10/05/24 10:00 10/05/24 09:43 60 MG Magnesium Oxide 400 mg BID PO 10/05/24 10:00 10/05/24 09:44 400 MG Sodium Bicarbonate 650 mg TID PO 10/04/24 22:00 10/05/24 06:38 650 MG Examination: GENERAL:Abnormal, ABDOMEN:Abnormal laboratory and microbiology Laboratory Tests 10/05/24 04:25 Test 10/05/24 04:25 Range/Units Serum Glucose 92 74-106 mg/dL Microbiology Date/Time Source Procedure Growth Status 09/29/24 03:40 Stool Stool Culture - Final Complete 09/29/24 03:40 Stool Shiga Toxin I & II - Final Complete 09/29/24 03:40 Stool Clostridium difficile Toxin Assay - Final Complete Problem List/Assessment/Plan Problem List/Assessment/Plan MAYRA 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 Mcleod Hypokalemia Hypomagnesemia Nephrolithiasis, nonobstructing Metabolic acidosis, NonAg Crohn's disease Diarrhea Dehydration Hyperphosphatemia Hyperparathyroidism, secondary to chronic kidney disease anemia dc fluids replace Mg today and tomorrow Ca improved Calcium acetate 1334 mg p.o. t.i.d. with meals Strict I&O's kidney US reported bilateral echogenic kidney and nonobstructing bilateral nephrolithiasis GI consult Renal diet Plan discussed with: Patient My Orders My Orders Orders - ARTHUR PIZARRO MD Procedure Category Date Status Time Magnesium LAB 10/05/24 Logged 16:19 Magnesium LAB 10/06/24 Verified 04:00 Basic Metabolic Panel LAB 10/06/24 Verified 04:00 Dietary Evaluation Review Comments: There is no indicator of HLD or cardic issues, for improved energy intake, recommend pt follow a Renal specific 35g protein 2 g Na, 3 K, low phos, diet, with more liberalized fat intake for added calories. prevent uremic symptoms and avoid wt loss. Expected Outcomes/Goals: Avoid toxic nephrotic syndrome, improved PO intake, imroved nutrition related labe values, delayed dialysis. CC Plasma Assessment Blood Product Administration S: [id number] ARTHUR PIZARRO MD Oct 05, 2024 16:26
[2024-10-05 16:30] LABS: Basophils # (auto) 0 10 ^3/uL (0-0.2); Eosinophils # (auto) 0 10 ^3/uL (0-0.8); Eosinophils % (auto) 0.1 % (0.0-7.0); Lymphocytes # (auto) 0.4 10 ^3/uL (0.4-5.4); Monocytes # (auto) 0.3 10 ^3/uL (0-1.3)
[2024-10-05 16:33] LABS: Basophils % (auto) 0.1 % (0.0-2.0); Hematocrit 24.4 % (41.0-53.0); Lymphocytes % (auto) 5.1 % (10.0-50.0); Mean Corpuscular Hemoglobin 30.3 pg (28.0-32.0); Mean Corpuscular Hgb Conc. 32.6 g/dL (32.0-36.0); Monocytes % (auto) 3.7 % (0.0-12.0); Neutrophils # (auto) 7.8 10 ^3/uL (1.6-8.6); Nucleated Red Blood Cells % 0.1 %; Platelet Count (auto) 139 10^3/uL (140-450); Red Blood Cells 2.63 10^6/uL (4.5-5.90); Red Cell Distribution Width 18.5 % (11.8-14.3); White Blood Cell 8.5 10^3/uL (4.4-10.8)
--- NOTE | 2024-10-05 17:37 | DVHPN2 ---
Subjective Overnight events noted. Patient was stated that Solu-Medrol evening dose made him awake all night. Patient was still complaining of difficulty swallowing, nystatin as well as fluticasone oral spray has been ordered. Reviewed: Care Plan Changes from previous H/P or p: No Changes Eyes: No Pain, No Vision change, No Conjunctivae inflammation, No Eyelid inflammation, No Other, No Redness ENT: No Ear pain, No Ear discharge, No Nose pain, No Nose discharge, No Nose congestion, No Mouth pain, No Mouth swelling, No Throat pain, No Throat swelling, No Other Cardiovascular: No Chest Pain, No Palpitations, No Orthopnea, No Paroxysmal Noc. Dyspnea, No Edema, No Lt Headedness, No Other Respiratory: No Cough, No Dry; Shortness of breath; No SOB with excertion, No Wheezing, No Hemoptysis, No Pleuritic Pain, No Sputum, No Other Gastrointestinal: No Nausea, No Vomiting, No Abdominal Pain; Diarrhea; No Constipation, No Melena, No Hematochezia, No Other Genitourinary: No Dysuria, No Frequency, No Incontinence, No Hematuria, No Retention, No Other Musculoskeletal: No other, No neck pain, No shoulder pain, No arm pain, No back pain, No hand pain, No leg pain, No foot pain Skin: No Rash, No Lesions, No Jaundice, No Bruising, No Other Objective Vitals Vital Signs Date Time Temp Pulse Resp B/P (MAP) Pulse Ox O2 Delivery O2 Flow Rate FiO2 10/05/24 12:55 98.0 68 16 138/68 (91) 97 98.0 10/05/24 08:00 Room Air* 0 21 Intake/Output Intake and Output 10/05/24 07:00 Intake Total 1600 ml Output Total 1100 ml Balance 500 ml Intake Oral 1600 ml Output Urine Total 1100 ml # Voids 3 Exam HEENT pupils are reactive Neck is supple CV is S1-S2 regular rate and rhythm Respiratory diminished breath sounds bases GI positive bowel sound Extremity no edema [employer]SEL no motor deficit Medications Current Medications Medications Dose Ordered Sig/Rick Route Start Time Stop Time Status Last Admin Dose Admin Acetaminophen 650 mg Q6HP PRN PO 09/28/24 23:00 09/30/24 08:34 650 MG Acetaminophen/ Hydrocodone Bitart 1 tab Q6HP PRN PO 09/28/24 23:00 09/30/24 00:19 1 TAB Nitroglycerin 0.4 mg Q5MINP PRN SL 09/28/24 23:00 Morphine Sulfate 2 mg Q30M PRN IV 09/28/24 23:00 09/30/24 15:58 2 MG Ceftriaxone Sodium 50 ml @ 100 mls/hr DAILY IV 09/29/24 10:00 10/04/24 09:20 100 MLS/HR Calcium Acetate 1,334 mg TIDWMEALS PO 09/29/24 12:00 10/04/24 18:04 1,334 MG Cholestyramine Resin 4 gm Q12HR@ PO 09/29/24 23:00 10/04/24 22:28 4 GM Melatonin 5 mg HS PO 09/30/24 22:00 10/04/24 22:28 5 MG Pantoprazole Sodium 40 mg BID IV 09/30/24 22:00 10/04/24 22:29 40 MG Lidocaine HCl 10 ml Q4HP PRN PO 09/30/24 15:30 10/01/24 10:20 10 ML Morphine Sulfate 2 mg Q4HPRN PRN IV 09/30/24 15:30 Enteral Nutritional Formula 240 ml TIDWM PO 10/01/24 18:00 10/05/24 12:00 240 ML Fluticasone Propionate 50 mcg Q12HR EACHNOSTRI 10/02/24 13:30 10/05/24 09:47 50 MCG Nystatin 5 ml QID MT 10/02/24 13:30 10/04/24 22:28 5 ML Prednisone 60 mg DAILY PO 10/05/24 10:00 10/05/24 09:43 60 MG Magnesium Oxide 400 mg BID PO 10/05/24 10:00 10/05/24 09:44 400 MG Sodium Bicarbonate 650 mg TID PO 10/04/24 22:00 10/05/24 06:38 650 MG Laboratory Results Laboratory Tests 10/05/24 04:25 Chemistry Test 10/05/24 04:25 Calcium Level 7.2 mg/dL (8.7-10.4) L Magnesium Level 2.0 mg/dL (1.6-2.6) Urinalysis Test 09/28/24 11:35 Urine Color Light-yellow (Yellow) Urine Clarity Turbid (Clear) H Urine pH 5.5 (5.0-9.0) Urine Specific [place] 1.011 (1.001-1.035) Urine Protein 1+ (Negative) H Urine Ketones Negative (Negative) Urine Blood 1+ /uL (Negative) H Urine Nitrite Negative (Negative) Urine Bilirubin Negative (Negative) Urine Urobilinogen Normal mg/dL (Negative) Urine Leukocyte Esterase 3+ /uL (Negative) Urine RBC 4 /hpf (0 - 3) Urine Microscopic WBC 223 /HPF (0-3) H Urine Squamous Epithelial Cells Few /hpf (<5) Urine Bacteria None seen /hpf (None Seen) Urine Creatinine 100.99 mg/dL (30.0-125.0) Urine Protein/Creatinine Ratio 1.06 Urine Sodium 39 mmol/L (40-220) L Urine Glucose Normal mg/dL (Normal) Urine Total Protein 106.7 mg/dL (1-14) H Microbiology Microbiology Date/Time Source Procedure Growth Status 09/29/24 03:40 Stool Stool Culture - Final Complete 09/29/24 03:40 Stool Shiga Toxin I & II - Final Complete 09/29/24 03:40 Stool Clostridium difficile Toxin Assay - Final Complete Assessment/Plan Assessment/Plan 64-year-old male with a known history of Crohn disease, CKD stage 4 initially presented to the hospital with diarrhea generalized weakness found to have 1. Diarrhea suspect acute flare of Crohn disease 2. Acute kidney injury with underlying CKD stage 4 3. Metabolic acidosis 4. Electrolyte imbalances 5. Anemia likely multifactorial secondary to underlying Crohn disease as well as anemia of chronic disease 6. UTI 7. Anemia status post 2 units of packed RBC -continue prednisone follow up GI recommendation Aggressive IV hydration and bicarb drip Follow up with the Nephrology recommendations -discharge plan once metabolic acidosis improves Plan discussed with: Patient My Orders Orders - JEIMY NARVAEZ MD Procedure Category Date Status Time Transfuse Blood ORDERS 10/05/24 Transmitted Product 16:40 Date of Service: Oct 05, 2024 Billing Provider: JEIMY NARVAEZ MD Common Visit Codes: NOT BILLABLE JEIMY NARVAEZ MD Oct 05, 2024 17:37
[2024-10-05 20:00] VITALS: PULSE 56; PULSE 70; RESP 18; O2SAT 97
[2024-10-05 21:00] VITALS: BP 129/78; PULSE 70; RESP 18; TEMP 97.4; O2SAT 97
[2024-10-06] VITALS (9 sets, daily range): BP systolic 105–138; BP diastolic 61–82; PULSE 48–70; RESP 17–18; TEMP 97.4–98.4; O2SAT 95–98
[2024-10-06 07:56] LABS: Potassium 3.9 mmol/L (3.5-5.1); Sodium 140 mmol/L (136-145)
[2024-10-06 07:57] LABS: Anion Gap 13 (5-15)
[2024-10-06 08:02] LABS: Glucose 75 mg/dL (74-106)
[2024-10-06 08:03] LABS: BUN/Creatinine Ratio 12.1 (10.0-20.0); Magnesium 1.7 mg/dL (1.6-2.6)
[2024-10-06 08:04] LABS: Blood Urea Nitrogen 36 mg/dL (9-23); Calcium 7.3 mg/dL (8.7-10.4); Carbon Dioxide 14 mmol/L (20-31); Chloride 113 mmol/L (98-107)
[2024-10-06 14:32] LABS: Hematocrit 30.4 % (41.0-53.0); Hemoglobin 10.2 g/dL (13.5-17.5)
--- NOTE | 2024-10-06 15:04 | DVHPN2 ---
Progress Note Date Seen: Oct 06, 2024 Medical Necessity Reason Pt with a Central, PICC or Fol: No Objective vital signs Vital Sign Date Time Temp Pulse Resp B/P (MAP) Pulse Ox O2 Delivery O2 Flow Rate FiO2 10/06/24 13:00 97.9 58 17 138/80 (99) 95 97.9 10/06/24 08:00 Room Air* 0 21 Total Intake and Output 10/05/24 10/05/24 10/06/24 15:00 23:00 07:00 Intake Total 1620 ml 300 ml Balance 1620 ml 300 ml medications Current Medications Medications Dose Ordered Sig/Rick Route Start Time Stop Time Status Last Admin Dose Admin Acetaminophen 650 mg Q6HP PRN PO 09/28/24 23:00 09/30/24 08:34 650 MG Acetaminophen/ Hydrocodone Bitart 1 tab Q6HP PRN PO 09/28/24 23:00 09/30/24 00:19 1 TAB Nitroglycerin 0.4 mg Q5MINP PRN SL 09/28/24 23:00 Morphine Sulfate 2 mg Q30M PRN IV 09/28/24 23:00 09/30/24 15:58 2 MG Ceftriaxone Sodium 50 ml @ 100 mls/hr DAILY IV 09/29/24 10:00 10/06/24 09:10 100 MLS/HR Calcium Acetate 1,334 mg TIDWMEALS PO 09/29/24 12:00 10/06/24 12:18 1,334 MG Cholestyramine Resin 4 gm Q12HR@11,23 PO 09/29/24 23:00 10/06/24 11:00 4 GM Melatonin 5 mg HS PO 09/30/24 22:00 10/05/24 22:55 5 MG Pantoprazole Sodium 40 mg BID IV 09/30/24 22:00 10/06/24 09:10 40 MG Lidocaine HCl 10 ml Q4HP PRN PO 09/30/24 15:30 10/01/24 10:20 10 ML Morphine Sulfate 2 mg Q4HPRN PRN IV 09/30/24 15:30 Enteral Nutritional Formula 240 ml TIDWM PO 10/01/24 18:00 10/06/24 12:18 240 ML Fluticasone Propionate 50 mcg Q12HR EACHNOSTRI 10/02/24 13:30 10/06/24 10:00 50 MCG Nystatin 5 ml QID MT 10/02/24 13:30 10/06/24 05:24 5 ML Prednisone 60 mg DAILY PO 10/05/24 10:00 10/06/24 09:09 60 MG Magnesium Oxide 400 mg BID PO 10/05/24 10:00 10/06/24 09:07 400 MG Sodium Bicarbonate 650 mg TID PO 10/04/24 22:00 10/06/24 13:17 650 MG Examination: GENERAL:Abnormal, CVS:Normal, ABDOMEN:Normal laboratory and microbiology Laboratory Tests 10/06/24 06:43 10/05/24 04:25 Test 10/06/24 06:43 Range/Units Serum Glucose 75 74-106 mg/dL Microbiology Date/Time Source Procedure Growth Status 09/29/24 03:40 Stool Stool Culture - Final Complete 09/29/24 03:40 Stool Shiga Toxin I & II - Final Complete 09/29/24 03:40 Stool Clostridium difficile Toxin Assay - Final Complete Problem List/Assessment/Plan Problem List/Assessment/Plan MAYRA 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 Mcleod Hypokalemia Hypomagnesemia Nephrolithiasis, nonobstructing Metabolic acidosis, NonAg Crohn's disease Diarrhea Dehydration Hyperphosphatemia Hyperparathyroidism, secondary to chronic kidney disease anemia replace Mg today Ca improved Calcium oral replacement vit D oral oral mg outpatient kidney US reported bilateral echogenic kidney and nonobstructing bilateral nephrolithiasis GI consult Renal diet Plan discussed with: Patient Dietary Evaluation Review Comments: There is no indicator of HLD or cardic issues, for improved energy intake, recommend pt follow a Renal specific 35g protein 2 g Na, 3 K, low phos, diet, with more liberalized fat intake for added calories. prevent uremic symptoms and avoid wt loss. Expected Outcomes/Goals: Avoid toxic nephrotic syndrome, improved PO intake, imroved nutrition related labe values, delayed dialysis. CC Plasma Assessment Blood Product Administration S: [id number] ARTHUR PIZARRO MD Oct 06, 2024 15:04
[2024-10-06] MEDS ORDERED: CALC0.5C PO (15:46)
[2024-10-06] MEDS ORDERED: PANT40TA2 PO (15:46)
[2024-10-06] MEDS ORDERED: FER325T PO (15:46)
[2024-10-06] MEDS ORDERED: CALC500C66 PO (15:46)
[2024-10-06] MEDS ORDERED: PRED1PAK7 PO (15:46)
[2024-10-06] MEDS ORDERED: MAGN400T40 PO (15:47)
--- NOTE | 2024-10-12 12:31 | DVHDS2 ---
Discharge Summary Date of Admission Sep 28, 2024 at 22:57 Date of Discharge: Oct 06, 2024 Labs/Diagnostic Data: Laboratory Results Test 10/06/24 06:43 10/05/24 04:25 10/04/24 13:35 10/02/24 05:29 Hemoglobin 10.2 g/dL (13.5-17.5) Hematocrit 30.4 % (41.0-53.0) Sodium Level 140 mmol/L (136-145) Potassium Level 3.9 mmol/L (3.5-5.1) Chloride Level 113 mmol/L (98-107) Carbon Dioxide Level 14 mmol/L (20-31) Anion Gap 13 (5-15) Blood Urea Nitrogen 36 mg/dL (9-23) Creatinine 2.98 mg/dL (0.700-1.30) Glomerular Filtration Rate Calc 23 mL/min (>90) BUN/Creatinine Ratio 12.1 (10.0-20.0) Serum Glucose 75 mg/dL (74-106) Calcium Level 7.3 mg/dL (8.7-10.4) Magnesium Level 1.7 mg/dL (1.6-2.6) White Blood Count 8.5 10^3/uL (4.4-10.8) Red Blood Count 2.63 10^6/uL (4.5-5.90) Mean Corpuscular Volume 93.0 fL (80.0-100.0) Mean Corpuscular Hemoglobin 30.3 pg (28.0-32.0) Mean Corpuscular Hemoglobin Concent 32.6 g/dL (32.0-36.0) Red Cell Distribution Width 18.5 % (11.8-14.3) Platelet Count 139 10^3/uL (140-450) Mean Platelet Volume 8.3 fL (6.9-10.8) Neutrophils (%) (Auto) 91.0 % (37.0-80.0) Lymphocytes (%) (Auto) 5.1 % (10.0-50.0) Monocytes (%) (Auto) 3.7 % (0.0-12.0) Eosinophils (%) (Auto) 0.1 % (0.0-7.0) Basophils (%) (Auto) 0.1 % (0.0-2.0) Neutrophils # (Auto) 7.8 10 ^3/uL (1.6-8.6) Lymphocytes # (Auto) 0.4 10 ^3/uL (0.4-5.4) Monocytes # (Auto) 0.3 10 ^3/uL (0-1.3) Eosinophils # (Auto) 0 10 ^3/uL (0-0.8) Basophils # (Auto) 0 10 ^3/uL (0-0.2) Nucleated Red Blood Cells 0.1 % Phosphorus Level 3.4 mg/dL (2.4-5.1) Differential Total Cells Counted 100.0 (100) Neutrophils % (Manual) 91 (37.0-80.0) Band Neutrophils % (Manual) 0 Lymphocytes % (Manual) 7 (10.0-50.0) Monocytes % (Manual) 2 (0-12) Eosinophils % (Manual) 0 (0-7) Basophils % (Manual) 0 (0.0-2.0) Metamyelocytes % (manual) 0 Myelocytes % (Manual) 0 Promyelocytes % (Manual) 0 Blast Cells % (Manual) 0 Reactive Lymphocytes 0 Platelet Estimate Adequate Anisocytosis (manual) Slight Test 10/01/24 05:43 09/29/24 06:35 09/29/24 06:00 09/29/24 03:40 Erythrocyte Sedimentation Rate 14 mm/hr (0-20) C-Reactive Protein High Sensitivity 1.40 mg/dL (<1.0) Vitamin B12 Level 659 pg/mL (211-911) Ovalocytes Few Efe Cells Few Stool Occult Blood Positive (Negative) Stool Occult Blood Sample #3 (Negative) Stool for White Cells Few Test 09/28/24 18:06 09/28/24 15:06 09/28/24 11:35 09/28/24 11:30 Lactic Acid Level 0.8 mmol/L (0.4-2.0) Uric Acid 9.5 mg/dL (3.7-9.2) Parathyroid Hormone (Intact) 400.4 pg/mL (18.4-80.1) Hepatitis B Surface Antigen Negative (Negative) Hepatitis C Antibody Negative (Negative) Troponin I High Sensitivity 8 ng/L (</=54) Urine Color Light-yellow (Yellow) Urine Clarity Turbid (Clear) Urine pH 5.5 (5.0-9.0) Urine Specific [place] 1.011 (1.001-1.035) Urine Protein 1+ (Negative) Urine Ketones Negative (Negative) Urine Blood 1+ /uL (Negative) Urine Nitrite Negative (Negative) Urine Bilirubin Negative (Negative) Urine Urobilinogen Normal mg/dL (Negative) Urine Leukocyte Esterase 3+ /uL (Negative) Urine RBC 4 /hpf (0 - 3) Urine Microscopic WBC 223 /HPF (0-3) Urine Squamous Epithelial Cells Few /hpf (<5) Urine Bacteria None seen /hpf (None Seen) Urine Creatinine 100.99 mg/dL (30.0-125.0) Urine Protein/Creatinine Ratio 1.06 Urine Sodium 39 mmol/L (40-220) Urine Glucose Normal mg/dL (Normal) Urine Total Protein 106.7 mg/dL (1-14) Influenza Type A Antigen Negative (Negative) Influenza Type B Antigen Negative (Negative) SARS-CoV-2 Antigen (Rapid) Negative (NEGATIVE) Test 09/28/24 11:27 Iron Level 98 ug/dL (65-175) Total Iron Binding Capacity 187 ug/dL (250-425) Percent Iron Saturation 52.4 % (20-55) Total Bilirubin < 0.2 mg/dL (0.2-1.0) Aspartate Amino Transferase (AST) 15 U/L (13-40) Alanine Aminotransferase (ALT) 13 U/L (7-40) Alkaline Phosphatase 83 U/L (46-116) B-Type Natriuretic Peptide 105.98 pg/mL (0-100) Total Protein 5.2 g/dL (5.7-8.2) Albumin 2.9 g/dL (3.2-4.8) Other Laboratory Tests 10/06/24 06:43 10/05/24 04:25 Brief Hx & Hospital Course: 64-year-old male with a known history of Crohn disease, CKD stage 4 initially presented to the hospital with diarrhea generalized weakness found to have diarrhea secondary to acute flare of Crohn disease. Patient also has a acute kidney injury with underlying CKD stage 4. Patient has had metabolic acidosis as well as electrolyte imbalance as well. Patient was treated with the IV hydration IV Solu-Medrol GI was consulted. Patient's hospital course was eventful for hypocalcemia and electrolyte imbalances which were being treated with the IV calcium as well as IV potassium and magnesium. Patient has subsequently improved. Patient did develop acute anemia requiring 2 units of packed RBC without any active evidence of bleeding. Both GI and Nephrology cleared the patient to be discharged with close follow up as an outpatient with the prednisone tapering. Patient understand verbalized understanding and agreeable to plan. Condition at Discharge: Stable Final Diagnosis/Problems List 64-year-old male with a known history of Crohn disease, CKD stage 4 initially presented to the hospital with diarrhea generalized weakness found to have 1. Diarrhea suspect acute flare of Crohn disease, improved 2. Acute kidney injury with underlying CKD stage 4 3. Metabolic acidosis 4. Electrolyte imbalances 5. Anemia likely multifactorial secondary to underlying Crohn disease as well as anemia of chronic disease 6. UTI 7. Anemia status post 2 units of packed RBC Discharge Disposition: Home SNF Discharge Will this Physician continue t: No Discharge Instruct/Medications Diet: Regular Activity: No Restrictions, As Tolerated Follow Up/Referral: Follow-up with PCP in one week Follow up with GI, gastro group one week Follow up with Nephrology in one week Medications: As prescribed. Discharge Statement: "Patient was advised to return to the ER or call 911 if any headaches, dizziness, shortness of breath, chest pain, abdominal pain, bleeding, fevers, or worsening of medical condition. Patient was counseled about treatment plan, medications, possible side effects, patientverbalized understanding. All questions were answered to the best of my ability. This discharge took greater then 30 minutes in planning, reviewing documentation, counseling the patient, and discussing with other team members." ASSESSMENT ASSESSMENT Assessment 64-year-old male with a known history of Crohn disease, CKD stage 4 initially presented to the hospital with diarrhea generalized weakness found to have 1. Diarrhea suspect acute flare of Crohn disease, improved 2. Acute kidney injury with underlying CKD stage 4 3. Metabolic acidosis 4. Electrolyte imbalances 5. Anemia likely multifactorial secondary to underlying Crohn disease as well as anemia of chronic disease 6. UTI 7. Anemia status post 2 units of packed RBC Date of Service: Oct 06, 2024 Billing Provider: JEIMY NARVAEZ MD Common Visit Codes: NOT BILLABLE JEIMY NARVAEZ MD Oct 12, 2024 12:30
== END 2024-10-06 18:00 | disposition home or self-care (01) | DRG 385 ==
LOC: EDBD 11:10 → ER 11:11 → OVERFLOW 22:57 → TELE-CENTR 09-29 04:08
PROVIDERS: ADMIT Internal Medicine; ATTEND Internal Medicine
PROC: 0DJ08ZZ Inspection of Upper Intestinal Tract, Via Natural or Artificial Opening Endoscopic (ICD-10-PCS; principal; 2024-09-30)
PROC: 30233N1 Transfusion of Nonautologous Red Blood Cells into Peripheral Vein, Percutaneous Approach (ICD-10-PCS; 2024-09-30)
DX: K50.90 Crohn's disease, unspecified, without complications (principal); N17.0 Acute kidney failure with tubular necrosis; E87.20 Acidosis, unspecified; N18.5 Chronic kidney disease, stage 5; N30.01 Acute cystitis with hematuria; Z20.822 Contact with and (suspected) exposure to COVID-19; E83.42 Hypomagnesemia; E83.51 Hypocalcemia; E87.6 Hypokalemia; E86.0 Dehydration; D63.1 Anemia in chronic kidney disease; E88.09 Other disorders of plasma-protein metabolism, not elsewhere classified; N20.0 Calculus of kidney; E83.39 Other disorders of phosphorus metabolism; Z79.899 Other long term (current) drug therapy
CPT/HCPCS: 36415; 36430; 43235; 71045; 74176; 76775; 80048; 80053; 81001; 82270; 82570; 82607; 83540; 83550; 83605; 83735; 83880; 83970; 84100; 84156; 84300; 84484; 84550; 85007; 85014; 85018; 85025; 85027; 85048; 85652; 86141; 86803; 86850; 86900; 86901; 86920; 87045; 87177; 87340; 87426; 87427; 87493; 87804; 93005; 96365; 96366; 96367; 96375; 99291; G0378; J2470; J3480; P9047

== ENCOUNTER 2025-02-01 03:14 | Inpatient (IN) | payer OTHER ==
[~2025-02-01] VITALS: Ht 175.3 cm; Wt 62.2 kg
[~2025-02-01 03:14] MED LIST changes: -ADAL40IN SC; -CAL025T PO; +CALC0.5C PO; -CALC1CHW PO; +CALC500C66 PO; -CARB200T4 PO; +CHOL20003 PO; -FAMO-161 PO; -FER300LQ PO; +FER325T PO; -HYDR-4798 PO; +PANT40TA2 PO; +PRED1PAK7 PO; -PRED20TA2 PO; -TAMS-35 PO
--- NOTE | 2025-02-01 03:47 | ED.PDOC ---
History of Present Illness HPI Comments 65-year-old male came to ER for abnormal labs. Patient has history of Crohn's disease, status post colostomy. He is also on TPN. Patient states he has chronic diarrhea, whenever he eats/drinks, he states it feels like food and liquid just passes straight through to his colostomy bag, which he states feels with liquid right after he consumes any food or liquid. He has been feeling dizzy, lightheaded and weak. He also has been having nonproductive cough and shortness of breath. Laboratory tests done recently showed chloride less than 80, BUN 106, creatinine 10.56, so patient was advised by his primary physician to go to the ER. Blood pressure upon arrival was 91/56 mm Hg Chief Complaint: Abnormal LAB's Time Seen by MD: 03:47 Primary Care Provider: OCTAVIO Zimmerman Notes: Nurses Notes Allergies: Coded Allergies: NO KNOWN ALLERGIES (Unverified , 11/13/21) Home Meds Active Scripts Magnesium Oxide (MAGNESIUM OXIDE) 400 Mg Tab, 1 TAB PO BID, #60 TAB 5 Refills Prov:JEIMY NARVAEZ MD 10/06/24 Pantoprazole Sodium Sesquihydr (Protonix) 40 Mg Tab, 40 MG PO DAILY, #30 TAB Prov:JEIMY NARVAEZ MD 10/06/24 Prednisone (Prednisone) 5 Mg Navi, 5 MG PO DAILY, #294 PACK Please take 12 tablets for one week, then 11 tablets for one week, then 10 tablets for one week, then9 tablets for one week Prov:JEIMY NARVAEZ MD 10/06/24 Ferrous Sulfate (FERROUS SULFATE) 325 Mg Tb, 1 TAB PO BID, #60 TAB 3 Refills Prov:JEIMY NARVAEZ MD 10/06/24 Calcium Carbonate (Calcium Carbonate) 500 Mg Chw, 500 MG PO TID, #90 TAB.CHEW Prov:JEIMY NARVAEZ MD 10/06/24 Calcitriol (Calcitriol) 0.5 Mcg Cap, 0.5 MCG PO DAILY for 30 Days, #30 CAP Prov:JEIMY NARVAEZ MD 10/06/24 Cholestyramine (QUESTRAN POWDER) 4 Gm Pw, 4 GM PO TID, #90 POW Prov:MATTHEW GTZ MD 07/22/24 Reported Medications Cholecalciferol (Vitamin D-3 Super Strengt) 2,000 Unit Tab, 1 TAB PO DAILY 09/29/24 Information Source: Patient Mode of Arrival: Ambulatory Severity: Moderate Timing: Days Duration: Since onset Past Medical History Past Medical History (Other): Crohn's disease Surgical History: Denies all surgeries Surgical History (Other): Colostomy Family History Family History: Reviewed,noncontributory to illness Social History Smoker: Cigarettes, Less Than 1 Pack/Day Alcohol: Denies ETOH Use Drugs: Denies Drug Use Lives In: Home Constitutional: reports: weakness; denies: chills, diaphoresis, fatigue, fever, malaise, sweats, others EENTM: denies: blurred vision, double vision, ear bleeding, ear discharge, ear drainage, ear pain, ear ringing, eye pain, eye redness, hearing loss, mouth pa in, mouth swelling, nasal discharge, nose bleeding, nose congestion, nose pain, photophobia, tearing, throat pain, throat swelling, voice changes, others Respiratory: reports: cough, SOB at rest, shortness of breath; denies: hemoptysis, orthopnea, SOB with excertion, stridor, wheezing, others Cardiovascular: denies: chest pain, dizzy spells, diaphoresis, Dyspnea on exertion, edema, irregular heart beat, left arm pain, lightheadedness, palpitations, PND, syncope, others Gastrointestinal: reports: diarrhea; denies: abdomen distended, abdominal pain, blood streaked bowels, constipated, dysphagia, difficulty swallowing, hematemesis, melena, nausea, poor appetite, poor fluid intake, rectal bleeding, rectal pain, vomiting, others Genitourinary: denies: burning, dysuria, flank pain, frequency, hematuria, incontinence, penile discharge, penile sore, pain, testicle pain, testicle swelling, urgency, others Neurological: reports: dizziness, weakness; denies: fainting, headache, left sided numbness, left sided weakness, numbness, paresthesia, pre-existing deficit, right sided numbness, right sided weakness, seizure, speech problems, tingling, tremors, others Musculoskeletal: denies: back pain, gout, joint pain, joint swelling, muscle pain, muscle stiffness, neck pain, others Integumetry: denies: bruises, change in color, change in hair/nails, dryness, laceration, lesions, lumps, rash, wounds, others Allergic/Immunocompromised: denies: Difficulty Healing, Frequent Infections, Hi ves, Itching, others Hematologic/Lymphatic: denies: anemia, blood clots, easy bleeding, easy bruising, swollen glands, others Endocrine: denies: excessive hunger, excessive sweating, excessive thirst, excessive urination, flushing, intolerance to cold, intolerance to heat, unexplained weight gain, unexplained weight loss, others Psychiatric: denies: anxiety, bipolar disorder, depression, hopeless, panic disorder, schizophrenia, sleepless, suicidal, others Physical Exam General Appearance: No Apparent Distress HEENT: Other (Pupils and face symmetric. Dry mucous membranes.) Neck: Full Range of Motion, Normal Inspection Respiratory: Lungs Clear, No Accessory Muscle Use, No Respiratory Distress, Normal Breath Sounds, Other (Productive sounding cough) Cardiovascular: No Edema, No JVD, Regular Rate/Rhythm Breast Exam: Deferred Gastrointestinal: Non Tender, Soft Genitalia: Deferred Pelvic: Deferred Rectal: Deferred Extremities: Normal inspection, Normal range of motion, Non-tender, No pedal edema Neurologic: Alert (Oriented x4), Normal Affect, Normal Mood Cerebellar Function: NOT DONE Reflexes: NOT DONE Skin: Dry, Pallor, Warm Lymphatic: NOT DONE Was a procedure done? Was a procedure done?: No Differential Dx Considerations may include: Anemia, electrolyte imbalance, MAYRA, CKD, hypotension, dehydration, pneumonia, COPD, among others X-Ray, Labs, Meds, VS Vital Signs Date Time Temp Pulse Resp B/P (MAP) Pulse Ox O2 Delivery O2 Flow Rate FiO2 02/01/25 05:00 72 13 97 Room Air* 0 21 02/01/25 04:30 98.0 72 16 86/61 (69) 96 98.0 02/01/25 04:15 97.6 94 16 91/56 (68) 92 97.6 Lab Test 02/01/25 04:41 02/01/25 03:35 Range/Units Troponin I High Sensitivity 5 5 </=54 ng/L White Blood Count 9.3 4.4-10.8 10^3/uL Red Blood Count 3.10 L 4.5-5.90 10^6/uL Hemoglobin 9.7 L 13.5-17.5 g/dL Hematocrit 28.1 L 41.0-53.0 % Mean Corpuscular Volume 90.5 80.0-100.0 fL Mean Corpuscular Hemoglobin 31.1 28.0-32.0 pg Mean Corpuscular Hemoglobin Concent 34.4 32.0-36.0 g/dL Red Cell Distribution Width 20.4 H 11.8-14.3 % Platelet Count 255 140-450 10^3/uL Mean Platelet Volume 9.0 6.9-10.8 fL Neutrophils (%) (Auto) 73.1 37.0-80.0 % Lymphocytes (%) (Auto) 15.9 10.0-50.0 % Monocytes (%) (Auto) 4.3 0.0-12.0 % Eosinophils (%) (Auto) 5.6 0.0-7.0 % Basophils (%) (Auto) 1.1 0.0-2.0 % Neutrophils # (Auto) 6.8 1.6-8.6 10 ^3/uL Lymphocytes # (Auto) 1.5 0.4-5.4 10 ^3/uL Monocytes # (Auto) 0.4 0-1.3 10 ^3/uL Eosinophils # (Auto) 0.5 0-0.8 10 ^3/uL Basophils # (Auto) 0.1 0-0.2 10 ^3/uL Nucleated Red Blood Cells 0.0 % Sodium Level 134 L 136-145 mmol/L Potassium Level 4.0 3.5-5.1 mmol/L Chloride Level 78 L 98-107 mmol/L Carbon Dioxide Level 36 H 20-31 mmol/L Anion Gap 20 H 5-15 Blood Urea Nitrogen 95 *H 9-23 mg/dL Creatinine 11.94 *H 0.700-1.30 mg/dL Glomerular Filtration Rate Calc 4 >90 mL/min BUN/Creatinine Ratio 8.0 L 10.0-20.0 Serum Glucose 140 H 74-106 mg/dL Lactic Acid Level 1.8 0.4-2.0 mmol/L Calcium Level 10.3 8.7-10.4 mg/dL Total Bilirubin 0.2 0.2-1.0 mg/dL Aspartate Amino Transferase (AST) 20 <34 U/L Alanine Aminotransferase (ALT) 13 7-40 U/L Alkaline Phosphatase 99 46-116 U/L B-Type Natriuretic Peptide 17.78 0-100 pg/mL Total Protein 8.3 H 5.7-8.2 g/dL Albumin 4.4 3.2-4.8 g/dL Current Medications Medications (Trade) Dose Ordered Sig/Rick Route Start Time Stop Time Status Last Admin Sodium Chloride 2,000 ml @ 1,000 mls/hr Q2H ONCE IV 02/01/25 03:45 02/01/25 05:44 02/01/25 04:14 PROCEDURE(s): CXRP - CHEST PORTABLE REASON: cough ORDER NUMBER(s): [id number], ACCESSION NUMBER(s): [id number] Examination: CXRP Clinical Indication: cough . Comparison: None. Technique: Frontal radiograph of the chest was obtained. Findings: Right-sided central venous catheter with tip at the cavoatrial junction. Subtle blunting of the left costophrenic angle probable minimal pleural effusion/pleural thickening. There is no pneumothorax. The cardiomediastinal silhouette is within normal limits. No acute osseous abnormality is seen. Degenerative changes in the mid and lower thoracic spine and visualized right acromioclavicular joint. Impression: Right-sided central venous catheter with tip at the cavoatrial junction. Subtle blunting of the left costophrenic angle probable minimal pleural effusion/pleural thickening. Normal cardiac size. Electronically Signed 02/01/2025 04:49 Ashley Laguerre X-Ray, Labs, Meds, VS Comment 65-year-old male with a history of Crohn's disease referred by primary physician for abnormally high BUN and creatinine. Patient also reports chronic watery diarrhea despite normal intake of p.o. food, liquids and TPN. Vitals remarkable for BP 91/56, oxygen saturation 92% on room air Exam unremarkable Rhythm strip independently interpreted by me: Sinus rhythm, rate 94, no ectopy. Chest x-ray Impression: Right-sided central venous catheter with tip at the cavoatrial junction. Subtle blunting of the left costophrenic angle probable minimal pleural effusion/pleural thickening. Normal cardiac size. CBC unremarkable, metabolic panel remarkable for sodium 134, chloride 78, CO2 36, BUN 95, creatinine 11.94, lactate normal, UA pending Patient treated with the following in the ED: 2 L 0.9 normal saline IV bolus Plan is to admit the patient for IV hydration and Nephrology/GI consultation Case discussed with GAVIN Rawls, who will admit the patient. Time of 1ST Reevaluation: 03:43 Reevaluation 1ST: Unchanged Patient Education/Counseling: Diagnosis, Treatment Family Education/Counseling: No Family Present SEPSIS Sepsis Screen Physician Orders Chest Portable (02/01/25 03:33) Urinalysis (02/01/25 03:33) Sodium Chloride 0.9% (02/01/25 03:45) Electrocardigram (02/01/25 03:33) Blood Culture (02/01/25 03:33) Vital Signs Date Time Temp Pulse Resp B/P (MAP) Pulse Ox O2 Delivery O2 Flow Rate FiO2 02/01/25 05:00 72 13 97 Room Air* 0 21 02/01/25 04:30 98.0 72 16 86/61 (69) 96 98.0 02/01/25 04:15 97.6 94 16 91/56 (68) 92 97.6 Laboratory Tests Test 02/01/25 03:35 Lactic Acid Level 1.8 mmol/L (0.4-2.0) White Blood Count 9.3 10^3/uL (4.4-10.8) Medications Medications Dose Ordered Sig/Rick Route Start Time Stop Time Status Last Admin Dose Admin Sodium Chloride 2,000 ml @ 1,000 mls/hr Q2H ONCE IV 02/01/25 03:45 02/01/25 05:44 02/01/25 04:14 Departure 1 Departure Time of Disposition: 05:03 Impression: Primary Impression: Acute kidney injury Additional Impressions: Electrolyte imbalance Diarrhea Disposition: 09 ADMITTED INPATIENT Admit to: Med Surg Condition: Guarded Critical Care Note Critical Care Time?: No Stability Stability form required: No Heart Score Heart Score: Heart Score Response (Comments) Value History N/A 0 EKG N/A 0 Age N/A 0 Risk Factors N/A 0 Troponin N/A 0 Total 0 I personally scribed for AMI CASTILLO MD ([email or web address]) on 02/01/25 at 03:47. Electronically submitted by Jhony Guido ([facility]). I personally scribed for AMI CASTILLO MD ([facility]) on 02/01/25 at 05:06. Electronically submitted by Jhony Guido ([facility]). AMI CASTILLO MD Feb 01, 2025 03:47
[2025-02-01 04:14] LABS: Basophils # (auto) 0.1 10 ^3/uL (0-0.2); Basophils % (auto) 1.1 % (0.0-2.0); Eosinophils # (auto) 0.5 10 ^3/uL (0-0.8); Eosinophils % (auto) 5.6 % (0.0-7.0); Hematocrit 28.1 % (41.0-53.0); Hemoglobin 9.7 g/dL (13.5-17.5); Lymphocytes # (auto) 1.5 10 ^3/uL (0.4-5.4); Lymphocytes % (auto) 15.9 % (10.0-50.0); Mean Corpuscular Hemoglobin 31.1 pg (28.0-32.0); Mean Corpuscular Hgb Conc. 34.4 g/dL (32.0-36.0); Mean Corpuscular Volume 90.5 fL (80.0-100.0); Monocytes # (auto) 0.4 10 ^3/uL (0-1.3); Monocytes % (auto) 4.3 % (0.0-12.0); Neutrophils # (auto) 6.8 10 ^3/uL (1.6-8.6); Neutrophils % (auto) 73.1 % (37.0-80.0); Platelet Count (auto) 255 10^3/uL (140-450); Red Cell Distribution Width 20.4 % (11.8-14.3); White Blood Cell 9.3 10^3/uL (4.4-10.8)
[2025-02-01] MEDS: SODIUM CHLORIDE 0.9% 2,000 ML IV ONE (04:14)
[2025-02-01 04:32] LABS: Alanine Aminotransferase 13 U/L (7-40); Albumin 4.4 g/dL (3.2-4.8); Alkaline Phosphatase 99 U/L (46-116); Anion Gap 20 (5-15); Aspartate Aminotransferase 20 U/L (<34); Calcium 10.3 mg/dL (8.7-10.4)
[2025-02-01 04:34] LABS: Carbon Dioxide 36 mmol/L (20-31); Chloride 78 mmol/L (98-107); Glucose 140 mg/dL (74-106); Sodium 134 mmol/L (136-145)
[2025-02-01 04:35] LABS: Bilirubin, Total 0.2 mg/dL (0.2-1.0); Total Protein 8.3 g/dL (5.7-8.2)
[2025-02-01 04:42] LABS: Blood Urea Nitrogen 95 mg/dL (9-23)
--- NOTE | 2025-02-01 04:50 | DVH ---
Examination: CXRP Clinical Indication: cough . Comparison: None. Technique: Frontal radiograph of the chest was obtained. Findings: Right-sided central venous catheter with tip at the cavoatrial junction. Subtle blunting of the left costophrenic angle probable minimal pleural effusion/pleural thickening. There is no pneumothorax. The cardiomediastinal silhouette is within normal limits. No acute osseous abnormality is seen. Degenerative changes in the mid and lower thoracic spine and v isualized right acromioclavicular joint. Impression: Right-sided central venous catheter with tip at the cavoatrial junction. Subtle bluntin g of the left costophrenic angle probable minimal pleural effusion/pleural thickening. Normal cardia c size. Electronically Signed 02/01/2025 04:49 Ashley Laguerre
[2025-02-01 05:00] VITALS: PULSE 72; RESP 13; O2SAT 97
[2025-02-01] MEDS ORDERED: HYDROcodone-ACET 5/325MG TAB PO PRN (05:30)
[2025-02-01] MEDS ORDERED: ACETAMINOPHEN 325 MG TAB PO PRN (05:30)
[2025-02-01] MEDS ORDERED: ONDANSETRON HCL 4 MG/2 ML VIAL IV PRN (05:30)
--- NOTE | 2025-02-01 05:50 | DVHHP2 ---
Admitting Diagnosis: Acute Kidney Injury, Electrolyte imbalance, dehydration, Diarrhea History of Present Illness History Source: Patient Exam Limitations: No limitations HPI Mr. Jonatan Araiza is a 65-year-old male with a history of Crohns diseae, recent colostomy placement on TPN who presents with a chief complaint of abnormal labs , generalized weakness, and diarrhea. Patient is also on TPN. Patient states he has chronic diarrhea, whenever he eats/drinks, he states it feels like food and liquid just passes straight through to his colostomy bag, which he states feels with liquid right after he consumes any food or liquid. He also has been having nonproductive cough and shortness of breath. Laboratory tests done recently resulted with chloride less than 80, BUN 106, creatinine 10 .56, so patient was advised by his primary physician to go to the hospital for further evaluation. Patient denies chest pain, abdominal pain, fevers, chills. Patient admitted for further evaluation and treatment. Home Meds Active Scripts Magnesium Oxide (MAGNESIUM OXIDE) 400 Mg Tab, 1 TAB PO BID, #60 TAB 5 Refills Prov:JEIMY NARVAEZ MD 10/06/24 Pantoprazole Sodium Sesquihydr (Protonix) 40 Mg Tab, 40 MG PO DAILY, #30 TAB Prov:JEIMY NARVAEZ MD 10/06/24 Prednisone (Prednisone) 5 Mg Navi, 5 MG PO DAILY, #294 PACK Please take 12 tablets for one week, then 11 tablets for one week, then 10 tablets for one week, then9 tablets for one week Prov:JEIMY NARVAEZ MD 10/06/24 Ferrous Sulfate (FERROUS SULFATE) 325 Mg Tb, 1 TAB PO BID, #60 TAB 3 Refills Prov:JEIMY NARVAEZ MD 10/06/24 Calcium Carbonate (Calcium Carbonate) 500 Mg Chw, 500 MG PO TID, #90 TAB.CHEW Prov:JEIMY NARVAEZ MD 10/06/24 Calcitriol (Calcitriol) 0.5 Mcg Cap, 0.5 MCG PO DAILY for 30 Days, #30 CAP Prov:JEIMY NARVAEZ MD 10/06/24 Cholestyramine (QUESTRAN POWDER) 4 Gm Pw, 4 GM PO TID, #90 POW Prov:MATTHEW GTZ MD 07/22/24 Reported Medications Cholecalciferol (Vitamin D-3 Super Strengt) 2,000 Unit Tab, 1 TAB PO DAILY 09/29/24 Past Medical History Cardiac: No pertinent Hx Pulmonary: No pertinent Hx Central Nervous System: No pertinent Hx GI: Other (Crohn's disease, chronic diarrhea) Hemotology/Oncology: No pertinent Hx Hepatobiliary: No pertinent Hx Psychiatric: No pertinent Hx Musculoskeletal: No pertinent Hx Rheumotologic: No pertinent Hx Infectious Disease: No peritnent Hx ENT: No pertinent Hx Renal/: No pertinent Hx Endocrine: No pertinent Hx Dermatology: No pertinent Hx Past Surgical History: Other (Colostomy placement) Patient Family History: Patient reports no known family medical history. Smoker: No Hx (Negative) Alocohol: None Drugs: None Domestic Violence: Neg Review of Systems Constitutional: Weakness (generalized) Ears, Nose, & Throat: No symptom reported Eyes: No symptom reported Pulmonary/Respiratory: No symptom reported Cardiovascular: No symptom reported Gastrointestinal: Diarrhea Genitourinary: No symptom reported Musculoskeletal: No symptom reported Skin: No symptom reported Psychiatric: No symptom reported Endocrine: No symptom reported Hemotologic/Lymphatic: No symptom reported H&P Exam Vital Signs Vital Signs Date Time Temp Pulse Resp B/P (MAP) Pulse Ox O2 Delivery O2 Flow Rate FiO2 02/01/25 05:00 72 13 97 Room Air* 0 21 02/01/25 04:30 98.0 86/61 (69) 98.0 General Appeara: Well developed, Thin Head Exam: Normal inspection Neck Exam: Normal inspection, Non-tender Eye Exam: bilateral eye Normal inspection, bilateral eye PERRL, bilateral eye EOMI Ear Exam: bilateral ear Auricle normal Nasal Exam: Normal inspection Mouth: Normal Inspection Pulmonary/Respiratory: Normal inspection, Normal breath sounds, Chest non- tender, Lungs clear Cardiovascular/Chest: Normal inspection, Regular rate, Normal Rhythm Peripheral Pulses: 2+ dorsalis pedis (R), 2+ dorsalis pedis (L), 2+ Radial (R), 2+ Radial (L) Abdominal Exam: Normal bowel sounds, Soft, Other (colostomy) Rectal Exam: Deferred Back Exam: Normal inspection Male Genital Exam: Not done CONSTRUCTION TECH Exam: Normal hearing, Normal speech, PERRL Motor/Sensory: Normal sensory function, Normal motor function Neuro/Mental St: Alert, Oriented Appearance: Appropriate appearance, Appropriate insight Eye contact/ Speech: Cooperative, Good eye contact, Normal speech Thoughts/Psych: Normal thought pattern Skin Exam: Normal inspection, Warm/dry, Pallor Labs/Xrays Labs Test 02/01/25 04:41 02/01/25 03:35 Range/Units Troponin I High Sensitivity 5 </=54 ng/L White Blood Count 9.3 4.4-10.8 10^3/uL Red Blood Count 3.10 L 4.5-5.90 10^6/uL Hemoglobin 9.7 L 13.5-17.5 g/dL Hematocrit 28.1 L 41.0-53.0 % Mean Corpuscular Volume 90.5 80.0-100.0 fL Mean Corpuscular Hemoglobin 31.1 28.0-32.0 pg Mean Corpuscular Hemoglobin Concent 34.4 32.0-36.0 g/dL Red Cell Distribution Width 20.4 H 11.8-14.3 % Platelet Count 255 140-450 10^3/uL Mean Platelet Volume 9.0 6.9-10.8 fL Neutrophils (%) (Auto) 73.1 37.0-80.0 % Lymphocytes (%) (Auto) 15.9 10.0-50.0 % Monocytes (%) (Auto) 4.3 0.0-12.0 % Eosinophils (%) (Auto) 5.6 0.0-7.0 % Basophils (%) (Auto) 1.1 0.0-2.0 % Neutrophils # (Auto) 6.8 1.6-8.6 10 ^3/uL Lymphocytes # (Auto) 1.5 0.4-5.4 10 ^3/uL Monocytes # (Auto) 0.4 0-1.3 10 ^3/uL Eosinophils # (Auto) 0.5 0-0.8 10 ^3/uL Basophils # (Auto) 0.1 0-0.2 10 ^3/uL Nucleated Red Blood Cells 0.0 % Sodium Level 134 L 136-145 mmol/L Potassium Level 4.0 3.5-5.1 mmol/L Chloride Level 78 L 98-107 mmol/L Carbon Dioxide Level 36 H 20-31 mmol/L Anion Gap 20 H 5-15 Blood Urea Nitrogen 95 *H 9-23 mg/dL Creatinine 11.94 *H 0.700-1.30 mg/dL Glomerular Filtration Rate Calc 4 >90 mL/min BUN/Creatinine Ratio 8.0 L 10.0-20.0 Serum Glucose 140 H 74-106 mg/dL Lactic Acid Level 1.8 0.4-2.0 mmol/L Calcium Level 10.3 8.7-10.4 mg/dL Total Bilirubin 0.2 0.2-1.0 mg/dL Aspartate Amino Transferase (AST) 20 <34 U/L Alanine Aminotransferase (ALT) 13 7-40 U/L Alkaline Phosphatase 99 46-116 U/L B-Type Natriuretic Peptide 17.78 0-100 pg/mL Total Protein 8.3 H 5.7-8.2 g/dL Albumin 4.4 3.2-4.8 g/dL Assessment/Plan Problem List: (1) Acute kidney injury (2) Electrolyte imbalance (3) Diarrhea (4) Dehydration (5) Generalized weakness Plan This is a 65 yo male with known history of Crohn's disease, recent colostomy placement on TPN, chronic diarrhea who presents to the hospital with abnormal labs sent by PCP , generalized weakness. Patient found to have 1. Acute Kidney Injury 2. Electrolyte imbalance 3. Acute Hypovolemia 4. Acute on chronic diarrhea 5. Chronic Crohn's disease Plan Admit Telemetry Nephrology consultation, Monitor electrolytes replenish as needed, monitor BMP, Renal US Gastroenterology consultation IV hydration Normal Saline GI ppx Protonix Reconcile home medications continue as needed Stool OB, Stool WBC, Stool culture, C diff DVT ppx SCD's BLE Dietary consultation Discussed all above with patient who verbalizes agreement and understanding of care plan. All questions were answered. Discussed with supervising MD. Plan discussed with: Patient, Other Code Visit Code Visit Total Time (mins): 45 Additional Comments Additional Comments Additional Comments Patient's shortness reviewed and discussed with the nurse practitioner. Patient is seen evaluated and admitted by nurse practitioner this morning. I agree with the nurse practitioner since evaluation, documentation, assessment and care plan as outlined. YOGI GREGORY Feb 01, 2025 05:50 MATTHEW GTZ MD Feb 01, 2025 15:03
[2025-02-01] MEDS: CALCIUM CARB 500 MG CHEW TAB PO SCH (06:21)
[2025-02-01] MEDS: CHOLESTYRAMINE 4 GM POWDER PO SCH (06:42)
[2025-02-01 08:17] VITALS: PULSE 73; RESP 13; O2SAT 97
--- NOTE | 2025-02-01 09:02 | DVH ---
RENAL ULTRASOUND History: alexei Comparison: US KIDNEY on DOS: 09/28/24, Technique: Multiple real-time sonographic images of the kidney and bladder were obtained in conjuncti on with Doppler imaging. Findings: The bilateral kidneys are echogenic in appearance. The right kidney measures 8.7 cm and demonstrates no evidence of hydronephrosis, perinephric fluid co llection,. Nonobstructing right renal calculi measuring up to 13 mm. Right renal cysts up to 1.1 cm. The left kidney measures 8.8 cm and demonstrates no evidence of hydronephrosis, perinephric fluid col lection, left renal cyst measuring 1.3 x 1.4 cm. Nonobstructing left renal calculi up to 3 mm Urinary bladder: Prevoid urinary bladder volume is 125 mL. Prostate volume of 20 cc. Heterogeneous lesion within the prostate measuring 2.4 x 2.2 cm with engineer internship al vascularity. Impression: Nonobstructing bilateral renal calculi. Echogenic kidneys which can be seen with medical renal disease. Small size of the kidneys bilaterally . Possible prostate lesion measuring 2.4 cm. The recommend urology consultation for further evaluation and correlation with PSA levels.
[2025-02-01] MEDS: PANTOPRAZOLE 40 MG/10 ML VIAL INJ IV SCH (10:50)
[2025-02-01] MEDS: CHOLECALCIFEROL (VITD3) 1,000UNIT=25mCg TAB PO SCH (10:50)
[2025-02-01] MEDS: FERROUS SULFATE 325mg EC TAB PO SCH ×2 (10:50→17:21)
[2025-02-01] MEDS: CALCITRIOL 0.25 MCG CAP PO SCH (10:50)
[2025-02-01] MEDS: SODIUM CHLORIDE 0.9% 1,000 ML IV SCH (11:02)
--- NOTE | 2025-02-01 12:07 | DVHINCON2 ---
Date of service: Feb 01, 2025 Referring Physician jessica Reason for Consultation MAYRA History of Present Illness 65 years old male with past medical history of Crohn's disease status post colostomy, Chronic kidney disease, follows , presented with chief complaints of abnormal labs, generalized weakness and diarrhea patient is also on TPN complaints of high output through his colostomy bag Past Medical History per hpi Allergies: Coded Allergies: NO KNOWN ALLERGIES (Unverified , 11/13/21) Home Meds Active Scripts Magnesium Oxide (MAGNESIUM OXIDE) 400 Mg Tab, 1 TAB PO BID, #60 TAB 5 Refills Prov:JEIMY NARVAEZ MD 10/06/24 Pantoprazole Sodium Sesquihydr (Protonix) 40 Mg Tab, 40 MG PO DAILY, #30 TAB Prov:JEIMY NARVAEZ MD 10/06/24 Prednisone (Prednisone) 5 Mg Navi, 5 MG PO DAILY, #294 PACK Please take 12 tablets for one week, then 11 tablets for one week, then 10 tablets for one week, then9 tablets for one week Prov:JEIMY NARVAEZ MD 10/06/24 Ferrous Sulfate (FERROUS SULFATE) 325 Mg Tb, 1 TAB PO BID, #60 TAB 3 Refills Prov:JEIMY NARVAEZ MD 10/06/24 Calcium Carbonate (Calcium Carbonate) 500 Mg Chw, 500 MG PO TID, #90 TAB.CHEW Prov:JEIMY NARVAEZ MD 10/06/24 Calcitriol (Calcitriol) 0.5 Mcg Cap, 0.5 MCG PO DAILY for 30 Days, #30 CAP Prov:JEIMY NARVAEZ MD 10/06/24 Cholestyramine (QUESTRAN POWDER) 4 Gm Pw, 4 GM PO TID, #90 POW Prov:MATTHEW GTZ MD 07/22/24 Reported Medications Cholecalciferol (Vitamin D-3 Super Strengt) 2,000 Unit Tab, 1 TAB PO DAILY 09/29/24 Current Medications Current Medications Medications (Trade) Dose Ordered Sig/Rick Route PRN Reason Start Time Stop Time Status Last Admin Sodium Chloride 1,000 ml @ 100 mls/hr Q10H IV 02/01/25 05:30 02/01/25 15:30 Ondansetron HCl (Zofran) 4 mg Q6HP PRN IV NAUSEA / VOMITING 02/01/25 05:30 Pantoprazole Sodium (Protonix) 40 mg DAILY IV 02/01/25 10:00 02/01/25 10:50 Acetaminophen (Tylenol Tablet) 650 mg Q6HPRN PRN PO PAIN SCALE 1-3 OR TEMP>100.4 02/01/25 05:30 Acetaminophen/ Hydrocodone Bitart ([place] 5/325MG Tab) 1 tab Q6HPRN PRN PO PAIN SCALE 3 THRU 6 02/01/25 05:30 Calcium Carbonate (Tums) 500 mg TID PO 02/01/25 06:00 02/01/25 15:16 Cholestyramine Resin (Questran Powder) 4 gm TID PO 02/01/25 06:00 02/01/25 15:16 Ferrous Sulfate 325 mg BID PO 02/01/25 10:00 02/01/25 14:30 DC 02/01/25 10:50 Calcitriol (Rocaltrol Capsule) 0.5 mcg DAILY PO 02/01/25 10:00 02/01/25 10:50 Cholecalciferol (Vitamin D3 Tablet) 2,000 unit DAILY PO 02/01/25 10:00 02/01/25 10:50 Ferrous Sulfate 325 mg BIDWM PO 02/01/25 18:00 02/01/25 17:21 Family History: Patient reports no known family medical history. Review of Systems HEENT-denies headache, denies vision changes, no hearing issue, denies neck complaints, denies throat issues Respiratory system-denies cough, denies shortness of breath Cardiovascular system-denies chest pain, denies palpitations Abdomen-denies abdominal pain, denies nausea, denies vomiting, denies constipation or diarrhea Musculoskeletal-denies swelling in the legs, denies pain in the extremities Genitourinary-denies urinary symptoms like dysuria, stream issues Neuro-denies dizziness, denies seizures Psychiatric-denies psychiatric history H&P Exam Vital Signs/I&O Vital Sign Date Time Temp Pulse Resp B/P (MAP) Pulse Ox O2 Delivery O2 Flow Rate FiO2 02/01/25 17:40 Room Air* 0 21 02/01/25 16:42 97.4 70 17 93/65 (74) 97 97.4 Physical Exam General-not in any distress HEENT-normocephalic, no icterus, no pallor, neck supple Respiratory-fair air entry bilateral, no rhonchi, no wheeze [id number] heard, no murmurs appreciated Abdominal-positive colostomy Musculoskeletal-no pedal edema, no calf tenderness Genitourinary-deferred Neuro-awake alert oriented x3, Psychiatric-not agitated, cooperative, Labs/Diagnostic Data Labs/Diagnostic Data Laboratory Tests Test 02/01/25 12:41 02/01/25 12:27 02/01/25 11:35 02/01/25 04:41 Range/Units Urine Color Light-yellow Yellow Urine Clarity Turbid H Clear Urine pH 8.0 5.0-9.0 Urine Specific [place] 1.013 1.001-1.035 Urine Protein 1+ H Negative Urine Ketones Negative Negative Urine Blood Negative Negative /uL Urine Nitrite Negative Negative Urine Bilirubin Negative Negative Urine Urobilinogen Normal Negative mg/dL Urine Leukocyte Esterase 3+ Negative /uL Urine RBC 12 0 - 3 /hpf Urine Microscopic WBC 199 H 0-3 /HPF Urine Squamous Epithelial Cells None seen <5 /hpf Urine Bacteria Few H None Seen /hpf Urine Glucose Normal Normal mg/dL Stool Occult Blood Negative Negative Stool Occult Blood Sample #3 Negative Stool for White Cells None seen Sodium Level 137 136-145 mmol/L Potassium Level 3.9 3.5-5.1 mmol/L Chloride Level 87 L 98-107 mmol/L Carbon Dioxide Level 32 H 20-31 mmol/L Anion Gap 18 H 5-15 Blood Urea Nitrogen 93 *H 9-23 mg/dL Creatinine 11.20 *H 0.700-1.30 mg/dL Glomerular Filtration Rate Calc 5 >90 mL/min BUN/Creatinine Ratio 8.3 L 10.0-20.0 Serum Glucose 89 74-106 mg/dL Calcium Level 8.9 8.7-10.4 mg/dL Troponin I High Sensitivity 5 </=54 ng/L Test 02/01/25 03:35 Range/Units White Blood Count 9.3 4.4-10.8 10^3/uL Red Blood Count 3.10 L 4.5-5.90 10^6/uL Hemoglobin 9.7 L 13.5-17.5 g/dL Hematocrit 28.1 L 41.0-53.0 % Mean Corpuscular Volume 90.5 80.0-100.0 fL Mean Corpuscular Hemoglobin 31.1 28.0-32.0 pg Mean Corpuscular Hemoglobin Concent 34.4 32.0-36.0 g/dL Red Cell Distribution Width 20.4 H 11.8-14.3 % Platelet Count 255 140-450 10^3/uL Mean Platelet Volume 9.0 6.9-10.8 fL Neutrophils (%) (Auto) 73.1 37.0-80.0 % Lymphocytes (%) (Auto) 15.9 10.0-50.0 % Monocytes (%) (Auto) 4.3 0.0-12.0 % Eosinophils (%) (Auto) 5.6 0.0-7.0 % Basophils (%) (Auto) 1.1 0.0-2.0 % Neutrophils # (Auto) 6.8 1.6-8.6 10 ^3/uL Lymphocytes # (Auto) 1.5 0.4-5.4 10 ^3/uL Monocytes # (Auto) 0.4 0-1.3 10 ^3/uL Eosinophils # (Auto) 0.5 0-0.8 10 ^3/uL Basophils # (Auto) 0.1 0-0.2 10 ^3/uL Nucleated Red Blood Cells 0.0 % Sodium Level 134 L 136-145 mmol/L Potassium Level 4.0 3.5-5.1 mmol/L Chloride Level 78 L 98-107 mmol/L Carbon Dioxide Level 36 H 20-31 mmol/L Anion Gap 20 H 5-15 Blood Urea Nitrogen 95 *H 9-23 mg/dL Creatinine 11.94 *H 0.700-1.30 mg/dL Glomerular Filtration Rate Calc 4 >90 mL/min BUN/Creatinine Ratio 8.0 L 10.0-20.0 Serum Glucose 140 H 74-106 mg/dL Lactic Acid Level 1.8 0.4-2.0 mmol/L Calcium Level 10.3 8.7-10.4 mg/dL Total Bilirubin 0.2 0.2-1.0 mg/dL Aspartate Amino Transferase (AST) 20 <34 U/L Alanine Aminotransferase (ALT) 13 7-40 U/L Alkaline Phosphatase 99 46-116 U/L Troponin I High Sensitivity 5 </=54 ng/L B-Type Natriuretic Peptide 17.78 0-100 pg/mL Total Protein 8.3 H 5.7-8.2 g/dL Albumin 4.4 3.2-4.8 g/dL Assessment Acute kidney injury likely acute tubular necrosis Crohn's disease status post colostomy---high output from colostomy Atrophic right kidney Baseline Chronic kidney disease four Bilateral renal calculi Recommendations Continue IV fluids Monitor strict Is&Os No hydronephrosis on CT Patient voiding in urinal We will follow closely Plan discussed with: Patient NINOSKA EVANS MD Feb 01, 2025 12:07
[2025-02-01 12:08] LABS: Potassium 3.9 mmol/L (3.5-5.1); Sodium 137 mmol/L (136-145)
[2025-02-01 12:09] LABS: Anion Gap 18 (5-15); Calcium 8.9 mg/dL (8.7-10.4)
[2025-02-01 12:12] LABS: Carbon Dioxide 32 mmol/L (20-31); Chloride 87 mmol/L (98-107)
[2025-02-01 12:14] LABS: BUN/Creatinine Ratio 8.3 (10.0-20.0); Glucose 89 mg/dL (74-106)
[2025-02-01 12:17] LABS: Blood Urea Nitrogen 93 mg/dL (9-23)
--- NOTE | 2025-02-01 13:17 | DVHINCON2 ---
GI Consult Consult Note GI consult note Date of Consultation: 02/01/2025 Chief Complaint: Diarrhea, Crohn's disease on TPN Referring Physician: Curly ALONSO H&P: 65-year-old male presented to ER for abdominal labs. Patient has history of Crohn's disease status post colostomy 2-3 weeks ago. Patient is on TPN. Patient admits to having loose stool whenever he eats or drinks. No abdominal pain. No nausea vomiting. [facility] Patient is a poor historian unsure of any medications for Crohn's disease Past Medical History: Crohn's disease Past Surgical History: Colostomy Social History: + smoking, no drinking ETOH and use of illegal drugs. Family History: Noncontributory Review of Systems: Constitutional: no fever, chill, weight loss HEENT: no eye pain, no hearing loss, no oral lesion, no scleral icterus Heart: no chest pain, no chest pressure Lung: no cough, no dyspnea with exertion Abdomen: see HPI Physical exam: General: NAD, AAOX3 Chest: lung guth[place] clear to auscultation Heart: RRR, no murmur Abdomen: non-distended, +BS, colostomy bag with brown stool and mucus Labs: Labs Test 02/01/25 12:41 02/01/25 12:27 02/01/25 11:35 02/01/25 04:41 Range/Units Sodium Level 137 136-145 mmol/L Potassium Level 3.9 3.5-5.1 mmol/L Chloride Level 87 L 98-107 mmol/L Carbon Dioxide Level 32 H 20-31 mmol/L Anion Gap 18 H 5-15 Blood Urea Nitrogen 93 *H 9-23 mg/dL Creatinine 11.20 *H 0.700-1.30 mg/dL Glomerular Filtration Rate Calc 5 >90 mL/min BUN/Creatinine Ratio 8.3 L 10.0-20.0 Serum Glucose 89 74-106 mg/dL Calcium Level 8.9 8.7-10.4 mg/dL Troponin I High Sensitivity 5 </=54 ng/L Test 02/01/25 03:35 Range/Units White Blood Count 9.3 4.4-10.8 10^3/uL Red Blood Count 3.10 L 4.5-5.90 10^6/uL Hemoglobin 9.7 L 13.5-17.5 g/dL Hematocrit 28.1 L 41.0-53.0 % Mean Corpuscular Volume 90.5 80.0-100.0 fL Mean Corpuscular Hemoglobin 31.1 28.0-32.0 pg Mean Corpuscular Hemoglobin Concent 34.4 32.0-36.0 g/dL Red Cell Distribution Width 20.4 H 11.8-14.3 % Platelet Count 255 140-450 10^3/uL Mean Platelet Volume 9.0 6.9-10.8 fL Neutrophils (%) (Auto) 73.1 37.0-80.0 % Lymphocytes (%) (Auto) 15.9 10.0-50.0 % Monocytes (%) (Auto) 4.3 0.0-12.0 % Eosinophils (%) (Auto) 5.6 0.0-7.0 % Basophils (%) (Auto) 1.1 0.0-2.0 % Neutrophils # (Auto) 6.8 1.6-8.6 10 ^3/uL Lymphocytes # (Auto) 1.5 0.4-5.4 10 ^3/uL Monocytes # (Auto) 0.4 0-1.3 10 ^3/uL Eosinophils # (Auto) 0.5 0-0.8 10 ^3/uL Basophils # (Auto) 0.1 0-0.2 10 ^3/uL Nucleated Red Blood Cells 0.0 % Lactic Acid Level 1.8 0.4-2.0 mmol/L Total Bilirubin 0.2 0.2-1.0 mg/dL Aspartate Amino Transferase (AST) 20 <34 U/L Alanine Aminotransferase (ALT) 13 7-40 U/L Alkaline Phosphatase 99 46-116 U/L B-Type Natriuretic Peptide 17.78 0-100 pg/mL Total Protein 8.3 H 5.7-8.2 g/dL Albumin 4.4 3.2-4.8 g/dL Imaging: Assessment: Diarrhea History of Crohn's Acute kidney injury Generalized weakness Plan: Discussed with Dr. Vallecillo Stool for WBC, bacterial culture and C diff Questran CT abdomen pelvis with p.o. contrast Monitor labs Protonix We will continue to follow patient Plan discussed with patient and RN Thank you for this consult Date of Service: Feb 01, 2025 Billing Provider: JANY JEAN-BAPTISTE Common Visit Codes: CONSULT ONLY Consultation Codes: [id number] CONSULT <60MIN JANY JEAN-BAPTISTE Feb 01, 2025 13:17
[2025-02-01 13:30] LABS: Urine Bacteria FEW /hpf (None Seen); Urine Blood Negative /uL (Negative); Urine Clarity Turbid (Clear); Urine Color Light-Yellow (Yellow); Urine Protein, UAD 1+ (Negative); Urine Specific Gravity 1.013 (1.001-1.035); Urine Squamous Epithelial Cell None Seen /hpf (<5); Urine Urobilinogen Normal (Negative); Urine WBC 199 /HPF (0-3)
[2025-02-01 16:42] VITALS: BP 93/65; PULSE 70; RESP 17; TEMP 97.4; O2SAT 97
--- NOTE | 2025-02-01 17:41 | DVH ---
Exam: CT CT AB PEL WO CON-NO ORAL OR IV History: COLOSTOMY Comparison Study: CT CT AB PEL WO CON-NO ORAL OR IV on DOS: 09/28/24, CT CT AB PEL WO CON-NO ORAL OR I V on DOS: 07/19/24, [facility] on DOS: 12/01/21 TECHNIQUE: Multidetector CT of the abdomen was performed from lung bases to pubic symphysis. Imaging was performed without IV contrast. Axial, coronal and sagittal multiplanar reformats were obtained fr om the axial data set by the technologist. Radiation Dose Information: CT Dose: CTDI volume is 5.07 mGy. Dose-length product is 226.78 mGy*cm FINDINGS: Evaluation of solid organs is limited due to lack of intravenous contrast use. Findings: Lung Bases: No acute or significant lung base finding. Normal heart size. No pleural or pericardial effusion. Liver: The liver is normal in size. No focal lesions. Gallbladder and Biliary Tree: Unremarkable Spleen: Unremarkable Pancreas: The pancreas is grossly normal in appearance. Adrenal Glands: Unremarkable Kidneys: 2 small calculi right kidney no hydronephrosis. Largest measures 6.8 mm. Atrophic left kid mellisa with a punctate nonobstructing calculus in the upper pole. Bladder: Grossly unremarkable for degree of distention. Bowel: The stomach is grossly normal in appearance. Postop changes right upper abdomen Small bowel an d colon are normal in caliber and distribution. The appendix is not visualized; however, no secondar y findings of acute appendicitis identified. Ascites: Absent Lymphadenopathy: No mesenteric, retroperitoneal or periportal lymphadenopathy. Abdominal Wall and Mesentery: Unremarkable. Vasculature: The visualized abdominal aorta is normal in size and caliber. Evaluation of abdominal a nd pelvic vessels is limited due to lack of intravenous contrast. Pelvic Organs: Unremarkable Musculoskeletal: No aggressive focal bony lesions, acute fractures or dislocation. Soft tissues: Unremarkable IMPRESSION: 1. Postop changes right upper abdomen. Ostomy noted in the right upper abdomen. 2. Bilateral renal calculi no hydronephrosis 3. . Atrophic left kidney. 4. No findings of bowel obstruction. 5. Gallbladder visualized. Radiation optimization: All CT scans at this facility use at least one of these dose optimization jagdish hniques: automated exposure control mA and/or kV adjustment per patient size (includes targeted exam s where dose is matched to clinical indication) or iterative reconstruction.
[2025-02-01 20:00] VITALS: PULSE 76; RESP 18
[2025-02-01 21:00] VITALS: BP 101/68; PULSE 75; RESP 17; TEMP 97.9; O2SAT 96
[2025-02-01] MEDS: MELATONIN 5 MG TAB PO PRN (23:38)
[2025-02-02] VITALS (7 sets, daily range): BP systolic 111–121; BP diastolic 53–76; PULSE 67–99; RESP 17–19; TEMP 98.2–98.7; O2SAT 90–99
[2025-02-02] MEDS ORDERED: VANCOMYCIN PER PHARMACY 0 MG IV SCH (06:00)
[2025-02-02] MEDS: VANCOMYCIN 1.25gm/250mL PREMIX or KIT IV ONE (06:45)
[2025-02-02 06:55] LABS: Anion Gap 17 (5-15); Carbon Dioxide 29 mmol/L (20-31); Chloride 90 mmol/L (98-107); Sodium 136 mmol/L (136-145)
[2025-02-02 07:01] LABS: BUN/Creatinine Ratio 7.9 (10.0-20.0); Glucose 87 mg/dL (74-106)
[2025-02-02 07:07] LABS: Blood Urea Nitrogen 90 mg/dL (9-23)
[2025-02-02 07:08] LABS: Calcium 8.2 mg/dL (8.7-10.4)
[2025-02-02] MEDS: cefTRIAXone 1GM/50ML D5W 50 ML IV SCH (09:00)
--- NOTE | 2025-02-02 12:20 | DVHPN2 ---
Progress Note Date Seen: Feb 02, 2025 Resident Creating Document: SABINE SHEN RESIDENT Medical Necessity Reason Pt with a Central, PICC or Fol: No Subjective Review of Systems Patient is seen today at bedside Patient Reports feeling better today No more nausea or vomiting On colostomy Serum creatinine persistently elevated, today serum creatinine 11.45 Anion gap 17 BUN 90 Stool occult blood test negative Stool for shiga toxin negative CT abdomen and pelvis revealed- Postop changes right upper abdomen. Ostomy noted in the right upper abdomen. Bilateral renal calculi no hydronephrosis Renal ultrasound nonobstructive bilateral lung crackles Patient on ceftriaxone vancomycin Objective vital signs Vital Sign Date Time Temp Pulse Resp B/P (MAP) Pulse Ox O2 Delivery O2 Flow Rate FiO2 02/02/25 12:01 98.6 75 17 114/70 (85) 92 98.6 02/01/25 20:00 Room Air* 0 21 Total Intake and Output 02/01/25 02/01/25 02/02/25 15:00 23:00 07:00 Intake Total 2000 ml 705 ml Output Total 430 ml Balance 1570 ml 705 ml medications Current Medications Medications Dose Ordered Sig/Rick Route Start Time Stop Time Status Last Admin Dose Admin Sodium Chloride 1,000 ml @ 100 mls/hr Q10H IV 02/01/25 05:30 02/02/25 02:15 100 MLS/HR Ondansetron HCl 4 mg Q6HP PRN IV 02/01/25 05:30 Pantoprazole Sodium 40 mg DAILY IV 02/01/25 10:00 02/01/25 10:50 40 MG Acetaminophen 650 mg Q6HPRN PRN PO 02/01/25 05:30 Acetaminophen/ Hydrocodone Bitart 1 tab Q6HPRN PRN PO 02/01/25 05:30 Calcium Carbonate 500 mg TID PO 02/01/25 06:00 02/02/25 06:44 500 MG Cholestyramine Resin 4 gm TID PO 02/01/25 06:00 02/02/25 06:44 4 GM Calcitriol 0.5 mcg DAILY PO 02/01/25 10:00 02/02/25 09:38 0.5 MCG Cholecalciferol 2,000 unit DAILY PO 02/01/25 10:00 02/02/25 09:38 2,000 UNIT Ferrous Sulfate 325 mg BIDWM PO 02/01/25 18:00 02/02/25 09:38 325 MG Melatonin 5 mg HS PRN PO 02/01/25 23:15 Vancomycin HCl 0 ml @ 0 mls/hr UD IV 02/02/25 06:00 Ceftriaxone Sodium 50 ml @ 100 mls/hr DAILY@09 IV 02/02/25 09:00 laboratory and microbiology Laboratory Tests 02/02/25 05:46 02/01/25 03:35 Test 02/02/25 05:46 Range/Units Serum Glucose 87 74-106 mg/dL Microbiology Date/Time Source Procedure Growth Status 02/01/25 12:27 Stool Stool Culture - Preliminary Resulted 02/01/25 12:27 Stool Shiga Toxin I & II - Final Resulted 02/01/25 12:27 Stool Clostridium difficile Toxin Assay Pending Resulted 02/01/25 03:50 Blood Blood Culture - Preliminary Resulted Problem List/Assessment/Plan Problem List/Assessment/Plan Assessment and plan MAYRA likely due to acute tubular necrosis Generalized weakness Acute kidney injury likely acute tubular necrosis Crohn's disease status post colostomy---high output from colostomy Atrophic right kidney Baseline Chronic kidney disease four Bilateral renal calculi Patient Reports feeling better today No more nausea or vomiting Abdominal pain has improved Serum creatinine persistently elevated, today serum creatinine 11.45 Anion gap 17 BUN 90 Stool occult blood test negative Stool for shiga toxin negative CT abdomen and pelvis revealed- Postop changes right upper abdomen. Ostomy noted in the right upper abdomen. Bilateral renal calculi no hydronephrosis Renal ultrasound nonobstructive bilateral lung crackles Patient on ceftriaxone vancomycin Plan Continue pantoprazole as prescribed Continue IV antibiotic as prescribed Continue Questran powder as prescribed Continue IV hydration as prescribed Please follow up with the Nephrology for MAYRA Other care as per primary team Monitor CBC, CMP Plan discussed with Dr. Minoo Vallecilol , nursing staff, Total time spent on patient evaluation, chart review, assessment and plan, discussion discussion >35 minutes Plan discussed with: Patient, Other (RN) Dietary Evaluation Review Comments: 1) BRAT diet with probiotics daily 2) Monitor PO intakes, Lab values, wt trend Expected Outcomes/Goals: To meet >75% estimated needs Fu 3-5 days SABINE SHEN RESIDENT Feb 02, 2025 12:20
[2025-02-02 12:31] LABS: Basophils # (auto) 0.1 10 ^3/uL (0-0.2); Eosinophils # (auto) 0.4 10 ^3/uL (0-0.8); Lymphocytes # (auto) 0.7 10 ^3/uL (0.4-5.4); Monocytes # (auto) 0.2 10 ^3/uL (0-1.3); Neutrophils % (auto) 76.2 % (37.0-80.0)
[2025-02-02 12:32] LABS: Basophils % (auto) 1.1 % (0.0-2.0); Eosinophils % (auto) 7.2 % (0.0-7.0); Hematocrit 24.3 % (41.0-53.0); Hemoglobin 8.5 g/dL (13.5-17.5); Lymphocytes % (auto) 11.6 % (10.0-50.0); Mean Corpuscular Hemoglobin 31.6 pg (28.0-32.0); Mean Corpuscular Hgb Conc. 34.9 g/dL (32.0-36.0); Mean Corpuscular Volume 90.6 fL (80.0-100.0); Monocytes % (auto) 3.9 % (0.0-12.0); Neutrophils # (auto) 4.4 10 ^3/uL (1.6-8.6); Platelet Count (auto) 212 10^3/uL (140-450); Red Blood Cells 2.68 10^6/uL (4.5-5.90); Red Cell Distribution Width 19.9 % (11.8-14.3); White Blood Cell 5.8 10^3/uL (4.4-10.8)
--- NOTE | 2025-02-02 13:06 | DVHPN2 ---
Progress Note - Dictate Date Seen: Feb 02, 2025 Medical Necessity Reason Pt with a Central, PICC or Fol: No Subjective He is clinically stable. No diarrhea. Tolerating regular diet. 1/2 blood cultures came back Gram-positive in clusters possible contamination. However he is empirically started on IV antibiotics till final results of culture available. Having good urine output. vital signs Vital Sign Date Time Temp Pulse Resp B/P (MAP) Pulse Ox O2 Delivery O2 Flow Rate FiO2 02/02/25 12:01 98.6 75 17 114/70 (85) 92 98.6 02/01/25 20:00 Room Air* 0 21 Total Intake and Output 02/01/25 02/01/25 02/02/25 15:00 23:00 07:00 Intake Total 2000 ml 705 ml Output Total 430 ml Balance 1570 ml 705 ml medications Current Medications Medications Dose Ordered Sig/Rick Route Start Time Stop Time Status Last Admin Dose Admin Sodium Chloride 1,000 ml @ 100 mls/hr Q10H IV 02/01/25 05:30 02/02/25 02:15 100 MLS/HR Ondansetron HCl 4 mg Q6HP PRN IV 02/01/25 05:30 Pantoprazole Sodium 40 mg DAILY IV 02/01/25 10:00 02/01/25 10:50 40 MG Acetaminophen 650 mg Q6HPRN PRN PO 02/01/25 05:30 Acetaminophen/ Hydrocodone Bitart 1 tab Q6HPRN PRN PO 02/01/25 05:30 Calcium Carbonate 500 mg TID PO 02/01/25 06:00 02/02/25 06:44 500 MG Cholestyramine Resin 4 gm TID PO 02/01/25 06:00 02/02/25 06:44 4 GM Calcitriol 0.5 mcg DAILY PO 02/01/25 10:00 02/02/25 09:38 0.5 MCG Cholecalciferol 2,000 unit DAILY PO 02/01/25 10:00 02/02/25 09:38 2,000 UNIT Ferrous Sulfate 325 mg BIDWM PO 02/01/25 18:00 02/02/25 09:38 325 MG Melatonin 5 mg HS PRN PO 02/01/25 23:15 Vancomycin HCl 0 ml @ 0 mls/hr UD IV 02/02/25 06:00 Ceftriaxone Sodium 50 ml @ 100 mls/hr DAILY@09 IV 02/02/25 09:00 objective Anxious gentleman comfortable in bed. Heart regular rate and rhythm S1-S2 without murmurs. Lungs fair air movement without rales. Abdomen soft positive bowel sounds nontender. Extremities no edema positive pulses. laboratory and microbiology Laboratory Tests 02/02/25 05:46 Test 02/02/25 05:46 Range/Units Serum Glucose 87 74-106 mg/dL Assessment/Plan He is clinically stable. Afebrile. PICC line insertion site appears clean without any erythema or edema. Continue empiric antibiotics till final cultures available. Continue regular diet. Hold off on TPN for now. Okay to use PICC line for antibiotics and fluids. Encouraged activity and ambulation. Discussed with the patient regarding his care plan along with the nurse at bedside and has verbalized understanding of his diagnosis and treatment and agree with the current care plan as outlined. Problems(with codes): (1) Acute kidney injury (2) Crohn's disease (3) On total parenteral nutrition (TPN) (4) Hypoalbuminemia (5) Generalized weakness Dietary Evaluation Review Comments: 1) BRAT diet with probiotics daily 2) Monitor PO intakes, Lab values, wt trend Expected Outcomes/Goals: To meet >75% estimated needs Fu 3-5 days Plan discussed with: Patient MATTHEW GTZ MD Feb 02, 2025 13:06
--- NOTE | 2025-02-02 18:02 | DVHPN2 ---
Progress Note Date Seen: Feb 02, 2025 Medical Necessity Reason Pt with a Central, PICC or Fol: No Subjective Patient reports: No new complaints Review of Systems: HEENT:Normal, CVS:Normal, RESPIRATORY:Normal, GI:Normal, :Normal, MSK:Normal, NEURO:Normal Objective vital signs Vital Sign Date Time Temp Pulse Resp B/P (MAP) Pulse Ox O2 Delivery O2 Flow Rate FiO2 02/02/25 16:32 98.2 67 17 113/76 (88) 99 98.2 02/02/25 08:00 Room Air* 0 21 Total Intake and Output 02/01/25 02/01/25 02/02/25 15:00 23:00 07:00 Intake Total 2000 ml 705 ml Output Total 430 ml Balance 1570 ml 705 ml medications Current Medications Medications Dose Ordered Sig/Rick Route Start Time Stop Time Status Last Admin Dose Admin Sodium Chloride 1,000 ml @ 100 mls/hr Q10H IV 02/01/25 05:30 02/02/25 02:15 100 MLS/HR Ondansetron HCl 4 mg Q6HP PRN IV 02/01/25 05:30 Pantoprazole Sodium 40 mg DAILY IV 02/01/25 10:00 02/01/25 10:50 40 MG Acetaminophen 650 mg Q6HPRN PRN PO 02/01/25 05:30 Acetaminophen/ Hydrocodone Bitart 1 tab Q6HPRN PRN PO 02/01/25 05:30 Calcium Carbonate 500 mg TID PO 02/01/25 06:00 02/02/25 14:38 500 MG Cholestyramine Resin 4 gm TID PO 02/01/25 06:00 02/02/25 06:44 4 GM Calcitriol 0.5 mcg DAILY PO 02/01/25 10:00 02/02/25 09:38 0.5 MCG Cholecalciferol 2,000 unit DAILY PO 02/01/25 10:00 02/02/25 09:38 2,000 UNIT Ferrous Sulfate 325 mg BIDWM PO 02/01/25 18:00 02/02/25 16:46 325 MG Melatonin 5 mg HS PRN PO 02/01/25 23:15 Vancomycin HCl 0 ml @ 0 mls/hr UD IV 02/02/25 06:00 Ceftriaxone Sodium 50 ml @ 100 mls/hr DAILY@09 IV 02/02/25 09:00 Examination: GENERAL:Normal, HEENT:Normal, NECK:Normal, LUNGS:Normal, CVS:Normal, ABDOMEN:Normal, MSK:Normal, SKIN:Normal, NEURO:Normal, :Normal laboratory and microbiology Laboratory Tests 02/02/25 05:46 Test 02/02/25 05:46 Range/Units Serum Glucose 87 74-106 mg/dL Microbiology Date/Time Source Procedure Growth Status 02/01/25 12:27 Stool Stool Culture - Preliminary Resulted 02/01/25 12:27 Stool Shiga Toxin I & II - Final Resulted 02/01/25 12:27 Stool Clostridium difficile Toxin Assay - Final Resulted 02/01/25 03:50 Blood Blood Culture - Preliminary Resulted Problem List/Assessment/Plan Problem List/Assessment/Plan Acute kidney injury likely acute tubular necrosis Crohn's disease status post colostomy---high output from colostomy Atrophic right kidney Baseline Chronic kidney disease four GFR 24---sees Bilateral renal calculi Recommendations Continue IV fluids,, urine output is slightly better No uremic symptoms 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
[2025-02-03] VITALS (8 sets, daily range): BP systolic 95–131; BP diastolic 56–78; PULSE 68–82; RESP 15–17; TEMP 98–98.6; O2SAT 96–99
[2025-02-03 06:50] LABS: Potassium 4.1 mmol/L (3.5-5.1); Sodium 139 mmol/L (136-145)
[2025-02-03 06:51] LABS: Anion Gap 18 (5-15); Calcium 8.9 mg/dL (8.7-10.4); Carbon Dioxide 27 mmol/L (20-31)
[2025-02-03 06:53] LABS: Chloride 94 mmol/L (98-107)
[2025-02-03 06:56] LABS: BUN/Creatinine Ratio 7.8 (10.0-20.0); Glucose 94 mg/dL (74-106)
[2025-02-03 07:22] LABS: Blood Urea Nitrogen 85 mg/dL (9-23)
--- NOTE | 2025-02-03 14:29 | DVHPN2 ---
Progress Note - Dictate Date Seen: Feb 03, 2025 Medical Necessity Reason Pt with a Central, PICC or Fol: No Subjective He is clinically stable. No diarrhea. Tolerating regular diet. Call Or Contact Centre Manager is at bedside vital signs Vital Sign Date Time Temp Pulse Resp B/P (MAP) Pulse Ox O2 Delivery O2 Flow Rate FiO2 02/03/25 09:00 98.6 71 15 112/73 (86) 97 98.6 02/03/25 08:00 Room Air* 0 21 Total Intake and Output 02/02/25 02/02/25 02/03/25 15:00 23:00 07:00 Intake Total 250 ml 400 ml 830 ml Output Total 400 ml Balance 250 ml 0 ml 830 ml medications Current Medications Medications Dose Ordered Sig/Rick Route Start Time Stop Time Status Last Admin Dose Admin Sodium Chloride 1,000 ml @ 100 mls/hr Q10H IV 02/01/25 05:30 02/03/25 07:30 100 MLS/HR Ondansetron HCl 4 mg Q6HP PRN IV 02/01/25 05:30 Acetaminophen 650 mg Q6HPRN PRN PO 02/01/25 05:30 Acetaminophen/ Hydrocodone Bitart 1 tab Q6HPRN PRN PO 02/01/25 05:30 Calcium Carbonate 500 mg TID PO 02/01/25 06:00 02/03/25 06:19 500 MG Cholestyramine Resin 4 gm TID PO 02/01/25 06:00 02/03/25 06:19 4 GM Calcitriol 0.5 mcg DAILY PO 02/01/25 10:00 02/03/25 10:06 0.5 MCG Cholecalciferol 2,000 unit DAILY PO 02/01/25 10:00 02/03/25 10:06 2,000 UNIT Ferrous Sulfate 325 mg BIDWM PO 02/01/25 18:00 02/03/25 10:06 325 MG Melatonin 5 mg HS PRN PO 02/01/25 23:15 Pantoprazole Sodium 40 mg DAILY@0600 PO 02/04/25 06:00 objective Anxious gentleman comfortable in bed. Heart regular rate and rhythm S1-S2 without murmurs. Lungs fair air movement without rales. Abdomen soft positive bowel sounds nontender. Extremities no edema positive pulses. laboratory and microbiology Laboratory Tests 02/03/25 05:03 02/02/25 05:46 Test 02/03/25 05:03 Range/Units Serum Glucose 94 74-106 mg/dL Assessment/Plan 1/2 blood cultures bottles are positive degree with a Gram-negative coagulase organisms suggestive of contamination. Therefore we will discontinue empiric IV antibiotics including vancomycin today. Continue IV fluids and encouraged hydration to improve his kidney function. Monitor his urine output. Otherwise continue rest of supportive care and treatment. Discussed with the supervisor hot dip plating as well as patient's nurse regarding care plan on the medical floor. Problems(with codes): (1) On total parenteral nutrition (TPN) (2) Crohn's disease (3) Generalized weakness (4) Dehydration (5) Acute kidney injury Dietary Evaluation Review Comments: 1) BRAT diet with probiotics daily 2) Monitor PO intakes, Lab values, wt trend Expected Outcomes/Goals: To meet >75% estimated needs Fu 3-5 days Plan discussed with: Other MATTHEW GTZ MD Feb 03, 2025 14:29
[2025-02-03] MEDS: SODIUM CHLORIDE 0.9% 1,000 ML IV SCH (14:44)
--- NOTE | 2025-02-03 16:14 | DVHPN2 ---
Progress Note Date Seen: Feb 03, 2025 Medical Necessity Reason Pt with a Central, PICC or Fol: No Subjective Patient reports: No new complaints, Feels better Review of Systems: HEENT:Normal, CVS:Normal, RESPIRATORY:Normal, GI:Normal, :Normal, MSK:Normal, NEURO:Normal Objective vital signs Vital Sign Date Time Temp Pulse Resp B/P (MAP) Pulse Ox O2 Delivery O2 Flow Rate FiO2 02/03/25 13:00 98.0 68 17 114/76 (89) 97 98.0 02/03/25 08:00 Room Air* 0 21 Total Intake and Output 02/02/25 02/02/25 02/03/25 15:00 23:00 07:00 Intake Total 250 ml 400 ml 830 ml Output Total 400 ml Balance 250 ml 0 ml 830 ml medications Current Medications Medications Dose Ordered Sig/Rick Route Start Time Stop Time Status Last Admin Dose Admin Ondansetron HCl 4 mg Q6HP PRN IV 02/01/25 05:30 Acetaminophen 650 mg Q6HPRN PRN PO 02/01/25 05:30 Acetaminophen/ Hydrocodone Bitart 1 tab Q6HPRN PRN PO 02/01/25 05:30 Calcium Carbonate 500 mg TID PO 02/01/25 06:00 02/03/25 15:04 500 MG Cholestyramine Resin 4 gm TID PO 02/01/25 06:00 02/03/25 15:04 4 GM Calcitriol 0.5 mcg DAILY PO 02/01/25 10:00 02/03/25 10:06 0.5 MCG Cholecalciferol 2,000 unit DAILY PO 02/01/25 10:00 02/03/25 10:06 2,000 UNIT Ferrous Sulfate 325 mg BIDWM PO 02/01/25 18:00 02/03/25 10:06 325 MG Melatonin 5 mg HS PRN PO 02/01/25 23:15 Pantoprazole Sodium 40 mg DAILY@0600 PO 02/04/25 06:00 Sodium Chloride 1,000 ml @ 150 mls/hr Q6H40M IV 02/03/25 14:30 02/03/25 14:44 150 MLS/HR Examination: GENERAL:Normal, LUNGS:Normal, CVS:Normal, ABDOMEN:Abnormal (colostomy ), MSK:Normal, SKIN:Normal, NEURO:Normal laboratory and microbiology Laboratory Tests 02/03/25 05:03 02/02/25 05:46 Test 02/03/25 05:03 Range/Units Serum Glucose 94 74-106 mg/dL Microbiology Date/Time Source Procedure Growth Status 02/01/25 12:27 Stool Stool Culture - Final Complete 02/01/25 12:27 Stool Shiga Toxin I & II - Final Complete 02/01/25 12:27 Stool Clostridium difficile Toxin Assay - Final Complete 02/01/25 03:50 Blood Blood Culture - Preliminary Resulted Problem List/Assessment/Plan Problem List/Assessment/Plan Acute kidney injury likely acute tubular necrosis sec to high output colostomy Crohn's disease status post colostomy---high output from colostomy Atrophic right kidney Baseline Chronic kidney disease four GFR 24---sees Bilateral renal calculi Recommendations Continue IV fluids,, urine output is slightly better--he is adamant to go home tomorrow No uremic symptoms,non oliguric for now 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
[2025-02-03] MEDS: DICYCLOMINE HCL 10 MG CAP PO ONE (21:36)
--- NOTE | 2025-02-04 00:38 | DVHPN2 ---
Progress Note - Dictate Date Seen: Feb 04, 2025 Medical Necessity Reason Pt with a Central, PICC or Fol: No Subjective Patient was more amenable to communication today Apparently he has been followed by gastro group for several years and has a history of Crohn's colitis Patient had partial resection of his colon least on two previous occasions many years ago Patient was on Humira for several years and that use to control his symptoms but it stopped working Patient is now on Skyvizzi with that was also not helpful; he has been treated good steroids in the past Patient was referred to colorectal surgeon in [facility] who decided to proceed with a diverting ileostomy just to help him with his chronic diarrhea Patient stated he has taken Imodium Questran and multiple medications in the diarrhea does not improve However after the ileostomy he has had moderate amount of diarrhea leading to acute renal insufficiency and dehydration Patient is feeling better today since he has been receiving IV hydration and he is also tolerating some powering and Gatorade Stool for WBC and occult blood is negative at this time pointing against acute inflammation of the distal small bowel vital signs Vital Sign Date Time Temp Pulse Resp B/P (MAP) Pulse Ox O2 Delivery O2 Flow Rate FiO2 02/03/25 21:00 98.3 68 16 131/78 (95) 99 98.3 02/03/25 20:00 Room Air* 0 21 Total Intake and Output 02/03/25 02/03/25 02/04/25 15:00 23:00 07:00 Intake Total 550 ml 1905 ml Output Total 100 ml Balance 550 ml 1805 ml medications Current Medications Medications Dose Ordered Sig/Rick Route Start Time Stop Time Status Last Admin Dose Admin Ondansetron HCl 4 mg Q6HP PRN IV 02/01/25 05:30 Acetaminophen 650 mg Q6HPRN PRN PO 02/01/25 05:30 Acetaminophen/ Hydrocodone Bitart 1 tab Q6HPRN PRN PO 02/01/25 05:30 Calcium Carbonate 500 mg TID PO 02/01/25 06:00 02/03/25 21:36 500 MG Cholestyramine Resin 4 gm TID PO 02/01/25 06:00 02/03/25 21:36 4 GM Calcitriol 0.5 mcg DAILY PO 02/01/25 10:00 02/03/25 10:06 0.5 MCG Cholecalciferol 2,000 unit DAILY PO 02/01/25 10:00 02/03/25 10:06 2,000 UNIT Ferrous Sulfate 325 mg BIDWM PO 02/01/25 18:00 02/03/25 17:53 325 MG Melatonin 5 mg HS PRN PO 02/01/25 23:15 02/03/25 21:43 5 MG Pantoprazole Sodium 40 mg DAILY@0600 PO 02/04/25 06:00 Sodium Chloride 1,000 ml @ 150 mls/hr Q6H40M IV 02/03/25 14:30 02/04/25 00:16 150 MLS/HR objective Anxious gentleman comfortable in bed. Heart regular rate and rhythm S1-S2 without murmurs. Lungs fair air movement without rales. Abdomen soft positive bowel sounds nontender. Extremities no edema positive pulses. laboratory and microbiology Laboratory Tests 02/03/25 05:03 02/02/25 05:46 Test 02/03/25 05:03 Range/Units Serum Glucose 94 74-106 mg/dL Problems(with codes): (1) Crohn's disease (2) Generalized weakness (3) Dehydration (4) Diarrhea (5) Acute kidney injury (6) Hypoalbuminemia (7) On total parenteral nutrition (TPN) (8) Electrolyte imbalance Prognosis Plan Continue supportive care Patient was given reassurance He may be a candidate for trial of outpatient Tremfya Currently I put him on Bentyl 10 mg p.o. three times a day to help slow his intestinal motility I will also put him on Entocort 3 mg p.o. twice a day We will put him on Protonix 40 mg p.o. twice a day to cut down intestinal acid Patient will be following up with a gastro group on upon discharge Continue to monitor labs and advance diet as tolerated Dietary Evaluation Review Comments: 1) BRAT diet with probiotics daily 2) Monitor PO intakes, Lab values, wt trend Expected Outcomes/Goals: To meet >75% estimated needs Fu 3-5 days Plan discussed with: Patient, Other (nurse) LIO LEON MD Feb 04, 2025 00:38
[2025-02-04 01:08] VITALS: BP 112/68; PULSE 67; RESP 18; TEMP 98.3; O2SAT 95
[2025-02-04 05:22] VITALS: BP 122/68; PULSE 72; RESP 18; TEMP 98.4; O2SAT 94
[2025-02-04] MEDS ORDERED: PANTOPRAZOLE 40 MG TAB PO SCH (06:00)
[2025-02-04 06:50] LABS: Anion Gap 15 (5-15); Carbon Dioxide 26 mmol/L (20-31); Chloride 99 mmol/L (98-107); Potassium 4.1 mmol/L (3.5-5.1); Sodium 140 mmol/L (136-145)
[2025-02-04 06:52] LABS: Calcium 8.2 mg/dL (8.7-10.4)
[2025-02-04 06:56] LABS: BUN/Creatinine Ratio 7.4 (10.0-20.0); Blood Urea Nitrogen 77 mg/dL (9-23); Glucose 86 mg/dL (74-106)
[2025-02-04 08:00] VITALS: PULSE 68
[2025-02-04] MEDS: PANTOPRAZOLE 40 MG TAB PO SCH (08:45)
[2025-02-04 09:26] VITALS: BP 113/62; PULSE 65; RESP 16; TEMP 97.7; O2SAT 99
--- NOTE | 2025-02-04 11:32 | DVHDS2 ---
Discharge Summary Date of Admission Feb 01, 2025 at 05:20 Date of Discharge: Feb 04, 2025 Labs/Diagnostic Data: Laboratory Results Test 02/04/25 05:23 02/03/25 05:03 02/02/25 05:46 02/01/25 12:41 Sodium Level 140 mmol/L (136-145) Potassium Level 4.1 mmol/L (3.5-5.1) Chloride Level 99 mmol/L (98-107) Carbon Dioxide Level 26 mmol/L (20-31) Anion Gap 15 (5-15) Blood Urea Nitrogen 77 mg/dL (9-23) Creatinine 10.47 mg/dL (0.700-1.30) Glomerular Filtration Rate Calc 5 mL/min (>90) BUN/Creatinine Ratio 7.4 (10.0-20.0) Serum Glucose 86 mg/dL (74-106) Calcium Level 8.2 mg/dL (8.7-10.4) Random Vancomycin Level 20.5 ug/mL (5-10) White Blood Count 5.8 10^3/uL (4.4-10.8) Red Blood Count 2.68 10^6/uL (4.5-5.90) Hemoglobin 8.5 g/dL (13.5-17.5) Hematocrit 24.3 % (41.0-53.0) Mean Corpuscular Volume 90.6 fL (80.0-100.0) Mean Corpuscular Hemoglobin 31.6 pg (28.0-32.0) Mean Corpuscular Hemoglobin Concent 34.9 g/dL (32.0-36.0) Red Cell Distribution Width 19.9 % (11.8-14.3) Platelet Count 212 10^3/uL (140-450) Mean Platelet Volume 8.9 fL (6.9-10.8) Neutrophils (%) (Auto) 76.2 % (37.0-80.0) Lymphocytes (%) (Auto) 11.6 % (10.0-50.0) Monocytes (%) (Auto) 3.9 % (0.0-12.0) Eosinophils (%) (Auto) 7.2 % (0.0-7.0) Basophils (%) (Auto) 1.1 % (0.0-2.0) Neutrophils # (Auto) 4.4 10 ^3/uL (1.6-8.6) Lymphocytes # (Auto) 0.7 10 ^3/uL (0.4-5.4) Monocytes # (Auto) 0.2 10 ^3/uL (0-1.3) Eosinophils # (Auto) 0.4 10 ^3/uL (0-0.8) Basophils # (Auto) 0.1 10 ^3/uL (0-0.2) Nucleated Red Blood Cells 0.0 % Urine Color Light-yellow (Yellow) Urine Clarity Turbid (Clear) Urine pH 8.0 (5.0-9.0) Urine Specific [place] 1.013 (1.001-1.035) Urine Protein 1+ (Negative) Urine Ketones Negative (Negative) Urine Blood Negative /uL (Negative) Urine Nitrite Negative (Negative) Urine Bilirubin Negative (Negative) Urine Urobilinogen Normal mg/dL (Negative) Urine Leukocyte Esterase 3+ /uL (Negative) Urine RBC 12 /hpf (0 - 3) Urine Microscopic WBC 199 /HPF (0-3) Urine Squamous Epithelial Cells None seen /hpf (<5) Urine Bacteria Few /hpf (None Seen) Urine Glucose Normal mg/dL (Normal) Test 02/01/25 12:27 02/01/25 04:41 02/01/25 03:35 Stool Occult Blood Negative (Negative) Stool Occult Blood Sample #3 (Negative) Stool for White Cells None seen Troponin I High Sensitivity 5 ng/L (</=54) Lactic Acid Level 1.8 mmol/L (0.4-2.0) Total Bilirubin 0.2 mg/dL (0.2-1.0) Aspartate Amino Transferase (AST) 20 U/L (<34) Alanine Aminotransferase (ALT) 13 U/L (7-40) Alkaline Phosphatase 99 U/L (46-116) B-Type Natriuretic Peptide 17.78 pg/mL (0-100) Total Protein 8.3 g/dL (5.7-8.2) Albumin 4.4 g/dL (3.2-4.8) Other Laboratory Tests 02/04/25 05:23 02/02/25 05:46 Final Diagnosis/Problems List alexei, hx of chron's dz on home TPN Discharge Disposition: Home Discharge Instruct/Medications Diet: Consistent carbohydrate, Cardiac 2g Na,low cholest Activity: No Restrictions, As Tolerated [facility] [phone] to repeat labs BMP and Blood cultures x2 on Tuesday Medications: home medications Discharge Statement: "Patient was advised to return to the ER or call 911 if any headaches, dizziness, shortness of breath, chest pain, abdominal pain, bleeding, fevers, or worsening of medical condition. Patient was counseled about treatment plan, medications, possible side effects, patientverbalized understanding. All questions were answered to the best of my ability. This discharge took greater then 30 minutes in planning, reviewing documentation, counseling the patient, and discussing with other team members." ASSESSMENT ASSESSMENT Assessment alexei, hx of chron's dz on home TPN MATTHEW GTZ MD Feb 04, 2025 11:32
[2025-02-04 13:14] VITALS: BP 122/75; PULSE 64; RESP 16; TEMP 96.5; O2SAT 100
--- NOTE | 2025-02-04 13:15 | DVHPN2 ---
Progress Note Date Seen: Feb 04, 2025 Medical Necessity Reason Pt with a Central, PICC or Fol: No Objective vital signs Vital Sign Date Time Temp Pulse Resp B/P (MAP) Pulse Ox O2 Delivery O2 Flow Rate FiO2 02/04/25 09:26 97.7 65 16 113/62 (79) 99 97.7 02/04/25 08:00 Room Air* 0 21 Total Intake and Output 02/03/25 02/03/25 02/04/25 15:00 23:00 07:00 Intake Total 550 ml 1905 ml 1975 ml Output Total 100 ml 350 ml Balance 550 ml 1805 ml 1625 ml medications Current Medications Medications Dose Ordered Sig/Rick Route Start Time Stop Time Status Last Admin Dose Admin Ondansetron HCl 4 mg Q6HP PRN IV 02/01/25 05:30 Acetaminophen 650 mg Q6HPRN PRN PO 02/01/25 05:30 Acetaminophen/ Hydrocodone Bitart 1 tab Q6HPRN PRN PO 02/01/25 05:30 Calcium Carbonate 500 mg TID PO 02/01/25 06:00 02/04/25 05:55 500 MG Cholestyramine Resin 4 gm TID PO 02/01/25 06:00 02/04/25 05:55 4 GM Calcitriol 0.5 mcg DAILY PO 02/01/25 10:00 02/04/25 08:45 0.5 MCG Cholecalciferol 2,000 unit DAILY PO 02/01/25 10:00 02/04/25 08:45 2,000 UNIT Ferrous Sulfate 325 mg BIDWM PO 02/01/25 18:00 02/04/25 08:46 325 MG Melatonin 5 mg HS PRN PO 02/01/25 23:15 02/03/25 21:43 5 MG Sodium Chloride 1,000 ml @ 150 mls/hr Q6H40M IV 02/03/25 14:30 02/04/25 08:47 150 MLS/HR Pantoprazole Sodium 40 mg BID PO 02/04/25 10:00 02/04/25 08:45 40 MG Dicyclomine HCl 10 mg TID PO 02/04/25 14:00 laboratory and microbiology Laboratory Tests 02/04/25 05:23 02/02/25 05:46 Test 02/04/25 05:23 Range/Units Serum Glucose 86 74-106 mg/dL Microbiology Date/Time Source Procedure Growth Status 02/01/25 12:27 Stool Stool Culture - Final Complete 02/01/25 12:27 Stool Shiga Toxin I & II - Final Complete 02/01/25 12:27 Stool Clostridium difficile Toxin Assay - Final Complete 02/01/25 03:50 Blood Blood Culture - Preliminary Resulted Problem List/Assessment/Plan Problem List/Assessment/Plan Acute kidney injury likely acute tubular necrosis sec to high output colostomy Crohn's disease status post colostomy---high output from colostomy Atrophic right kidney Baseline Chronic kidney disease four GFR 24---sees Bilateral renal calculi Recommendations Continue IV fluids,, urine output is slightly better--he is adamant to go home today No uremic symptoms,non oliguric for now 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
[2025-02-04] MEDS: DICYCLOMINE HCL 10 MG CAP PO SCH (13:53)
== END 2025-02-04 15:50 | disposition home health service (06) | DRG 641 ==
LOC: ER 03:14 → OVERFLOW 05:20 → TELE-EAST 16:22
PROVIDERS: ADMIT Nurse Practitioner Family; ATTEND Nurse Practitioner Family
DX: E86.0 Dehydration (principal); N17.9 Acute kidney failure, unspecified; N26.1 Atrophy of kidney (terminal); N18.9 Chronic kidney disease, unspecified; E86.1 Hypovolemia; N20.0 Calculus of kidney; F17.210 Nicotine dependence, cigarettes, uncomplicated; Z93.3 Colostomy status; Z79.899 Other long term (current) drug therapy
CPT/HCPCS: 36415; 71045; 74176; 76775; 80048; 80053; 80202; 81001; 82270; 83605; 83880; 84484; 85025; 85048; 87040; 87045; 87077; 87186; 87427; 87493; 96360; G0378; J2470

== ENCOUNTER 2025-03-29 16:43 | Inpatient (IN) | payer OTHER ==
[~2025-03-29] VITALS: Ht 175.3 cm; Wt 57.2 kg
--- NOTE | 2025-03-29 16:52 | ED.PDOC ---
History of Present Illness HPI Comments 65-year-old male with a history of Crohn's disease, and a recent abdominal operation, was brought in by emergency services with a chief complaint of a fever with the associated chills, and tremors. Patient states that he was at urgent care approximately 30 minutes before arrival to the emergency department, and notes that [facility] due to his white cell count being elevated, and for possible sepsis. Patient's EKG was noted to be 108 LAD during triage assessment. Patient denies any nausea, vomiting, diarrhea, shortness a breath, chest pain, abdominal pain, dyspnea, or any other associated symptoms, modifiers at this time. Time Seen by MD: 16:47 Primary Care Provider: OCTAVIO Reviewed Notes: Nurses Notes, Product Safety Consultant Notes, Medications, Allergies Allergies: Coded Allergies: NO KNOWN ALLERGIES (Unverified , 11/13/21) Home Meds Active Scripts Magnesium Oxide (MAGNESIUM OXIDE) 400 Mg Tab, 1 TAB PO BID, #60 TAB 5 Refills Prov:JEIMY NARVAEZ MD 10/06/24 Pantoprazole Sodium Sesquihydr (Protonix) 40 Mg Tab, 40 MG PO DAILY, #30 TAB Prov:JEIMY NARVAEZ MD 10/06/24 Prednisone (Prednisone) 5 Mg Navi, 5 MG PO DAILY, #294 PACK Please take 12 tablets for one week, then 11 tablets for one week, then 10 tablets for one week, then9 tablets for one week Prov:JEIMY NARVAEZ MD 10/06/24 Ferrous Sulfate (FERROUS SULFATE) 325 Mg Tb, 1 TAB PO BID, #60 TAB 3 Refills Prov:JEIMY NARVAEZ MD 10/06/24 Calcium Carbonate (Calcium Carbonate) 500 Mg Chw, 500 MG PO TID, #90 TAB.CHEW Prov:JEIMY NARVAEZ MD 10/06/24 Calcitriol (Calcitriol) 0.5 Mcg Cap, 0.5 MCG PO DAILY for 30 Days, #30 CAP Prov:JEIMY NARVAEZ MD 10/06/24 Cholestyramine (QUESTRAN POWDER) 4 Gm Pw, 4 GM PO TID, #90 POW Prov:MATTHEW GTZ MD 07/22/24 Reported Medications Cholecalciferol (Vitamin D-3 Super Strengt) 2,000 Unit Tab, 1 TAB PO DAILY 09/29/24 Information Source: Patient, Emergency Med Personnel Mode of Arrival: EMS Severity: Moderate Timing: Hours Duration: Since onset, Hours Prehospital treatment: 12 Lead EKG, Accucheck, Combine Inspector Past Medical History Past Medical History (Other): Crohn's disease Surgical History: Denies all surgeries Family History Family History: Reviewed,noncontributory to illness Social History Smoker: Cigarettes, Less Than 1 Pack/Day Alcohol: Denies ETOH Use Drugs: Denies Drug Use Lives In: Home Constitutional: reports: chills, fever; denies: diaphoresis, fatigue, malaise, sweats, weakness, others EENTM: denies: blurred vision, double vision, ear bleeding, ear discharge, ear drainage, ear pain, ear ringing, eye pain, eye redness, hearing loss, mouth pain, mouth swelling, nasal discharge, nose bleeding, nose congestion, nose pain, photophobia, tearing, throat pain, throat swelling, voice changes, others Respiratory: denies: cough, hemoptysis, orthopnea, SOB at rest, shortness of breath, SOB with excertion, stridor, wheezing, others Cardiovascular: denies: chest pain, dizzy spells, diaphoresis, Dyspnea on exertion, edema, irregular heart beat, left arm pain, lightheadedness, palpitations, PND, syncope, others Gastrointestinal: denies: abdomen distended, abdominal pain, blood streaked bowels, constipated, diarrhea, dysphagia, difficulty swallowing, hematemesis, melena, nausea, poor appetite, poor fluid intake, rectal bleeding, rectal pain, vomiting, others Genitourinary: denies: burning, dysuria, flank pain, frequency, hematuria, incontinence, penile discharge, penile sore, pain, testicle pain, testicle swelling, urgency, others Neurological: denies: dizziness, fainting, headache, left sided numbness, left sided weakness, numbness, paresthesia, pre-existing deficit, right sided numbness, right sided weakness, seizure, speech problems, tingling, tremors, weakness, others Musculoskeletal: reports: others (Tremors); denies: back pain, gout, joint pain, joint swelling, muscle pain, muscle stiffness, neck pain Integumetry: denies: bruises, change in color, change in hair/nails, dryness, laceration, lesions, lumps, rash, wounds, others Allergic/Immunocompromised: denies: Difficulty Healing, Frequent Infections, Hives, Itching, others Hematologic/Lymphatic: denies: anemia, blood clots, easy bleeding, easy bruising, swollen glands, others Endocrine: denies: excessive hunger, excessive sweating, excessive thirst, excessive urination, flushing, intolerance to cold, intolerance to heat, unexplained weight gain, unexplained weight loss, others Psychiatric: denies: anxiety, bipolar disorder, depression, hopeless, panic disorder, schizophrenia, sleepless, suicidal, others All Other Systems: Reviewed and Negative Physical Exam General Appearance: Moderate Distress, Normal HEENT: Normal ENT Inspection, Pharynx Normal, TMs Normal Neck: Full Range of Motion, Non-Tender, Normal, Normal Inspection Respiratory: Chest Non-Tender, Lungs Clear, No Accessory Muscle Use, No Respiratory Distress, Normal Breath Sounds Cardiovascular: No Edema, No JVD, No Murmur, No Gallop, Normal Peripheral Pulses, Tachycardia Breast Exam: Deferred Gastrointestinal: No Organomegaly, Non Tender, No Pulsatile Mass, Normal Bowel Sounds, Soft Genitalia: Deferred Pelvic: Deferred Rectal: Deferred Extremities: No calf tenderness, Normal capillary refill, Normal inspection, Normal range of motion, Non-tender, No pedal edema Musculoskeletal : Apperance: Normal Neurologic: Alert, editor sound II-XII nml as Tested, No Motor Deficits, Normal Affect, Normal Mood, No Sensory Deficits Cerebellar Function: NOT DONE Reflexes: NOT DONE Skin: Dry, Normal Color, Warm Peripheral Pulses: 3+ Radial (R), 3+ Radial (L) Lymphatic: No Adenopathy Was a procedure done? Was a procedure done?: No EKG EKG : Pulse Rate (adult): 108 [place]: LAD Cardiac Rhythm: ST Block: None Hypertrophy: None ST: Normal Differential Dx Considerations may include: Sepsis, Crohn's disease, colitis, gastritis, influenza X-Ray, Labs, Meds, VS Vital Signs Date Time Temp Pulse Resp B/P (MAP) Pulse Ox O2 Delivery O2 Flow Rate FiO2 03/29/25 16:52 99.7 107 22 132/74 99 99.7 03/29/25 16:52 108 03/29/25 16:43 108 Lab Test 03/29/25 17:00 Range/Units White Blood Count 17.0 H 4.4-10.8 10^3/uL Red Blood Count 3.11 L 4.5-5.90 10^6/uL Hemoglobin 9.2 L 13.5-17.5 g/dL Hematocrit 28.0 L 41.0-53.0 % Mean Corpuscular Volume 90.2 80.0-100.0 fL Mean Corpuscular Hemoglobin 29.6 28.0-32.0 pg Mean Corpuscular Hemoglobin Concent 32.8 32.0-36.0 g/dL Red Cell Distribution Width 18.7 H 11.8-14.3 % Platelet Count 167 140-450 10^3/uL Mean Platelet Volume 7.8 6.9-10.8 fL Neutrophils (%) (Auto) 95.0 H 37.0-80.0 % Lymphocytes (%) (Auto) 1.9 L 10.0-50.0 % Monocytes (%) (Auto) 2.6 0.0-12.0 % Eosinophils (%) (Auto) 0.2 0.0-7.0 % Basophils (%) (Auto) 0.3 0.0-2.0 % Neutrophils # (Auto) 16.1 H 1.6-8.6 10 ^3/uL Lymphocytes # (Auto) 0.3 L 0.4-5.4 10 ^3/uL Monocytes # (Auto) 0.4 0-1.3 10 ^3/uL Eosinophils # (Auto) 0 0-0.8 10 ^3/uL Basophils # (Auto) 0.1 0-0.2 10 ^3/uL Nucleated Red Blood Cells 0.1 % Prothrombin Time Pending Prothrombin Time INR Pending Activated Partial Thromboplast Time Pending Sodium Level Pending Potassium Level Pending Chloride Level Pending Carbon Dioxide Level Pending Anion Gap Pending Blood Urea Nitrogen Pending Creatinine Pending Glomerular Filtration Rate Calc Pending BUN/Creatinine Ratio Pending Serum Glucose Pending Lactic Acid Level Pending Calcium Level Pending Total Bilirubin Pending Aspartate Amino Transferase (AST) Pending Alanine Aminotransferase (ALT) Pending Alkaline Phosphatase Pending Total Protein Pending Albumin Pending Patient alert. Saturation within normal limits. Tachycardia. Blood pressure within normal limits. Mild fever. He is shaking. Possible sepsis. Establish intravenous access. Was given fluids. Sepsis protocol. EKG reviewed does not show any acute changes. Recently had abdominal surgery. History of Crohn's. Explained to the patient. Continue monitoring. Time of 1ST Reevaluation: 17:17 Reevaluation 1ST: Unchanged Patient Education/Counseling: Diagnosis, Treatment, Need For Follow Up Family Education/Counseling: No Family Present SEPSIS Sepsis Screen Physician Orders Comprehensive Metabolic Panel (03/29/25 16:46) PTPTT (03/29/25 16:46) Urinalysis (03/29/25 16:46) Chest Portable (03/29/25 16:46) Accucheck (03/29/25 16:46) Blood Culture (03/29/25 16:46) Lactic Acid W/ Reflex Order (03/29/25 18:00) Cefepime 1gm/ 50ml (Maxipime 1gm/50ml) (03/29/25 22:00) Notify Md If Map <65 Or Bp<90 (03/29/25 16:46) If Map<65 Start Vasopressor (03/29/25 16:46) Sepsis Reassesment After Fluid (03/29/25 17:46) Metronidazole 500mg/100ml (Flagyl 500mg/ (03/29/25 17:00) Electrocardigram (03/29/25 16:50) Cefepime 1gm/ 50ml (Maxipime 1gm/50ml) (03/29/25 17:00) Ct Ab Pel Wo Con-No Oral Or Iv (03/29/25 17:16) Vital Signs Date Time Temp Pulse Resp B/P (MAP) Pulse Ox O2 Delivery O2 Flow Rate FiO2 03/29/25 16:52 99.7 107 22 132/74 99 99.7 03/29/25 16:52 108 03/29/25 16:43 108 Laboratory Tests Test 03/29/25 17:00 Lactic Acid Level Pending White Blood Count 17.0 10^3/uL (4.4-10.8) H Departure 1 Departure Time of Disposition: 17:15 Impression: Primary Impression: Sepsis, unspecified organism Qualified Codes: A41.9 - Sepsis, unspecified organism Disposition: ADMITTED INPATIENT Admit to: Med Surg Condition: Guarded Critical Care Note Critical Care Time?: Yes (90 min-critical care time only) Stability Stability form required: No Heart Score Heart Score: Heart Score Response (Comments) Value History Slightly Suspicious 0 EKG Normal 0 Age 45-64 1 Risk Factors 1 or 2 risk factors 1 Troponin Normal limit 0 Total 2 I personally scribed for ELÍAS FAIR MD ([email or web address]) on 03/29/25 at 16:52. Electronically submitted by [employer]ía ([email or web address]). ELÍAS FAIR MD Mar 29, 2025 16:52
[2025-03-29 17:28] LABS: Hematocrit 28.0 % (41.0-53.0); Hemoglobin 9.2 g/dL (13.5-17.5); Mean Corpuscular Hemoglobin 29.6 pg (28.0-32.0); Mean Corpuscular Volume 90.2 fL (80.0-100.0); Nucleated Red Blood Cells % 0.1 %
--- NOTE | 2025-03-29 17:37 | DVH ---
CHEST RADIOGRAPH Indication: sob Technique: Single frontal view of the chest was obtained Comparison: XY CHEST PORTABLE on DOS: 02/01/25, XY CHEST PORTABLE on DOS: 09/28/24, XY CHEST PORTABLE o n DOS: 07/13/24 FINDINGS: Lines and Tubes: Dual lumen internal jugular catheter in place unchanged with the tip in the right at rium. Lungs: Comparison to 2024 there is increasing bronchovascular markings in the right base. The ma y represent airspace disease correlate with clinical setting. Pleura: No effusion. No pneumothorax. Cardiomediastinal contours: Unremarkable Bones: No acute osseous abnormality. IMPRESSION: 1. Hemodialysis catheter in place in the right internal jugular vein with the tip in the right atrium . 2. Increased bronchovascular markings in the right base may represent developing airspace disease com pared to January of 2025.
[2025-03-29 17:40] LABS: INR 1.17 (0.9-1.15); Partial Thromboplastin Time 32.0 SEC (24.5-34.5); Prothrombin Time 12.2 sec (9.3-11.8)
[2025-03-29 17:45] LABS: Alanine Aminotransferase 21 U/L (7-40); Albumin 3.4 g/dL (3.2-4.8); Alkaline Phosphatase 111 U/L (46-116); Anion Gap 13 (5-15); BUN/Creatinine Ratio 8.3 (10.0-20.0); Carbon Dioxide 23 mmol/L (20-31); Potassium 3.6 mmol/L (3.5-5.1); Total Protein 7.6 g/dL (5.7-8.2)
[2025-03-29 17:46] LABS: Bilirubin, Total 0.8 mg/dL (0.2-1.0)
[2025-03-29 17:50] LABS: Blood Urea Nitrogen 37 mg/dL (9-23); Calcium 8.4 mg/dL (8.7-10.4); Chloride 94 mmol/L (98-107); Glucose 112 mg/dL (74-106); Sodium 130 mmol/L (136-145)
[2025-03-29 17:54] VITALS: PULSE 106; RESP 22; O2SAT 98
--- NOTE | 2025-03-29 17:57 | DVH ---
Exam: CT CT AB PEL WO CON-NO ORAL OR IV History: colitis Comparison Study: CT CT AB PEL WO CON-NO ORAL OR IV on DOS: 02/01/25, CT CT AB PEL WO CON-NO ORAL OR I V on DOS: 09/28/24, CT CT AB PEL WO CON-NO ORAL OR IV on DOS: 07/19/24 TECHNIQUE: Multidetector CT of the abdomen was performed from lung bases to pubic symphysis. Imaging was performed without IV contrast. Axial, coronal and sagittal multiplanar reformats were obtained fr om the axial data set by the technologist. Radiation Dose Information: CT Dose: CTDI volume is 5.07 mGy. Dose-length product is 259.72 mGy*cm FINDINGS: Evaluation of solid organs is limited due to lack of intravenous contrast use. Findings: Lung Bases: No acute or significant lung base finding. Normal heart size. Trace pericardial effusion .. Small bilateral pleural effusions. Liver: The liver is normal in size. No focal lesions. Liver measures 17 cm long Gallbladder and Biliary Tree: Unremarkable Spleen: Splenomegaly with the spleen measuring 15 cm long. Pancreas: The pancreas is grossly normal in appearance. Adrenal Glands: Unremarkable Kidneys: Atrophic left kidney. Multiple small calculi right kidney with no hydronephrosis. Left kidne y measures 7.9 cm long. Right kidney measures 8.5 cm long. Bladder: Grossly unremarkable for degree of distention. Bowel: The stomach is grossly normal in appearance. Small bowel and colon are normal in caliber and d istribution. Postop changes right lower quadrant. Skin closure azra in the midline The appendix is not visualized; however, no secondary findings of acute appendicitis identified. Ascites: Absent Lymphadenopathy: No mesenteric, retroperitoneal or periportal lymphadenopathy. Abdominal Wall and Mesentery: Unremarkable. Vasculature: The visualized abdominal aorta is normal in size and caliber. Evaluation of abdominal a nd pelvic vessels is limited due to lack of intravenous contrast. Pelvic Organs: Unremarkable Musculoskeletal: No aggressive focal bony lesions, acute fractures or dislocation. Soft tissues: Unremarkable IMPRESSION: 1. Abdominal surgery . Rectum is still in place no stomas noted. Correlate with surgical history. 2. Skin closure azra in the abdominal midline 3. No free air or free fluid 4. No abnormal bowel distention. Radiation optimization: All CT scans at this facility use at least one of these dose optimization jagdish hniques: automated exposure control mA and/or kV adjustment per patient size (includes targeted exam s where dose is matched to clinical indication) or iterative reconstruction.
[2025-03-29] MEDS ORDERED: NITROGLYCERIN 0.4 MG SL TAB SL PRN (18:30)
[2025-03-29] MEDS ORDERED: MORPHINE SULFATE INJ 2 MG/ml SYRG IV PRN (18:30)
[2025-03-29] MEDS ORDERED: VANCOMYCIN PER PHARMACY 0 MG IV SCH (18:30)
[2025-03-29] MEDS: CEFEPIME 1GM/ 50ML 50 ML IV ONE (18:36)
[2025-03-29] MEDS: VANCOMYCIN 1GM/250ML KIT 250 ML IV ONE (18:36)
[2025-03-29] MEDS: SODIUM CHLORIDE 0.9% 1,000 ML IV SCH (18:55)
[2025-03-29] MEDS ORDERED: ONDANSETRON HCL 4 MG/2 ML VIAL IV PRN (20:15)
[2025-03-29] MEDS: MICAFUNGIN SODIUM 100 MG in SODIUM CHL 0.9% 100 ML IV ONE (20:17)
[2025-03-29] MEDS: CEFEPIME 1GM/ 50ML 50 ML IV SCH (22:00)
[2025-03-29] MEDS: CALCIUM CARB 500 MG CHEW TAB PO ONE (22:00)
[2025-03-29] MEDS: FERROUS SULFATE 325mg EC TAB PO SCH (22:00)
[2025-03-29] MEDS ORDERED: CEFEPIME 1GM/ 50ML 50 ML IV ONE (22:00)
[2025-03-29] MEDS ORDERED: CEFEPIME 1GM/ 50ML 50 ML IV SCH (22:00)
--- NOTE | 2025-03-29 23:28 | DVHINCON2 ---
Date of service: Mar 29, 2025 Family History: Patient reports no known family medical history. Allergies: Coded Allergies: NO KNOWN ALLERGIES (Unverified , 11/13/21) Home Meds Active Scripts Magnesium Oxide (MAGNESIUM OXIDE) 400 Mg Tab, 1 TAB PO BID, #60 TAB 5 Refills Prov:JEIMY NARVAEZ MD 10/06/24 Pantoprazole Sodium Sesquihydr (Protonix) 40 Mg Tab, 40 MG PO DAILY, #30 TAB Prov:JEIMY NARVAEZ MD 10/06/24 Prednisone (Prednisone) 5 Mg Navi, 5 MG PO DAILY, #294 PACK Please take 12 tablets for one week, then 11 tablets for one week, then 10 tablets for one week, then9 tablets for one week Prov:JEIMY NARVAEZ MD 10/06/24 Ferrous Sulfate (FERROUS SULFATE) 325 Mg Tb, 1 TAB PO BID, #60 TAB 3 Refills Prov:JEIMY NARVAEZ MD 10/06/24 Calcium Carbonate (Calcium Carbonate) 500 Mg Chw, 500 MG PO TID, #90 TAB.CHEW Prov:JEIMY NARVAEZ MD 10/06/24 Calcitriol (Calcitriol) 0.5 Mcg Cap, 0.5 MCG PO DAILY for 30 Days, #30 CAP Prov:JEIMY NARVAEZ MD 10/06/24 Cholestyramine (QUESTRAN POWDER) 4 Gm Pw, 4 GM PO TID, #90 POW Prov:MATTHEW GTZ MD 07/22/24 Reported Medications Cholecalciferol (Vitamin D-3 Super Strengt) 2,000 Unit Tab, 1 TAB PO DAILY 09/29/24 Current Medications Current Medications Medications (Trade) Dose Ordered Sig/Rick Route PRN Reason Start Time Stop Time Status Last Admin Cefepime HCl 50 ml @ 12.5 mls/hr Q8HR IV 03/29/25 22:00 03/29/25 20:06 DC Nitroglycerin (Ntrostat Sublingual) 0.4 mg Q5MINP PRN SL FOR CHEST PAIN 03/29/25 18:30 Morphine Sulfate 2 mg Q30M PRN IV FOR CHEST PAIN 03/29/25 18:30 Sodium Chloride 1,000 ml @ 50 mls/hr Q20H IV 03/29/25 18:30 03/29/25 18:55 Vancomycin HCl 0 ml @ 0 mls/hr UD IV 03/29/25 18:30 UNV Cefepime HCl 50 ml @ 12.5 mls/hr Q12HR IV 03/29/25 22:00 Morphine Sulfate 2 mg Q4HPRN PRN IV SEVERE PAIN (7-10 PAIN SCALE) 03/29/25 18:30 Micafungin Sodium 100 mg/Sodium Chloride 100 ml @ 100 mls/hr DAILY IV 03/30/25 10:00 Calcium Carbonate (Tums) 500 mg TIDWM PO 03/30/25 08:00 Ferrous Sulfate 325 mg BID PO 03/29/25 22:00 Pantoprazole Sodium (Protonix Tablet) 40 mg DAILY PO 03/30/25 10:00 Calcitriol (Rocaltrol Capsule) 0.5 mcg DAILY PO 03/30/25 10:00 Cholecalciferol (Vitamin D3 Tablet) 2,000 unit DAILY PO 03/30/25 10:00 Ondansetron HCl (Zofran) 4 mg Q4HPRN PRN IV NAUSEA / VOMITING 03/29/25 20:15 Vital Signs Vital Signs Date Time Temp Pulse Resp B/P (MAP) Pulse Ox O2 Delivery O2 Flow Rate FiO2 03/29/25 20:00 102 03/29/25 20:00 99.0 16 129/72 (91) 98 99.0 03/29/25 18:54 Non-Rebreather 15 N/A Labs/Diagnostic Data Labs Test 03/29/25 17:00 Range/Units White Blood Count 17.0 H 4.4-10.8 10^3/uL Red Blood Count 3.11 L 4.5-5.90 10^6/uL Hemoglobin 9.2 L 13.5-17.5 g/dL Hematocrit 28.0 L 41.0-53.0 % Mean Corpuscular Volume 90.2 80.0-100.0 fL Mean Corpuscular Hemoglobin 29.6 28.0-32.0 pg Mean Corpuscular Hemoglobin Concent 32.8 32.0-36.0 g/dL Red Cell Distribution Width 18.7 H 11.8-14.3 % Platelet Count 167 140-450 10^3/uL Mean Platelet Volume 7.8 6.9-10.8 fL Neutrophils (%) (Auto) 95.0 H 37.0-80.0 % Lymphocytes (%) (Auto) 1.9 L 10.0-50.0 % Monocytes (%) (Auto) 2.6 0.0-12.0 % Eosinophils (%) (Auto) 0.2 0.0-7.0 % Basophils (%) (Auto) 0.3 0.0-2.0 % Neutrophils # (Auto) 16.1 H 1.6-8.6 10 ^3/uL Lymphocytes # (Auto) 0.3 L 0.4-5.4 10 ^3/uL Monocytes # (Auto) 0.4 0-1.3 10 ^3/uL Eosinophils # (Auto) 0 0-0.8 10 ^3/uL Basophils # (Auto) 0.1 0-0.2 10 ^3/uL Nucleated Red Blood Cells 0.1 % Prothrombin Time 12.2 H 9.3-11.8 sec Prothrombin Time INR 1.17 H 0.9-1.15 Activated Partial Thromboplast Time 32.0 24.5-34.5 SEC Sodium Level 130 L 136-145 mmol/L Potassium Level 3.6 3.5-5.1 mmol/L Chloride Level 94 L 98-107 mmol/L Carbon Dioxide Level 23 20-31 mmol/L Anion Gap 13 5-15 Blood Urea Nitrogen 37 H 9-23 mg/dL Creatinine 4.44 H 0.700-1.30 mg/dL Glomerular Filtration Rate Calc 14 >90 mL/min BUN/Creatinine Ratio 8.3 L 10.0-20.0 Serum Glucose 112 H 74-106 mg/dL Lactic Acid Level 1.9 0.4-2.0 mmol/L Calcium Level 8.4 L 8.7-10.4 mg/dL Total Bilirubin 0.8 0.2-1.0 mg/dL Aspartate Amino Transferase (AST) 29 13-40 U/L Alanine Aminotransferase (ALT) 21 7-40 U/L Alkaline Phosphatase 111 46-116 U/L Total Protein 7.6 5.7-8.2 g/dL Albumin 3.4 3.2-4.8 g/dL Problems(with codes): (1) Staphylococcus aureus bacteremia (2) Sepsis, unspecified organism (3) Crohn's disease (4) Diarrhea (5) Bacteremia Plan/Recommendation ASSESSMENT AND PLAN: ID Problem List: \-- Asthma \-- Crohn's disease \-- Chronic kidney disease (CKD) \-- Recent abdominal surgery with colostomy placement and TPN \-- Fever, leukocytosis (WBC 17 on admission), chills, tremors \-- Blood culture positive for Staphylococcus aureus (gram positive cocci in clusters) \-- HD catheter Assessment This is a 65-year-old male with complex past medical history including asthma, Crohn's disease, and chronic kidney disease, who presents with fever, chills, tremors, and leukocytosis (WBC 17 on admission, improved to 7.3). Patient has a recent history of colostomy placement for Crohn's disease with ongoing TPN. There is a history of multiple admissions for acute renal failure, the most recent being in January 2025. On this admission, the patient was started on vancomycin and cephalamine. Of note, blood cultures have grown gram positive cocci in clusters (Staphylococcus aureus, 2 out of 4 bottles), indicating a catheter-related bloodstream infection; the HD catheter is the likely source. Recent imaging did not show evidence of ongoing abdominal infection. Plan: \-- Continue vancomycin for bacteremia (Staph aureus). Duration may be six weeks if endocarditis is found. \-- Discontinue cephsporin and other antibiotics, as ongoing abdominal infection is not suspected. \-- Recommend HD catheter removal, line holiday, and repeat blood cultures 2-3 days after blood cultures have cleared before replacing HD catheter. \-- Await nephrology clearance for HD catheter removal. \-- Monitor for clinical improvement and follow-up blood/diagnostic results. \-- Consider echocardiogram to rule out endocarditis. \-- Monitor vital signs and laboratory data. Isolation Precautions: standard \*Assessment and plan was discussed with the patient as written above \*Plan is subject to change pending incorporation of new incoming informat ion/diagnostics. Updates may be added as addendum at the bottom (OR TOP) of this note Thank you for consult. ID will continue to follow. Please contact Infectious Disease for any questions or concerns. Sharri Wallace M.D. [facility] Ph: ? \ History: The patient's chart and medications were reviewed in detail and the patient was seen and examined. History obtained from: patient Teodora is a 65-year-old male, with a past medical history of asthma, Crohn's disease, chronic kidney disease, and recent abdominal surgery with colostomy placement and TPN, who presents with fever, chills, tremors, and leukocytosis found on admission. Patient had multiple admissions for acute renal failure, most recently in January 2025. Recent history includes complications after colostomy placement, such as diarrhea and liquid stool, and TPN initiation. No evidence of ongoing abdominal infection per abdominal CT. Blood cultures on this admission have grown Staphylococcus aureus. Review of Systems: A complete 10 system review of systems was completed and negative except as noted in the HPI or here. ROS: -CONSTITUTIONAL: Admits fever and chills. -HEENT: Denies changes in vision and hearing. -RESPIRATORY: Denies shortness of breath and cough. -CV: Denies palpitations and chest pain. -GI: Reports diarrhea, liquid stool, colostomy output. Denies abdominal pain, nausea, vomiting. -: Denies dysuria and urinary frequency. -MSK: Denies myalgia and joint pain. -SKIN: Denies rash and pruritus. -NEUROLOGICAL: Denies headache and syncope. -PSYCHIATRIC: Denies recent changes in mood. Denies anxiety and depression. Past Medical History: Past Medical History: Diagnosis Date Asthma Crohn's disease Chronic kidney disease Acute renal failure (multiple episodes, most recent January 2025) Past Surgical History: History reviewed. Recent colostomy placement for Crohn's disease. Home Medications: Home medication list not specified in transcript. Allergies: Allergies Not provided in transcript. Family History: Family History Not provided in transcript. Social History: Social History Tobacco Use: Not provided in transcript. Alcohol Use: Not provided in transcript. Other substances: Not provided in transcript. Social Determinants of Health Not provided in transcript. Objective: Vital Signs on Arrival: Temp: 99 F BP: 175 Pulse: 91 Resp: 16 SpO2: 98% on room air Most Recent Vital Signs: Not specifically provided in transcript. Admission Weight: Not provided in transcript. Physical Exam: General: NAD Neck: Supple. No masses. HEENT: PERRL. Normal lids and conjunctiva. Moist mucous membranes. Oropharynx without lesions, exudates or excessive erythema. Normal appearance of the external aspects of the nose and ears. Heart: Regular rhythm, normal rate. No murmur. No lower extremity edema. Lungs: Normal respiratory effort. Clear to auscultation bilaterally. No wheezes. No crackles. Abdomen: Soft. Non-tender. Non-distended. No masses or abdominal hernia. Midline abdominal azra present. Msk: No digital cyanosis. Normal strength and tone in all 4 limbs. Skin: Warm and dry, no rashes. Neuro: Alert. No facial droop or slurred speech. Extra-ocular movements intact. Sensation intact to soft touch in all 4 limbs. Psych: Appropriate mood. Full affect. Oriented to person, place, time, and situation. Lines: Active Lines: HD catheter in place Diagnostic Studies: Available diagnostic studies were reviewed personally. Significant relevant results and findings are outlined below or addressed in the Assessment and Plan above. Pertinent Imaging: Recent Results -Chest X-ray: HD catheter in right atrium, increased bronchiovascular markings may represent airspace disease. No clear evidence of acute infectious process. -CT abdomen/pelvis: Recent abdominal surgery, colostomy in place, no free air or fluid collection, normal abdominal distension, midline skin closure azra. Electronically signed by: Sharri Wallace MD Plan discussed with: Patient SHARRI WALLACE MD Mar 29, 2025 23:27
[2025-03-30] MEDS: MORPHINE SULFATE INJ 2 MG/ml SYRG IV PRN (01:13)
--- NOTE | 2025-03-30 01:21 | DVHHP2 ---
MICHEL HONG WHEAT INSPECTOR 03/30/25 0121: History of Present Illness Reason for Visit: Abnormal labs History of Present Illness 65-year-old male with past medical history of Crohn's disease, recent abdominal surgery was brought in with complaints of abnormal labs from urgent care. Patient was noted to have an elevated WBC count. Patient did endorse fever with chills and tremors. During the emergency department evaluation W17.0, H&H 9.2/28 0.0, PLT 167. Na 130, K3.6, BUN 37, creatinine 4.44, GFR 14. At this time there is no complaints of dizziness, shortness of breath, palpitations, chest pain, abdominal pain, nausea, vomiting, hematemesis, hematochezia, melena. GI: Other (Crohn's) Renal/: Chronic renal insuff Smoke: No ALCOHOL: none Drugs: None Lives: with Family Review of Systems Constitutional: Yes: Fever, Chills, Weakness, Malaise; No: Sweats, Other Eyes: No: Pain, Vision change, Conjunctivae inflammation, Eyelid inflammation, Other, Redness ENT: No: Ear pain, Ear discharge, Nose pain, Nose discharge, Nose congestion, Mouth pain, Mouth swelling, Throat pain, Throat swelling, Other Respiratory: No: Cough, Dry, Shortness of breath, SOB with excertion, Wheezing, Hemoptysis, Pleuritic Pain, Sputum, Wheezing, Other Cardiovascular: No: Chest Pain, Palpitations, Orthopnea, Paroxysmal Noc. Dyspnea, Edema, Lt Headedness, Other Gastrointestinal: No: Nausea, Vomiting, Abdominal Pain, Diarrhea, Constipation, Melena, Hematochezia, Other Genitourinary: No Dysuria, No Frequency, No Incontinence, No Hematuria, No Retention, No Other Musculoskeletal: No: other, neck pain, shoulder pain, arm pain, back pain, hand pain, leg pain, foot pain Skin: No: Rash, Lesions, Jaundice, Bruising, Other Neurological: No: Weakness, Numbness, Incoordination, Change in speech, Confusion, Seizures, Other Allergies: Coded Allergies: NO KNOWN ALLERGIES (Unverified , 11/13/21) Medications Current Medications Medications Dose Ordered Sig/Rick Route Start Time Stop Time Status Last Admin Dose Admin Nitroglycerin 0.4 mg Q5MINP PRN SL 03/29/25 18:30 Morphine Sulfate 2 mg Q30M PRN IV 03/29/25 18:30 03/30/25 01:13 2 MG Sodium Chloride 1,000 ml @ 50 mls/hr Q20H IV 03/29/25 18:30 03/29/25 18:55 50 MLS/HR Vancomycin HCl 0 ml @ 0 mls/hr UD IV 03/29/25 18:30 UNV Cefepime HCl 50 ml @ 12.5 mls/hr Q12HR IV 03/29/25 22:00 03/29/25 22:00 12.5 MLS/HR Morphine Sulfate 2 mg Q4HPRN PRN IV 03/29/25 18:30 Micafungin Sodium 100 mg/Sodium Chloride 100 ml @ 100 mls/hr DAILY IV 03/30/25 10:00 Calcium Carbonate 500 mg TIDWM PO 03/30/25 08:00 Ferrous Sulfate 325 mg BID PO 03/29/25 22:00 03/29/25 22:00 325 MG Pantoprazole Sodium 40 mg DAILY PO 03/30/25 10:00 Calcitriol 0.5 mcg DAILY PO 03/30/25 10:00 Cholecalciferol 2,000 unit DAILY PO 03/30/25 10:00 Ondansetron HCl 4 mg Q4HPRN PRN IV 03/29/25 20:15 Exam Vital Signs Vital Signs Date Time Temp Pulse Resp B/P (MAP) Pulse Ox O2 Delivery O2 Flow Rate FiO2 03/30/25 01:13 91 16 121/75 03/29/25 20:00 99.0 98 99.0 03/29/25 18:54 Non-Rebreather 15 N/A General Appearance: Alert, Oriented X3, Cooperative, moderate distress HEENT: Atraumatic, PERRLA, EOMI Respiratory: Clear to auscultation, Normal air movement Cardiovascular: Regular rate, Normal S1, Normal S2 Abdominal: Normal bowel sounds, Soft, No tenderness Extremities: No cyanosis, No edema Skin: No rashes Neuro: Normal speech, Strength at 5/5 X4 ext Psych/Mental Status: Mental status NL, Mood NL Labs/Xrays Labs Test 03/29/25 17:00 Range/Units White Blood Count 17.0 H 4.4-10.8 10^3/uL Red Blood Count 3.11 L 4.5-5.90 10^6/uL Hemoglobin 9.2 L 13.5-17.5 g/dL Hematocrit 28.0 L 41.0-53.0 % Mean Corpuscular Volume 90.2 80.0-100.0 fL Mean Corpuscular Hemoglobin 29.6 28.0-32.0 pg Mean Corpuscular Hemoglobin Concent 32.8 32.0-36.0 g/dL Red Cell Distribution Width 18.7 H 11.8-14.3 % Platelet Count 167 140-450 10^3/uL Mean Platelet Volume 7.8 6.9-10.8 fL Neutrophils (%) (Auto) 95.0 H 37.0-80.0 % Lymphocytes (%) (Auto) 1.9 L 10.0-50.0 % Monocytes (%) (Auto) 2.6 0.0-12.0 % Eosinophils (%) (Auto) 0.2 0.0-7.0 % Basophils (%) (Auto) 0.3 0.0-2.0 % Neutrophils # (Auto) 16.1 H 1.6-8.6 10 ^3/uL Lymphocytes # (Auto) 0.3 L 0.4-5.4 10 ^3/uL Monocytes # (Auto) 0.4 0-1.3 10 ^3/uL Eosinophils # (Auto) 0 0-0.8 10 ^3/uL Basophils # (Auto) 0.1 0-0.2 10 ^3/uL Nucleated Red Blood Cells 0.1 % Prothrombin Time 12.2 H 9.3-11.8 sec Prothrombin Time INR 1.17 H 0.9-1.15 Activated Partial Thromboplast Time 32.0 24.5-34.5 SEC Sodium Level 130 L 136-145 mmol/L Potassium Level 3.6 3.5-5.1 mmol/L Chloride Level 94 L 98-107 mmol/L Carbon Dioxide Level 23 20-31 mmol/L Anion Gap 13 5-15 Blood Urea Nitrogen 37 H 9-23 mg/dL Creatinine 4.44 H 0.700-1.30 mg/dL Glomerular Filtration Rate Calc 14 >90 mL/min BUN/Creatinine Ratio 8.3 L 10.0-20.0 Serum Glucose 112 H 74-106 mg/dL Lactic Acid Level 1.9 0.4-2.0 mmol/L Calcium Level 8.4 L 8.7-10.4 mg/dL Total Bilirubin 0.8 0.2-1.0 mg/dL Aspartate Amino Transferase (AST) 29 13-40 U/L Alanine Aminotransferase (ALT) 21 7-40 U/L Alkaline Phosphatase 111 46-116 U/L Total Protein 7.6 5.7-8.2 g/dL Albumin 3.4 3.2-4.8 g/dL SEPSIS Sepsis Screen Date sepsis recognized/suspect: Mar 29, 2025 Time Sepsis recognized/suspect: 1757 Recent Procedure: Yes On Antibiotic Therapy: Yes Respiratory Rate >20: Yes Heart Rate >90: Yes Temp<36 C (96.8 F) or >38.3 C: No SBP <90 or MAP <65 mmHG: No New Acute Mental Status Change: No Is the patient on CPAP, BIPAP,: No Physician Orders Ct Ab Pel Wo Con-No Oral Or Iv (03/29/25 17:16) Comprehensive Metabolic Panel (03/30/25 05:00) Complete Blood Count (03/30/25 05:00) Admit (03/29/25 18:20) Renal Standard(2gna,3gk,Lopho) (03/29/25 Dinner) * Infectious [place]- Dr. Mine Wallace (03/29/25 18:20) Echo 2d Mode Cardiac Dop (03/29/25 18:20) *[facility] (03/29/25 18:20) Nitroglycerin Sublingual (Ntrostat Subli (03/29/25 18:30) Morphine Sulfate Injection (03/29/25 18:30) Stat Ekg For Chest Pain (03/29/25 18:20) Notify Md Of Changes From Base (03/29/25 18:20) Clinical Documentation Specialist For 24 Hours (03/29/25 18:20) Emergency Dysrhythmia Protocol (03/29/25 18:20) Rhythm Strips Once Every Shift (03/29/25 18:20) Oxygen By Nasal Cannula (03/29/25 18:20) Sodium Chloride 0.9% (03/29/25 18:30) Vancomycin Per Pharmacy (03/29/25 18:30) Cefepime 1gm/ 50ml (Maxipime 1gm/50ml) (03/29/25 22:00) Morphine Sulfate Injection (03/29/25 18:30) Micafungin Sodium (Mycamine) (03/30/25 10:00) Ferrous Sulfate Tablet (03/29/25 22:00) Pantoprazole Tablet (Protonix Tablet) (03/30/25 10:00) Calcitriol Capsule (Rocaltrol Capsule) (03/30/25 10:00) Cholecalciferol Tablet (Vitamin D3 Table (03/30/25 10:00) Calcium Carbonate (Tums) (03/30/25 08:00) Vancomycin,Random (03/30/25 05:00) Ondansetron Hcl (Zofran) (03/29/25 20:15) Vital Signs Date Time Temp Pulse Resp B/P (MAP) Pulse Ox O2 Delivery O2 Flow Rate FiO2 03/30/25 01:13 91 16 121/75 03/29/25 20:00 102 03/29/25 20:00 99.0 100 16 129/72 (91) 98 99.0 03/29/25 18:54 99 Non-Rebreather 15 N/A 03/29/25 18:00 107 20 119/73 (88) 98 03/29/25 17:54 106 22 98 Room Air* 0 21 03/29/25 17:45 98.8 109 22 126/70 (88) 98 98.8 Laboratory Tests Test 03/29/25 17:00 Lactic Acid Level 1.9 mmol/L (0.4-2.0) White Blood Count 17.0 10^3/uL (4.4-10.8) H Medications Medications Dose Ordered Sig/Rick Route Start Time Stop Time Status Last Admin Dose Admin Calcium Carbonate 500 mg ONCE ONCE PO 03/29/25 22:00 03/29/25 22:01 DC 03/29/25 22:00 500 MG Cefepime HCl 50 ml @ 12.5 mls/hr Q12HR IV 03/29/25 22:00 03/29/25 22:00 12.5 MLS/HR Cefepime HCl 50 ml @ 50 mls/hr ONCE ONCE IV 03/29/25 17:00 03/29/25 17:59 DC 03/29/25 18:36 50 MLS/HR Ferrous Sulfate 325 mg BID PO 03/29/25 22:00 03/29/25 22:00 325 MG Metronidazole 100 ml @ 100 mls/hr ONCE ONCE IV 03/29/25 17:00 03/29/25 17:59 DC 03/29/25 18:36 100 MLS/HR Morphine Sulfate 2 mg Q30M PRN IV 03/29/25 18:30 03/30/25 01:13 2 MG Sodium Chloride 1,000 ml @ 50 mls/hr Q20H IV 03/29/25 18:30 03/29/25 18:55 50 MLS/HR Vancomycin HCl 250 ml @ 250 mls/hr ONCE ONCE IV 03/29/25 18:00 03/29/25 18:59 DC 03/29/25 18:36 250 MLS/HR Assessment/Plan Assessment/Plan Sepsis MAYRA on CKD Hyponatremia Plan Admit telemetry Consult infectious disease. Blood cultures pending. Broad-spectrum antibiotics. Consult nephrology. Monitor BMP. Trend BUN/creatinine. Correct electrolytes as needed. IVF. Gi ppx protonix / dvt ppx scd Plan discussed with: Patient Date of Service: Mar 30, 2025 Billing Provider: MATTHEW GTZ MD Common Visit Codes: NOT BILLABLE MATTHEW GTZ MD 03/30/25 1807: Review of Systems Allergies: Coded Allergies: NO KNOWN ALLERGIES (Unverified , 11/13/21) Additional Comments Additional Comments Additional Comments Patient's chart is reviewed and discussed with the nurse practitioner. Patient is seen and evaluated by me earlier today. I agree with the nurse practitioner's evaluation, documentation, assessment and care plan as outlined. MICHEL HONG NP Mar 30, 2025 01:21 MATTHEW GTZ MD Mar 30, 2025 18:07
[2025-03-30 04:44] LABS: Nucleated Red Blood Cells % 0.0 %
[2025-03-30 04:46] LABS: Hematocrit 24.1 % (41.0-53.0); Hemoglobin 8.1 g/dL (13.5-17.5); Mean Corpuscular Hemoglobin 30.3 pg (28.0-32.0); Mean Corpuscular Volume 90.3 fL (80.0-100.0)
[2025-03-30 04:58] LABS: Alanine Aminotransferase 19 U/L (7-40); Albumin 3.1 g/dL (3.2-4.8); Alkaline Phosphatase 97 U/L (46-116); Anion Gap 10 (5-15); BUN/Creatinine Ratio 8.5 (10.0-20.0); Blood Urea Nitrogen 39 mg/dL (9-23); Calcium 8.0 mg/dL (8.7-10.4); Carbon Dioxide 24 mmol/L (20-31); Chloride 96 mmol/L (98-107); Glucose 104 mg/dL (74-106); Potassium 3.4 mmol/L (3.5-5.1); Sodium 130 mmol/L (136-145); Total Protein 6.4 g/dL (5.7-8.2)
[2025-03-30 04:59] LABS: Bilirubin, Total 0.4 mg/dL (0.2-1.0)
[2025-03-30 08:00] VITALS: PULSE 89; RESP 16; O2SAT 96
[2025-03-30] MEDS: CALCIUM CARB 500 MG CHEW TAB PO SCH (08:00)
--- NOTE | 2025-03-30 09:17 | DVHINCON2 ---
Date of service: Mar 30, [address] Artis Reason for Consultation End-stage renal disease to manage hemodialysis History of Present Illness Patient is a 65-year-old male with past medical history significant for end- stage renal disease on hemodialysis, nephrolithiasis and Crohn's disease recently had abdominal surgery is admitted for fever chills and septic symptoms on admission Nephrology is consulted to manage his hemodialysis Past Medical History Crohn's disease Bilateral nephrolithiasis End-stage renal disease on hemodialysis Past Surgical History Abdominal surgery Right IJ tunneled hemodialysis catheter Allergies: Coded Allergies: NO KNOWN ALLERGIES (Unverified , 11/13/21) Home Meds Active Scripts Magnesium Oxide (MAGNESIUM OXIDE) 400 Mg Tab, 1 TAB PO BID, #60 TAB 5 Refills Prov:JEIMY NARVAEZ MD 10/06/24 Pantoprazole Sodium Sesquihydr (Protonix) 40 Mg Tab, 40 MG PO DAILY, #30 TAB Prov:JEIMY NARVAEZ MD 10/06/24 Prednisone (Prednisone) 5 Mg Navi, 5 MG PO DAILY, #294 PACK Please take 12 tablets for one week, then 11 tablets for one week, then 10 tablets for one week, then9 tablets for one week Prov:JEIMY NARVAEZ MD 10/06/24 Ferrous Sulfate (FERROUS SULFATE) 325 Mg Tb, 1 TAB PO BID, #60 TAB 3 Refills Prov:JEIMY NARVAEZ MD 10/06/24 Calcium Carbonate (Calcium Carbonate) 500 Mg Chw, 500 MG PO TID, #90 TAB.CHEW Prov:JEIMY NARVAEZ MD 10/06/24 Calcitriol (Calcitriol) 0.5 Mcg Cap, 0.5 MCG PO DAILY for 30 Days, #30 CAP Prov:JEIMY NARVAEZ MD 10/06/24 Cholestyramine (QUESTRAN POWDER) 4 Gm Pw, 4 GM PO TID, #90 POW Prov:MATTHEW GTZ MD 07/22/24 Reported Medications Cholecalciferol (Vitamin D-3 Super Strengt) 2,000 Unit Tab, 1 TAB PO DAILY 09/29/24 Current Medications Current Medications Medications (Trade) Dose Ordered Sig/Rick Route PRN Reason Start Time Stop Time Status Last Admin Cefepime HCl 50 ml @ 12.5 mls/hr Q8HR IV 03/29/25 22:00 03/29/25 20:06 DC Nitroglycerin (Ntrostat Sublingual) 0.4 mg Q5MINP PRN SL FOR CHEST PAIN 03/29/25 18:30 Morphine Sulfate 2 mg Q30M PRN IV FOR CHEST PAIN 03/29/25 18:30 03/30/25 01:13 Sodium Chloride 1,000 ml @ 50 mls/hr Q20H IV 03/29/25 18:30 03/29/25 18:55 Vancomycin HCl 0 ml @ 0 mls/hr UD IV 03/29/25 18:30 Cefepime HCl 50 ml @ 12.5 mls/hr Q12HR IV 03/29/25 22:00 03/29/25 22:00 Morphine Sulfate 2 mg Q4HPRN PRN IV SEVERE PAIN (7-10 PAIN SCALE) 03/29/25 18:30 Micafungin Sodium 100 mg/Sodium Chloride 100 ml @ 100 mls/hr DAILY IV 03/30/25 10:00 03/30/25 10:24 Calcium Carbonate (Tums) 500 mg TIDWM PO 03/30/25 08:00 Ferrous Sulfate 325 mg BID PO 03/29/25 22:00 03/30/25 10:23 Pantoprazole Sodium (Protonix Tablet) 40 mg DAILY PO 03/30/25 10:00 03/30/25 10:23 Calcitriol (Rocaltrol Capsule) 0.5 mcg DAILY PO 03/30/25 10:00 Cholecalciferol (Vitamin D3 Tablet) 2,000 unit DAILY PO 03/30/25 10:00 03/30/25 10:23 Ondansetron HCl (Zofran) 4 mg Q4HPRN PRN IV NAUSEA / VOMITING 03/29/25 20:15 Family History: Patient reports no known family medical history. Review of Systems All 12 item review of systems reviewed with the patient nonsignificant except what is mentioned in the history of present illness H&P Exam Vital Signs/I&O Vital Sign Date Time Temp Pulse Resp B/P (MAP) Pulse Ox O2 Delivery O2 Flow Rate FiO2 03/30/25 08:00 98.0 89 16 117/70 (86) 96 98.0 03/30/25 08:00 Room Air* 0 21 Intake and Output 03/29/25 03/30/25 19:00 07:00 Intake Total 400 ml Balance 400 ml Intake IV Total 400 ml Physical Exam Patient is awake alert appeared in no acute distress Lungs clear to auscultation bilaterally Cardiac exam regular rate and rhythm GI soft bowel sounds are present was normal Extremities no clubbing cyanosis or edema Neuro nonfocal Labs/Diagnostic Data Labs/Diagnostic Data Laboratory Tests Test 03/30/25 10:30 03/30/25 04:19 03/29/25 17:00 Range/Units White Blood Count 11.5 #H 17.0 H 4.4-10.8 10^3/uL Red Blood Count 2.67 L 3.11 L 4.5-5.90 10^6/uL Hemoglobin 8.1 L 9.2 L 13.5-17.5 g/dL Hematocrit 24.1 #L 28.0 L 41.0-53.0 % Mean Corpuscular Volume 90.3 90.2 80.0-100.0 fL Mean Corpuscular Hemoglobin 30.3 29.6 28.0-32.0 pg Mean Corpuscular Hemoglobin Concent 33.6 32.8 32.0-36.0 g/dL Red Cell Distribution Width 19.2 H 18.7 H 11.8-14.3 % Platelet Count 142 167 140-450 10^3/uL Mean Platelet Volume 7.7 7.8 6.9-10.8 fL Neutrophils (%) (Auto) 90.5 H 95.0 H 37.0-80.0 % Lymphocytes (%) (Auto) 3.7 L 1.9 L 10.0-50.0 % Monocytes (%) (Auto) 4.8 2.6 0.0-12.0 % Eosinophils (%) (Auto) 0.6 0.2 0.0-7.0 % Basophils (%) (Auto) 0.4 0.3 0.0-2.0 % Neutrophils # (Auto) 10.4 H 16.1 H 1.6-8.6 10 ^3/uL Lymphocytes # (Auto) 0.4 0.3 L 0.4-5.4 10 ^3/uL Monocytes # (Auto) 0.6 0.4 0-1.3 10 ^3/uL Eosinophils # (Auto) 0.1 0 0-0.8 10 ^3/uL Basophils # (Auto) 0 0.1 0-0.2 10 ^3/uL Nucleated Red Blood Cells 0.0 0.1 % Sodium Level 130 L 130 L 136-145 mmol/L Potassium Level 3.4 L 3.6 3.5-5.1 mmol/L Chloride Level 96 L 94 L 98-107 mmol/L Carbon Dioxide Level 24 23 20-31 mmol/L Anion Gap 10 13 5-15 Blood Urea Nitrogen 39 H 37 H 9-23 mg/dL Creatinine 4.57 H 4.44 H 0.700-1.30 mg/dL Glomerular Filtration Rate Calc 14 14 >90 mL/min BUN/Creatinine Ratio 8.5 L 8.3 L 10.0-20.0 Serum Glucose 104 112 H 74-106 mg/dL Calcium Level 8.0 L 8.4 L 8.7-10.4 mg/dL Total Bilirubin 0.4 0.8 0.2-1.0 mg/dL Aspartate Amino Transferase (AST) 26 29 13-40 U/L Alanine Aminotransferase (ALT) 19 21 7-40 U/L Alkaline Phosphatase 97 111 46-116 U/L Total Protein 6.4 7.6 5.7-8.2 g/dL Albumin 3.1 L 3.4 3.2-4.8 g/dL Random Vancomycin Level 16.0 H 5-10 ug/mL Prothrombin Time 12.2 H 9.3-11.8 sec Prothrombin Time INR 1.17 H 0.9-1.15 Activated Partial Thromboplast Time 32.0 24.5-34.5 SEC Lactic Acid Level 1.9 0.4-2.0 mmol/L Assessment End-stage renal disease on hemodialysis Sepsis History of recent abdominal surgery Crohn's disease Hypokalemia Nephrolithiasis Anemia of chronic kidney disease Recommendations Resume hemodialysis 3 times weekly Epogen 03452 units subQ 3 times weekly Strict I&Os Sepsis workup per primary team IV antibiotics GI consult We will continue to follow Patient seen and examined by myself in the ER. I discussed my plan of care with the patient and primary nurse at the bedside I would like to thank Dr. Artis for the consult, will follow up Plan discussed with: Patient MARIXA PALACIOS MD Mar 30, 2025 09:17
[2025-03-30] MEDS: PANTOPRAZOLE 40 MG TAB PO SCH (10:23)
[2025-03-30] MEDS: CHOLECALCIFEROL (VITD3) 1,000UNIT=25mCg TAB PO SCH (10:23)
[2025-03-30] MEDS: MICAFUNGIN SODIUM 100 MG in SODIUM CHL 0.9% 100 ML IV SCH (10:24)
[2025-03-30 10:58] LABS: Urine Protein, UAD 2+ (Negative)
[2025-03-30] MEDS: CALCITRIOL 0.25 MCG CAP PO SCH (11:39)
[2025-03-30] MEDS: HYDROcodone-ACET 5/325MG TAB PO PRN (13:23)
[2025-03-30 16:50] VITALS: BP 132/70; PULSE 68; TEMP 98.2; O2SAT 96
[2025-03-30 21:00] VITALS: BP 105/61; PULSE 93; RESP 17; TEMP 98.2; O2SAT 95
[2025-03-31] VITALS (8 sets, daily range): BP systolic 101–116; BP diastolic 51–66; PULSE 80–94; RESP 16–18; TEMP 97.8–99; O2SAT 95–98
[2025-03-31 07:19] LABS: Hematocrit 23.4 % (41.0-53.0)
[2025-03-31 07:22] LABS: Hemoglobin 8.0 g/dL (13.5-17.5); Mean Corpuscular Hemoglobin 30.6 pg (28.0-32.0); Mean Corpuscular Volume 90.1 fL (80.0-100.0); Nucleated Red Blood Cells % 0.1 %
[2025-03-31] MEDS: VANCOMYCIN 500mg/100mL 100 ML IV ONE (09:30)
--- NOTE | 2025-03-31 10:15 | DVHPN2 ---
Progress Note Date Seen: Mar 31, 2025 Medical Necessity Reason Pt with a Central, PICC or Fol: No Subjective Patient reports: No new complaints Other Systems: Patient seen and examined by myself today in follow-up Objective vital signs Vital Sign Date Time Temp Pulse Resp B/P (MAP) Pulse Ox O2 Delivery O2 Flow Rate FiO2 03/31/25 08:53 95 Room Air* 0 21 03/31/25 08:46 97.8 83 16 107/51 (69) 97.8 Total Intake and Output 03/30/25 03/30/25 03/31/25 15:00 23:00 07:00 Intake Total 150 ml 50 ml 50 ml Balance 150 ml 50 ml 50 ml medications Current Medications Medications Dose Ordered Sig/Rick Route Start Time Stop Time Status Last Admin Dose Admin Nitroglycerin 0.4 mg Q5MINP PRN SL 03/29/25 18:30 Morphine Sulfate 2 mg Q30M PRN IV 03/29/25 18:30 03/30/25 01:13 2 MG Sodium Chloride 1,000 ml @ 50 mls/hr Q20H IV 03/29/25 18:30 03/30/25 15:38 50 MLS/HR Vancomycin HCl 0 ml @ 0 mls/hr UD IV 03/29/25 18:30 Cefepime HCl 50 ml @ 12.5 mls/hr Q12HR IV 03/29/25 22:00 03/31/25 09:17 12.5 MLS/HR Morphine Sulfate 2 mg Q4HPRN PRN IV 03/29/25 18:30 Micafungin Sodium 100 mg/Sodium Chloride 100 ml @ 100 mls/hr DAILY IV 03/30/25 10:00 03/30/25 10:24 100 MLS/HR Calcium Carbonate 500 mg TIDWM PO 03/30/25 08:00 Ferrous Sulfate 325 mg BID PO 03/29/25 22:00 03/31/25 09:17 325 MG Pantoprazole Sodium 40 mg DAILY PO 03/30/25 10:00 03/31/25 09:17 40 MG Calcitriol 0.5 mcg DAILY PO 03/30/25 10:00 03/30/25 11:39 0.5 MCG Cholecalciferol 2,000 unit DAILY PO 03/30/25 10:00 03/31/25 09:17 2,000 UNIT Ondansetron HCl 4 mg Q4HPRN PRN IV 03/29/25 20:15 Acetaminophen/ Hydrocodone Bitart 1 tab Q4HPRN PRN PO 03/30/25 12:15 03/30/25 13:23 1 TAB Examination: LUNGS:Normal, CVS:Normal, MSK:Normal laboratory and microbiology Laboratory Tests 03/31/25 06:44 03/30/25 04:19 Test 03/30/25 04:19 Range/Units Serum Glucose 104 74-106 mg/dL Microbiology Date/Time Source Procedure Growth Status 03/29/25 17:00 Blood Blood Culture - Preliminary Resulted Problem List/Assessment/Plan Problem List/Assessment/Plan End-stage renal disease on hemodialysis Sepsis History of recent abdominal surgery Crohn's disease Hypokalemia Nephrolithiasis Anemia of chronic kidney disease Recommendations Hemodialysis times Epogen 17634 units subQ 3 times weekly Strict I&Os KCL replacement Sepsis workup per primary team IV antibiotics GI consult We will continue to follow Plan discussed with: Patient MARIXA PALACIOS MD Mar 31, 2025 10:15
[2025-03-31 10:55] LABS: Magnesium 1.8 mg/dL (1.6-2.6)
[2025-03-31] MEDS: ALPRAZolam 0.5 MG TAB PO PRN (16:33)
--- NOTE | 2025-03-31 17:43 | DVHPN2 ---
Subjective Patient feels anxious requesting anxiety medication. Blood culture Gram- positive cocci in clusters. Scheduled for dialysis tomorrow. Changes from previous H/P or p: No Changes Eyes: No Pain, No Vision change, No Conjunctivae inflammation, No Eyelid inflammation, No Other, No Redness ENT: No Ear pain, No Ear discharge, No Nose pain, No Nose discharge, No Nose congestion, No Mouth pain, No Mouth swelling, No Throat pain, No Throat swelling, No Other Cardiovascular: No Chest Pain, No Palpitations, No Orthopnea, No Paroxysmal Noc. Dyspnea, No Edema, No Lt Headedness, No Other Respiratory: No Cough, No Dry, No Shortness of breath, No SOB with excertion, No Wheezing, No Hemoptysis, No Pleuritic Pain, No Sputum, No Other Gastrointestinal: No Nausea, No Vomiting, No Abdominal Pain, No Diarrhea, No Constipation, No Melena, No Hematochezia, No Other Genitourinary: No Dysuria, No Frequency, No Incontinence, No Hematuria, No Retention, No Other Musculoskeletal: No other, No neck pain, No shoulder pain, No arm pain, No back pain, No hand pain, No leg pain, No foot pain Skin: No Rash, No Lesions, No Jaundice, No Bruising, No Other Objective Vitals Vital Signs Date Time Temp Pulse Resp B/P (MAP) Pulse Ox O2 Delivery O2 Flow Rate FiO2 03/31/25 17:00 98.8 82 16 106/57 (73) 97 98.8 03/31/25 08:53 Room Air* 0 21 Intake/Output Intake and Output 03/31/25 07:00 Intake Total 250 ml Balance 250 ml IV Total 250 ml Exam Alert awake oriented x3. HEENT neck supple no JVD. Heart regular rate and rhythm S1-S2. No audible murmurs. Lungs fair air movement without rales wheezes. Abdomen soft nontender positive bowel sounds. Extremities no edema positive pulses. Medications Current Medications Medications Dose Ordered Sig/Rick Route Start Time Stop Time Status Last Admin Dose Admin Nitroglycerin 0.4 mg Q5MINP PRN SL 03/29/25 18:30 Morphine Sulfate 2 mg Q30M PRN IV 03/29/25 18:30 03/30/25 01:13 2 MG Sodium Chloride 1,000 ml @ 50 mls/hr Q20H IV 03/29/25 18:30 03/31/25 10:30 50 MLS/HR Vancomycin HCl 0 ml @ 0 mls/hr UD IV 03/29/25 18:30 Cefepime HCl 50 ml @ 12.5 mls/hr Q12HR IV 03/29/25 22:00 03/31/25 09:17 12.5 MLS/HR Morphine Sulfate 2 mg Q4HPRN PRN IV 03/29/25 18:30 Micafungin Sodium 100 mg/Sodium Chloride 100 ml @ 100 mls/hr DAILY IV 03/30/25 10:00 03/31/25 10:00 100 MLS/HR Calcium Carbonate 500 mg TIDWM PO 03/30/25 08:00 Ferrous Sulfate 325 mg BID PO 03/29/25 22:00 03/31/25 09:17 325 MG Pantoprazole Sodium 40 mg DAILY PO 03/30/25 10:00 03/31/25 09:17 40 MG Calcitriol 0.5 mcg DAILY PO 03/30/25 10:00 03/31/25 10:00 0.5 MCG Cholecalciferol 2,000 unit DAILY PO 03/30/25 10:00 03/31/25 09:17 2,000 UNIT Ondansetron HCl 4 mg Q4HPRN PRN IV 03/29/25 20:15 Acetaminophen/ Hydrocodone Bitart 1 tab Q4HPRN PRN PO 03/30/25 12:15 03/30/25 13:23 1 TAB Alprazolam 0.5 mg Q6HP PRN PO 03/31/25 16:15 03/31/25 16:33 0.5 MG Laboratory Results Laboratory Tests 03/30/25 04:19 03/31/25 06:44 Chemistry Test 03/31/25 06:44 Magnesium Level 1.8 mg/dL (1.6-2.6) Phosphorus Level 3.8 mg/dL (2.4-5.1) Urinalysis Test 03/30/25 10:30 Urine Color Light-yellow (Yellow) Urine Clarity Clear (Clear) Urine pH 7.0 (5.0-9.0) Urine Specific [place] 1.014 (1.001-1.035) Urine Protein 2+ (Negative) H Urine Ketones Negative (Negative) Urine Blood Trace /uL (Negative) H Urine Nitrite Negative (Negative) Urine Bilirubin Negative (Negative) Urine Urobilinogen Normal mg/dL (Negative) Urine Leukocyte Esterase Negative /uL (Negative) Urine RBC 1 /hpf (0 - 3) Urine Microscopic WBC 9 /HPF (0-3) H Urine Squamous Epithelial Cells Few /hpf (<5) Urine Bacteria None seen /hpf (None Seen) Urine Glucose Trace mg/dL (Normal) Microbiology Microbiology Date/Time Source Procedure Growth Status 03/29/25 17:00 Blood Blood Culture - Preliminary Resulted Assessment/Plan Assessment/Plan End-stage renal disease on hemodialysis Sepsis with a Gram-positive bacteremia History of recent abdominal surgery Crohn's disease on chronic TPN for nutrition at home via PICC line Hypokalemia Nephrolithiasis Anemia of chronic kidney disease Continue current antibiotics as he is on. Xanax for anxiety as needed. Proceed with the dialysis tomorrow. Otherwise further clinical management per clinical course and recommendations from the consultants. Discussed with the nurse regarding care plan. Plan discussed with: Patient, Other My Orders Orders - MATTHEW GTZ MD Procedure Category Date Status Time Creatinine LAB 04/01/25 Verified 05:00 Vancomycin,Random LAB 04/01/25 Verified 05:00 Vancomycin Per IMER 03/31/25 In Process Pharmacy Protoc 09:30 Parathyroid Hormone LAB 03/31/25 In Process Intact 12:22 Alprazolam Tablet PHA 03/31/25 In Process (Xanax Tablet) 16:15 Date of Service: Mar 31, 2025 Billing Provider: MATTHEW GTZ MD Common Visit Codes: NOT BILLABLE MATTHEW GTZ MD Mar 31, 2025 17:43
--- NOTE | 2025-03-31 17:51 | DVHPN2 ---
Consult Progress Note Objective vital signs Vital Sign Date Time Temp Pulse Resp B/P (MAP) Pulse Ox O2 Delivery O2 Flow Rate FiO2 03/31/25 17:00 98.8 82 16 106/57 (73) 97 98.8 03/31/25 08:53 Room Air* 0 21 Total Intake and Output 03/30/25 03/30/25 03/31/25 15:00 23:00 07:00 Intake Total 150 ml 50 ml 50 ml Balance 150 ml 50 ml 50 ml medications Current Medications Medications Dose Ordered Sig/Rick Route Start Time Stop Time Status Last Admin Dose Admin Nitroglycerin 0.4 mg Q5MINP PRN SL 03/29/25 18:30 Morphine Sulfate 2 mg Q30M PRN IV 03/29/25 18:30 03/30/25 01:13 2 MG Sodium Chloride 1,000 ml @ 50 mls/hr Q20H IV 03/29/25 18:30 03/31/25 10:30 50 MLS/HR Vancomycin HCl 0 ml @ 0 mls/hr UD IV 03/29/25 18:30 Cefepime HCl 50 ml @ 12.5 mls/hr Q12HR IV 03/29/25 22:00 03/31/25 09:17 12.5 MLS/HR Morphine Sulfate 2 mg Q4HPRN PRN IV 03/29/25 18:30 Micafungin Sodium 100 mg/Sodium Chloride 100 ml @ 100 mls/hr DAILY IV 03/30/25 10:00 03/31/25 10:00 100 MLS/HR Calcium Carbonate 500 mg TIDWM PO 03/30/25 08:00 Ferrous Sulfate 325 mg BID PO 03/29/25 22:00 03/31/25 09:17 325 MG Pantoprazole Sodium 40 mg DAILY PO 03/30/25 10:00 03/31/25 09:17 40 MG Calcitriol 0.5 mcg DAILY PO 03/30/25 10:00 03/31/25 10:00 0.5 MCG Cholecalciferol 2,000 unit DAILY PO 03/30/25 10:00 03/31/25 09:17 2,000 UNIT Ondansetron HCl 4 mg Q4HPRN PRN IV 03/29/25 20:15 Acetaminophen/ Hydrocodone Bitart 1 tab Q4HPRN PRN PO 03/30/25 12:15 03/30/25 13:23 1 TAB Alprazolam 0.5 mg Q6HP PRN PO 03/31/25 16:15 03/31/25 16:33 0.5 MG laboratory and microbiology Laboratory Tests 03/31/25 06:44 03/30/25 04:19 Test 03/30/25 04:19 Range/Units Serum Glucose 104 74-106 mg/dL SHARRI HEATON MD Mar 31, 2025 17:51
[2025-04-01] VITALS (8 sets, daily range): BP systolic 93–126; BP diastolic 37–76; PULSE 71–93; RESP 16–18; TEMP 97.5–99.8; O2SAT 97–98
[2025-04-01] MEDS ORDERED: SODIUM CHL 0.9% 1000 ML BAG XX ONE (07:00)
--- NOTE | 2025-04-01 08:22 | ECG ---
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
--- NOTE | 2025-04-01 09:24 | DVHSR ---
APPROVED REPORT EXAM: Two-dimensional and M-mode echocardiogram with Doppler and color Doppler. Blood Pressure: 117/70 mmHg INDICATION Eval for Vegetations RISK FACTORS Height: 5' 9", Weight: 164 DIMENSIONS LVDd5.1 (3.8-5.7cm)LA (2D)4.5 (1.9-4.0cm)Aortic Root3.5 (2.0-3.7cm) LVDs4.4 (2.5-4.0cm)LA (MM) (1.9-4.0cm)Aortic Cusp Exc1.7 (1.5-2.0cm) EF (%) 40.0 (55-70%)Rt. Atrium4.2 (1.9-4.0cm)Asc. Aorta cm IVSd1.1 (0.7-1.1cm)RV (D) (1.8-2.4cm) PWd1.0 (0.7-1.1cm) Mitral Valve MitralMitral Stenosis E wave0.60m/sMV Mean GR.mmHg A wave1.00m/sMV Peak GR.mmHg E/A ratio0.62D MVAcm2 Aortic Valve Aortic ValveAortic Stenosis V10.80m/Kimberlee Mean GR.4mmHg V21.30m/[place] Peak GR.8mmHg LVOT Diameter2.1 (1.8-2.4cm)Doppler AVA2.13cm2 Tricuspid Valve TR Velocity2.10m/s [id number] Conclusion lvef 65% grade 1 diastolic dysfunction normal RV functoin left atrium enlarged no severe valve abnormalities noted
--- NOTE | 2025-04-01 18:00 | DVHPN2 ---
Progress Note Date Seen: Apr 01, 2025 Medical Necessity Reason Pt with a Central, PICC or Fol: No Subjective Patient reports: No new complaints Review of Systems: HEENT:Normal, CVS:Normal, RESPIRATORY:Normal, GI:Normal, :Normal, MSK:Normal, NEURO:Normal Objective vital signs Vital Sign Date Time Temp Pulse Resp B/P (MAP) Pulse Ox O2 Delivery O2 Flow Rate FiO2 04/01/25 16:50 99.8 86 16 110/71 (84) 97 99.8 03/31/25 23:12 Room Air* 0 21 Total Intake and Output 03/31/25 03/31/25 04/01/25 15:00 23:00 07:00 Intake Total 400 ml 150 ml Output Total 250 ml Balance 400 ml -100 ml medications Current Medications Medications Dose Ordered Sig/Rick Route Start Time Stop Time Status Last Admin Dose Admin Nitroglycerin 0.4 mg Q5MINP PRN SL 03/29/25 18:30 Morphine Sulfate 2 mg Q30M PRN IV 03/29/25 18:30 03/30/25 01:13 2 MG Vancomycin HCl 0 ml @ 0 mls/hr UD IV 03/29/25 18:30 Morphine Sulfate 2 mg Q4HPRN PRN IV 03/29/25 18:30 Calcium Carbonate 500 mg TIDWM PO 03/30/25 08:00 04/01/25 17:48 500 MG Ferrous Sulfate 325 mg BID PO 03/29/25 22:00 04/01/25 09:17 325 MG Pantoprazole Sodium 40 mg DAILY PO 03/30/25 10:00 04/01/25 09:17 40 MG Calcitriol 0.5 mcg DAILY PO 03/30/25 10:00 04/01/25 09:16 0.5 MCG Cholecalciferol 2,000 unit DAILY PO 03/30/25 10:00 04/01/25 09:16 2,000 UNIT Ondansetron HCl 4 mg Q4HPRN PRN IV 03/29/25 20:15 Acetaminophen/ Hydrocodone Bitart 1 tab Q4HPRN PRN PO 03/30/25 12:15 03/31/25 22:47 1 TAB Alprazolam 0.5 mg Q6HP PRN PO 03/31/25 16:15 03/31/25 16:33 0.5 MG laboratory and microbiology Laboratory Tests 04/01/25 07:10 03/31/25 06:44 03/30/25 04:19 Test 03/30/25 04:19 Range/Units Serum Glucose 104 74-106 mg/dL Microbiology Date/Time Source Procedure Growth Status 03/29/25 17:00 Blood Blood Culture - Preliminary Resulted Problem List/Assessment/Plan Problem List/Assessment/Plan End-stage renal disease on hemodialysis Sepsis History of recent abdominal surgery Crohn's disease Hypokalemia Nephrolithiasis Anemia of chronic kidney disease recs blood cx staph aureus 2 bottles consideration for HD cath removal and new one placement based on final cultures abx per id HD today Plan discussed with: Patient Dietary Evaluation Review Comments: 1) Harpreet 1 pk daily 2) Monitor PO intake, lab values, weight trend, and I/O Expected Outcomes/Goals: To meet >75% estimated needs Wound to improve Lab values to improve Fu 3-5 days NINOSKA EVANS MD Apr 01, 2025 18:00
[2025-04-01] MEDS: VANCOMYCIN 500mg/100mL 100 ML IV ONE (21:54)
[2025-04-01] MEDS: EPOETIN ALFA-EPBX 10,000 UNIT/1ML VIAL SC ONE (21:55)
--- NOTE | 2025-04-01 22:22 | DVHPN2 ---
Subjective Has not had dialysis this afternoon yet. Blood cultures growing staph aureus organisms. Final sensitivities are pending. Changes from previous H/P or p: No Changes Eyes: No Pain, No Vision change, No Conjunctivae inflammation, No Eyelid inflammation, No Other, No Redness ENT: No Ear pain, No Ear discharge, No Nose pain, No Nose discharge, No Nose congestion, No Mouth pain, No Mouth swelling, No Throat pain, No Throat swelling, No Other Cardiovascular: No Chest Pain, No Palpitations, No Orthopnea, No Paroxysmal Noc. Dyspnea, No Edema, No Lt Headedness, No Other Respiratory: No Cough, No Dry, No Shortness of breath, No SOB with excertion, No Wheezing, No Hemoptysis, No Pleuritic Pain, No Sputum, No Other Gastrointestinal: No Nausea, No Vomiting, No Abdominal Pain, No Diarrhea, No Constipation, No Melena, No Hematochezia, No Other Genitourinary: No Dysuria, No Frequency, No Incontinence, No Hematuria, No Retention, No Other Musculoskeletal: No other, No neck pain, No shoulder pain, No arm pain, No back pain, No hand pain, No leg pain, No foot pain Skin: No Rash, No Lesions, No Jaundice, No Bruising, No Other Objective Vitals Vital Signs Date Time Temp Pulse Resp B/P (MAP) Pulse Ox O2 Delivery O2 Flow Rate FiO2 04/01/25 21:00 98.3 71 18 121/68 (85) 97 98.3 04/01/25 19:51 Room Air* 0 21 Intake/Output Intake and Output 04/01/25 07:00 Intake Total 550 ml Output Total 250 ml Balance 300 ml Intake Oral 550 ml Output Urine Total 250 ml # Voids 2 # Bowel Movements 1 Exam Alert awake oriented x3. HEENT neck supple no JVD. Heart regular rate and rhythm S1-S2. No audible murmurs. Lungs fair air movement without rales wheezes. Abdomen soft nontender positive bowel sounds. Extremities no edema positive pulses. Medications Current Medications Medications Dose Ordered Sig/Rick Route Start Time Stop Time Status Last Admin Dose Admin Nitroglycerin 0.4 mg Q5MINP PRN SL 03/29/25 18:30 Morphine Sulfate 2 mg Q30M PRN IV 03/29/25 18:30 03/30/25 01:13 2 MG Vancomycin HCl 0 ml @ 0 mls/hr UD IV 03/29/25 18:30 Morphine Sulfate 2 mg Q4HPRN PRN IV 03/29/25 18:30 Calcium Carbonate 500 mg TIDWM PO 03/30/25 08:00 04/01/25 17:48 500 MG Ferrous Sulfate 325 mg BID PO 03/29/25 22:00 04/01/25 21:54 325 MG Pantoprazole Sodium 40 mg DAILY PO 03/30/25 10:00 04/01/25 09:17 40 MG Calcitriol 0.5 mcg DAILY PO 03/30/25 10:00 04/01/25 09:16 0.5 MCG Cholecalciferol 2,000 unit DAILY PO 03/30/25 10:00 04/01/25 09:16 2,000 UNIT Ondansetron HCl 4 mg Q4HPRN PRN IV 03/29/25 20:15 Acetaminophen/ Hydrocodone Bitart 1 tab Q4HPRN PRN PO 03/30/25 12:15 04/01/25 22:18 1 TAB Alprazolam 0.5 mg Q6HP PRN PO 03/31/25 16:15 03/31/25 16:33 0.5 MG Laboratory Results Laboratory Tests 03/30/25 04:19 03/31/25 06:44 04/01/25 07:10 Urinalysis Test 03/30/25 10:30 Urine Color Light-yellow (Yellow) Urine Clarity Clear (Clear) Urine pH 7.0 (5.0-9.0) Urine Specific [place] 1.014 (1.001-1.035) Urine Protein 2+ (Negative) H Urine Ketones Negative (Negative) Urine Blood Trace /uL (Negative) H Urine Nitrite Negative (Negative) Urine Bilirubin Negative (Negative) Urine Urobilinogen Normal mg/dL (Negative) Urine Leukocyte Esterase Negative /uL (Negative) Urine RBC 1 /hpf (0 - 3) Urine Microscopic WBC 9 /HPF (0-3) H Urine Squamous Epithelial Cells Few /hpf (<5) Urine Bacteria None seen /hpf (None Seen) Urine Glucose Trace mg/dL (Normal) Microbiology Microbiology Date/Time Source Procedure Growth Status 03/31/25 18:25 Blood Blood Culture - Preliminary NO GROWTH AFTER 24 HOURS OF INCUBATION. Resulted Assessment/Plan Assessment/Plan End-stage renal disease on hemodialysis Sepsis with a Gram-positive bacteremia History of recent abdominal surgery Crohn's disease on chronic TPN for nutrition at home via PICC line Hypokalemia Nephrolithiasis Anemia of chronic kidney disease Continue dialysis today. Given patient is tolerating diet and not on any TPN with a bacteremia we will completely remove PICC line and send it for culture. Advised the patient given he is tolerating diet he no longer needs TPN in the risks of catheter related infection outweigh the benefits at present. Patient verbalized understanding of this and agreeable to removing the PICC line. Meantime we will repeat blood cultures today again. Consider exchanging tunneled dialysis catheter if persistent bacteremia. Plan discussed with: Patient My Orders Orders - MATTHEW GTZ MD Procedure Category Date Status Time * Wound Consult CONS 03/31/25 Transmitted Vancomycin,Random LAB 04/02/25 Verified 04:00 Creatinine LAB 04/02/25 Verified 04:00 Blood Culture RIKA 04/01/25 In Process 13:07 Cleanse Wound With IMER 04/01/25 In Process Wound Clean 10:30 Date of Service: Apr 01, 2025 Billing Provider: MATTHEW GTZ MD Common Visit Codes: [id number] INP/OBS CARE(MOD) MATTHEW GTZ MD Apr 01, 2025 22:22
[2025-04-02] VITALS (8 sets, daily range): BP systolic 96–130; BP diastolic 56–80; PULSE 85–96; RESP 17–19; TEMP 97.8–99; O2SAT 97–98
[2025-04-02] MEDS ORDERED: LIDOCAINE 2%HCL (LOCAL ANESTH.) INJ 10ml MDV ONE (14:27)
--- NOTE | 2025-04-02 16:18 | DVH ---
INDICATION: POST TUNNELED POWER-LINE REMOVAL TECHNIQUE: Frontal view of the chest. COMPARISON: XY CHEST PORTABLE on DOS: 03/29/25, XY CHEST PORTABLE on DOS: 02/01/25, XY CHEST PORTABLE o n DOS: 09/28/24, XY CHEST PORTABLE on DOS: 07/13/24, CHEST PORTABLE on DOS: 11/27/21 FINDINGS: Indwelling tunneled right internal jugular line was removed.. The heart and mediastinal contours are grossly unremarkable. There is no evidence of pleural disease. The lungs are clear. The bony stru ctures of the chest are intact without fracture. Dialysis catheter present. IMPRESSION: 1. No evidence of acute disease.
--- NOTE | 2025-04-02 16:52 | DVHPN2 ---
Progress Note Date Seen: Apr 02, 2025 Medical Necessity Reason Pt with a Central, PICC or Fol: No Subjective Patient reports: No new complaints Objective vital signs Vital Sign Date Time Temp Pulse Resp B/P (MAP) Pulse Ox O2 Delivery O2 Flow Rate FiO2 04/02/25 13:00 97.8 90 18 124/77 (93) 98 97.8 04/02/25 08:15 Room Air* 0 21 Total Intake and Output 04/01/25 04/01/25 04/02/25 15:00 23:00 07:00 Intake Total 625 ml 820 ml Output Total 400 ml Balance 625 ml 420 ml medications Current Medications Medications Dose Ordered Sig/Rick Route Start Time Stop Time Status Last Admin Dose Admin Nitroglycerin 0.4 mg Q5MINP PRN SL 03/29/25 18:30 Morphine Sulfate 2 mg Q30M PRN IV 03/29/25 18:30 03/30/25 01:13 2 MG Vancomycin HCl 0 ml @ 0 mls/hr UD IV 03/29/25 18:30 Morphine Sulfate 2 mg Q4HPRN PRN IV 03/29/25 18:30 Calcium Carbonate 500 mg TIDWM PO 03/30/25 08:00 04/02/25 10:08 500 MG Ferrous Sulfate 325 mg BID PO 03/29/25 22:00 04/02/25 10:10 325 MG Pantoprazole Sodium 40 mg DAILY PO 03/30/25 10:00 04/02/25 10:08 40 MG Calcitriol 0.5 mcg DAILY PO 03/30/25 10:00 04/02/25 10:10 0.5 MCG Cholecalciferol 2,000 unit DAILY PO 03/30/25 10:00 04/02/25 10:09 2,000 UNIT Ondansetron HCl 4 mg Q4HPRN PRN IV 03/29/25 20:15 Acetaminophen/ Hydrocodone Bitart 1 tab Q4HPRN PRN PO 03/30/25 12:15 04/01/25 22:18 1 TAB Alprazolam 0.5 mg Q6HP PRN PO 03/31/25 16:15 03/31/25 16:33 0.5 MG Examination: MSK:Abnormal (infected tunneled HD cath) laboratory and microbiology Laboratory Tests 04/02/25 04:55 03/31/25 06:44 03/30/25 04:19 Test 03/30/25 04:19 Range/Units Serum Glucose 104 74-106 mg/dL Microbiology Date/Time Source Procedure Growth Status 04/01/25 14:23 Blood Blood Culture - Preliminary NO GROWTH AFTER 24 HOURS OF INCUBATION. Resulted Problem List/Assessment/Plan Problem List/Assessment/Plan End-stage renal disease on hemodialysis Sepsis likely line infection has picc and tunneled HD cath History of recent abdominal surgery Crohn's disease Hypokalemia Nephrolithiasis Anemia of chronic kidney disease recs blood cx staph aureus 2 bottles remove HD cath picc also being removed abx per id Plan discussed with: Patient My Orders My Orders Orders - NINOSKA EVANS MD Procedure Category Date Status Time Hepatitis B Surface LAB 04/02/25 In Process Antigen * Radiologist Consult CONS 04/02/25 Transmitted 10:31 Anaerobic Culture RIKA 04/02/25 Logged 14:51 * Radiologist Consult CONS 04/02/25 Transmitted 16:00 Dietary Evaluation Review Comments: 1) Harpreet 1 pk daily 2) Monitor PO intake, lab values, weight trend, and I/O Expected Outcomes/Goals: To meet >75% estimated needs Wound to improve Lab values to improve Fu 3-5 days NINOSKA EVANS MD Apr 02, 2025 16:52
--- NOTE | 2025-04-02 21:00 | DVHPN2 ---
Subjective Underwent hemodialysis yesterday. Evaluated by wood shingle roofer recommending to remove the dialysis catheter due to his Gram-positive cocci bacteremia. Changes from previous H/P or p: No Changes Eyes: No Pain, No Vision change, No Conjunctivae inflammation, No Eyelid inflammation, No Other, No Redness ENT: No Ear pain, No Ear discharge, No Nose pain, No Nose discharge, No Nose congestion, No Mouth pain, No Mouth swelling, No Throat pain, No Throat swelling, No Other Cardiovascular: No Chest Pain, No Palpitations, No Orthopnea, No Paroxysmal Noc. Dyspnea, No Edema, No Lt Headedness, No Other Respiratory: No Cough, No Dry, No Shortness of breath, No SOB with excertion, No Wheezing, No Hemoptysis, No Pleuritic Pain, No Sputum, No Other Gastrointestinal: No Nausea, No Vomiting, No Abdominal Pain, No Diarrhea, No Constipation, No Melena, No Hematochezia, No Other Genitourinary: No Dysuria, No Frequency, No Incontinence, No Hematuria, No Retention, No Other Musculoskeletal: No other, No neck pain, No shoulder pain, No arm pain, No back pain, No hand pain, No leg pain, No foot pain Skin: No Rash, No Lesions, No Jaundice, No Bruising, No Other Objective Vitals Vital Signs Date Time Temp Pulse Resp B/P (MAP) Pulse Ox O2 Delivery O2 Flow Rate FiO2 04/02/25 20:00 17 98 Room Air* 0 21 04/02/25 17:00 99.0 85 113/77 (89) 99.0 Intake/Output Intake and Output 04/02/25 07:00 Intake Total 1445 ml Output Total 400 ml Balance 1045 ml Intake Oral 1345 ml IV Total 100 ml Output Urine Total 400 ml # Voids 10 # Bowel Movements 2 Exam Alert awake oriented x3. HEENT neck supple no JVD. Heart regular rate and rhythm S1-S2. No audible murmurs. Lungs fair air movement without rales wheezes. Abdomen soft nontender positive bowel sounds. Extremities no edema positive pulses. Medications Current Medications Medications Dose Ordered Sig/Rick Route Start Time Stop Time Status Last Admin Dose Admin Nitroglycerin 0.4 mg Q5MINP PRN SL 03/29/25 18:30 Morphine Sulfate 2 mg Q30M PRN IV 03/29/25 18:30 03/30/25 01:13 2 MG Vancomycin HCl 0 ml @ 0 mls/hr UD IV 03/29/25 18:30 Morphine Sulfate 2 mg Q4HPRN PRN IV 03/29/25 18:30 Calcium Carbonate 500 mg TIDWM PO 03/30/25 08:00 04/02/25 18:04 500 MG Ferrous Sulfate 325 mg BID PO 03/29/25 22:00 04/02/25 10:10 325 MG Pantoprazole Sodium 40 mg DAILY PO 03/30/25 10:00 04/02/25 10:08 40 MG Calcitriol 0.5 mcg DAILY PO 03/30/25 10:00 04/02/25 10:10 0.5 MCG Cholecalciferol 2,000 unit DAILY PO 03/30/25 10:00 04/02/25 10:09 2,000 UNIT Ondansetron HCl 4 mg Q4HPRN PRN IV 03/29/25 20:15 Acetaminophen/ Hydrocodone Bitart 1 tab Q4HPRN PRN PO 03/30/25 12:15 04/01/25 22:18 1 TAB Alprazolam 0.5 mg Q6HP PRN PO 03/31/25 16:15 03/31/25 16:33 0.5 MG Laboratory Results Laboratory Tests 03/30/25 04:19 03/31/25 06:44 04/02/25 04:55 Urinalysis Test 03/30/25 10:30 Urine Color Light-yellow (Yellow) Urine Clarity Clear (Clear) Urine pH 7.0 (5.0-9.0) Urine Specific [place] 1.014 (1.001-1.035) Urine Protein 2+ (Negative) H Urine Ketones Negative (Negative) Urine Blood Trace /uL (Negative) H Urine Nitrite Negative (Negative) Urine Bilirubin Negative (Negative) Urine Urobilinogen Normal mg/dL (Negative) Urine Leukocyte Esterase Negative /uL (Negative) Urine RBC 1 /hpf (0 - 3) Urine Microscopic WBC 9 /HPF (0-3) H Urine Squamous Epithelial Cells Few /hpf (<5) Urine Bacteria None seen /hpf (None Seen) Urine Glucose Trace mg/dL (Normal) Microbiology Microbiology Date/Time Source Procedure Growth Status 04/01/25 14:23 Blood Blood Culture - Preliminary NO GROWTH AFTER 24 HOURS OF INCUBATION. Resulted Assessment/Plan Assessment/Plan End-stage renal disease on hemodialysis Sepsis with a Gram-positive bacteremia History of recent abdominal surgery Crohn's disease on chronic TPN for nutrition at home via PICC line Hypokalemia Nephrolithiasis Anemia of chronic kidney disease He has repeat blood cultures negative for growth so far. Given Nephrology recommendation we will have radiologist remove tunneled dialysis catheter as well as PICC line at the same time. Patient does not need any further PICC line or TPN given he is tolerating oral diet. This is discussed with the patient. Otherwise continue rest of supportive care and treatment. Further clinical management per clinical course and recommendations from the wood shingle roofer regarding further catheter placement with the dialysis close monitoring of his kidney function without dialysis. This is discussed with the patient. Plan discussed with: Patient My Orders Orders - MATTHEW GTZ MD Procedure Category Date Status Time Discontinue Picc ORDERS 04/01/25 Transmitted 22:19 Vancomycin,Random LAB 04/03/25 Verified 04:00 Creatinine LAB 04/03/25 Verified 04:00 Basic Metabolic Panel LAB 04/03/25 Verified 04:00 Heparin Sodium PHA 04/02/25 Verified (Porcine) 22:00 Date of Service: Apr 02, 2025 Billing Provider: MATTHEW GTZ MD Common Visit Codes: NOT BILLABLE MATTHEW GTZ MD Apr 02, 2025 21:00
[2025-04-02] MEDS ORDERED: HEPARIN SODIUM (PORCINE) 5000 UNITS/ML 1ML VIAL SC SCH (22:00)
[2025-04-03] VITALS (12 sets, daily range): BP systolic 116–176; BP diastolic 70–80; PULSE 80–98; RESP 14–19; TEMP 98–98.4; O2SAT 95–100
[2025-04-03 06:14] LABS: Chloride 99 mmol/L (98-107)
[2025-04-03 06:15] LABS: Anion Gap 9 (5-15); Carbon Dioxide 27 mmol/L (20-31)
[2025-04-03 06:16] LABS: Potassium 3.2 mmol/L (3.5-5.1); Sodium 135 mmol/L (136-145)
[2025-04-03 06:17] LABS: Calcium 8.1 mg/dL (8.7-10.4)
[2025-04-03 06:20] LABS: BUN/Creatinine Ratio 7.1 (10.0-20.0)
[2025-04-03 06:24] LABS: Blood Urea Nitrogen 25 mg/dL (9-23); Glucose 111 mg/dL (74-106)
[2025-04-03] MEDS: POTASSIUM CHL 20 Meq TABLET PO ONE (12:37)
[2025-04-03] MEDS ORDERED: VANCOMYCIN 500mg/100mL 100 ML IV ONE (14:00)
[2025-04-03 14:04] LABS: INR 1.07 (0.9-1.15); Partial Thromboplastin Time 28.5 SEC (24.5-34.5); Prothrombin Time 11.3 sec (9.3-11.8)
--- NOTE | 2025-04-03 14:53 | DVHPN2 ---
Progress Note Date Seen: Apr 03, 2025 Medical Necessity Reason Pt with a Central, PICC or Fol: No Subjective Patient reports: Other Review of Systems: Deferred Objective vital signs Vital Sign Date Time Temp Pulse Resp B/P (MAP) Pulse Ox O2 Delivery O2 Flow Rate FiO2 04/03/25 13:00 98.2 84 14 126/76 (93) 96 98.2 04/03/25 08:15 Room Air* 0 21 Total Intake and Output 04/02/25 04/02/25 04/03/25 15:00 23:00 07:00 Intake Total 425 ml 200 ml Balance 425 ml 200 ml medications Current Medications Medications Dose Ordered Sig/Rick Route Start Time Stop Time Status Last Admin Dose Admin Nitroglycerin 0.4 mg Q5MINP PRN SL 03/29/25 18:30 Morphine Sulfate 2 mg Q30M PRN IV 03/29/25 18:30 03/30/25 01:13 2 MG Vancomycin HCl 0 ml @ 0 mls/hr UD IV 03/29/25 18:30 Morphine Sulfate 2 mg Q4HPRN PRN IV 03/29/25 18:30 Calcium Carbonate 500 mg TIDWM PO 03/30/25 08:00 04/03/25 12:37 500 MG Ferrous Sulfate 325 mg BID PO 03/29/25 22:00 04/03/25 09:07 325 MG Pantoprazole Sodium 40 mg DAILY PO 03/30/25 10:00 04/03/25 09:07 40 MG Calcitriol 0.5 mcg DAILY PO 03/30/25 10:00 04/03/25 09:07 0.5 MCG Cholecalciferol 2,000 unit DAILY PO 03/30/25 10:00 04/03/25 09:07 2,000 UNIT Ondansetron HCl 4 mg Q4HPRN PRN IV 03/29/25 20:15 Acetaminophen/ Hydrocodone Bitart 1 tab Q4HPRN PRN PO 03/30/25 12:15 04/01/25 22:18 1 TAB Alprazolam 0.5 mg Q6HP PRN PO 03/31/25 16:15 04/02/25 21:30 0.5 MG Furosemide 40 mg DAILY IV 04/04/25 10:00 laboratory and microbiology Laboratory Tests 04/03/25 05:08 03/31/25 06:44 Test 04/03/25 05:08 Range/Units Serum Glucose 111 H 74-106 mg/dL Microbiology Date/Time Source Procedure Growth Status 04/01/25 14:23 Blood Blood Culture - Preliminary NO GROWTH AFTER 48 HOURS OF INCUBATION. Resulted Problem List/Assessment/Plan Problem List/Assessment/Plan End-stage renal disease on hemodialysis Sepsis likely line infection has picc and tunneled HD cath History of recent abdominal surgery Crohn's disease Hypokalemia Nephrolithiasis Anemia of chronic kidney disease recs blood cx staph aureus 2 bottles remove HD cath picc also being removed abx per id if cultures negative by tuesday he can get new tunneled cath Plan discussed with: Other My Orders My Orders Orders - NINOSKA EVANS MD Procedure Category Date Status Time * Radiologist Consult CONS 04/02/25 Transmitted 16:00 Furosemide Injection PHA 04/04/25 In Process (Lasix Injection) 10:00 Dietary Evaluation Review Comments: 1) Harpreet 1 pk daily 2) Monitor PO intake, lab values, weight trend, and I/O Expected Outcomes/Goals: To meet >75% estimated needs Wound to improve Lab values to improve Fu 3-5 days NINOSKA EVANS MD Apr 03, 2025 14:53
[2025-04-03] MEDS: LIDOCAINE 2%HCL (LOCAL ANESTH.) INJ 20ML MDV ONE (15:02)
--- NOTE | 2025-04-03 15:22 | DVHPN2 ---
Progress Note - Dictate Date Seen: Apr 03, 2025 Medical Necessity Reason Pt with a Central, PICC or Fol: No vital signs Vital Sign Date Time Temp Pulse Resp B/P (MAP) Pulse Ox O2 Delivery O2 Flow Rate FiO2 04/03/25 13:00 98.2 84 14 126/76 (93) 96 98.2 04/03/25 08:15 Room Air* 0 21 Total Intake and Output 04/02/25 04/02/25 04/03/25 15:00 23:00 07:00 Intake Total 425 ml 200 ml Balance 425 ml 200 ml medications Current Medications Medications Dose Ordered Sig/Rick Route Start Time Stop Time Status Last Admin Dose Admin Nitroglycerin 0.4 mg Q5MINP PRN SL 03/29/25 18:30 Morphine Sulfate 2 mg Q30M PRN IV 03/29/25 18:30 03/30/25 01:13 2 MG Vancomycin HCl 0 ml @ 0 mls/hr UD IV 03/29/25 18:30 Morphine Sulfate 2 mg Q4HPRN PRN IV 03/29/25 18:30 Calcium Carbonate 500 mg TIDWM PO 03/30/25 08:00 04/03/25 12:37 500 MG Ferrous Sulfate 325 mg BID PO 03/29/25 22:00 04/03/25 09:07 325 MG Pantoprazole Sodium 40 mg DAILY PO 03/30/25 10:00 04/03/25 09:07 40 MG Calcitriol 0.5 mcg DAILY PO 03/30/25 10:00 04/03/25 09:07 0.5 MCG Cholecalciferol 2,000 unit DAILY PO 03/30/25 10:00 04/03/25 09:07 2,000 UNIT Ondansetron HCl 4 mg Q4HPRN PRN IV 03/29/25 20:15 Acetaminophen/ Hydrocodone Bitart 1 tab Q4HPRN PRN PO 03/30/25 12:15 04/01/25 22:18 1 TAB Alprazolam 0.5 mg Q6HP PRN PO 03/31/25 16:15 04/02/25 21:30 0.5 MG Furosemide 40 mg DAILY IV 04/04/25 10:00 Heparin Sodium (Porcine) 5,000 units Q12HR SC 04/03/25 22:00 UNV laboratory and microbiology Laboratory Tests 04/03/25 05:08 03/31/25 06:44 Test 04/03/25 05:08 Range/Units Serum Glucose 111 H 74-106 mg/dL Assessment/Plan Patient has bacteremia but no signs of sepsis. Repeat blood cultures are negative. Patient is undergoing removal of his tunneled dialysis catheter as well as PICC line today. Continue current antibiotics. We will consider replacement of tunneled dialysis catheter after 48 hours. Patient no longer needs PICC line given the TPN has been discontinued. Discussed with the nurse. Problems(with codes): (1) ESRD (end stage renal disease) on dialysis (2) Staphylococcus aureus bacteremia (3) Diarrhea (4) Crohn's disease Dietary Evaluation Review Comments: 1) Harpreet 1 pk daily 2) Monitor PO intake, lab values, weight trend, and I/O Expected Outcomes/Goals: To meet >75% estimated needs Wound to improve Lab values to improve Fu 3-5 days Plan discussed with: Other MATTHEW GTZ MD Apr 03, 2025 15:22
[2025-04-03] MEDS: fentaNYL CITRATE 100 MCG/2 ML VL ONE (15:33)
[2025-04-03] MEDS: MIDAZOLAM HCL 2MG/2ML 2ml VIAL (1mg/ml) ONE (15:33)
[2025-04-03] MEDS: FUROSEMIDE 40 MG/4 ML VIAL IV ONE (17:37)
[2025-04-03] MEDS: HEPARIN SODIUM (PORCINE) 5000 UNITS/ML 1ML VIAL SC SCH (21:53)
[2025-04-04] VITALS (8 sets, daily range): BP systolic 101–133; BP diastolic 65–97; PULSE 67–92; RESP 14–24; TEMP 36.7; O2SAT 92–99
[2025-04-04 05:47] LABS: Hemoglobin 7.2 g/dL (13.5-17.5); Nucleated Red Blood Cells % 0.0 %
[2025-04-04 05:49] LABS: Hematocrit 20.6 % (41.0-53.0); Mean Corpuscular Hemoglobin 31.2 pg (28.0-32.0); Mean Corpuscular Volume 89.3 fL (80.0-100.0)
[2025-04-04 06:01] LABS: Anion Gap 10 (5-15); Carbon Dioxide 25 mmol/L (20-31); Chloride 100 mmol/L (98-107); Potassium 3.7 mmol/L (3.5-5.1)
[2025-04-04 06:04] LABS: Calcium 8.4 mg/dL (8.7-10.4); Sodium 135 mmol/L (136-145)
[2025-04-04 06:07] LABS: BUN/Creatinine Ratio 7.0 (10.0-20.0); Glucose 93 mg/dL (74-106)
[2025-04-04 06:10] LABS: Blood Urea Nitrogen 30 mg/dL (9-23)
--- NOTE | 2025-04-04 09:45 | DVH ---
DATE: 04/03/2025 PROCEDURE: TUNNELED CATHETER REMOVAL HISTORY: 65 Male renal failure, here for Perma catheter removal DOCUMENTATION: Informed consent was obtained and a procedural time out was performed. SEDATION: Moderate sedation was utilized during the procedure. The patient received benzodiazepines a nd opioids, the dosing of which was documented in the patient s permanent medical record. Pre-sedatio n history and evaluation revealed no contraindications to sedation. The patient s level of consciousn ess and physiologic status was monitored continuously by the physician and nursing staff throughout t he procedure. Total intra-service moderate sedation time was 30 minutes. FLUORO TIME: 0.1 minutes TECHNIQUE: The existing tunneled catheter and surrounding skin were sterilely prepped, draped, and an esthetized with 1% lidocaine. The catheter cuff was dissected free using blunt dissection. The cathet er and cuff were removed intact. Sterile dressings were applied. FINDINGS: The catheter was removed intact. The overlying skin was free of signs of infection. IMPRESSION: 1. SUCCESSFUL TUNNELED CATHETER REMOVAL.
[2025-04-04] MEDS: FUROSEMIDE 40 MG/4 ML VIAL IV SCH (10:45)
--- NOTE | 2025-04-04 14:13 | DVHPN2 ---
Progress Note - Dictate Date Seen: Apr 04, 2025 Medical Necessity Reason Pt with a Central, PICC or Fol: No Subjective Clinically stable. His tunneled dialysis catheter as well as PICC line has removed yesterday. Patient is having urine output. Wondering if he needs dialysis catheter back given he is feeling better and having urine output. vital signs Vital Sign Date Time Temp Pulse Resp B/P (MAP) Pulse Ox O2 Delivery O2 Flow Rate FiO2 04/04/25 10:45 108/70 04/04/25 08:44 98.0 87 14 98 98.0 04/04/25 08:20 Room Air* 0 21 Total Intake and Output 04/03/25 04/03/25 04/04/25 15:00 23:00 07:00 Intake Total 480 ml 600 ml Output Total 450 ml Balance 480 ml 150 ml medications Current Medications Medications Dose Ordered Sig/Rick Route Start Time Stop Time Status Last Admin Dose Admin Nitroglycerin 0.4 mg Q5MINP PRN SL 03/29/25 18:30 Morphine Sulfate 2 mg Q30M PRN IV 03/29/25 18:30 03/30/25 01:13 2 MG Vancomycin HCl 0 ml @ 0 mls/hr UD IV 03/29/25 18:30 Morphine Sulfate 2 mg Q4HPRN PRN IV 03/29/25 18:30 Calcium Carbonate 500 mg TIDWM PO 03/30/25 08:00 04/03/25 12:37 500 MG Ferrous Sulfate 325 mg BID PO 03/29/25 22:00 04/04/25 10:45 325 MG Pantoprazole Sodium 40 mg DAILY PO 03/30/25 10:00 04/04/25 10:45 40 MG Calcitriol 0.5 mcg DAILY PO 03/30/25 10:00 04/04/25 10:45 0.5 MCG Cholecalciferol 2,000 unit DAILY PO 03/30/25 10:00 04/04/25 10:45 2,000 UNIT Ondansetron HCl 4 mg Q4HPRN PRN IV 03/29/25 20:15 Acetaminophen/ Hydrocodone Bitart 1 tab Q4HPRN PRN PO 03/30/25 12:15 04/01/25 22:18 1 TAB Alprazolam 0.5 mg Q6HP PRN PO 03/31/25 16:15 04/03/25 21:46 0.5 MG Furosemide 40 mg DAILY IV 04/04/25 10:00 04/04/25 10:45 40 MG Heparin Sodium (Porcine) 5,000 units Q12HR SC 04/03/25 22:00 04/03/25 21:53 5,000 UNITS objective HEENT neck supple no JVD. Comfortable in bed without distress. Heart regular rate rhythm S1-S2. No murmurs. Lungs fair air movement without rales wheezes. Abdomen soft nontender positive bowel sounds. Extremities no edema positive pulses laboratory and microbiology Laboratory Tests 04/04/25 05:08 Test 04/04/25 05:08 Range/Units Serum Glucose 93 74-106 mg/dL Assessment/Plan Bacteremia appears to be resolved with repeat negative blood cultures. He is afebrile. White cell count is normal. Continue supportive care and treatment including antibiotics while he is in the hospital. I have advised the patient to discuss with the design quality engineer to see if he needs dialysis catheter placed back for continued hemodialysis as an outpatient basis. Patient says he has a follow up appointment with his surgeon for Crohn's disease/surgery this Tuesday. Therefore patient wants to leave the hospital by Tuesday. Discussed with the patient and nurse regarding care plan. Problems(with codes): (1) ESRD (end stage renal disease) on dialysis (2) Staphylococcus aureus bacteremia (3) Crohn's disease (4) Diarrhea Dietary Evaluation Review Comments: 1) Harpreet 1 pk daily 2) Monitor PO intake, lab values, weight trend, and I/O Expected Outcomes/Goals: To meet >75% estimated needs Wound to improve Lab values to improve Fu 3-5 days Plan discussed with: Patient MATTHEW GTZ MD Apr 04, 2025 14:13
--- NOTE | 2025-04-04 16:32 | DVHPN2 ---
Progress Note Date Seen: Apr 04, 2025 Medical Necessity Reason Pt with a Central, PICC or Fol: No Subjective Patient reports: No new complaints, Feels better Review of Systems: HEENT:Normal, CVS:Normal, RESPIRATORY:Normal, GI:Normal, :Normal, MSK:Normal, NEURO:Normal Objective vital signs Vital Sign Date Time Temp Pulse Resp B/P (MAP) Pulse Ox O2 Delivery O2 Flow Rate FiO2 04/04/25 10:45 108/70 04/04/25 08:44 98.0 87 14 98 98.0 04/04/25 08:20 Room Air* 0 21 Total Intake and Output 04/03/25 04/03/25 04/04/25 15:00 23:00 07:00 Intake Total 480 ml 600 ml Output Total 450 ml Balance 480 ml 150 ml medications Current Medications Medications Dose Ordered Sig/Rick Route Start Time Stop Time Status Last Admin Dose Admin Nitroglycerin 0.4 mg Q5MINP PRN SL 03/29/25 18:30 Morphine Sulfate 2 mg Q30M PRN IV 03/29/25 18:30 03/30/25 01:13 2 MG Vancomycin HCl 0 ml @ 0 mls/hr UD IV 03/29/25 18:30 Morphine Sulfate 2 mg Q4HPRN PRN IV 03/29/25 18:30 Calcium Carbonate 500 mg TIDWM PO 03/30/25 08:00 04/03/25 12:37 500 MG Ferrous Sulfate 325 mg BID PO 03/29/25 22:00 04/04/25 10:45 325 MG Pantoprazole Sodium 40 mg DAILY PO 03/30/25 10:00 04/04/25 10:45 40 MG Calcitriol 0.5 mcg DAILY PO 03/30/25 10:00 04/04/25 10:45 0.5 MCG Cholecalciferol 2,000 unit DAILY PO 03/30/25 10:00 04/04/25 10:45 2,000 UNIT Ondansetron HCl 4 mg Q4HPRN PRN IV 03/29/25 20:15 Acetaminophen/ Hydrocodone Bitart 1 tab Q4HPRN PRN PO 03/30/25 12:15 04/01/25 22:18 1 TAB Alprazolam 0.5 mg Q6HP PRN PO 03/31/25 16:15 04/03/25 21:46 0.5 MG Furosemide 40 mg DAILY IV 04/04/25 10:00 04/04/25 10:45 40 MG Heparin Sodium (Porcine) 5,000 units Q12HR SC 04/03/25 22:00 04/03/25 21:53 5,000 UNITS Examination: GENERAL:Normal, HEENT:Normal, NECK:Normal, LUNGS:Normal, CVS:Normal, ABDOMEN:Normal, MSK:Normal, SKIN:Normal, NEURO:Normal, :Normal laboratory and microbiology Laboratory Tests 04/04/25 05:08 Test 04/04/25 05:08 Range/Units Serum Glucose 93 74-106 mg/dL Microbiology Date/Time Source Procedure Growth Status 04/03/25 15:30 Catheter Tip Aerobic Culture - Preliminary Resulted 04/01/25 14:23 Blood Blood Culture - Preliminary NO GROWTH AFTER 72 HOURS OF INCUBATION. Resulted Problem List/Assessment/Plan Problem List/Assessment/Plan End-stage renal disease on hemodialysis Sepsis likely line infection has picc and tunneled HD cath History of recent abdominal surgery Crohn's disease Hypokalemia Nephrolithiasis Anemia of chronic kidney disease recs blood cx staph aureus 2 bottles removed HD tunneled cath picc also removed he can get new tunneled cath as blood cx negative so far from 03/31, 04/01 till now ,,however Radiologist fabrication welder today saying he will need another blood cx negative and cath will be placed on monday 04/09 ---pt can be discharged today and can get HD catheter tomorrow as outpatient ---d/w hospitalist he will need iv abx for 2 weeks with HD --casemanagement to arrange Plan discussed with: Patient My Orders My Orders Orders - NINOSKA EVANS MD Procedure Category Date Status Time Communication Order ORDERS 04/04/25 Transmitted 10:32 * Radiologist Consult CONS 04/04/25 Transmitted 11:37 Dietary Evaluation Review Comments: 1) Harpreet 1 pk daily 2) Monitor PO intake, lab values, weight trend, and I/O Expected Outcomes/Goals: To meet >75% estimated needs Wound to improve Lab values to improve Fu 3-5 days NINOSKA EVANS MD Apr 04, 2025 16:32
[2025-04-04] MEDS ORDERED: CHL4PW PO (18:04)
--- NOTE | 2025-04-04 18:09 | DVHDS2 ---
Discharge Summary Date of Admission Mar 29, 2025 at 18:20 Date of Discharge: Apr 04, 2025 Labs/Diagnostic Data: Laboratory Results Test 04/04/25 05:08 04/03/25 13:28 04/02/25 04:55 03/31/25 13:01 White Blood Count 8.6 10^3/uL (4.4-10.8) Red Blood Count 2.30 10^6/uL (4.5-5.90) Hemoglobin 7.2 g/dL (13.5-17.5) Hematocrit 20.6 % (41.0-53.0) Mean Corpuscular Volume 89.3 fL (80.0-100.0) Mean Corpuscular Hemoglobin 31.2 pg (28.0-32.0) Mean Corpuscular Hemoglobin Concent 34.9 g/dL (32.0-36.0) Red Cell Distribution Width 18.5 % (11.8-14.3) Platelet Count 192 10^3/uL (140-450) Mean Platelet Volume 8.2 fL (6.9-10.8) Neutrophils (%) (Auto) 78.6 % (37.0-80.0) Lymphocytes (%) (Auto) 13.8 % (10.0-50.0) Monocytes (%) (Auto) 5.4 % (0.0-12.0) Eosinophils (%) (Auto) 1.7 % (0.0-7.0) Basophils (%) (Auto) 0.5 % (0.0-2.0) Neutrophils # (Auto) 6.8 10 ^3/uL (1.6-8.6) Lymphocytes # (Auto) 1.2 10 ^3/uL (0.4-5.4) Monocytes # (Auto) 0.5 10 ^3/uL (0-1.3) Eosinophils # (Auto) 0.2 10 ^3/uL (0-0.8) Basophils # (Auto) 0 10 ^3/uL (0-0.2) Nucleated Red Blood Cells 0.0 % Sodium Level 135 mmol/L (136-145) Potassium Level 3.7 mmol/L (3.5-5.1) Chloride Level 100 mmol/L (98-107) Carbon Dioxide Level 25 mmol/L (20-31) Anion Gap 10 (5-15) Blood Urea Nitrogen 30 mg/dL (9-23) Creatinine 4.27 mg/dL (0.700-1.30) Glomerular Filtration Rate Calc 15 mL/min (>90) BUN/Creatinine Ratio 7.0 (10.0-20.0) Serum Glucose 93 mg/dL (74-106) Calcium Level 8.4 mg/dL (8.7-10.4) Random Vancomycin Level 14.4 ug/mL (5-10) Prothrombin Time 11.3 sec (9.3-11.8) Prothrombin Time INR 1.07 (0.9-1.15) Activated Partial Thromboplast Time 28.5 SEC (24.5-34.5) Hepatitis B Surface Antigen Negative (Negative) Vitamin D 25-Hydroxy 26.4 ng/mL (30.0-100) Test 03/31/25 06:44 03/30/25 10:30 03/30/25 04:19 03/29/25 17:00 Phosphorus Level 3.8 mg/dL (2.4-5.1) Magnesium Level 1.8 mg/dL (1.6-2.6) Parathyroid Hormone (Intact) 61.9 pg/mL (18.4-80.1) Urine Color Light-yellow (Yellow) Urine Clarity Clear (Clear) Urine pH 7.0 (5.0-9.0) Urine Specific Gary 1.014 (1.001-1.035) Urine Protein 2+ (Negative) Urine Ketones Negative (Negative) Urine Blood Trace /uL (Negative) Urine Nitrite Negative (Negative) Urine Bilirubin Negative (Negative) Urine Urobilinogen Normal mg/dL (Negative) Urine Leukocyte Esterase Negative /uL (Negative) Urine RBC 1 /hpf (0 - 3) Urine Microscopic WBC 9 /HPF (0-3) Urine Squamous Epithelial Cells Few /hpf (<5) Urine Bacteria None seen /hpf (None Seen) Urine Glucose Trace mg/dL (Normal) Total Bilirubin 0.4 mg/dL (0.2-1.0) Aspartate Amino Transferase (AST) 26 U/L (13-40) Alanine Aminotransferase (ALT) 19 U/L (7-40) Alkaline Phosphatase 97 U/L (46-116) Total Protein 6.4 g/dL (5.7-8.2) Albumin 3.1 g/dL (3.2-4.8) Lactic Acid Level 1.9 mmol/L (0.4-2.0) Other Laboratory Tests 04/04/25 05:08 Brief Hx & Hospital Course: 65-year-old male with past medical history of Crohn's disease, recent abdominal surgery was brought in with complaints of abnormal labs from urgent care. Patient was noted to have an elevated WBC count. Patient did endorse fever with chills and tremors. During the emergency department evaluation W17.0, H&H 9.2/ 0.0, PLT 167. Na 130, K3.6, BUN 37, creatinine 4.44, GFR 14. At this time there is no complaints of dizziness, shortness of breath, palpitations, chest pain, abdominal pain, nausea, vomiting, hematemesis, hematochezia, melena. He is admitted and evaluated by ground crewman mission support. Patient's initial blood cultures showed staph aureus organisms with the bacteremia but no sepsis. Patient's echocardiogram did not reveal any obvious vegetations. Patient remained clinically stable during hospitalization. He is empirically treated with IV antibiotics including vancomycin. Patient has had a PICC line as well as Tylenol dialysis catheter. Therefore both of them were removed due to bacteremia for Nephrology recommendations. His follow up blood cultures did not reveal any further bacteremia. Therefore ground crewman mission support recommended to reinsert dialysis catheter to continue hemodialysis as outpatient basis. However this is not able to be done while in the hospital therefore given his clinically stable to his being discharged home and to follow up at [facility] radiology department in the next 24 hours to have the catheter placed as an outpatient basis. Patient will be getting IV vancomycin with the dialysis as an outpatient for next two two weeks for Nephrology recommendations. This is also arranged with the employment case manager from [facility]. Patient verbalized understanding of this and agreed to go have this catheter placed as recommended at [facility]. Therefore he has been discharged home in stable condition. I have talked with the patient regarding his bacteremia, blood culture results, discharge diagnosis, discharge medications, discharge instructions follow-up plan of care. He has verbalized understanding of these and agree with the care plan as outlined. Consults/Reason for consult Problem List/Assessment/Plan End-stage renal disease on hemodialysis Sepsis likely line infection has picc and tunneled HD cath History of recent abdominal surgery Crohn's disease Hypokalemia Nephrolithiasis Anemia of chronic kidney disease recs blood cx staph aureus 2 bottles removed HD tunneled cath picc also removed he can get new tunneled cath as blood cx negative so far from 03/31, 04/01 till now ,,however Radiologist electrician substation today saying he will need another blood cx negative and cath will be placed on monday 04/09 ---pt can be discharged today and can get HD catheter tomorrow as outpatient ---d/w hospitalist he will need iv abx for 2 weeks with HD --casemanagement to arrange Plan discussed with: Patient ELAINENINOSKA ZURITA MD Apr 04, 2025 16:32 Operations or Procedures APPROVED REPORT EXAM: Two-dimensional and M-mode echocardiogram with Doppler and color Doppler. Blood Pressure: 117/70 mmHg INDICATION Eval for Vegetations RISK FACTORS Height: 5' 9", Weight: 164 DIMENSIONS LVDd 5.1 (3.8-5.7cm) LA (2D) 4.5 (1.9-4.0cm) Aortic Root 3.5 (2.0- 3.7cm) LVDs 4.4 (2.5-4.0cm) LA (MM) (1.9-4.0cm) Aortic Cusp Exc 1.7 (1.5- 2.0cm) EF (%) 40.0 (55-70%) Rt. Atrium 4.2 (1.9-4.0cm) Asc. Aorta cm IVSd 1.1 (0.7-1.1cm) RV (D) (1.8-2.4cm) PWd 1.0 (0.7-1.1cm) Mitral Valve Mitral Mitral Stenosis E wave 0.60m/s MV Mean GR. mmHg A wave 1.00m/s MV Peak GR. mmHg E/A ratio 0.6 2D MVA cm2 Aortic Valve Aortic Valve Aortic Stenosis V1 0.80m/s AO Mean GR. 4mmHg V2 1.30m/s AO Peak GR. 8mmHg LVOT Diameter 2.1 (1.8-2.4cm) Doppler CAMI 2.13cm2 Tricuspid Valve TR Velocity 2.10m/s RVSP 22mmHg Conclusion lvef 65% grade 1 diastolic dysfunction normal RV functoin left atrium enlarged no severe valve abnormalities noted SIGNED BY: MANJEET NORIEGA MD SIGNED DATE/TIME: 04/01/25923 Condition at Discharge: Stable Final Diagnosis/Problems List gram + bacteremia, hx of lilo mendoza with diarrea, ESRD on HD Discharge Disposition: Home Discharge Instruct/Medications Diet: Consistent carbohydrate, Cardiac 2g Na,low cholest Diet comment: No Breakfast tomorrow for planned Dialysis cathete placement at noon Activity: No Restrictions, As Tolerated Follow Up/Referral: Tomorrow at [facility] admitting departemnt at 10am for Tunneled Hemodialysis catheter placement by RADIOLOGY DEPT DR.Rahul Brooks Medications: home medications and to continue Vancomycin IV with Dialysis for 2 weeks as outpatient. Scheduled Calcitriol (Calcitriol), 0.5 MCG PO DAILY Calcium Carbonate (Calcium Carbonate), 500 MG PO TID Cholecalciferol (Vitamin D-3 Super Strengt), 1 TAB PO DAILY, (Reported) Cholestyramine (Questran Powder), 4 GM PO TID Ferrous Sulfate (Ferrous Sulfate), 1 TAB PO BID Magnesium Oxide (Magnesium Oxide), 1 TAB PO BID Pantoprazole Sodium Sesquihydr (Protonix), 40 MG PO DAILY Discontinued Medications Prednisone (Prednisone), 5 MG PO DAILY Discharge Statement: "Patient was advised to return to the ER or call 911 if any headaches, dizziness, shortness of breath, chest pain, abdominal pain, bleeding, fevers, or worsening of medical condition. Patient was counseled about treatment plan, medications, possible side effects, patientverbalized understanding. All questions were answered to the best of my ability. This discharge took greater then 30 minutes in planning, reviewing documentation, counseling the patient, and discussing with other team members." ASSESSMENT ASSESSMENT Assessment gram + bacteremia, hx of lilo mendoza with diarrea, ESRD on HD MATTHEW GTZ MD Apr 04, 2025 18:09
== END 2025-04-04 19:25 | disposition home or self-care (01) | DRG 314 ==
LOC: ER 16:43 → EDUNIT# 16:43 → EDBD 16:43 → OVERFLOW 18:20 → TELE-WESTW 03-31 22:10
PROVIDERS: ADMIT Hospitalist; ATTEND Hospitalist
PROC: 5A1D70Z Performance of Urinary Filtration, Intermittent, Less than 6 Hours Per Day (ICD-10-PCS; principal; 2025-04-01)
PROC: 0JPTXXZ Removal of Tunneled Vascular Access Device from Trunk Subcutaneous Tissue and Fascia, External Approach (ICD-10-PCS; 2025-04-03)
DX: T80.211A Bloodstream infection due to central venous catheter, initial encounter (principal); N18.6 End stage renal disease; E87.1 Hypo-osmolality and hyponatremia; N17.9 Acute kidney failure, unspecified; D63.1 Anemia in chronic kidney disease; E87.6 Hypokalemia; N20.0 Calculus of kidney; F17.210 Nicotine dependence, cigarettes, uncomplicated; J45.909 Unspecified asthma, uncomplicated; F41.9 Anxiety disorder, unspecified; Y83.8 Other surgical procedures as the cause of abnormal reaction of the patient, or of later complication, without mention of misadventure at the time of the procedure; Z99.2 Dependence on renal dialysis; Z93.3 Colostomy status; Z87.442 Personal history of urinary calculi; Y92.89 Other specified places as the place of occurrence of the external cause; Z87.19 Personal history of other diseases of the digestive system
CPT/HCPCS: 36415; 36590; 71045; 74176; 80048; 80053; 80202; 81001; 82306; 82565; 83605; 83735; 83970; 84100; 85025; 85610; 85730; 86850; 86900; 86901; 87040; 87070; 87075; 87077; 87147; 87186; 87340; 90935; 93005; 93306; 96365; 99291; G0378; J2003; J2248; J2250; J2405; J3490